=== PATIENT | male | born 1955 | race Caucasian/White ===

== ENCOUNTER 2019-04-08 13:21 | Inpatient (IN) | payer OTHER, SELFPAY ==
[2019-04-08] VITALS (14 sets, daily range): BP systolic 87–111; BP diastolic 52–83; PULSE 72–84; RESP 16–24; TEMP 35.9–37.1; O2SAT 92–99; BMI 42.3; BMI 43.8
--- NOTE | 2019-04-08 13:59 | RAD_ITS ---
STUDY: X-RAY CHEST REASON FOR EXAM: Male, 63 years old. Cough TECHNIQUE: AP COMPARISON: None. FINDINGS: EKG leads project over the chest. The lungs are clear and expanded. There is no demonstrated pleural abnormality. Normal size heart. Normal mediastinum and jeffrey. Normal visualized pulmonary arteries. Normal visualized aortic arch and descending thoracic aorta. Normal visualized thoracic spine. There are degenerative changes of the left shoulder. There is no demonstrated abnormality of the visualized soft tissue structures of the upper abdomen. RAD/Chest 1 View (Portable) IMPRESSION: No acute cardiopulmonary process. Electronically Signed: Dominic Perla MD (Brooks) at 14:55 EDT , Service support ,
--- NOTE | 2019-04-08 13:59 | EKG12_ITS ---
Test Reason : CELLULITIS Blood Pressure : / mmHG Vent. Rate : 082 BPM Atrial Rate : 082 BPM P-R Int : 224 ms QRS Dur : 084 ms QT Int : 356 ms P-R-T Axes : 069 020 046 degrees QTc Int : 415 ms Sinus rhythm with 1st degree A-V block Otherwise normal ECG Confirmed by TY MCKENZIE, SUNSHINE ([id number]), online editor ALCIRA PULLIAM ([id number]) on 04/13/2019 10:18:56 AM Referred By: Confirmed By:SUNSHINE CRAWFORD MD
--- NOTE | 2019-04-08 14:01 | RAD_ITS ---
STUDY: X-RAY - RIGHT FOOT CLINICAL: Male, 63 years old. Right foot pain with wound TECHNIQUE: 3 view(s) of the foot. COMPARISON: None. FINDINGS: Calcaneal spur identified. Degenerative changes of the tibiotalar articulation, subtalar joint and dorsal midfoot articulations identified. Normal metatarsi. There is degenerative arthrosis of the metatarsophalangeal joint of the hallux . Normal tibial and fibular sesamoid bones. There is degenerative arthrosis of the interphalangeal joint of the great toe. Normal phalanges of the great toe. Normal second through fifth metatarsophalangeal joints. Normal interphalangeal joints and phalanges of the lesser toes. There is diffuse soft tissue swelling of the forefoot, medial more than lateral. There are punctate densities involving the first through third toes could represent superficial debris (based on lateral view). RAD/Foot min 3 Views IMPRESSION: 1. No fabi bony destructive process. Soft tissue swelling of the medial or the lateral foot. 2. Superficial debris of the distal plantar foot/toes. 3. Multifocal degenerative changes. Electronically Signed: Dominic Perla MD (Brooks) at 14:56 EDT , Service support ,
[2019-04-08 14:18] LABS: Absolute Lymphocyte Count 0.72 X10^3/uL (0.83-4.51); Absolute Neutrophil Count 13.7 X10^3/uL (2.0-7.7); Basophil# 0.06 X10^3/uL; Basophil% 0.4 % (0-1); Eosinophil# 0.02 X10^3/uL; Eosinophils% 0.1 % (0-5); Hematocrit 35.6 % (40-54); Hemoglobin 11.8 g/dL (13.0-16.5); Lymphocyte # 0.72 X10^3/ul (4.0); Lymphocyte % 4.5 % (19-41); Mean Corp Hgb Conc 33.1 g/dL (32-36); Mean Corpuscular Hgb 29.7 pg (27.0-32.0); Mean Corpuscular Volume 89.7 fL (80-94); Mean Platelet Vol. 9.6 fl (6.2-12.0); Monocyte# 1.38 X10^3/uL; Monocyte% 8.6 % (0-10); NRBC Flagged by Analyzer 0 % (0-5); Neutrophil # 13.74 X10^3/uL (2.7-7.7); POSITIVE MORPHOLOGY YES; Platelet Count 415 K/mm3 (150-450); RBC Distribution Width CV 12.3 % (11.6-14.6); RBC Distribution Width SD 40.7 fl (35.1-43.9); Red Blood Count 3.97 M/mm3 (4.6-6.2)
[2019-04-08 14:21] LABS: Differential Indicated SCAN CRITERIA MET
[2019-04-08 14:25] LABS: International Normalized Ratio 1.2; Prothrombin Time (Protime)PT. 14.5 SECONDS (11.7-14.9)
[2019-04-08 14:26] LABS: Partial Thromboplast Time 46.4 Seconds (24.1-36.2)
[2019-04-08] MEDS: 0.9% Normal Saline 1,000 ML 999 ML IV ×3 (14:30→16:11)
[2019-04-08 14:33] LABS: ALB/GLOB Ratio 0.4 RATIO (0.9-2.4); AST(SGOT) 20 U/L (15-37); Alanine Aminotransfer ALT/SGPT 30 U/L (16-61); Alkaline Phosphatase 178 U/L (45-117); Anion Gap 7 (5-15); BUN 25 mg/dL (7-18); BUN/Creat Ratio 19.2 RATIO (10-20); Calcium,Total 8.2 mg/dL (8.5-10.1); Chloride 100 mmol/L (98-107); EST Glomerular Filtration Rate 59 mL/min (>60); Est Glom Filt Rate - Afr Amer 72 mL/min (>60); Estimated Creatinine Clearance 60.05 ml/min; Globulin 4.6 g/dL (2.2-4.2); Glucose 241 mg/dL (74-106); Potassium 3.3 mmol/L (3.5-5.1); Protein, Total 6.6 g/dL (6.4-8.2); Sodium Level 136 mmol/L (136-145)
[2019-04-08 15:02] LABS: Lactic Acid 1.6 mmol/L (0.4-2.0)
--- NOTE | 2019-04-08 15:48 | ED.VISSUMM ---
- ER Visit Summary Date of Service: 04/08/19 Chief Complaint: Pain and swelling to his right great toe History of Present Illness: The patient is a 63 M who presents with pain and swelling to his right great toe that is been getting progressively worse over the past week. Patient describes the pain as aching and burning. Patient states the pain is worse with palpation. Patient does admit to some dizziness. Patient states his work will not allow him time off to see his doctor for this. Patient admits to some nausea but denies any vomiting. Patient admits to a cough but denies any sputum production. Patient denies any headaches. Physical Examination: Vital signs showed a blood pressure of 87/52 and a temperature of 96.6. The remaining vital signs were normal. Patient is in no acute distress. Oral mucosa is pink and moist. Neck is supple. Trachea is midline. There is no JVD noted. Heart was regular rate and rhythm. Lungs are clear and equal bilaterally. Abdomen is soft and nontender. Extremities are intact. There is erythema and warmth over the right great toe. There is a large blister noted over the right great toe. Sensation was diminished in the right great toe compared to the other toes. Pedal pulses are equal bilaterally. Test Results: EKG showed first-degree AV block with a rate of 82. There are no acute ST or T wave changes. Portable chest x-ray does not show any acute cardiopulmonary process. X-rays of the right foot were obtained. There is soft tissue swelling but no evidence of osteomyelitis. CBC shows a mild leukocytosis of 16.0. Glucose was 241. Potassium was slightly low at 3.3. Lactate was normal at 1.6. Emergency Department Course and Treatment: Patient was given a 30 cc/kg bolus of normal saline. Patient was given a dose of clindamycin here. Patient's blood pressure improved after fluid bolus. Patient was given morphine. Patient is agreeable to admission. Case was discussed with the hospitalist. She will be in to evaluate the patient and will admit the patient to the hospital. Disposition: Admit to hospital Impression: 1. Cellulitis right foot 2. Sepsis This note was generated with [employer] dictation software. It may contain incorrect words, spelling, and punctuation that were not noted in review of the chart prior to signing ED Disposition - Plan for ED Patient: Disposition: Acute Care Hospital [facility] Diagnosis: Cellulitis of right foot, Sepsis Referrals: Care Physician,No Primary [Primary Care Provider] -
--- NOTE | 2019-04-08 16:18 | PCM.HP.STD ---
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: without [facility] use Diabetes mellitus complication status: without complication Qualified Code(s): E11.9 - Type 2 diabetes mellitus without complications (3) Morbid obesity Status: Chronic (4) ENEIDA (obstructive sleep apnea) Status: Chronic (5) Cellulitis of right foot Status: Acute (6) Sepsis Status: Acute Qualifiers: Sepsis type: sepsis due to unspecified organism Sepsis acute organ dysfunction status: without acute organ dysfunction Qualified Code(s): A41.9 - Sepsis, unspecified organism History of Present Illness Date of Admission: 04/08/19 Chief Complaint: Right lower leg redness - 6 days The patient is a 63 year old M with past medical history of hypertension, type II DM, not on insulin, morbid obesity, ENEIDA on CPAP who comes in with complaints of right lower extremity swelling and erythema ongoing for 6 days. Patient admits to having had an Achilles tendon rupture 8 months ago. 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 He stepped done on 9 on even surface of the road during construction and felt a pop and subsequently was diagnosed with Achilles tendon rupture. At that time a Doppler ultrasound was negative for acute clot. He has been managing his injury conservatively. Since his rupture, he has noticed swelling of his right lower leg. He is supposed to wear steel toed boots, and has been complaining about leg swelling in his toes rubbing against the steel toes. Over the last 6 days he noticed more swelling and erythema of his lower extremity. He denied any fever or chills or chest pain or dizziness or palpitations. He does not wear oxygen at home. He decided to come to the hospital today. Vitals in the ED showed temperature of 96.6F, heart rate blood pressure was 87/52, respiratory rate was 16, SPO2 was 94% on room air. His blood pressure later improved to 111/58. His admitting WBC count was 16.0, hemoglobin 11.8, platelet 415, INR 1.2, APTT 46.4, sodium 136, potassium 3.3, BUN 25, creatinine 1.30, HbA1c 12.2, lactic acid 1.6, P unremarkable except for ALP of 178, albumin 2.0, BNP of 156.4. Chest X-ray shows no acute cardiopulmonary process. X-ray of the foot shows no fabi bony destructive process. Soft tissue swelling of the fourth, superficial debris of the distal plantar toes, multifocal degenerative changes. Past Medical History Past Medical History (Chronic Problems): Chronic Problems Hypertension (Chronic) DM type 2 (diabetes mellitus, type 2) (Chronic) Morbid obesity (Chronic) ENEIDA (obstructive sleep apnea) (Chronic) Allergies Penicillins [PCN] Allergy (Verified 04/08/19 13:23) Other Sulfa (Sulfonamide Antibiotics) Allergy (Verified 04/08/19 13:23) Other Home Medications: Ambulatory Orders Medication Instructions Recorded Amlodipine [Norvasc] 10 mg PO DAILY 04/08/19 Carvedilol 12.5 mg PO DAILY 04/08/19 Glimepiride 4 mg PO DAILY 04/08/19 Hydrochlorothiazide [Hctz] 25 mg PO DAILY 04/08/19 Metformin HCl 1,000 mg PO BID 04/08/19 Ramipril 10 mg PO QHS 04/08/19 Surgical History: total hip arthroplasty - right hip replacement Psychiatric History: No pertinent psych hx Lives: With Family Smoking Status: Former smoker Tobacco Use: Cigarettes Alcohol: None Drugs: None - *Family History Maternal History Items: No pertinent history Paternal History Items: No pertinent history Review of Systems Constitutional: Denies: Anorexia, Chills, Fever, Night Sweats, Malaise, Weakness, Weight Change, Fatigue Eyes: Denies: Blurred vision, Cataracts, Conjunctivae Inflammation, Pain, Redness HEENT: Denies: Difficulty Hearing, Difficulty Swallowing, Head Aches, Hearing Changes, Sinus Congestion, Sinus Drainage Cardiovascular: Denies: Chest Pain, Palpitations Respiratory: Denies: Cough, Hemoptysis, Shortness of breath at rest, Shortness of breath upon exertion, Sputum production Gastrointestinal: Denies: Abdominal Pain, Constipation, Hematemesis, Nausea, Vomiting Genitourinary: Denies: Dysuria, Incontinence, Nocturia Musculoskeletal: Reports: - - Right foot and leg swelling. Denies: Joint Pain, Joint stiffness, Joint swelling, Joint Tenderness Skin: Denies: Dryness, Pruritis, Rash, Wounds Neurological: Denies: Balance problems, Difficulty swallowing, Focal weakness, Numbness, Tingling Psychiatric: Denies: Anxiety, Depression, Homicidal Ideations, Suicidal Ideations Hematologic/ Lymphatic: Denies: Easy Bruising, Easy Bleeding VTE Information - Inpt Only VTE Present on Admission: No VTE Pharm Prophylaxis ordered?: Yes Patient Problems: Active and Suspected Problems Cellulitis of right foot (Acute) Sepsis (Acute) - Physical Exam General: Alert, Oriented x3, Cooperative, No apparent distress, - - on 2L intranasal oxygen, morbidly obese HEENT: Atraumatic, PERRLA, EOMI, Normocephalic Oral: Moist Mucosa Neck: Supple Lungs: Normal air movement, Diminished Cardiovascular: Regular rate, Regular Rhythm, Normal S1, Normal S2 Abdomen: Bowel Sounds Present, Soft, Non Tender, Non-Distended, No Hepato-splenomegaly Extremities: Edema - Bilateral leg edema +4 in the right leg, +3 in the left leg, Right leg: Erythema of the foot up to proximal 2/3 third of the leg, tender to touch, right leg looks bigger than the left; blister distal phalange of the right 1st toe. Left leg: Chronic venous stasis hyperpigmentation Skin: No rashes, No breakdown Musculoskeletal: No Tenderness to Palpation of Joints or Extremities Lymphatic: No Cervical, Supraclavicular, or Inguinal Adenopathy Neurological: Cranial nerves II-XII grossly intact, Neuro grossly intact Psych/Mental Status: Normal Affect, Appropriate Vital Signs Temp Pulse Resp BP Pulse Ox 98.7 F 80 22 H 111/58 L 97 04/08/19 15:56 04/08/19 16:13 04/08/19 16:13 04/08/19 16:13 04/08/19 16:13 Oxygen Flow Rate (L/min) 2 Oxygen Delivery Method Nasal Cannula Weight: 133.81 kg Body Mass Index (BMI) 42.3 Intake and Output for Last 24 Hours 04/06/19 04/07/19 04/08/19 23:59 23:59 23:59 Intake Total 1183.15 / 1183.15 Balance 1183.15 / 1183.15 Laboratory Tests Past 24 Hrs 04/08/19 04/08/19 04/08/19 10:40 10:40 10:40 WBC 16.0 H RBC 3.97 L Hgb 11.8 L Hct 35.6 L MCV 89.7 MCH 29.7 MCHC 33.1 RDW Std Deviation 40.7 RDW Coeff of Akila 12.3 Plt Count 415 MPV 9.6 Immature Gran % (Auto) 0.400 Neut % (Auto) 86.0 H Lymph % (Auto) 4.5 L Scre[place] % (Auto) 8.6 Eos % (Auto) 0.1 Baso % (Auto) 0.4 Absolute Neuts (auto) 13.7 H Absolute Lymphs (auto) 0.72 L Nucleated RBC % 0 PT 14.5 INR 1.2 APTT 46.4 H Sodium 136 Potassium 3.3 L Chloride 100 Carbon Dioxide 29.0 Anion Gap 7 BUN 25 H Creatinine 1.30 Estim Creat Clear Calc 60.05 Est GFR (MDRD) Af Amer 72 Est GFR (MDRD) Non-Af 59 L BUN/Creatinine Ratio 19.2 Glucose 241 H Lactic Acid Calcium 8.2 L Total Bilirubin 1.00 AST 20 ALT 30 Alkaline Phosphatase 178 H Total Protein 6.6 Albumin 2.0 L Globulin 4.6 H Albumin/Globulin Ratio 0.4 L 04/08/19 10:40 WBC RBC Hgb Hct MCV MCH MCHC RDW Std Deviation RDW Coeff of Akila Plt Count MPV Immature Gran % (Auto) Neut % (Auto) Lymph % (Auto) Screven % (Auto) Eos % (Auto) Baso % (Auto) Absolute Neuts (auto) Absolute Lymphs (auto) Nucleated RBC % PT INR APTT Sodium Potassium Chloride Carbon Dioxide Anion Gap BUN Creatinine Estim Creat Clear Calc Est GFR (MDRD) Af Amer Est GFR (MDRD) Non-Af BUN/Creatinine Ratio Glucose Lactic Acid 1.6 Calcium Total Bilirubin AST ALT Alkaline Phosphatase Total Protein Albumin Globulin Albumin/Globulin Ratio Assessment/Plan All Active Problems Cellulitis of right foot (Acute) Sepsis (Acute) 63 year old M with past medical history of hypertension, type II DM, not on insulin, morbid obesity, ENEIDA on CPAP who comes in with complaints of right lower extremity swelling and erythema ongoing for 6 days. 1. Sepsis secondary to right lower extremity cellulitis with blister of right distal phalange 1st toe Admitted with temperature of 96.6, elevated WBC count of 16.0. Lactic acid is 1.6, blood cultures are pending History of penicillin allergy in his childhood - unclear what allergy Started on IV clindamycin Plan: Admit to [facility], continue on IV clindamycin and vancomycin, elevate right lower extremity, Podiatry consult, repeat blood work in a.m. We will need to rule out DVT in the right lower extremity -doppler ultrasound stat, therapeutic Lovenox 2. Hypokalemia, K 3.3, replaced, recheck in am 3. Type II DM, blood sugars are uncontrolled, HbA1c is 12.2, Hold metformin Will continue with blood glucose checks with insulin sliding scale Patient would need to be started on long-acting insulin tomorrow depending on if podiatry wants surgery or not 4. Hypertension, blood pressure was relatively low initially in the ED, responsive to fluid, Controlled now, Hold hydrochlorothiazide and ramipril in the light of ongoing hemodynamic changes from sepsis Continue on amlodipine and carvedilol for now May need to have amlodipine switched if patient has no CHF 5. Probable CHF/right-sided failure/diastolic dysfunction, BNPep is 156.4 Patient is morbidly obese We will check to the echo 6. ENEIDA, on CPAP 7. Morbid obesity, BMI 43.8, diet and exercise is recommended 8. DVT prophylaxis with Lovenox therapeutic twice daily -may need to switch to prophylaxis dose and if no DVT present Code Visit Inpatient E&M: 82534 Init Hosp L3
[2019-04-08] MEDS: Morphine 4 MG/ML Syringe IV (16:19)
--- NOTE | 2019-04-08 17:59 | ECHOCS_ITS ---
Reason For Study: Dyspnea/SOB Procedure This was a 2D Doppler, Color Flow transthoracic echocardiogram. The study was technically difficult. Contrast injection was performed. Exam performed portable in patient room. Left Ventricle Normal LV size. Left ventricular systolic function is normal. The estimated ejection fraction is 65 %. Stage 2 diastolic dysfunction. No regional wall motion abnormalities noted. Atria The left atrium is mildly enlarged. Normal right atrium. Mitral Valve Normal mitral valve. Tricuspid Valve Normal tricuspid valve. Mild tricuspid valve insufficiency. Aortic Valve Trisinus/trileaflet aortic valve. Pulmonic Valve Normal pulmonic valve. Great Vessels Normal aortic root. The pulmonary artery is normal size. Normal inferior vena cava. Pericardium/Pleural No pericardial effusion. Medication Diluted definity 2ml given slow IV push to enhance endocardial definition. MMode/2D Measurements & Calculations LVIDd: 5.3 cm IVSd: 1.4 cm Ao root diam: 3.3 cm LVIDs: 3.0 cm LVPWd: 1.0 cm RVDd: 3.4 cm FS: 42.6 % LAV(MOD-bp): 66.3 ml LVAd ap4: 34.5 cm2 SV(MOD-sp4): 67.5 ml LAV(MOD-bp) Indexed: 26.6 ml/m2 EDV(MOD-sp4): 112.1 ml LAV(MOD-sp2): 48.5 ml EDV(sp4-el): 115.3 ml LAV(MOD-sp4): 74.0 ml LVAs ap4: 20.0 cm2 ESV(MOD-sp4): 44.6 ml ESV(sp4-el): 45.1 ml EF(MOD-sp4): 60.2 % EF(sp4-el): 60.9 % SV(sp4-el): 70.2 ml LA A4 area: 24.3 cm2 LA dimension(2D): 3.6 cm RA A4 area: 15.5 cm2 Doppler Measurements & Calculations MV E max johny: 112.9 cm/sec Lat Peak E' Johny: 10.0 cm/sec Med Peak E' Johny: 8.8 cm/sec MV A max johny: 66.4 cm/sec E/E' lat: 11.3 E/E' med: 12.9 MV E/A: 1.7 Ao V2 max: 127.5 cm/sec LV V1 max: 111.4 cm/sec PA V2 max: 78.9 cm/sec Ao max P.5 mmHg LV V1 max P.0 mmHg Ao V2 mean: 98.5 cm/sec Ao mean P.1 mmHg Ao V2 VTI: 20.5 cm TR max johny: 215.1 cm/sec TR max P.5 mmHg Interpretation Summary Normal LV size. Left ventricular systolic function is normal. The estimated ejection fraction is 65 %. Stage 2 diastolic dysfunction. Contrast injection was performed. Ordering Physician: Karis Franks Performed By: Laureen Bird RDCS, RVT
--- NOTE | 2019-04-08 18:13 | PCM.RX.CS ---
Consult Pharmacy has been consulted to manage selected antiobiotic: Vancomycin Type of Consult: New start Suspected Infection: Sepsis, Skin/Soft tissue Prior Doses of Antibiotics Received/Current Regimen: NONE Labs: Sodium 136 mmol/L (136-145) 04/08/19 10:40 Potassium 3.3 mmol/L (3.5-5.1) L 04/08/19 10:40 Chloride 100 mmol/L (98-107) 04/08/19 10:40 Carbon Dioxide 29.0 mmol/L (21.0-32.0) 04/08/19 10:40 Anion Gap 7 (5-15) 04/08/19 10:40 BUN 25 mg/dL (7-18) H 04/08/19 10:40 Creatinine 1.30 mg/dL (0.70-1.30) 04/08/19 10:40 Est GFR (MDRD) Af Amer 72 mL/min (>60) 04/08/19 10:40 Est GFR (MDRD) Non-Af 59 mL/min (>60) L 04/08/19 10:40 BUN/Creatinine Ratio 19.2 RATIO (-20) 04/08/19 10:40 Glucose 241 mg/dL (74-106) H 04/08/19 10:40 Weight used for dosin kg Estimated Creatinine Clearance: 61ML/MIN Goal Trough: 15-20 mcg/mL Pharmacy Plan for Drug Dosing: PLAN/RECOMMENDATIONS 1. Vancomycin initial dose 2000mg IV x1 04/08/19 @1900 2. Scheduled vancomycin 1500mg IV Q12hrs to start 04/09/19 @0700 3. Trough prior to 4th total dose 04/10/19 @0630 4. Pharmacy Service will continue to monitor and adjust dosing as required.
[2019-04-08] MEDS: 0.9% Normal Saline 1,000 ML 75 ML IV (18:18)
[2019-04-08 18:56] LABS: Hemoglobin A1c 12.2 % (4.2-6.3)
--- NOTE | 2019-04-08 19:07 | VDLE_ITS ---
Reason For Study: RLE swelling RIGHT GSV is normal. CFV is compressible, spontaneous, phasic, competent and demonstrates normal augmentation. FV is compressible, spontaneous, phasic, competent and demonstrates normal augmentation. POP V is compressible, spontaneous, phasic, competent and demonstrates normal augmentation. T/P Trunk is compressible. PTV is compressible. RT PerV is compressible. Procedure Exam performed portable in patient room. The study was technically difficult. Due to body habitus and below knee cellulits (tender to the touch). A preliminary report was called and/or faxed to [facility]. Interpretation Summary There is no evidence of right lower extremity deep vein thrombosis. Right great saphenous vein appears patent and compressible segmentally. Right groin 1.92 x 0.77cm lymph node Please note the described technical limitations of this exam Ordering Physician: Karis Franks Referring Physician: ALMA ROSA PCP Performed By: Shira Crockett, KRISTY, RVT
[2019-04-08] MEDS: oxyCODONE 5 MG Tablet PO (20:18)
[2019-04-08] MEDS: Acetaminophen 325 MG Tablet 650 MG PO (20:18)
[2019-04-08 20:34] LABS: BNP,B-Type NATRIURETIC PEPTIDE 156.4 pg/mL (0-100)
[2019-04-08 20:40] LABS: Bedside Glucose 201 mg/dL (70-110)
[2019-04-08] MEDS: Ipratropium/Albuterol Sulfate 3 ML AMPUL.NEB INHALATION (22:15)
[2019-04-08] MEDS: Enoxaparin 150 MG/ML Syringe 130 MG SC (22:48)
[2019-04-08] MEDS: Insulin Lispro 100 UNIT/ML INSULN.PEN SC (22:49)
[2019-04-08 23:16] LABS: Bedside Glucose 307 mg/dL (70-110)
[2019-04-09] VITALS (27 sets, daily range): BP systolic 90–135; BP diastolic 56–74; PULSE 73–94; RESP 12–32; TEMP 36.4–38.6; O2SAT 86–96
[2019-04-09 01:27] LABS: Color, Urine Amber (Yellow); Glucose, Dipstick Normal (Normal); Ketone-Dipstick 5 mg/dl (Negative); Leukocyte Esterase-Dipstick 500 /ul (Negative); Mucous, Urine 0 SEEN /hpf (<or=2+); Nitrite-Dipstick Negative (Negative); Occult Blood-Urine 25 /ul (Negative); Protein-Dipstick 100 mg/dl (Negative); Red Blood Cells-Urine 0 SEEN /hpf (0-5); Specific Gravity, Urine 1.025 (1.002-1.030); Squamous Epithelial Cells - UA 0 SEEN /hpf (0-5); Urine Clarity Cloudy (Clear); Urine Urobilinogen 8 mg/dl (Normal)
[2019-04-09 01:32] LABS: Urine Bilirubin Dipstick 3 mg/dL (Negative)
[2019-04-09 01:35] LABS: Bacteria 4+ /hpf (None Seen); White Blood Cells >100 SEEN /hpf (0-5)
[2019-04-09 01:42] LABS: Coarse Granular Cast 0-5 SEEN /lpf (0-5 /lpf); Waxy Cast-Urine 5-10 SEEN /lpf (None Seen)
[2019-04-09 06:05] LABS: Absolute Lymphocyte Count 0.86 X10^3/uL (0.83-4.51); Absolute Neutrophil Count 14.5 X10^3/uL (2.0-7.7); Basophil# 0.05 X10^3/uL; Basophil% 0.3 % (0-1); Eosinophil# 0.01 X10^3/uL; Eosinophils% 0.1 % (0-5); Hematocrit 32.8 % (40-54); Hemoglobin 10.5 g/dL (13.0-16.5); Lymphocyte # 0.86 X10^3/ul (4.0); Lymphocyte % 5.1 % (19-41); Mean Corpuscular Hgb 29.5 pg (27.0-32.0); Mean Corpuscular Volume 92.1 fL (80-94); Mean Platelet Vol. 10.4 fl (6.2-12.0); Monocyte# 1.38 X10^3/uL; Monocyte% 8.2 % (0-10); NRBC Flagged by Analyzer 0 % (0-5); Neutrophil # 14.52 X10^3/uL (2.7-7.7); Neutrophil % 85.8 % (47-70); Platelet Count 293 K/mm3 (150-450); RBC Distribution Width CV 12.9 % (11.6-14.6); RBC Distribution Width SD 43.3 fl (35.1-43.9); Red Blood Count 3.56 M/mm3 (4.6-6.2); White Blood Count 16.9 K/mm3 (4.4-11.0)
[2019-04-09] MEDS: Insulin Lispro 100 UNIT/ML INSULN.PEN SC ×3 (06:30→16:24)
[2019-04-09 06:33] LABS: ALB/GLOB Ratio 0.4 RATIO (0.9-2.4); AST(SGOT) 41 U/L (15-37); Alanine Aminotransfer ALT/SGPT 48 U/L (16-61); Albumin, Serum 1.8 g/dL (3.2-5.0); Alkaline Phosphatase 205 U/L (45-117); Anion Gap 8 (5-15); BUN 32 mg/dL (7-18); Calcium,Total 7.9 mg/dL (8.5-10.1); Chloride 100 mmol/L (98-107); Creatinine, Serum 2.14 mg/dL (0.70-1.30); EST Glomerular Filtration Rate 33 mL/min (>60); Est Glom Filt Rate - Afr Amer 40 mL/min (>60); Estimated Creatinine Clearance 36.48 ml/min; Globulin 4.9 g/dL (2.2-4.2); Glucose 266 mg/dL (74-106); Protein, Total 6.7 g/dL (6.4-8.2); Sodium Level 131 mmol/L (136-145)
[2019-04-09 07:06] LABS: Bedside Glucose 240 mg/dL (70-110)
[2019-04-09] MEDS: Ipratropium/Albuterol Sulfate 3 ML AMPUL.NEB INHALATION ×4 (07:35→19:25)
--- NOTE | 2019-04-09 07:56 | NURSING ---
wound photo: right great toe
--- NOTE | 2019-04-09 07:57 | NURSING ---
wound photo: right lower leg
[2019-04-09] MEDS: 0.9% Normal Saline 1,000 ML 150 ML IV ×2 (10:40→16:26)
[2019-04-09] MEDS: Enoxaparin 150 MG/ML Syringe 130 MG SC ×2 (10:43→21:59)
[2019-04-09] MEDS: oxyCODONE 5 MG Tablet PO (11:00)
[2019-04-09 11:16] LABS: Bedside Glucose 194 mg/dL (70-110)
--- NOTE | 2019-04-09 11:28 | PN_ITS ---
Patient Problems: Active and Suspected Problems Cellulitis of right foot (Acute) Sepsis (Acute) Subjective: Follow-up sepsis secondary to right lower extremity cellulitis Patient is a 63-year-old gentleman with multiple comorbidities including diabetes mellitus type 2 morbid obesity with BMI of 43 who presented with erythema and swelling involving the right lower extremity with blistering of the tip of the first right toe. An assessment of sepsis secondary to cellulitis made admitted to the regular nursing floor for further management Objective: GENERAL: cooperative HEENT: Atraumatic; EYES; Anicteric, Normal Conjunctiva NECK; supple, normal thyroid, RESPIRATORY: Diminished to auscultation CARDIOVASCULAR: Regular S1 S2, GI: soft, non-tender, normoactive bowel sounds, : No Renal angle tenderness; EXTREMITIES: Significant erythema involving the anterior right lower extremity with blistering involving the toe MUSCULOSKELETAL: No Joint Tenderness; NEURO: Awake; no lateralizing signs. SKIN: As described above PSYCH; Normal affect Vitals/I&O's: Vital Signs Temp Pulse Resp BP Pulse Ox 99.4 F H 88 24 H 114/74 92 04/09/19 10:49 04/09/19 10:49 04/09/19 10:49 04/09/19 10:49 04/09/19 10:49 Oxygen Flow Rate (L/min) 5 Oxygen Delivery Method Nasal Cannula Weight: 138.572 kg Body Mass Index (BMI) 43.8 Intake and Output for Last 24 Hours 04/07/19 04/08/19 04/09/19 23:59 23:59 23:59 Intake Total 2270.20 / 2570.20 1136 / 1136 Output Total 100 / 100 Balance 2270.20 / 2470.20 1036 / 1036 Laboratory Results 04/08/19 10:40: WBC 16.0 H, RBC 3.97 L, Hgb 11.8 L, Hct 35.6 L, MCV 89.7, MCH 29.7, MCHC 33.1, RDW Std Deviation 40.7, RDW Coeff of Akila 12.3, Plt Count 415, MPV 9.6, Immature Gran % (Auto) 0.400, Neut % (Auto) 86.0 H, Lymph % (Auto) 4.5 L, [place] % (Auto) 8.6, Eos % (Auto) 0.1, Baso % (Auto) 0.4, Absolute Neuts (auto) 13.7 H, Absolute Lymphs (auto) 0.72 L, Nucleated RBC % 0 04/08/19 10:40: PT 14.5, INR 1.2, APTT 46.4 H 04/08/19 10:40: Sodium 136, Potassium 3.3 L, Chloride 100, Carbon Dioxide 29.0, Anion Gap 7, BUN 25 H, Creatinine 1.30, Estim Creat Clear Calc 60.05, Est GFR (MDRD) Af Amer 72, Est GFR (MDRD) Non-Af 59 L, BUN/Creatinine Ratio 19.2, Glucose 241 H, Calcium 8.2 L, Total Bilirubin 1.00, AST 20, ALT 30, Alkaline Phosphatase 178 H, Total Protein 6.6, Albumin 2.0 L, Globulin 4.6 H, Albumin/Globulin Ratio 0.4 L 04/08/19 10:40: Lactic Acid 1.6 04/08/19 10:40: Hemoglobin A1c 12.2 H 04/08/19 18:26: POC Glucose 201 H 04/08/19 18:42: B-Natriuretic Peptide 156.4 H 04/08/19 22:44: POC Glucose 307 H 04/09/19 01:15: Urine Color Lucy, Urine Clarity Cloudy, Urine pH 5.0, Ur Specific [place] 1.025, Urine Protein 100 H, Urine Glucose (UA) Normal, Urine Ketones 5 H, Urine Occult Blood 25 H, Urine Nitrite Negative, Urine Bilirubin 3 H, Urine Urobilinogen 8 H, Ur Leukocyte Esterase 500 H, Urine RBC 0 SEEN, Urine WBC >100 SEEN, Ur Squamous Epith Cells 0 SEEN, Urine Bacteria 4+, Coarse Granular Casts 0-5 SEEN, Waxy Casts 5-10 SEEN H, Urine Mucus 0 SEEN 04/09/19 05:38: WBC 16.9 H, RBC 3.56 L, Hgb 10.5 L, Hct 32.8 L, MCV 92.1, MCH 29.5, MCHC 32.0, RDW Std Deviation 43.3, RDW Coeff of Akila 12.9, Plt Count 293, MPV 10.4, Immature Gran % (Auto) 0.500, Neut % (Auto) 85.8 H, Lymph % (Auto) 5.1 L, [place] % (Auto) 8.2, Eos % (Auto) 0.1, Baso % (Auto) 0.3, Absolute Neuts (auto) 14.5 H, Absolute Lymphs (auto) 0.86, Nucleated RBC % 0 04/09/19 05:38: Sodium 131 L, Potassium 4.0, Chloride 100, Carbon Dioxide 23.0, Anion Gap 8, BUN 32 H, Creatinine 2.14 H, Estim Creat Clear Calc 36.48, Est GFR (MDRD) Af Amer 40 L, Est GFR (MDRD) Non-Af 33 L, BUN/Creatinine Ratio 15.0, Glucose 266 H, Calcium 7.9 L, Total Bilirubin 0.50, AST 41 H, ALT 48, Alkaline Phosphatase 205 H, Total Protein 6.7, Albumin 1.8 L, Globulin 4.9 H, Albumin/Globulin Ratio 0.4 L 04/09/19 06:28: POC Glucose 240 H 04/09/19 10:34: POC Glucose 194 H Current Medications Acetaminophen (Tylenol) 650 mg PO Q6H PRN PRN PRN Reason: Mild Pain (1-3)/Temp > 100.7 F Last Admin: 04/08/19 20:18 Dose: 650 mg Documented by: Albuterol/Ipratropium (Duoneb) 3 ml INHALATION Q4HWA.RT [facility] Last Admin: 04/09/19 07:35 Dose: 3 ml Documented by: Amlodipine Besylate (Norvasc) 10 mg PO DAILY [facility] Last Admin: 04/09/19 10:41 Dose: Not Given Documented by: Carvedilol (Coreg) 12.5 mg PO DAILY [facility] Last Admin: 04/09/19 10:41 Dose: Not Given Documented by: Dextrose (D50w Syringe) 0 gm IV X1 PRN; Protocol PRN Reason: Hypoglycemia Enoxaparin Sodium (Lovenox) 130 mg SC Q12 [facility] Last Admin: 04/09/19 10:43 Dose: 130 mg Documented by: Glucagon () 1 mg IM .X1 PRN PRN Reason: Hypoglycemia Hydralazine HCl (Apresoline Iv) 5 mg IV Q6H PRN PRN PRN Reason: BLOOD PRESSURE Clindamycin Phosphate 900 mg/ (Dextrose) 106 mls @ 150 mls/hr IV Q8 [facility] Last Infusion: 04/09/19 07:07 Dose: Infused Documented by: Vancomycin IV Pharmacy to Dose (1 ea/ Sodium Chloride) 500 mls @ 250 mls/hr IV PRN PRN; Protocol PRN Reason: Rx to Dose Vancomycin HCl 1,500 mg/ (Sodium Chloride) 530 mls @ 250 mls/hr IV Q12H [facility] Last Infusion: 04/09/19 09:45 Dose: Infused Documented by: Sodium Chloride () 1,000 mls @ 150 mls/hr IV .Q6H40M [facility] Last Admin: 04/09/19 10:40 Dose: 150 mls/hr Documented by: Insulin Human Lispro (Humalog Kwikpen (Bkc)) 0 unit SC ACHS [facility]; Protocol Last Admin: 04/09/19 10:43 Dose: 1 u Documented by: Magnesium Hydroxide (Milk Of Magnesia) 30 ml PO DAILY PRN PRN PRN Reason: Constipation Morphine Sulfate () 2 mg IV Q3H PRN PRN PRN Reason: Severe pain (7-10/10) Ondansetron HCl (Zofran) 4 mg IV Q8H PRN PRN PRN Reason: NAUSEA/VOMITING Oxycodone HCl (Oxyir) 5 mg PO Q4H PRN PRN PRN Reason: Moderate Pain (4-6/10) Last Admin: 04/09/19 11:00 Dose: 5 mg Documented by: STROKE Vital Signs/Narrative: Vital Signs Temp Pulse Resp BP Pulse Ox 04/09/19 10:49 99.4 F H 88 24 H 114/74 92 04/09/19 08:55 99.5 F H 78 25 H 106/60 92 04/09/19 07:35 82 24 H 96 Medical Necessity - Tobacco Use Smoking Status: Never smoker Tobacco Use: Cigarettes Assessment/Plan All Active Problems Cellulitis of right foot (Acute) Sepsis (Acute) Patient is a 63-year-old gentleman with multiple comorbidities including diabetes mellitus type 2 morbid obesity with BMI of 43 who presented with erythema and swelling involving the right lower extremity with blistering of the tip of the first right toe. An assessment of sepsis secondary to cellulitis made admitted to the regular nursing floor for further management 1. Sepsis secondary to extensive cellulitis involving the right lower extremity. Admitted to regular nursing floor patient was treated with clindamycin and vancomycin (patient is allergic to penicillin). Consult was also placed to podiatry medicine. Patient still has significant erythema and swelling involving the right lower extremities 2. Kidney injury ?Patient kidney function did worsen with creatinine rising to 2.14 from an admission level of 1.3. IV fluids initiated consult placed to nephrology 3. Diabetes mellitus type II ~Controlled/uncontrolled, patient's oral hypoglycemics held. Placed on long acting insulin, Accu-Cheks a.c. and at bedtime and covered with sliding scale insulin 4. Hypokalemia corrected per protocol Acute kidney injury 5. Obstructive sleep apnea ?Patient is on CPAP 6. Essential hypertension - Patient blood pressure was low on admission antihypertensives subsequently held 7. Chronic diastolic heart failure with preserved ejection fraction ?Currently not in exacerbation 7. Morbid obesity, BMI 43.8, -diet and exercise is recommended 8. DVT prophylaxis ?Patient was placed on therapeutic Lovenox pending results of venous duplex ordered on admission Active Medications Acetaminophen (Tylenol) 650 mg PO Q6H PRN PRN PRN Reason: Mild Pain (1-3)/Temp > 100.7 F Last Admin: 04/08/19 20:18 Dose: 650 mg Documented by: Albuterol/Ipratropium (Duoneb) 3 ml INHALATION Q4HWA.RT [facility] Last Admin: 04/09/19 11:28 Dose: 3 ml Documented by: Amlodipine Besylate (Norvasc) 10 mg PO DAILY [facility] Last Admin: 04/09/19 10:41 Dose: Not Given Documented by: Carvedilol (Coreg) 12.5 mg PO DAILY [facility] Last Admin: 04/09/19 10:41 Dose: Not Given Documented by: Dextrose (D50w Syringe) 0 gm IV X1 PRN; Protocol PRN Reason: Hypoglycemia Enoxaparin Sodium (Lovenox) 130 mg SC Q12 [facility] Last Admin: 04/09/19 10:43 Dose: 130 mg Documented by: Glucagon () 1 mg IM .X1 PRN PRN Reason: Hypoglycemia Hydralazine HCl (Apresoline Iv) 5 mg IV Q6H PRN PRN PRN Reason: BLOOD PRESSURE Clindamycin Phosphate 900 mg/ (Dextrose) 106 mls @ 150 mls/hr IV Q8 [facility] Last Infusion: 04/09/19 07:07 Dose: Infused Documented by: Vancomycin IV Pharmacy to Dose (1 ea/ Sodium Chloride) 500 mls @ 250 mls/hr IV PRN PRN; Protocol PRN Reason: Rx to Dose Vancomycin HCl 1,500 mg/ (Sodium Chloride) 530 mls @ 250 mls/hr IV Q12H [facility] Last Infusion: 04/09/19 09:45 Dose: Infused Documented by: Sodium Chloride () 1,000 mls @ 150 mls/hr IV .Q6H40M [facility] Last Admin: 04/09/19 10:40 Dose: 150 mls/hr Documented by: Insulin Human Lispro (Humalog Kwikpen (Bkc)) 0 unit SC ACHS [facility]; Protocol Last Admin: 04/09/19 10:43 Dose: 1 u Documented by: Magnesium Hydroxide (Milk Of Magnesia) 30 ml PO DAILY PRN PRN PRN Reason: Constipation Morphine Sulfate () 2 mg IV Q3H PRN PRN PRN Reason: Severe pain (7-10/10) Ondansetron HCl (Zofran) 4 mg IV Q8H PRN PRN PRN Reason: NAUSEA/VOMITING Oxycodone HCl (Oxyir) 5 mg PO Q4H PRN PRN PRN Reason: Moderate Pain (4-6/10) Last Admin: 04/09/19 11:00 Dose: 5 mg Documented by: Clinical Impression(s) from Imaging Studies Chest X-Ray 04/08/19 13:59 IMPRESSION: No acute cardiopulmonary process. Electronically Signed: Dominic Perla MD ([place]) at 14:55 EDT , Service support , Foot X-Ray 04/08/19 14:01 IMPRESSION: 1. No fabi bony destructive process. Soft tissue swelling of the medial or the lateral foot. 2. Superficial debris of the distal plantar foot/toes. 3. Multifocal degenerative changes. Electronically Signed: Dominic Perla MD ([place]) at 14:56 EDT , Service support , Code Visit Inpatient E&M: 14705 Subs Hosp L3
--- NOTE | 2019-04-09 12:16 | CASEMGMT ---
RN CM Assessment Introduced role of RN CM to patient.? Patient is alert, oriented and able?to participate in RN CM Assessment. Patient seems slightly drowsy during conversation and feels like he is not thinking clearly or having a difficult time explaining question responses d/t current illness.?Care providers, pharmacy, and demographics verified. Presentation: Pain and swelling to Rt great toe, progressively worse over the past week. 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 PCP: PCP in [place]- name Ronnell but cannot remember last name. States that he does not see him much but is able to f/u with him. States that pcp does not address issues appropriately when he does see him. Specialists: None Preferred Pharmacy: None Insurance: [employer] Benefit:?Believes he has coverage ?LNOK: Dtr Loretta Vásquez LW/HPOA: None, declines offered information or services on this admission. Made aware to notify staff if he changes his mind and made aware can come as an outpatient to complete if he wants. Living Arrangements:?Lives with son in a mulit-story home in [place]. Bedroom on [address] [address]. 4-5 steps to enter home. ADL?s: Independent with ambulation and ADLs Transportation: Patient drives DME: Glucometer, CPAP HHC: None SNF: None Goal: States wants to feel better so that he can get back to work. States he is open to SNF if recommended or if stable from hospital but still not feeling well as he is living out of his work truck currently, wants to feel better before transition back to work. Denies any issues, questions, or concerns with DC planning at this time. Aware CM remains available for any emerging needs. DC PLAN: SNF vs Back to work/regional truck driver/staying in truck. Possible O2 need on DC, Possible IV abx. Iván Vivas RNCM
--- NOTE | 2019-04-09 13:00 | NURSING ---
pt states he wants to wait to take pain meds.
--- NOTE | 2019-04-09 15:53 | CON.PCM_ITS ---
Problem List (1) RUSS (acute kidney injury) Status: Acute (2) Hyponatremia Status: Acute Consultation - Renal PCP/ Referring MD: Requesting physician: [] Primary care physician: No Primary Care Phys - History of Present Illness History of Present Illness: The patient is a 63 year old M with PMH of hypertension, type II DM, morbid obesity, ENEIDA on CPAP. Pt presented with worsening RLE pain, redness and swelling. Pt was found to have hypotension in ED. Pt was given 4 L of NS. Pt was admitted with sepsis related to RLE cellulitis. Pt is being treated with Vancomycin and Clindamycin for cellulitis. Cr increased to 2.1 mg/dL from 1.3 mg/dL which prompted renal consult. pt said his UOP has dropped since admission. denied urinary urgency Pt said he has been taking advil 4-8 tabs daily for the last 3-4 days. home HCTZ and ramipril were held. Pt is currently on NS at 150 cc /hour . Pt is wearing CPAP No IV contrast exposure. ROS: 12 systems review is negative except some SOB, RLE pain and decreased UOP [] - Allergies Allergies: Allergies Penicillins [PCN] Allergy (Verified 04/08/19 13:23) Other Sulfa (Sulfonamide Antibiotics) Allergy (Verified 04/08/19 13:23) Other - Current Medications Current Medications: Current Medications Acetaminophen (Tylenol) 650 mg PO Q6H PRN PRN PRN Reason: Mild Pain (1-3)/Temp > 100.7 F Last Admin: 04/08/19 20:18 Dose: 650 mg Documented by: Albuterol/Ipratropium (Duoneb) 3 ml INHALATION Q4HWA.RT [facility] Last Admin: 04/09/19 15:44 Dose: 3 ml Documented by: Carvedilol (Coreg) 12.5 mg PO DAILY [facility] Last Admin: 04/09/19 10:41 Dose: Not Given Documented by: Dextrose (D50w Syringe) 0 gm IV X1 PRN; Protocol PRN Reason: Hypoglycemia Enoxaparin Sodium (Lovenox) 130 mg SC Q12 [facility] Last Admin: 04/09/19 10:43 Dose: 130 mg Documented by: Glucagon () 1 mg IM .X1 PRN PRN Reason: Hypoglycemia Hydralazine HCl (Apresoline Iv) 5 mg IV Q6H PRN PRN PRN Reason: BLOOD PRESSURE Clindamycin Phosphate 900 mg/ (Dextrose) 106 mls @ 150 mls/hr IV Q8 [facility] Last Infusion: 04/09/19 14:00 Dose: Infused Documented by: Vancomycin IV Pharmacy to Dose (1 ea/ Sodium Chloride) 500 mls @ 250 mls/hr IV PRN PRN; Protocol PRN Reason: Rx to Dose Vancomycin HCl 1,500 mg/ (Sodium Chloride) 530 mls @ 250 mls/hr IV Q12H [facility] Last Infusion: 04/09/19 09:45 Dose: Infused Documented by: Sodium Chloride () 1,000 mls @ 150 mls/hr IV .Q6H40M [facility] Last Infusion: 04/09/19 14:00 Dose: 150 mls/hr Documented by: Sodium Chloride () 250 mls @ 15 mls/hr IV .[id number] PRN PRN Reason: Saline Flush Insulin Human Lispro (Humalog Kwikpen (Bkc)) 0 unit SC ACHS [facility]; Protocol Last Admin: 04/09/19 10:43 Dose: 1 u Documented by: Magnesium Hydroxide (Milk Of Magnesia) 30 ml PO DAILY PRN PRN PRN Reason: Constipation Morphine Sulfate () 2 mg IV Q3H PRN PRN PRN Reason: Severe pain (7-10/10) Ondansetron HCl (Zofran) 4 mg IV Q8H PRN PRN PRN Reason: NAUSEA/VOMITING Oxycodone HCl (Oxyir) 5 mg PO Q4H PRN PRN PRN Reason: Moderate Pain (4-6/10) Last Admin: 04/09/19 11:00 Dose: 5 mg Documented by: Sodium Chloride () 5 - 15 ml IV UD PRN PRN Reason: SALINE FLUSH - Past Medical History Past Medical History (Chronic Problems): Chronic Problems Hypertension (Chronic) DM type 2 (diabetes mellitus, type 2) (Chronic) Morbid obesity (Chronic) ENEIDA (obstructive sleep apnea) (Chronic) - Past Surgical History Surgical History: total hip arthroplasty - right hip replacement - Social History Smoking Status: Never smoker Alcohol: None Drugs: None - Family History Maternal History Items: No pertinent history Paternal History Items: No pertinent history Patient Problems: Active and Suspected Problems Cellulitis of right foot (Acute) Sepsis (Acute) RUSS (acute kidney injury) (Acute) Hyponatremia (Acute) - Physical Exam Vitals/I&O's: Vital Signs Temp Pulse Resp BP Pulse Ox 99.0 F 80 25 H 107/69 93 04/09/19 14:48 04/09/19 14:48 04/09/19 14:48 04/09/19 14:48 04/09/19 14:48 Oxygen Flow Rate (L/min) 90 Oxygen Delivery Method CPAP Weight: 138.572 kg Body Mass Index (BMI) 43.8 Intake and Output for Last 24 Hours 04/07/19 04/08/19 04/09/19 23:59 23:59 23:59 Intake Total 2270.20 / 2570.20 1632 / 1632 Output Total 100 / 100 Balance 2270.20 / 2470.20 1532 / 1532 General: Alert, Oriented x3 HEENT: Atraumatic Oral: Moist Mucosa Neck: Supple, No JVD Lungs: Clear to auscultation, No rhonchi, No wheeze Cardiovascular: Regular rate, Regular Rhythm, Normal S1, Normal S2 Abdomen: Bowel Sounds Present, Soft, Non Tender Extremities: No clubbing, No cyanosis, Edema - RLE edema +2 Musculoskeletal: No Tenderness to Palpation of Joints or Extremities Neurological: Cranial nerves II-XII grossly intact, Neuro grossly intact Psych/Mental Status: Appropriate Laboratory Results 04/08/19 10:40: Hemoglobin A1c 12.2 H 04/08/19 18:26: POC Glucose 201 H 04/08/19 18:42: B-Natriuretic Peptide 156.4 H 04/08/19 22:44: POC Glucose 307 H 04/09/19 01:15: Urine Color Lucy, Urine Clarity Cloudy, Urine pH 5.0, Ur Specific [place] 1.025, Urine Protein 100 H, Urine Glucose (UA) Normal, Urine Ketones 5 H, Urine Occult Blood 25 H, Urine Nitrite Negative, Urine Bilirubin 3 H, Urine Urobilinogen 8 H, Ur Leukocyte Esterase 500 H, Urine RBC 0 SEEN, Urine WBC >100 SEEN, Ur Squamous Epith Cells 0 SEEN, Urine Bacteria 4+, Coarse Granular Casts 0-5 SEEN, Waxy Casts 5-10 SEEN H, Urine Mucus 0 SEEN 04/09/19 05:38: WBC 16.9 H, RBC 3.56 L, Hgb 10.5 L, Hct 32.8 L, MCV 92.1, MCH 29.5, MCHC 32.0, RDW Std Deviation 43.3, RDW Coeff of Akila 12.9, Plt Count 293, MPV 10.4, Immature Gran % (Auto) 0.500, Neut % (Auto) 85.8 H, Lymph % (Auto) 5.1 L, [place] % (Auto) 8.2, Eos % (Auto) 0.1, Baso % (Auto) 0.3, Absolute Neuts (auto) 14.5 H, Absolute Lymphs (auto) 0.86, Nucleated RBC % 0 04/09/19 05:38: Sodium 131 L, Potassium 4.0, Chloride 100, Carbon Dioxide 23.0, Anion Gap 8, BUN 32 H, Creatinine 2.14 H, Estim Creat Clear Calc 36.48, Est GFR (MDRD) Af Amer 40 L, Est GFR (MDRD) Non-Af 33 L, BUN/Creatinine Ratio 15.0, Glucose 266 H, Calcium 7.9 L, Total Bilirubin 0.50, AST 41 H, ALT 48, Alkaline Phosphatase 205 H, Total Protein 6.7, Albumin 1.8 L, Globulin 4.9 H, Albumin/Globulin Ratio 0.4 L 04/09/19 06:28: POC Glucose 240 H 04/09/19 10:34: POC Glucose 194 H Current Medications Acetaminophen (Tylenol) 650 mg PO Q6H PRN PRN PRN Reason: Mild Pain (1-3)/Temp > 100.7 F Last Admin: 04/08/19 20:18 Dose: 650 mg Documented by: Albuterol/Ipratropium (Duoneb) 3 ml INHALATION Q4HWA.RT [facility] Last Admin: 04/09/19 15:44 Dose: 3 ml Documented by: Carvedilol (Coreg) 12.5 mg PO DAILY [facility] Last Admin: 04/09/19 10:41 Dose: Not Given Documented by: Dextrose (D50w Syringe) 0 gm IV X1 PRN; Protocol PRN Reason: Hypoglycemia Enoxaparin Sodium (Lovenox) 130 mg SC Q12 [facility] Last Admin: 04/09/19 10:43 Dose: 130 mg Documented by: Glucagon () 1 mg IM .X1 PRN PRN Reason: Hypoglycemia Hydralazine HCl (Apresoline Iv) 5 mg IV Q6H PRN PRN PRN Reason: BLOOD PRESSURE Clindamycin Phosphate 900 mg/ (Dextrose) 106 mls @ 150 mls/hr IV Q8 [facility] Last Infusion: 04/09/19 14:00 Dose: Infused Documented by: Vancomycin IV Pharmacy to Dose (1 ea/ Sodium Chloride) 500 mls @ 250 mls/hr IV PRN PRN; Protocol PRN Reason: Rx to Dose Vancomycin HCl 1,500 mg/ (Sodium Chloride) 530 mls @ 250 mls/hr IV Q12H [facility] Last Infusion: 04/09/19 09:45 Dose: Infused Documented by: Sodium Chloride () 1,000 mls @ 150 mls/hr IV .Q6H40M [facility] Last Infusion: 04/09/19 14:00 Dose: 150 mls/hr Documented by: Sodium Chloride () 250 mls @ 15 mls/hr IV .[id number] PRN PRN Reason: Saline Flush Insulin Human Lispro (Humalog Kwikpen (Bkc)) 0 unit SC [facility]; Protocol Last Admin: 04/09/19 10:43 Dose: 1 u Documented by: Magnesium Hydroxide (Milk Of Magnesia) 30 ml PO DAILY PRN PRN PRN Reason: Constipation Morphine Sulfate () 2 mg IV Q3H PRN PRN PRN Reason: Severe pain (7-10/10) Ondansetron HCl (Zofran) 4 mg IV Q8H PRN PRN PRN Reason: NAUSEA/VOMITING Oxycodone HCl (Oxyir) 5 mg PO Q4H PRN PRN PRN Reason: Moderate Pain (4-6/10) Last Admin: 04/09/19 11:00 Dose: 5 mg Documented by: Sodium Chloride () 5 - 15 ml IV UD PRN PRN Reason: SALINE FLUSH Assessment/Plan All Active Problems Cellulitis of right foot (Acute) Sepsis (Acute) RUSS (acute kidney injury) (Acute) Hyponatremia (Acute) 1- RUSS. Unknown baseline. UA showed 100 protein, WBC > 100 with large LSE Cr increased from 1.3->2.1 mg/dL. Pt seems oliguric. DDx for RUSS , prerenal related to hemodynamic instability Vs ATN Vs post renal Will check bladder scan. Continue holding ACEI. Continue IVF Will check UPEP and SPEP since serum globulin is elevated Keep MAP > 65. Avoid IV contrast Check renal function in am 2-Hyponatremia: likely from RUSS Na 131. should improve if patient start to make urine 3-HTN: Pt was hypotensive at admission Agree with holding ACEI and HCTZ Will d/c norvasc 4- Sepsis related to RLE cellulitis and possible UTI Follow culture Abx as per the primary service Thank you for allowing [facility] to [facility] Renal team will continue to follow Please call if any question or concern at [phone] Will d/w Dr. Amos Ventura MD
[2019-04-09 15:56] LABS: Allen Test POS; Base Excess -1 mmol/L (-2 to +2); Bicarbonate 26.6 mmol/L (22-26); Blood Gas Specimen Type ART; EPAP 12; FI02 50; PO2 69 mmHG (75-100); SITE L Radial; SO2 90 % (95-99); Time Given 1550; Total Carbon Dioxide 28 mmol/L; pCO2 60.5 mmHg (35-45); pH 7.25 (7.35-7.45)
[2019-04-09 16:09] LABS: Hematocrit 32.8 % (40-54); Hemoglobin 10.6 g/dL (13.0-16.5); Mean Corp Hgb Conc 32.3 g/dL (32-36); Mean Corpuscular Hgb 29.6 pg (27.0-32.0); Mean Corpuscular Volume 91.6 fL (80-94); Mean Platelet Vol. 9.6 fl (6.2-12.0); Platelet Count 417 K/mm3 (150-450); RBC Distribution Width CV 12.9 % (11.6-14.6); RBC Distribution Width SD 43.5 fl (35.1-43.9); Red Blood Count 3.58 M/mm3 (4.6-6.2)
[2019-04-09 16:26] LABS: Bedside Glucose 184 mg/dL (70-110)
[2019-04-09 16:28] LABS: ALB/GLOB Ratio 0.4 RATIO (0.9-2.4); AST(SGOT) 24 U/L (15-37); Alanine Aminotransfer ALT/SGPT 43 U/L (16-61); Albumin, Serum 1.8 g/dL (3.2-5.0); Alkaline Phosphatase 209 U/L (45-117); Anion Gap 6 (5-15); BUN 38 mg/dL (7-18); BUN/Creat Ratio 15.1 RATIO (10-20); Calcium,Total 7.9 mg/dL (8.5-10.1); Chloride 100 mmol/L (98-107); Creatinine, Serum 2.52 mg/dL (0.70-1.30); EST Glomerular Filtration Rate 28 mL/min (>60); Est Glom Filt Rate - Afr Amer 33 mL/min (>60); Estimated Creatinine Clearance 30.98 ml/min; Globulin 4.8 g/dL (2.2-4.2); Glucose 185 mg/dL (74-106); Protein, Total 6.6 g/dL (6.4-8.2); Sodium Level 132 mmol/L (136-145)
[2019-04-09 16:31] LABS: International Normalized Ratio 1.2; Prothrombin Time (Protime)PT. 15.4 SECONDS (11.7-14.9)
[2019-04-09 16:32] LABS: Partial Thromboplast Time 51.7 Seconds (24.1-36.2)
--- NOTE | 2019-04-09 16:46 | CPS ---
gave ABG results to Cristiane SNYDER who sent photo of them to Dr Trinidad.
[2019-04-09 17:07] LABS: Urine Sodium 8 mmol/L (Not Establ.)
--- NOTE | 2019-04-09 17:18 | CON.PCM_ITS ---
Problem List (1) Cellulitis of right lower extremity Status: Acute (2) Ulcer of right foot with fat layer exposed Status: Acute (3) Bilateral leg edema Status: Chronic (4) Type 2 diabetes mellitus with diabetic polyneuropathy Status: Chronic Reason for Consult Date of Consultation: 04/09/19 Reason for Consultation: Right foot and leg infection History of Present Illness: The patient is a 63 year old M with significant past medical history of type 2 diabetes that is uncontrolled, hypertension, morbid obesity, obstructive sleep apnea on CPAP presents with a red and hot foot and leg. He relates the onset was approximately 1 week ago. He denies pain. He denies recent trauma to his foot. He denies fever, chill, nausea, vomiting. He relates he ruptured his Achilles tendon approximately 8 months ago which was treated conservatively. He was informed he would need surgery to repair the site however this is not recommended because she is a poor surgical candidate. 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 He was admitted and placed on IV antibiotics and treated for sepsis. Labs and x-rays of the foot have been completed. Past Medical History Past Medical History (Chronic Problems): Chronic Problems Hypertension (Chronic) DM type 2 (diabetes mellitus, type 2) (Chronic) Morbid obesity (Chronic) ENEIDA (obstructive sleep apnea) (Chronic) Bilateral leg edema (Chronic) Type 2 diabetes mellitus with diabetic polyneuropathy (Chronic) Allergies Penicillins [PCN] Allergy (Verified 04/08/19 13:23) Other Sulfa (Sulfonamide Antibiotics) Allergy (Verified 04/08/19 13:23) Other Home Medications: Ambulatory Orders Medication Instructions Recorded Amlodipine [Norvasc] 10 mg PO DAILY 04/08/19 Carvedilol 12.5 mg PO DAILY 04/08/19 Glimepiride 4 mg PO DAILY 04/08/19 Hydrochlorothiazide [Hctz] 25 mg PO DAILY 04/08/19 Metformin HCl 1,000 mg PO BID 04/08/19 Ramipril 10 mg PO QHS 04/08/19 Surgical History: total hip arthroplasty - right hip replacement Psychiatric History: No pertinent psych hx Lives: With Family Smoking Status: Never smoker Alcohol: None Drugs: None - *Family History Maternal History Items: No pertinent history Paternal History Items: No pertinent history Review of Systems Constitutional: Reports: Fatigue. Denies: Chills, Fever Eyes: Denies: Vision Change Cardiovascular: Denies: Chest Pain, Claudication Respiratory: Reports: Shortness of Breath Gastrointestinal: Denies: Nausea, Vomiting Genitourinary: Denies: Dysuria Musculoskeletal: Reports: Leg Pain. Denies: Foot Pain Skin: Reports: Skin Changes, Wounds Neurological: Reports: Balance problems, Incoordination, Numbness, Tingling Endocrine: Reports: Change in Body Habitus Hematologic/ Lymphatic: Reports: Hx of blood clot - Left lower leg Patient Problems: Active and Suspected Problems Cellulitis of right foot (Acute) Sepsis (Acute) RUSS (acute kidney injury) (Acute) Hyponatremia (Acute) Cellulitis of right lower extremity (Acute) Ulcer of right foot with fat layer exposed (Acute) - Physical Exam Vitals/I&O's: Vital Signs Temp Pulse Resp BP Pulse Ox 99.5 F H 82 25 H 115/56 L 94 04/09/19 16:47 04/09/19 16:47 04/09/19 16:47 04/09/19 16:47 04/09/19 16:47 Oxygen Flow Rate (L/min) 90 Oxygen Delivery Method Bi-pap Weight: 138.572 kg Body Mass Index (BMI) 43.8 Intake and Output for Last 24 Hours 04/07/19 04/08/19 04/09/19 23:59 23:59 23:59 Intake Total 2270.20 / 2570.20 1996 Output Total 250 / 250 Balance 2270.20 / 2470.20 1747 / 1747 General: Alert, Oriented x3, Cooperative HEENT: Atraumatic Extremities: Capillary Refill Less than 3 Seconds - Bilateral lower extremity, Diminished Peripheral Pulses - Palpable 2 out of 4 DP pulses bilateral foot and nonpalpable PT bilateral., Edema - Bilateral lower extremity edema with hyperpigmentation and varicosities right more notable than left, Tenderness - Pain with compression of right calf consistent with the positive Marcano and Homans sign. Negative Marcano and Homans sign left lower extremity. The right limb is demonstrating edema and increased calor. Bilateral lower extremity compartments are soft to palpate the leg, ankle, and foot with no palpable abscess, fluctuance, or bogginess Skin: Ulcer/ Wound - There is a bulla to the distal plantar aspect of the right hallux upon debridement there is a seropurulent drainage noted which was cultured. The pre-debridement measurement is 2 mm x 2 mm x 1 mm with peripheral bulla. Post debridement measurement is 2.6 cm x 2.6 cm x 0.1 cm in which approximately 95% of this is fibrous base with peripheral granulation tissue. There is no eschar or necrosis or deep probing noted. There is order. It is noted that he also has interdigital maceration and debris to the remaining toes., - - The peripheral skin is hairless and atrophic. There is no erythema on the foot. There is diffuse intense erythema from the ankle extending to the proximal leg which has been marked with a marking pen. There are no skin discontinuities in addition to the hallux ulcer site Musculoskeletal: No Tenderness to Palpation of Joints or Extremities, Muscle Wasting, Tenderness - Pain to palpation to the Achilles site with edema in this location and potential palpable dell. Pain with heel compression., - - Active range of motion digits x10. Decreased active ankle strength in all directions 4 out of 5 right and 5 out of 5 left. Fatigue with single leg raise test right lower extremity Neurological: - - Lack of normal epicritic sensation light touch consistent with neuropathy bilateral lower extremities Psych/Mental Status: Normal Affect, Appropriate Laboratory Results 04/08/19 10:40: Hemoglobin A1c 12.2 H 04/08/19 10:40: Total Protein (PEP) Pending, IgG Pending, IgA Pending, IgM Pending, Albumin (ARMANDO) Pending, Albumin/Globulin (ARMANDO) Pending, [id number] ARMANDO Pending, Jtqde-[id number] ARMANDO Pending, Beta-Globulins (ARMANDO) Pending, Gamma Globulins (ARMANDO) Pending, ARMANDO M-Bola Pending 04/08/19 18:26: POC Glucose 201 H 04/08/19 18:42: B-Natriuretic Peptide 156.4 H 04/08/19 22:44: POC Glucose 307 H 04/09/19 01:15: Urine Color Lucy, Urine Clarity Cloudy, Urine pH 5.0, Ur Specific Reading 1.025, Urine Protein 100 H, Urine Glucose (UA) Normal, Urine Ketones 5 H, Urine Occult Blood 25 H, Urine Nitrite Negative, Urine Bilirubin 3 H, Urine Urobilinogen 8 H, Ur Leukocyte Esterase 500 H, Urine RBC 0 SEEN, Urine WBC >100 SEEN, Ur Squamous Epith Cells 0 SEEN, Urine Bacteria 4+, Coarse Granular Casts 0-5 SEEN, Waxy Casts 5-10 SEEN H, Urine Mucus 0 SEEN 04/09/19 05:38: WBC 16.9 H, RBC 3.56 L, Hgb 10.5 L, Hct 32.8 L, MCV 92.1, MCH 29.5, MCHC 32.0, RDW Std Deviation 43.3, RDW Coeff of Akila 12.9, Plt Count 293, MPV 10.4, Immature Gran % (Auto) 0.500, Neut % (Auto) 85.8 H, Lymph % (Auto) 5.1 L, Powell % (Auto) 8.2, Eos % (Auto) 0.1, Baso % (Auto) 0.3, Absolute Neuts (auto) 14.5 H, Absolute Lymphs (auto) 0.86, Nucleated RBC % 0 04/09/19 05:38: Sodium 131 L, Potassium 4.0, Chloride 100, Carbon Dioxide 23.0, Anion Gap 8, BUN 32 H, Creatinine 2.14 H, Estim Creat Clear Calc 36.48, Est GFR (MDRD) Af Amer 40 L, Est GFR (MDRD) Non-Af 33 L, BUN/Creatinine Ratio 15.0, Glucose 266 H, Calcium 7.9 L, Total Bilirubin 0.50, AST 41 H, ALT 48, Alkaline Phosphatase 205 H, Total Protein 6.7, Albumin 1.8 L, Globulin 4.9 H, Albumin/Globulin Ratio 0.4 L 04/09/19 06:28: POC Glucose 240 H 04/09/19 10:34: POC Glucose 194 H 04/09/19 15:50: Specimen Type ART, Sample Site L Radial, pH 7.25 L, Bicarbonate Actual 26.6 H, POC Total CO2 28, Base Excess -1, O2 Saturation 90 L, O2 % 50, ABG pCO2 60.5 H, ABG pO2 69 L, Randal Test POS, O2 Delivery Device Bi / C PAP, EPAP 12, Blood Gas Notified Whom RN, Blood Gas Notified Time 1550 04/09/19 16:00: WBC 17.0 H, RBC 3.58 L, Hgb 10.6 L, Hct 32.8 L, MCV 91.6, MCH 29.6, MCHC 32.3, RDW Std Deviation 43.5, RDW Coeff of Akila 12.9, Plt Count 417, MPV 9.6 04/09/19 16:00: PT 15.4 H, INR 1.2, APTT 51.7 H 04/09/19 16:00: Sodium 132 L, Potassium 4.0, Chloride 100, Carbon Dioxide 26.0, Anion Gap 6, BUN 38 H, Creatinine 2.52 H, Estim Creat Clear Calc 30.98, Est GFR (MDRD) Af Amer 33 L, Est GFR (MDRD) Non-Af 28 L, BUN/Creatinine Ratio 15.1, Glucose 185 H, Calcium 7.9 L, Total Bilirubin 0.50, AST 24, ALT 43, Alkaline Phosphatase 209 H, Total Protein 6.6, Albumin 1.8 L, Globulin 4.8 H, Albumin/Globulin Ratio 0.4 L 04/09/19 16:00: Lactic Acid 1.0 04/09/19 16:13: POC Glucose 184 H 04/09/19 16:35: Urine Total Protein Pending, Urine Albumin Pending, U Kqxxe-[id number] Pending, U Nboel-7-Enhfxwra Pending, U Beta Globulin Pending, U Gamma Globulin Pending, U PEP M-Bola Pending 04/09/19 16:35: Urine Creatinine Pending 04/09/19 16:35: Ur Random Sodium 8 Current Medications Acetaminophen (Tylenol) 650 mg PO Q6H PRN PRN PRN Reason: Mild Pain (1-3)/Temp > 100.7 F Last Admin: 04/08/19 20:18 Dose: 650 mg Documented by: Albuterol/Ipratropium (Duoneb) 3 ml INHALATION Q4HWA.RT [facility] Last Admin: 04/09/19 15:44 Dose: 3 ml Documented by: Carvedilol (Coreg) 12.5 mg PO DAILY [facility] Last Admin: 04/09/19 10:41 Dose: Not Given Documented by: Dextrose (D50w Syringe) 0 gm IV X1 PRN; Protocol PRN Reason: Hypoglycemia Enoxaparin Sodium (Lovenox) 130 mg SC Q12 [facility] Last Admin: 04/09/19 10:43 Dose: 130 mg Documented by: Glucagon () 1 mg IM .X1 PRN PRN Reason: Hypoglycemia Hydralazine HCl (Apresoline Iv) 5 mg IV Q6H PRN PRN PRN Reason: BLOOD PRESSURE Clindamycin Phosphate 900 mg/ (Dextrose) 106 mls @ 150 mls/hr IV Q8 [facility] Last Infusion: 04/09/19 14:00 Dose: Infused Documented by: Vancomycin IV Pharmacy to Dose (1 ea/ Sodium Chloride) 500 mls @ 250 mls/hr IV PRN PRN; Protocol PRN Reason: Rx to Dose Vancomycin HCl 1,500 mg/ (Sodium Chloride) 530 mls @ 250 mls/hr IV Q12H [facility] Last Infusion: 04/09/19 09:45 Dose: Infused Documented by: Sodium Chloride () 1,000 mls @ 150 mls/hr IV .[id number] [facility] Last Admin: 04/09/19 16:26 Dose: 150 mls/hr Documented by: Sodium Chloride () 250 mls @ 15 mls/hr IV .[id number] PRN PRN Reason: Saline Flush Insulin Human Lispro (Humalog Kwikpen (Bkc)) 0 unit SC [facility]; Protocol Last Admin: 04/09/19 16:24 Dose: 1 u Documented by: Magnesium Hydroxide (Milk Of Magnesia) 30 ml PO DAILY PRN PRN PRN Reason: Constipation Morphine Sulfate () 2 mg IV Q3H PRN PRN PRN Reason: Severe pain (7-10/10) Ondansetron HCl (Zofran) 4 mg IV Q8H PRN PRN PRN Reason: NAUSEA/VOMITING Oxycodone HCl (Oxyir) 5 mg PO Q4H PRN PRN PRN Reason: Moderate Pain (4-6/10) Last Admin: 04/09/19 11:00 Dose: 5 mg Documented by: Sodium Chloride () 5 - 15 ml IV UD PRN PRN Reason: SALINE FLUSH Assessment/Plan All Active Problems Cellulitis of right foot (Acute) Sepsis (Acute) RUSS (acute kidney injury) (Acute) Hyponatremia (Acute) Cellulitis of right lower extremity (Acute) Ulcer of right foot with fat layer exposed (Acute) Ulcer right hallux with fat layer exposed, likely the nidus of his systemic illness Right lower extremity cellulitis Deep venous thrombosis has been ruled out with venous Doppler exam Right lower extremity pain Reported Achilles rupture right lower extremity Uncontrolled diabetes with neuropathy; hemoglobin A1c 12.2 noted Sepsis Multiple other comorbidities: Sleep apnea, obesity, kidney injury, hypertension I reviewed and discussed his case. It is noted he has a low-grade fever and otherwise his vital signs are stable. He does have leukocytosis with white blood cell count of 17. His x-rays were reviewed. His chest x-ray did not have any acute cardiopulmonary process. X-ray of the right foot including 3 views did not demonstrate any soft tissue emphysema, osseous destructive process adjacent to the ulcer site, foreign body, fracture dislocation. I recommend an additional x-ray of the right leg and this will be ordered. Verbal consent was obtained to debride the ulcer and bulla site on the right hallux and this was performed after cleansed with alcohol wipe was performed. Subcutaneous excisional debridement was performed with a 15 blade scalpel as noted to excise and remove devitalized fibrous tissue, biofilm, slough, and subcutaneous unhealthy tissue. Pressure was applied to maintain hemostasis. This was covered with a dry gauze and will be changed daily with Resonant Vibes. It is okay to wash the foot with soap and water. To avoid soaking. There was no identifiable abscess or deep tissue exposed. A deep wound culture for aerobic, anaerobic, and MRSA PCR were ordered. It is noted there was seropurulent drainage. He was started on clindamycin and vancomycin. I recommend an infectious disease consultation due to his multiple comorbidities and high risk status. We will continue to monitor his progress on the broad spectrum IV antibiotics. If lack of progress is noted additional imaging such as MRI will be considered and surgical drainage procedures will also be considered. His right leg is the most remarkable. He had a venous duplex Doppler performed which did not demonstrate any deep venous thrombosis. His clinical presentation is consistent with venous insufficiency in addition to his cellulitis. I recommend elevation and Mahendra wrap application to the right leg to further control his edema. Recommend offloading ulcer site by wearing a cam walker boot. It is also noted he has had a chronic nonhealing Achilles tendon rupture which will also be protected with this boot. I do not recommend placing weight on the site. I do also recommend Chun supplementation nutritional consultation optimize healing. Medical management DVT prophylaxis per primary team is greatly appreciated. Thank you for the consultation. I will continue to follow him closely while in house. Please do not hesitate to call if you have any questions. Lindsey Jacques DPM, [facility] [phone]
[2019-04-09 17:26] LABS: Allen Test POS; Base Excess 0 mmol/L (-2 to +2); Bicarbonate 26.7 mmol/L (22-26); Blood Gas Specimen Type ART; EPAP 7; FI02 40; IPAP 14; PO2 69 mmHG (75-100); RR 12; SITE L Radial; SO2 91 % (95-99); Time Given 1719; Total Carbon Dioxide 28 mmol/L; pCO2 55.3 mmHg (35-45); pH 7.29 (7.35-7.45)
--- NOTE | 2019-04-09 18:20 | RAD_ITS ---
STUDY: X-RAY - RIGHT TIBIA AND FIBULA REASON FOR EXAM: Male, 63 years old. Infection, pain and swelling TECHNIQUE: 4 view(s) of the tibia and fibula were obtained. COMPARISON: None. FINDINGS: Normal visualized tibia. Normal visualized fibula. Calcaneal spurring. Subcutaneous edema of the lower leg. RAD/Tibia & Fibula 2 Views IMPRESSION: No acute bony injury of the tibia and fibula. Electronically Signed: Shady Herring DO at 20:43 EDT Tel [phone], Service support ,
[2019-04-09] MEDS: Nepro with Carbsteady 237 ML Liquid 120 ML PO (18:32)
--- NOTE | 2019-04-09 20:40 | RAD_ITS ---
STUDY: X-RAY CHEST REASON FOR EXAM: Male, 63 years old. PICC line TECHNIQUE: Frontal view COMPARISON: April 08, 2019 FINDINGS: Right PICC line with tip at the distal SVC. The lungs are not fully expanded. There is mild interstitial prominence. Evaluation is limited by motion. Normal size heart. Normal mediastinum and jeffrey. Normal visualized pulmonary arteries. Normal visualized aortic arch and descending thoracic aorta. Degenerative changes of the thoracic spine. Degenerative changes at the shoulders. There is no demonstrated abnormality of the visualized soft tissue structures of the upper abdomen. RAD/CXR for Line Placement IMPRESSION: Possible mild interstitial prominence. Evaluation is limited by motion. Electronically Signed: Shady Herring DO at 21:30 EDT Tel [phone], Service support ,
[2019-04-09 20:48] LABS: M R Staph aureus DNA By PCR Negative (Negative); Probe Check PASS; Specimen Processing Control PASS; Staph aureus DNA By PCR NEGATIVE (Negative)
[2019-04-09 22:21] LABS: Bedside Glucose 131 mg/dL (70-110)
[2019-04-10] VITALS (38 sets, daily range): BP systolic 109–152; BP diastolic 57–84; PULSE 75–92; RESP 12–36; TEMP 36.4–37.9; O2SAT 80–95
[2019-04-10] MEDS: oxyCODONE 5 MG Tablet PO (00:07)
[2019-04-10] MEDS: 0.9% Normal Saline 1,000 ML 150 ML IV ×2 (01:49→11:05)
[2019-04-10] MEDS: 0.9% Saline Lock 10 ML Syringe IV (01:51)
[2019-04-10 06:34] LABS: Absolute Lymphocyte Count 1.17 X10^3/uL (0.83-4.51); Absolute Neutrophil Count 14.2 X10^3/uL (2.0-7.7); Basophil# 0.09 X10^3/uL; Basophil% 0.5 % (0-1); Eosinophil# 0.02 X10^3/uL; Eosinophils% 0.1 % (0-5); Hematocrit 32.5 % (40-54); Lymphocyte # 1.17 X10^3/ul (4.0); Lymphocyte % 6.7 % (19-41); Mean Corp Hgb Conc 30.8 g/dL (32-36); Mean Corpuscular Volume 94.2 fL (80-94); Mean Platelet Vol. 9.6 fl (6.2-12.0); Monocyte# 1.56 X10^3/uL; Monocyte% 8.9 % (0-10); NRBC Flagged by Analyzer 0 % (0-5); Neutrophil # 14.18 X10^3/uL (2.7-7.7); Neutrophil % 80.8 % (47-70); POSITIVE DIFFERENTIAL YES; Platelet Count 450 K/mm3 (150-450); RBC Distribution Width CV 13.1 % (11.6-14.6); Red Blood Count 3.45 M/mm3 (4.6-6.2); White Blood Count 17.5 K/mm3 (4.4-11.0)
[2019-04-10 06:44] LABS: Differential Indicated SCAN CRITERIA MET
[2019-04-10 06:52] LABS: Erythrocyte Sedimentation Rate 79 mm/hr (0-20)
[2019-04-10 07:00] LABS: Vancomycin, Trough Level 21.7 ug/mL (5.0-15.0)
[2019-04-10] MEDS: Ipratropium/Albuterol Sulfate 3 ML AMPUL.NEB INHALATION ×4 (07:00→19:02)
[2019-04-10 07:03] LABS: Anion Gap 8 (5-15); BUN 44 mg/dL (7-18); BUN/Creat Ratio 20.2 RATIO (10-20); Calcium,Total 7.8 mg/dL (8.5-10.1); Chloride 102 mmol/L (98-107); Creatinine, Serum 2.18 mg/dL (0.70-1.30); EST Glomerular Filtration Rate 33 mL/min (>60); Est Glom Filt Rate - Afr Amer 40 mL/min (>60); Estimated Creatinine Clearance 35.81 ml/min; Glucose 70 mg/dL (74-106); Magnesium 2.3 mg/dL (1.6-2.6); Potassium 3.7 mmol/L (3.5-5.1); Sodium Level 134 mmol/L (136-145)
[2019-04-10 07:06] LABS: Hypochromasia 1+
[2019-04-10 07:07] LABS: Toxic Granulation 1+
[2019-04-10 07:15] LABS: Bedside Glucose 69 mg/dL (70-110)
[2019-04-10 07:15] LABS: Bedside Glucose 81 mg/dL (70-110)
--- NOTE | 2019-04-10 07:41 | PCM.PN.HOSP ---
Patient Problems: Active and Suspected Problems Cellulitis of right foot (Acute) Sepsis (Acute) RUSS (acute kidney injury) (Acute) Hyponatremia (Acute) Cellulitis of right lower extremity (Acute) Ulcer of right foot with fat layer exposed (Acute) Subjective: CC; Follow-up sepsis secondary to right lower extremity cellulitis Patient became more lethargic the day prior ABGs obtained came back consistent with respiratory acidosis. Patient was placed on noninvasive ventilation BiPAP. Kidney function has also worsened resulting in patient being resuscitated with IV fluids. Objective: GENERAL: Appears dyspneic at rest HEENT: Atraumatic; EYES; Anicteric, Normal Conjunctiva NECK; supple, normal thyroid, RESPIRATORY: Diminished to auscultation CARDIOVASCULAR: Regular S1 S2, GI: soft, non-tender, normoactive bowel sounds, : No Renal angle tenderness; EXTREMITIES: Significant erythema involving the anterior right lower extremity with blistering involving the toe MUSCULOSKELETAL: No Joint Tenderness; NEURO: Awake; no lateralizing signs. SKIN: As described above PSYCH; Normal affect Vitals/I&O's: Vital Signs Temp Pulse Resp BP Pulse Ox 98.9 F 92 28 H 133/75 H 80 04/10/19 06:00 04/10/19 06:00 04/10/19 06:00 04/10/19 06:00 04/10/19 06:00 Oxygen Flow Rate (L/min) 5 Oxygen Delivery Method Bi-pap Weight: 138.572 kg Body Mass Index (BMI) 43.8 Intake and Output for Last 24 Hours 04/08/19 04/09/19 04/10/19 23:59 23:59 23:59 Intake Total 2270.20 / 2570.20 2950.5 / 3070.5 1838.5 / 1838.5 Output Total 250 / 425 425 / 425 Balance 2270.20 / 2470.20 2700.5 / 2645.5 1413.5 / 1413.5 Laboratory Results 04/08/19 10:40: Total Protein (PEP) Pending, IgG Pending, IgA Pending, IgM Pending, Albumin (ARMANDO) Pending, Albumin/Globulin (ARMANDO) Pending, Narxl-5-Dlauyackf ARMANDO Pending, Uttjy-5-Ubaqlypax ARMANDO Pending, Beta-Globulins (ARMANDO) Pending, Gamma Globulins (ARMANDO) Pending, ARMANDO M-Bola Pending 04/09/19 10:34: POC Glucose 194 H 04/09/19 15:50: Specimen Type ART, Sample Site L Radial, pH 7.25 L, Bicarbonate Actual 26.6 H, POC Total CO2 28, Base Excess -1, O2 Saturation 90 L, O2 % 50, ABG pCO2 60.5 H, ABG pO2 69 L, Randal Test POS, O2 Delivery Device Bi / C PAP, EPAP 12, Blood Gas Notified Whom RN, Blood Gas Notified Time 1550 04/09/19 16:00: WBC 17.0 H, RBC 3.58 L, Hgb 10.6 L, Hct 32.8 L, MCV 91.6, MCH 29.6, MCHC 32.3, RDW Std Deviation 43.5, RDW Coeff of Akila 12.9, Plt Count 417, MPV 9.6 04/09/19 16:00: PT 15.4 H, INR 1.2, APTT 51.7 H 04/09/19 16:00: Sodium 132 L, Potassium 4.0, Chloride 100, Carbon Dioxide 26.0, Anion Gap 6, BUN 38 H, Creatinine 2.52 H, Estim Creat Clear Calc 30.98, Est GFR (MDRD) Af Amer 33 L, Est GFR (MDRD) Non-Af 28 L, BUN/Creatinine Ratio 15.1, Glucose 185 H, Calcium 7.9 L, Total Bilirubin 0.50, AST 24, ALT 43, Alkaline Phosphatase 209 H, Total Protein 6.6, Albumin 1.8 L, Globulin 4.8 H, Albumin/Globulin Ratio 0.4 L 04/09/19 16:00: Lactic Acid 1.0 04/09/19 16:13: POC Glucose 184 H 04/09/19 16:35: Urine Total Protein Pending, Urine Albumin Pending, U Snhoj-6-Lkjprfrz Pending, U Ntwow-7-Ivwkybfd Pending, U Beta Globulin Pending, U Gamma Globulin Pending, U PEP M-Bola Pending 04/09/19 16:35: Urine Creatinine 444.00 04/09/19 16:35: Ur Random Sodium 8 04/09/19 17:19: Specimen Type ART, Sample Site L Radial, pH 7.29 L, Bicarbonate Actual 26.7 H, POC Total CO2 28, Base Excess 0, O2 Saturation 91 L, O2 % 40, ABG pCO2 55.3 H, ABG pO2 69 L, Randal Test POS, Respiration Rate 12, O2 Delivery Device Bi / C PAP, EPAP 7, IPAP 14, Blood Gas Notified Whom RN, Blood Gas Notified Time 9741 04/09/19 18:45: S.aureus Protein A PCR NEGATIVE, MRSA (PCR) Negative 04/09/19 21:56: POC Glucose 131 H 04/10/19 06:18: Vancomycin Trough 21.7 H 04/10/19 06:18: WBC 17.5 H, RBC 3.45 L, Hgb 10.0 L, Hct 32.5 L, MCV 94.2 H, MCH 29.0, MCHC 30.8 L, RDW Std Deviation 45.0 H, RDW Coeff of Akila 13.1, Plt Count 450, MPV 9.6, Immature Gran % (Auto) 3.000 H, Neut % (Auto) 80.8 H, Lymph % (Auto) 6.7 L, [place] % (Auto) 8.9, Eos % (Auto) 0.1, Baso % (Auto) 0.5, Absolute Neuts (auto) 14.2 H, Absolute Lymphs (auto) 1.17, Nucleated RBC % 0, Diff Path Review May foll, Toxic Granulation 1+, Hypochromasia 1+, ESR 79 H 04/10/19 06:18: Sodium 134 L, Potassium 3.7, Chloride 102, Carbon Dioxide 24.0, Anion Gap 8, BUN 44 H, Creatinine 2.18 H, Estim Creat Clear Calc 35.81, Est GFR (MDRD) Af Amer 40 L, Est GFR (MDRD) Non-Af 33 L, BUN/Creatinine Ratio 20.2 H, Glucose 70 L, Calcium 7.8 L, Magnesium 2.3, C-React Prot Ext Range 248.00 H 04/10/19 06:31: POC Glucose 69 L 04/10/19 06:52: POC Glucose 81 Current Medications Acetaminophen (Tylenol) 650 mg PO Q6H PRN PRN PRN Reason: Mild Pain (1-3)/Temp > 100.7 F Last Admin: 04/08/19 20:18 Dose: 650 mg Documented by: Albuterol/Ipratropium (Duoneb) 3 ml INHALATION Q4HWA.RT [facility] Last Admin: 04/10/19 07:00 Dose: 3 ml Documented by: Carvedilol (Coreg) 12.5 mg PO DAILY [facility] Last Admin: 04/09/19 10:41 Dose: Not Given Documented by: Dextrose (D50w Syringe) 0 gm IV X1 PRN; Protocol PRN Reason: Hypoglycemia Enoxaparin Sodium (Lovenox) 130 mg SC Q12 [facility] Last Admin: 04/09/19 21:59 Dose: 130 mg Documented by: Glucagon () 1 mg IM .X1 PRN PRN Reason: Hypoglycemia Hydralazine HCl (Apresoline Iv) 5 mg IV Q6H PRN PRN PRN Reason: BLOOD PRESSURE Clindamycin Phosphate 900 mg/ (Dextrose) 106 mls @ 150 mls/hr IV Q8 [facility] Last Infusion: 04/10/19 07:29 Dose: Infused Documented by: Vancomycin IV Pharmacy to Dose (1 ea/ Sodium Chloride) 500 mls @ 250 mls/hr IV PRN PRN; Protocol PRN Reason: Rx to Dose Vancomycin HCl 1,500 mg/ (Sodium Chloride) 530 mls @ 250 mls/hr IV Q12H [facility] Last Admin: 04/10/19 06:42 Dose: 250 mls/hr Documented by: Sodium Chloride () 1,000 mls @ 150 mls/hr IV .[id number] [facility] Last Infusion: 04/10/19 05:37 Dose: 0 mls/hr Documented by: Sodium Chloride () 250 mls @ 15 mls/hr IV .[id number] PRN PRN Reason: Saline Flush Insulin Human Lispro (Humalog Kwikpen (Bkc)) 0 unit SC ACHS [facility]; Protocol Last Admin: 04/10/19 06:43 Dose: Not Given Documented by: Magnesium Hydroxide (Milk Of Magnesia) 30 ml PO DAILY PRN PRN PRN Reason: Constipation Morphine Sulfate () 2 mg IV Q3H PRN PRN PRN Reason: Severe pain (7-10/10) Nutritional Formula (Chun - [place] Flavor) 1 packet PO BIDCM [facility] Ondansetron HCl (Zofran) 4 mg IV Q8H PRN PRN PRN Reason: NAUSEA/VOMITING Oxycodone HCl (Oxyir) 5 mg PO Q4H PRN PRN PRN Reason: Moderate Pain (4-6/10) Last Admin: 04/10/19 00:07 Dose: 5 mg Documented by: Sodium Chloride () 5 - 15 ml IV UD PRN PRN Reason: SALINE FLUSH Last Admin: 04/10/19 01:51 Dose: 10 ml Documented by: STROKE Vital Signs/Narrative: Vital Signs Temp Pulse Resp BP Pulse Ox 04/10/19 06:00 98.9 F 92 28 H 133/75 H 80 04/10/19 05:20 89 27 H 90 04/10/19 05:00 98.8 F 80 25 H 139/79 H 89 04/10/19 04:00 98.9 F 83 25 H 126/70 H 90 Medical Necessity - Tobacco Use Smoking Status: Never smoker Tobacco Use: Cigarettes Assessment/Plan All Active Problems Cellulitis of right foot (Acute) Sepsis (Acute) RUSS (acute kidney injury) (Acute) Hyponatremia (Acute) Cellulitis of right lower extremity (Acute) Ulcer of right foot with fat layer exposed (Acute) Patient is a 63-year-old gentleman with multiple comorbidities including diabetes mellitus type 2 morbid obesity with BMI of 43 who presented with erythema and swelling involving the right lower extremity with blistering of the tip of the first right toe. An assessment of sepsis secondary to cellulitis made admitted to the regular nursing floor for further management 1. Sepsis secondary to extensive cellulitis involving the right lower extremity. Admitted to regular nursing floor patient was treated with clindamycin and vancomycin (patient is allergic to penicillin). Consult was also placed to podiatry medicine. Patient still has significant erythema and swelling involving the right lower extremities 04/10/2019: Venous duplex ordered as part of patient's evaluation came back negative Lovenox switch back to prophylactic dose. Patient has also been seen in consultation by and notes and recommendations reviewed. 2. Acute kidney injury ?Patient kidney function did worsen with creatinine rising to 2.14 from an admission level of 1.3. IV fluids initiated consult placed to nephrology ~04/10/2019. Kidney function went up to 2.5 resuscitated with IV fluids 3. Acute metabolic encephalopathy ~secondary to sepsis as well as respiratory acidosis 4. Acute respiratory acidosis ~patient placed on noninvasive ventilation BiPAP with repeat ABGs ordered. did suspect a component of obesity hypoventilation syndrome contributing to patient respiratory distress. Patient was placed on noninvasive ventilation and consult placed to pulmonary medicine 5. Diabetes mellitus type II ~Controlled patient's oral hypoglycemics held. Placed on long acting insulin, Accu-Cheks a.c. and at bedtime and covered with sliding scale insulin 6. Essential hypertension - Patient blood pressure was low on admission antihypertensives subsequently held 7. Chronic diastolic heart failure with preserved ejection fraction ?Currently not in exacerbation 7. Morbid obesity, BMI 43.8, -diet and exercise is recommended 7. Hypokalemia corrected per protocol 8. Obstructive sleep apnea ?Patient is on CPAP 9. DVT prophylaxis ? Lovenox Advance planning; did discuss with the patient and family () regarding advanced directives as well as CODE STATUS. Did explain the various scenarios involved ( FULL CODE, DNR CCA, DNR CCA with no intubation, and DNR CC and what each meant) patient to remain full code with chest compression and intubation if indicated. Order was placed. Time spent on discussion 20 minutes. Code Visit Inpatient E&M: 62593 Subs Hosp L2 Procedures: 25908 Advncd Care Plan 30 Min
--- NOTE | 2019-04-10 08:16 | NURSING ---
wound photo: right great toe
--- NOTE | 2019-04-10 08:17 | NURSING ---
wound photo: right lower leg
[2019-04-10] MEDS: Enoxaparin 40 MG/0.4 ML Syringe SC ×2 (09:08→21:28)
[2019-04-10 09:10] LABS: Bedside Glucose 82 mg/dL (70-110)
[2019-04-10] MEDS: Acetaminophen 325 MG Tablet 650 MG PO (09:16)
[2019-04-10] MEDS: Carvedilol 12.5 MG Tablet PO (10:07)
--- NOTE | 2019-04-10 10:16 | PCM.RX.CS ---
Consult Pharmacy has been consulted to manage selected antiobiotic: Vancomycin Type of Consult: Follow-up Suspected Infection: Sepsis, Skin/Soft tissue Prior Doses of Antibiotics Received/Current Regimen: Currently on 1500mg IV q12h. A dose was given this morning at 06:42. Labs: Sodium 134 mmol/L (136-145) L 04/10/19 06:18 Potassium 3.7 mmol/L (3.5-5.1) 04/10/19 06:18 Chloride 102 mmol/L (98-107) 04/10/19 06:18 Carbon Dioxide 24.0 mmol/L (21.0-32.0) 04/10/19 06:18 Anion Gap 8 (5-15) 04/10/19 06:18 BUN 44 mg/dL (7-18) H 04/10/19 06:18 Creatinine 2.18 mg/dL (0.70-1.30) H 04/10/19 06:18 Est GFR (MDRD) Af Amer 40 mL/min (>60) L 04/10/19 06:18 Est GFR (MDRD) Non-Af 33 mL/min (>60) L 04/10/19 06:18 BUN/Creatinine Ratio 20.2 RATIO (10-20) H 04/10/19 06:18 Glucose 70 mg/dL (74-106) L 04/10/19 06:18 Vancomycin Trough 21.7 ug/mL (5.0-15.0) H 04/10/19 06:18 Microbiology: Microbiology 04/09/19 18:45 Wound - Aerobic & Anaerobic Swabs Gram Stain - Final Weight used for dosin kg Estimated Creatinine Clearance: 36 ml/min Goal Trough: 15-20 mcg/mL Pharmacy Plan for Drug Dosing: The trough drawn before this morning's dose was 21.7 mg/L, which is above goal range of 15-20. Since the patient received a dose this morning after the trough was drawn, we will hold any further doses until tomorrow morning and get a vancomycin random level to reevaluate from there. It is also worth noting that the patient's SCr has risen to 2.18 today from 1.3 on 04/08/19, and has even gone as high as 2.52 yesterday, so renal function will be monitored as well. Pharmacy Service will continue to monitor and adjust dosing as required. Follow-Up Labs: Trough Vancomycin - random level Labs to be done on [date and time ordered]: 04/11/19 06:30
--- NOTE | 2019-04-10 10:43 | CON.PCM_ITS ---
Problem List (1) Cellulitis of right foot Status: Acute Reason for Consult: R foot infection Consulted by: Dr. Duncan History of Present Illness: The patient is a 63 year old M with uncontrolled DM, neuropathy, htn, obesity, who presented with several weeks of worsening RLE swelling and fever/chills/sweats. Has had wound on R 1st toe for several months. Does not have feeling in that toe. Did not notice any drainage. [place] [facility] [place]. No pets licking his foot. Boot for work had been rubbing his toe. No recent abx. Came to ED, admitted on vanc/clinda. Podiatry consulted. Renal consulted for worsening RUSS. Developed some SOB, worse with lying flat, started on bipap. Bedside I&D done by Dr. Jacques, and cxs sent last night. Additional history obtained from at bedside. He reports being told as a child he was allergic to PCN. No known h/o anaphylaxis. Reports taking amoxicillin at some point as an adult and having some upset stomach. Full ROS performed and neg except as noted above. - Medical History Past Medical History (Chronic Problems): Chronic Problems Hypertension (Chronic) DM type 2 (diabetes mellitus, type 2) (Chronic) Morbid obesity (Chronic) ENEIDA (obstructive sleep apnea) (Chronic) Bilateral leg edema (Chronic) Type 2 diabetes mellitus with diabetic polyneuropathy (Chronic) Allergies/Adverse Reactions: Allergies Penicillins [PCN] Allergy (Verified 04/08/19 13:23) Other Sulfa (Sulfonamide Antibiotics) Allergy (Verified 04/08/19 13:23) Other Home Medications: Ambulatory Orders Medication Instructions Recorded Amlodipine [Norvasc] 10 mg PO DAILY 04/08/19 Carvedilol 12.5 mg PO DAILY 04/08/19 Glimepiride 4 mg PO DAILY 04/08/19 Hydrochlorothiazide [Hctz] 25 mg PO DAILY 04/08/19 Metformin HCl 1,000 mg PO BID 04/08/19 Ramipril 10 mg PO QHS 04/08/19 - Social History Tobacco Use: non-smoker Vital Signs Temp Pulse Resp BP Pulse Ox 98.6 F 90 26 H 136/76 H 88 04/10/19 10:00 04/10/19 10:00 04/10/19 10:00 04/10/19 10:00 04/10/19 10:00 Oxygen Flow Rate (L/min) 5 Oxygen Delivery Method Bi-pap Weight: 138.572 kg Body Mass Index (BMI) 43.8 Microbiology Past 72 Hours 04/09/19 18:45 Gram Stain - Final Wound - Aerobic & Anaerobic Swabs Laboratory Tests Past 24 Hrs 04/08/19 04/09/19 04/09/19 10:40 15:50 16:00 WBC 17.0 H RBC 3.58 L Hgb 10.6 L Hct 32.8 L MCV 91.6 MCH 29.6 MCHC 32.3 RDW Std Deviation 43.5 RDW Coeff of Akila 12.9 Plt Count 417 MPV 9.6 Immature Gran % (Auto) Neut % (Auto) Lymph % (Auto) [place] % (Auto) Eos % (Auto) Baso % (Auto) Absolute Neuts (auto) Absolute Lymphs (auto) Nucleated RBC % Diff Path Review Toxic Granulation Hypochromasia ESR PT INR APTT Specimen Type ART Sample Site L Radial pH 7.25 L Bicarbonate Actual 26.6 H POC Total CO2 28 Base Excess -1 O2 Saturation 90 L O2 % 50 ABG pCO2 60.5 H ABG pO2 69 L Randal Test POS Respiration Rate O2 Delivery Device Bi / C PAP EPAP 12 IPAP Blood Gas Notified Whom RN Blood Gas Notified Time 1550 Sodium Potassium Chloride Carbon Dioxide Anion Gap BUN Creatinine Estim Creat Clear Calc Est GFR (MDRD) Af Amer Est GFR (MDRD) Non-Af BUN/Creatinine Ratio Glucose Lactic Acid Calcium Magnesium Total Bilirubin AST ALT Alkaline Phosphatase C-React Prot Ext Range Total Protein Total Protein (PEP) Pending Albumin Globulin Albumin/Globulin Ratio Ur Random Sodium Urine Creatinine Urine Total Protein Urine Albumin U Vywya-1-Mxavknms U Jmdvg-8-Mtmhubkt U Beta Globulin U Gamma Globulin U PEP M-Bola Vancomycin Trough IgG Pending IgA Pending IgM Pending Albumin (ARMANDO) Pending Albumin/Globulin (ARMANDO) Pending Ctspw-4-Aifecidic ARMANDO Pending Oztlr-8-Ijsthdegp ARMANDO Pending Beta-Globulins (ARMANDO) Pending Gamma Globulins (ARMANDO) Pending ARMANDO M-Bola Pending S.aureus Protein A PCR MRSA (PCR) 04/09/19 04/09/19 04/09/19 16:00 16:00 16:00 WBC RBC Hgb Hct MCV MCH MCHC RDW Std Deviation RDW Coeff of Akila Plt Count MPV Immature Gran % (Auto) Neut % (Auto) Lymph % (Auto) [place] % (Auto) Eos % (Auto) Baso % (Auto) Absolute Neuts (auto) Absolute Lymphs (auto) Nucleated RBC % Diff Path Review Toxic Granulation Hypochromasia ESR PT 15.4 H INR 1.2 APTT 51.7 H Specimen Type Sample Site pH Bicarbonate Actual POC Total CO2 Base Excess O2 Saturation O2 % ABG pCO2 ABG pO2 Randal Test Respiration Rate O2 Delivery Device EPAP IPAP Blood Gas Notified Whom Blood Gas Notified Time Sodium 132 L Potassium 4.0 Chloride 100 Carbon Dioxide 26.0 Anion Gap 6 BUN 38 H Creatinine 2.52 H Estim Creat Clear Calc 30.98 Est GFR (MDRD) Af Amer 33 L Est GFR (MDRD) Non-Af 28 L BUN/Creatinine Ratio 15.1 Glucose 185 H Lactic Acid 1.0 Calcium 7.9 L Magnesium Total Bilirubin 0.50 AST 24 ALT 43 Alkaline Phosphatase 209 H C-React Prot Ext Range Total Protein 6.6 Total Protein (PEP) Albumin 1.8 L Globulin 4.8 H Albumin/Globulin Ratio 0.4 L Ur Random Sodium Urine Creatinine Urine Total Protein Urine Albumin U Nlaco-9-Wpealdag U Fwhte-0-Hmncjziw U Beta Globulin U Gamma Globulin U PEP M-Bola Vancomycin Trough IgG IgA IgM Albumin (ARMANDO) Albumin/Globulin (ARMANDO) Osimr-3-Guoeasefc ARMANDO Wvkoe-9-Mvrbxdjfw ARMANDO Beta-Globulins (ARMANDO) Gamma Globulins (ARMANDO) ARMANDO M-Bola S.aureus Protein A PCR MRSA (PCR) 04/09/19 04/09/19 04/09/19 16:35 16:35 16:35 WBC RBC Hgb Hct MCV MCH MCHC RDW Std Deviation RDW Coeff of Akila Plt Count MPV Immature Gran % (Auto) Neut % (Auto) Lymph % (Auto) [place] % (Auto) Eos % (Auto) Baso % (Auto) Absolute Neuts (auto) Absolute Lymphs (auto) Nucleated RBC % Diff Path Review Toxic Granulation Hypochromasia ESR PT INR APTT Specimen Type Sample Site pH Bicarbonate Actual POC Total CO2 Base Excess O2 Saturation O2 % ABG pCO2 ABG pO2 Randal Test Respiration Rate O2 Delivery Device EPAP IPAP Blood Gas Notified Whom Blood Gas Notified Time Sodium Potassium Chloride Carbon Dioxide Anion Gap BUN Creatinine Estim Creat Clear Calc Est GFR (MDRD) Af Amer Est GFR (MDRD) Non-Af BUN/Creatinine Ratio Glucose Lactic Acid Calcium Magnesium Total Bilirubin AST ALT Alkaline Phosphatase C-React Prot Ext Range Total Protein Total Protein (PEP) Albumin Globulin Albumin/Globulin Ratio Ur Random Sodium 8 Urine Creatinine 444.00 Urine Total Protein Pending Urine Albumin Pending U Cdwtc-1-Fwexuvpx Pending U Tvmrq-9-Grtqhwoj Pending U Beta Globulin Pending U Gamma Globulin Pending U PEP M-Bola Pending Vancomycin Trough IgG IgA IgM Albumin (ARMANDO) Albumin/Globulin (ARMANDO) Avtpk-3-Aqrxcuual ARMANDO Rgfrq-1-Cazagagwq ARMANDO Beta-Globulins (ARMANDO) Gamma Globulins (ARMANDO) ARMANDO M-Bola S.aureus Protein A PCR MRSA (PCR) 04/09/19 04/09/19 04/10/19 17:19 18:45 06:18 WBC RBC Hgb Hct MCV MCH MCHC RDW Std Deviation RDW Coeff of Akila Plt Count MPV Immature Gran % (Auto) Neut % (Auto) Lymph % (Auto) [place] % (Auto) Eos % (Auto) Baso % (Auto) Absolute Neuts (auto) Absolute Lymphs (auto) Nucleated RBC % Diff Path Review Toxic Granulation Hypochromasia ESR PT INR APTT Specimen Type ART Sample Site L Radial pH 7.29 L Bicarbonate Actual 26.7 H POC Total CO2 28 Base Excess 0 O2 Saturation 91 L O2 % 40 ABG pCO2 55.3 H ABG pO2 69 L Randal Test POS Respiration Rate 12 O2 Delivery Device Bi / C PAP EPAP 7 IPAP 14 Blood Gas Notified Whom RN Blood Gas Notified Time 1719 Sodium Potassium Chloride Carbon Dioxide Anion Gap BUN Creatinine Estim Creat Clear Calc Est GFR (MDRD) Af Amer Est GFR (MDRD) Non-Af BUN/Creatinine Ratio Glucose Lactic Acid Calcium Magnesium Total Bilirubin AST ALT Alkaline Phosphatase C-React Prot Ext Range Total Protein Total Protein (PEP) Albumin Globulin Albumin/Globulin Ratio Ur Random Sodium Urine Creatinine Urine Total Protein Urine Albumin U Ubzcq-7-Cmlstrqk U Adagj-3-Lyutixxa U Beta Globulin U Gamma Globulin U PEP M-Bola Vancomycin Trough 21.7 H IgG IgA IgM Albumin (ARMANDO) Albumin/Globulin (ARMANDO) Bhess-5-Kfqlzuped ARMANDO Wzotp-5-Jmwyerbmt ARMANDO Beta-Globulins (ARMANDO) Gamma Globulins (ARMANDO) ARMANDO M-Bola S.aureus Protein A PCR NEGATIVE MRSA (PCR) Negative 04/10/19 04/10/19 06:18 06:18 WBC 17.5 H RBC 3.45 L Hgb 10.0 L Hct 32.5 L MCV 94.2 H MCH 29.0 MCHC 30.8 L RDW Std Deviation 45.0 H RDW Coeff of Akila 13.1 Plt Count 450 MPV 9.6 Immature Gran % (Auto) 3.000 H Neut % (Auto) 80.8 H Lymph % (Auto) 6.7 L [place] % (Auto) 8.9 Eos % (Auto) 0.1 Baso % (Auto) 0.5 Absolute Neuts (auto) 14.2 H Absolute Lymphs (auto) 1.17 Nucleated RBC % 0 [address] Review May foll Toxic Granulation 1+ Hypochromasia 1+ ESR 79 H PT INR APTT Specimen Type Sample Site pH Bicarbonate Actual POC Total CO2 Base Excess O2 Saturation O2 % ABG pCO2 ABG pO2 Randal Test Respiration Rate O2 Delivery Device EPAP IPAP Blood Gas Notified Whom Blood Gas Notified Time Sodium 134 L Potassium 3.7 Chloride 102 Carbon Dioxide 24.0 Anion Gap 8 BUN 44 H Creatinine 2.18 H Estim Creat Clear Calc 35.81 Est GFR (MDRD) Af Amer 40 L Est GFR (MDRD) Non-Af 33 L BUN/Creatinine Ratio 20.2 H Glucose 70 L Lactic Acid Calcium 7.8 L Magnesium 2.3 Total Bilirubin AST ALT Alkaline Phosphatase C-React Prot Ext Range 248.00 H Total Protein Total Protein (PEP) Albumin Globulin Albumin/Globulin Ratio Ur Random Sodium Urine Creatinine Urine Total Protein Urine Albumin U Hxbal-0-Rtinivdo U Wgcin-0-Mucsbzvy U Beta Globulin U Gamma Globulin U PEP M-Bola Vancomycin Trough IgG IgA IgM Albumin (ARMANDO) Albumin/Globulin (ARMANDO) Bhcsg-9-Ajyddplnk ARMANDO Knxsr-9-Hlyuumqrs ARMANDO Beta-Globulins (ARMANDO) Gamma Globulins (ARMANDO) ARMANDO M-Bola S.aureus Protein A PCR MRSA (PCR) - Other Studies Radiology: [] reviewed Other Studies: [] Route of nutrition/ use of supplements: [] Nutritional Intake: [] IV Site: [] Mora Catheter: [] - Physical Exam General: Alert, Oriented x3, Cooperative, No apparent distress HEENT: Atraumatic, PERRLA, EOMI Neck: Supple, No Nodes Lungs: Diminished Cardiovascular: Regular rate, Regular Rhythm, No murmurs Abdomen: Soft, Non Tender, Non-Distended, Obese Extremities: Edema Skin: Ulcer/ Wound - R 1st toe ulcer. Reviewed photos. IV Site: Peripheral, without redness Musculoskeletal: No Tenderness to Palpation of Joints or Extremities - except some R ankle tenderness Neurological: Cranial nerves II-XII grossly intact - Assessment/Plan Antibiotics: [] Assessment/Plan: [] Active and Suspected Problems Cellulitis of right foot (Acute) Sepsis (Acute) RUSS (acute kidney injury) (Acute) Hyponatremia (Acute) Cellulitis of right lower extremity (Acute) Ulcer of right foot with fat layer exposed (Acute) sepsis due to diabetic R foot infection, concern for osteo, course complicated by RUSS and some hypoxic resp failure. Will order MRI of R foot and ankle, noncontrast. Re: his allergy history, reports being told as a child he was allergic to PCN. No known h/o anaphylaxis. Reports taking amoxicillin at some point as an adult and having some upset stomach. Bcx neg so far, wound cx with GPC on gram stain, but neg staph aureus pcr. Will continue vanc, stop clinda, start ceftriaxone/flagyl. With uncontrolled DM, A1c of 12, neuropathy, and RUSS, concern about ability to heal this infected wound. Counseled him re:need for strict glucose management. Will follow, thank you.
[2019-04-10 11:11] LABS: Bedside Glucose 77 mg/dL (70-110)
[2019-04-10] MEDS: Nepro with Carbsteady 237 ML Liquid 120 ML PO (11:15)
--- NOTE | 2019-04-10 11:58 | CASEMGMT ---
CLAUDIO BRUNO Assessment Presentation: R great toe Intro role of CM and purpose of RN CM assessment to patient and female guest in room who identified herself as his . RN DAMION asked if she would like to be added on demographics and list her address, phone # but she refused. Demographics, PCP and Pharmacy verified. Pt is in [place] for his job. States when medically cleared he plans to return to [place] via plane. PCP: No Primary Care Physician. Pt states he does not have physician in [place]. Discussed need to establish, however pt does not have insurance. Specialists: Dr. Franco, Dr. Ventrua Preferred Pharmacy: [facility]. Pt does not have prescription coverage, may need [facility] assistance if this is not covered under workman's comp. Insurance: none. Pt states admission is under Workman's Comp, however this has not been verified. CLAUDIO BRUNO [facility] with [facility]anya Pittman, [id number] who will look into case and see if this will be covered under [employer]WC. If not, status will then be self pay. Prescription Benefit: none LNOK: Daughter Loretta Vásquez, [place] Living Arrangements: Lives in [place]. Transportation: Drives DME: Has walker, cane, WC, Cpap- does not use ambulatory DME presently per pt. May need DME on dc if unavailable while he is here in [place] HHC: no Patient DC goals: Plan is to fly home to [place] once medically stable. DC PLAN: undetermined. If needs arise, and Pt is eligible for OBWC, can be addressed kadieugh C9. If Self pay, other arrangements will need to be considered. Chana FLEMINGN RN ACM
--- NOTE | 2019-04-10 12:37 | PCM.PROGNOTE ---
Patient Problems: Active and Suspected Problems Cellulitis of right foot (Acute) Sepsis (Acute) RUSS (acute kidney injury) (Acute) Hyponatremia (Acute) Cellulitis of right lower extremity (Acute) Ulcer of right foot with fat layer exposed (Acute) Subjective: This 63-year-old male with multiple comorbidities was seen bedside today for follow-up of right hallux ulcer and cellulitis of the right lower extremity. He relates that he feels ill today. Per chart review he has been managed this morning for respiratory acidosis and was placed on noninvasive ventilation BiPAP. His renal function is also being addressed and he continues on IV fluids. He reports some loose stools and denies vomiting or nausea. Infectious disease did see him this morning. He relates continued right lower extremity pain however it is not as intense as yesterday. He is eating lunch at the time of the exam. - Physical Exam Vitals/I&O's: Vital Signs Temp Pulse Resp BP Pulse Ox 97.7 F L 81 24 H 109/57 L 85 04/10/19 12:30 04/10/19 12:30 04/10/19 12:30 04/10/19 12:30 04/10/19 12:30 Oxygen Flow Rate (L/min) 7 Oxygen Delivery Method Nasal Cannula Weight: 138.572 kg Body Mass Index (BMI) 43.8 Intake and Output for Last 24 Hours 04/08/19 04/09/19 04/10/19 23:59 23:59 23:59 Intake Total 2270.20 / 2570.20 2950.5 / 3070.5 2741.0 / 2741.0 Output Total 250 / 425 575 / 575 Balance 2270.20 / 2470.20 2700.5 / 2645.5 2166.0 / 2166.0 General: Alert, Oriented x3, Cooperative, No apparent distress Extremities: No cyanosis, Capillary Refill Less than 3 Seconds, No Calf Tenderness - Resolved pain with light touch to the right leg. Compartments are soft to palpate right lower extremity. There is still deep calf compression discomfort and also near the Achilles area. There is no palpable [place] or hypertrophy of the Achilles. Weakness has continued with active range of motion of the ankle in all directions., Diminished Peripheral Pulses, Edema - Reduction in edema with increased skin line wrinkles noted bilateral lower extremities compared to yesterday Skin: Ulcer/ Wound - Fibrous eschar ulcer distal plantar right hallux with resolved erythema and edema. There is no deep probing or purulence on expression. There is no bogginess or fluctuance on palpation. There is no odor. There is no proximal streaking. There is no interdigital maceration. The adjacent skin is hairless and atrophic. There are no ulcers in the leg., - - The right leg skin is no longer has calor noted and the intensity and location of the erythema have reduced compared to yesterday. There are no blisters Musculoskeletal: No Tenderness to Palpation of Joints or Extremities, Muscle Wasting Neurological: - - Lack of normal epicritic sensation to the foot is consistent with his neuropathy status Psych/Mental Status: Normal Affect, Appropriate Microbiology Past 72 Hours 04/09/19 01:15 Urine, Clean Catch Urine Culture - Preliminary GNR lactose pet feeder 04/08/19 10:40 Blood Culture (Wb) - Anticubital Left Blood Culture - Preliminary No growth in 48 hours. 04/08/19 14:30 Blood Culture (Wb) - Right Hand Blood Culture - Preliminary No growth in 48 hours. 04/09/19 18:45 Wound - Aerobic & Anaerobic Swabs Gram Stain - Final Laboratory Results 04/08/19 10:40: Total Protein (PEP) Pending, IgG Pending, IgA Pending, IgM Pending, Albumin (ARMANDO) Pending, Albumin/Globulin (ARMANDO) Pending, Wfwde-3-Rxxizctwt ARMANDO Pending, Xwpqd-4-Lfmnphsic ARMANDO Pending, Beta-Globulins (ARMANDO) Pending, Gamma Globulins (ARMANDO) Pending, ARMANDO M-Bola Pending 04/09/19 15:50: Specimen Type ART, Sample Site L Radial, pH 7.25 L, Bicarbonate Actual 26.6 H, POC Total CO2 28, Base Excess -1, O2 Saturation 90 L, O2 % 50, ABG pCO2 60.5 H, ABG pO2 69 L, Randal Test POS, O2 Delivery Device Bi / C PAP, EPAP 12, Blood Gas Notified Whom RN, Blood Gas Notified Time 1550 04/09/19 16:00: WBC 17.0 H, RBC 3.58 L, Hgb 10.6 L, Hct 32.8 L, MCV 91.6, MCH 29.6, MCHC 32.3, RDW Std Deviation 43.5, RDW Coeff of Akila 12.9, Plt Count 417, MPV 9.6 04/09/19 16:00: PT 15.4 H, INR 1.2, APTT 51.7 H 04/09/19 16:00: Sodium 132 L, Potassium 4.0, Chloride 100, Carbon Dioxide 26.0, Anion Gap 6, BUN 38 H, Creatinine 2.52 H, Estim Creat Clear Calc 30.98, Est GFR (MDRD) Af Amer 33 L, Est GFR (MDRD) Non-Af 28 L, BUN/Creatinine Ratio 15.1, Glucose 185 H, Calcium 7.9 L, Total Bilirubin 0.50, AST 24, ALT 43, Alkaline Phosphatase 209 H, Total Protein 6.6, Albumin 1.8 L, Globulin 4.8 H, Albumin/Globulin Ratio 0.4 L 04/09/19 16:00: Lactic Acid 1.0 04/09/19 16:13: POC Glucose 184 H 04/09/19 16:35: Urine Total Protein Pending, Urine Albumin Pending, U Yymnl-0-Uytqoebo Pending, U Gzpdw-9-Nzgorjop Pending, U Beta Globulin Pending, U Gamma Globulin Pending, U PEP M-Bola Pending 04/09/19 16:35: Urine Creatinine 444.00 04/09/19 16:35: Ur Random Sodium 8 04/09/19 17:19: Specimen Type ART, Sample Site L Radial, pH 7.29 L, Bicarbonate Actual 26.7 H, POC Total CO2 28, Base Excess 0, O2 Saturation 91 L, O2 % 40, ABG pCO2 55.3 H, ABG pO2 69 L, Randal Test POS, Respiration Rate 12, O2 Delivery Device Bi / C PAP, EPAP 7, IPAP 14, Blood Gas Notified Whom RN, Blood Gas Notified Time 7134 04/09/19 18:45: S.aureus Protein A PCR NEGATIVE, MRSA (PCR) Negative 04/09/19 21:56: POC Glucose 131 H 04/10/19 06:18: Vancomycin Trough 21.7 H 04/10/19 06:18: WBC 17.5 H, RBC 3.45 L, Hgb 10.0 L, Hct 32.5 L, MCV 94.2 H, MCH 29.0, MCHC 30.8 L, RDW Std Deviation 45.0 H, RDW Coeff of Akila 13.1, Plt Count 450, MPV 9.6, Immature Gran % (Auto) 3.000 H, Neut % (Auto) 80.8 H, Lymph % (Auto) 6.7 L, Spink % (Auto) 8.9, Eos % (Auto) 0.1, Baso % (Auto) 0.5, Absolute Neuts (auto) 14.2 H, Absolute Lymphs (auto) 1.17, Nucleated RBC % 0, Diff Path Review May foll, Toxic Granulation 1+, Hypochromasia 1+, ESR 79 H 04/10/19 06:18: Sodium 134 L, Potassium 3.7, Chloride 102, Carbon Dioxide 24.0, Anion Gap 8, BUN 44 H, Creatinine 2.18 H, Estim Creat Clear Calc 35.81, Est GFR (MDRD) Af Amer 40 L, Est GFR (MDRD) Non-Af 33 L, BUN/Creatinine Ratio 20.2 H, Glucose 70 L, Calcium 7.8 L, Magnesium 2.3, C-React Prot Ext Range 248.00 H 04/10/19 06:31: POC Glucose 69 L 04/10/19 06:52: POC Glucose 81 04/10/19 08:47: POC Glucose 82 04/10/19 11:03: POC Glucose 77 Current Medications Acetaminophen (Tylenol) 650 mg PO Q6H PRN PRN PRN Reason: Mild Pain (1-3)/Temp > 100.7 F Last Admin: 04/10/19 09:16 Dose: 650 mg Documented by: Albuterol/Ipratropium (Duoneb) 3 ml INHALATION Q4HWA.RT [facility] Last Admin: 04/10/19 11:21 Dose: 3 ml Documented by: Carvedilol (Coreg) 12.5 mg PO DAILY [facility] Last Admin: 04/10/19 10:07 Dose: 12.5 mg Documented by: Dextrose (D50w Syringe) 0 gm IV X1 PRN; Protocol PRN Reason: Hypoglycemia Enoxaparin Sodium (Lovenox) 40 mg SC Q12 [facility] Last Admin: 04/10/19 09:08 Dose: 40 mg Documented by: Glucagon () 1 mg IM .X1 PRN PRN Reason: Hypoglycemia Hydralazine HCl (Apresoline Iv) 5 mg IV Q6H PRN PRN PRN Reason: BLOOD PRESSURE Vancomycin IV Pharmacy to Dose (1 ea/ Sodium Chloride) 500 mls @ 250 mls/hr IV PRN PRN; Protocol PRN Reason: Rx to Dose Sodium Chloride () 1,000 mls @ 150 mls/hr IV .Q6H40M [facility] Last Infusion: 04/10/19 11:45 Dose: 150 mls/hr Documented by: Sodium Chloride () 250 mls @ 15 mls/hr IV .[id number] PRN PRN Reason: Saline Flush Ceftriaxone Sodium 2 gm/ (Sodium Chloride) 50 mls @ 100 mls/hr IV Q24 [facility] Last Infusion: 04/10/19 11:45 Dose: Infused Documented by: Insulin Human Lispro ([facility]al[facility] (B[facility])) [facility]; Protocol Last Admin: 04/10/19 11:04 Dose: Not Given Documented by: Magnesium Hydroxide (Milk Of Magnesia) 30 ml PO DAILY PRN PRN PRN Reason: Constipation Metronidazole (Flagyl) 500 mg PO TID [facility] Morphine Sulfate () 2 mg IV Q3H PRN PRN PRN Reason: Severe pain (7-10/10) Nutritional Formula (Chun - [place] Flavor) 1 packet PO BIDCM [facility] Last Admin: 04/10/19 09:06 Dose: 1 packet Documented by: Ondansetron HCl (Zofran) 4 mg IV Q8H PRN PRN PRN Reason: NAUSEA/VOMITING Oxycodone HCl (Oxyir) 5 mg PO Q4H PRN PRN PRN Reason: Moderate Pain (4-6/10) Last Admin: 04/10/19 00:07 Dose: 5 mg Documented by: Sodium Chloride () 5 - 15 ml IV UD PRN PRN Reason: SALINE FLUSH Last Admin: 04/10/19 01:51 Dose: 10 ml Documented by: Medical Necessity - Tobacco Use Smoking Status: Never smoker Tobacco Use: Cigarettes Assessment/Plan All Active Problems Cellulitis of right foot (Acute) Sepsis (Acute) RUSS (acute kidney injury) (Acute) Hyponatremia (Acute) Cellulitis of right lower extremity (Acute) Ulcer of right foot with fat layer exposed (Acute) Ulcer right hallux with fat layer expose Right lower extremity cellulitis Deep venous thrombosis has been ruled out with venous Doppler exam Right lower extremity pain Reported Achilles rupture right lower extremity Uncontrolled diabetes with neuropathy; hemoglobin A1c 12.2 noted Sepsis Multiple other comorbidities: Sleep apnea, obesity, kidney injury, hypertension I reviewed and discussed his case. It is noted he has a low-grade intermittent fever and otherwise his vital signs are stable. He does have leukocytosis with white blood cell count of 17.5, elevated ESR of 79 and elevated CRP of 248. His tibia-fibula x-rays were reviewed without acute fracture, dislocation, soft tissue emphysema, foreign body. Edema is noted. Kager's triangle is also well visualized. His ulcer site was evaluated today and is dry and stable the fibrous plug it is now a dry well adhered eschar; to continue to change daily with HESKA. It is okay to wash the foot with soap and water. To avoid soaking. There was no identifiable abscess or deep tissue exposed. A deep wound culture for aerobic, anaerobic, and MRSA PCR were ordered. This was MRSA negative. So far there is gram-negative lópez lactose pet feeder growth. His blood cultures are negative so far. Due to high risk status MRI of the foot and ankle were ordered to rule out osteomyelitis, deep abscess, and to evaluate his reported Achilles tear. It is noted there was seropurulent drainage yesterday in which additional drainage not noted today. His antibiotics were updated to vancomycin, ceftriaxone, and Flagyl. Infectious disease on consultation and recommendations are greatly appreciated. It is noted he has struggled with oxygenation control today and has not been safe to travel down to complete his MRI. Upon Stability this test will be completed. His right leg demonstrates clinical improvement compared to yesterday with decreased palpation pain, resolved caloric, and decreased redness intensity. He had a venous duplex Doppler performed which did not demonstrate any deep venous thrombosis. I recommend tenured elevation and Mahendra wrap application to the right leg to further control his edema. Medical management DVT prophylaxis per primary team is greatly appreciated. I will continue to follow him closely in house. Please do not hesitate to call if you have any questions. Lindsey Jacques DPM, [facility] [phone]
--- NOTE | 2019-04-10 14:02 | NURSING ---
Report called to Linh SNYDER the receiving nurse in PCU.
[2019-04-10 14:18] LABS: Pathologist Review Reviewed
[2019-04-10] MEDS: Dextrose 5%-Lactated Ringers 1,000 ML 150 ML IV ×2 (15:20→21:27)
[2019-04-10] MEDS: metroNIDAZOLE 500 MG Tablet PO ×2 (15:21→21:28)
[2019-04-10 15:31] LABS: Bedside Glucose 140 mg/dL (70-110)
--- NOTE | 2019-04-10 16:07 | CASEMGMT ---
Addendum entered by Ellen Garnica 04/13/19 14:06: Latanya Pittman at [facility] [phone] Original Note: RN CM Note: Call back received from Tameka, [facility]. 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 Is awaiting response as to whether this hospitalization is covered under workman's comp. If it is denied, pt can choose to appeal and this would take 14-30 days. Pt does not have commercial or other insurance per his report. Chana FLEMINGN RN ACM
--- NOTE | 2019-04-10 16:24 | CPS ---
increased pressure to 18/8 and decreased O2 to 55%, increased face mask to size Large, pt angela well. Added humidity to BIPAP, was able to decrease O2 again to 45% w/Sat of 92%, informed RN of changed
--- NOTE | 2019-04-10 18:16 | PCM.PN.REN ---
Patient Problems: Active and Suspected Problems Cellulitis of right foot (Acute) Sepsis (Acute) RUSS (acute kidney injury) (Acute) Hyponatremia (Acute) Cellulitis of right lower extremity (Acute) Ulcer of right foot with fat layer exposed (Acute) Subjective: Following for RUSS. Patient is on BiPAP. He denies increased SOB. There is no chest pain. No increase edema. - Physical Exam Vitals/I&O's: Vital Signs Temp Pulse Resp BP Pulse Ox 97.7 F L 75 31 H 129/78 H 92 04/10/19 17:00 04/10/19 17:00 04/10/19 17:00 04/10/19 17:00 04/10/19 17:00 Oxygen Flow Rate (L/min) 7 Oxygen Delivery Method Bi-pap Weight: 138.572 kg Body Mass Index (BMI) 43.8 Intake and Output for Last 24 Hours 04/08/19 04/09/19 04/10/19 23:59 23:59 23:59 Intake Total 2270.20 / 2570.20 2950.5 / 3070.5 3288.5 / 3288.5 Output Total 250 / 425 575 / 575 Balance 2270.20 / 2470.20 2700.5 / 2645.5 2713.5 / 2713.5 General: Alert, Oriented x3 HEENT: EOMI Oral: Moist Mucosa Neck: Supple Lungs: Clear to auscultation Cardiovascular: Normal S1, Normal S2 Abdomen: Bowel Sounds Present, Soft, Non Tender Extremities: Edema - 2+ Microbiology Past 72 Hours 04/09/19 18:45 Wound - Aerobic & Anaerobic Swabs Gram Stain - Final 04/09/19 18:45 Wound - Aerobic & Anaerobic Swabs Wound Culture - Preliminary Streptococcus group G 04/09/19 01:15 Urine, Clean Catch Urine Culture - Preliminary 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 04/08/19 14:30 Blood Culture (Wb) - Right Hand Blood Culture - Preliminary No growth in 48 hours. Laboratory Results 04/09/19 18:45: S.aureus Protein A PCR NEGATIVE, MRSA (PCR) Negative 04/09/19 21:56: POC Glucose 131 H 04/10/19 06:18: Vancomycin Trough 21.7 H 04/10/19 06:18: WBC 17.5 H, RBC 3.45 L, Hgb 10.0 L, Hct 32.5 L, MCV 94.2 H, MCH 29.0, MCHC 30.8 L, RDW Std Deviation 45.0 H, RDW Coeff of Akila 13.1, Plt Count 450, MPV 9.6, Immature Gran % (Auto) 3.000 H, Neut % (Auto) 80.8 H, Lymph % (Auto) 6.7 L, [place] % (Auto) 8.9, Eos % (Auto) 0.1, Baso % (Auto) 0.5, Absolute Neuts (auto) 14.2 H, Absolute Lymphs (auto) 1.17, Nucleated RBC % 0, Diff Path Review Reviewed, Toxic Granulation 1+, Hypochromasia 1+, ESR 79 H 04/10/19 06:18: Sodium 134 L, Potassium 3.7, Chloride 102, Carbon Dioxide 24.0, Anion Gap 8, BUN 44 H, Creatinine 2.18 H, Estim Creat Clear Calc 35.81, Est GFR (MDRD) Af Amer 40 L, Est GFR (MDRD) Non-Af 33 L, BUN/Creatinine Ratio 20.2 H, Glucose 70 L, Calcium 7.8 L, Magnesium 2.3, C-React Prot Ext Range 248.00 H 04/10/19 06:31: POC Glucose 69 L 04/10/19 06:52: POC Glucose 81 04/10/19 08:47: POC Glucose 82 04/10/19 11:03: POC Glucose 77 04/10/19 15:23: POC Glucose 140 H Current Medications Acetaminophen (Tylenol) 650 mg PO Q6H PRN PRN PRN Reason: Mild Pain (1-3)/Temp > 100.7 F Last Admin: 04/10/19 09:16 Dose: 650 mg Documented by: Albuterol/Ipratropium (Duoneb) 3 ml INHALATION Q4HWA.RT [facility] Last Admin: 04/10/19 15:23 Dose: 3 ml Documented by: Carvedilol (Coreg) 12.5 mg PO DAILY [facility] Last Admin: 04/10/19 10:07 Dose: 12.5 mg Documented by: Dextrose (D50w Syringe) 0 gm IV X1 PRN; Protocol PRN Reason: Hypoglycemia Enoxaparin Sodium (Lovenox) 40 mg SC Q12 [facility] Last Admin: 04/10/19 09:08 Dose: 40 mg Documented by: Glucagon () 1 mg IM .X1 PRN PRN Reason: Hypoglycemia Hydralazine HCl (Apresoline Iv) 5 mg IV Q6H PRN PRN PRN Reason: BLOOD PRESSURE Vancomycin IV Pharmacy to Dose (1 ea/ Sodium Chloride) 500 mls @ 250 mls/hr IV PRN PRN; Protocol PRN Reason: Rx to Dose Sodium Chloride () 250 mls @ 15 mls/hr IV .[id number] PRN PRN Reason: Saline Flush Ceftriaxone Sodium 2 gm/ (Sodium Chloride) 50 mls @ 100 mls/hr IV Q24 [facility] Last Infusion: 04/10/19 11:45 Dose: Infused Documented by: Dextrose/Lactated Ringer's () 1,000 mls @ 150 mls/hr IV .Q6H40M [facility] Last Admin: 04/10/19 15:20 Dose: 150 mls/hr Documented by: Insulin Human Lispro (Humalog Kwikpen (Bkc)) 0 unit SC ACHS [facility]; Protocol Last Admin: 04/10/19 15:23 Dose: Not Given Documented by: Magnesium Hydroxide (Milk Of Magnesia) 30 ml PO DAILY PRN PRN PRN Reason: Constipation Metronidazole (Flagyl) 500 mg PO TID [facility] Last Admin: 04/10/19 15:21 Dose: 500 mg Documented by: Nutritional Formula (Chun - [place] Flavor) 1 packet PO BIDCM [facility] Last Admin: 04/10/19 14:38 Dose: Not Given Documented by: Ondansetron HCl (Zofran) 4 mg IV Q8H PRN PRN PRN Reason: NAUSEA/VOMITING Oxycodone HCl (Oxyir) 5 mg PO Q4H PRN PRN PRN Reason: Moderate Pain (4-6/10) Last Admin: 04/10/19 00:07 Dose: 5 mg Documented by: Sodium Chloride () 5 - 15 ml IV UD PRN PRN Reason: SALINE FLUSH Last Admin: 04/10/19 01:51 Dose: 10 ml Documented by: Medical Necessity - Tobacco Use Smoking Status: Never smoker Tobacco Use: Cigarettes Assessment/Plan All Active Problems Cellulitis of right foot (Acute) Sepsis (Acute) RUSS (acute kidney injury) (Acute) Hyponatremia (Acute) Cellulitis of right lower extremity (Acute) Ulcer of right foot with fat layer exposed (Acute) 1- RUSS. Unknown baseline. UA showed 100 protein, WBC > 100 with large LSE Cr is stable in the last 24 hrs. Urine studies is most consistent with prerenal RUSS, so continue IVF. UPEP and SPEP are pending. Keep MAP > 65. Recheck Cr in am and reassess volume status. 2-Hyponatremia: likely from RUSS Na 134 which is better. Will recheck. 3-HTN: Pt was hypotensive at admission Agree with holding ACEI and HCTZ BP is better. 4- Sepsis related to RLE cellulitis and possible UTI Follow culture Abx as per the primary service
[2019-04-10 21:45] LABS: Bedside Glucose 116 mg/dL (70-110)
[2019-04-11] VITALS (48 sets, daily range): BP systolic 125–202; BP diastolic 70–93; PULSE 77–111; RESP 12–31; TEMP 36.6–37.2; O2SAT 82–99
[2019-04-11] MEDS: Ipratropium/Albuterol Sulfate 3 ML AMPUL.NEB INHALATION ×5 (00:19→19:18)
[2019-04-11] MEDS: Dextrose 5%-Lactated Ringers 1,000 ML 150 ML IV (04:29)
--- NOTE | 2019-04-11 05:04 | CON.PCM_ITS ---
Reason for Consult Date of Consultation: 04/11/19 Reason for Consultation: Respiratory Failure History of Present Illness: The patient is a 63-year-old male, with a history as outlined below, who initially presented to the emergency department on April 08 with complaints of right foot pain and swelling. 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 The patient normally resides in [facility] and has been in [place] for the last 2 months. The patient is a lifelong non-smoker and denies any significant secondhand smoke exposure. He has never been diagnosed with asthma in the past. He does carry a diagnosis of obstructive sleep apnea for which he utilizes nocturnal CPAP therapy with a pressure support of 12 cm of water, per his account. The patient was initially admitted to the medical surgical floor for treatment of underlying lower extremity cellulitis. The patient's hospital course has been complicated by the development of acute kidney injury along with acute hypoxemic and hypercarbic respiratory failure. The patient was subsequently evaluated by nephrology who felt that the patient's RUSS was most likely secondary to a prerenal etiology and recommended volume expansion. Both podiatry and infectious diseases have also been following the patient. An MRI of the lower extremity is currently pending. On April 10, the patient was transferred from the medical surgical floor to the progressive care unit over an inability to be weaned from continuous BiPAP support. The patient's last arterial blood gas completed on April 09 on BiPAP with a pressure support of 14/7 revealed a pH of 7.29 with a corresponding PCO2 of 55 and PO2 of 69. At the present time, the patient is documented to be overall net +7.7 L for the admission. Surface echocardiogram completed on April 09 revealed stage II diastolic dysfunction. Past Medical History Past Medical History (Chronic Problems): Chronic Problems Hypertension (Chronic) DM type 2 (diabetes mellitus, type 2) (Chronic) Morbid obesity (Chronic) ENEIDA (obstructive sleep apnea) (Chronic) Bilateral leg edema (Chronic) Type 2 diabetes mellitus with diabetic polyneuropathy (Chronic) Allergies Penicillins [PCN] Allergy (Verified 04/08/19 13:23) Other Sulfa (Sulfonamide Antibiotics) Allergy (Verified 04/08/19 13:23) Other Home Medications: Ambulatory Orders Medication Instructions Recorded Amlodipine [Norvasc] 10 mg PO DAILY 04/08/19 Carvedilol 12.5 mg PO DAILY 04/08/19 Glimepiride 4 mg PO DAILY 04/08/19 Hydrochlorothiazide [Hctz] 25 mg PO DAILY 04/08/19 Metformin HCl 1,000 mg PO BID 04/08/19 Ramipril 10 mg PO QHS 04/08/19 Surgical History: total hip arthroplasty - right hip replacement Psychiatric History: No pertinent psych hx Lives: With Family Smoking Status: Never smoker Tobacco Use: Cigarettes Alcohol: None Drugs: None - *Family History Maternal History Items: No pertinent history Paternal History Items: No pertinent history Review of Systems Constitutional: Reports: Malaise, Fatigue Eyes: Denies: Blurred vision, Double vision HEENT: Denies: Head Aches, Sinus Congestion, Sinus Drainage Cardiovascular: Denies: Chest Pain, Palpitations Respiratory: Denies: Cough, Shortness of breath at rest, Sputum production Gastrointestinal: Denies: Abdominal Pain, Nausea, Vomiting Genitourinary: Denies: Dysuria Musculoskeletal: Reports: Foot Pain, Leg Pain Skin: Reports: Rash, Skin Changes Neurological: Denies: Numbness, Tingling, Focal weakness Psychiatric: Denies: Anxiety, Depression, Homicidal Ideations, Suicidal Ideations Hematologic/ Lymphatic: Reports: Anemia. Denies: Hx of blood clot Patient Problems: Active and Suspected Problems Cellulitis of right foot (Acute) Sepsis (Acute) RUSS (acute kidney injury) (Acute) Hyponatremia (Acute) Cellulitis of right lower extremity (Acute) Ulcer of right foot with fat layer exposed (Acute) Objective: The patient's most recent lab work, culture data and imaging studies have all been personally reviewed. Blood cultures have been unrevealing to date. Wound and urine cultures are pending. - Physical Exam Vitals/I&O's: Vital Signs Temp Pulse Resp BP Pulse Ox 98.1 F 87 22 H 141/80 H 89 04/11/19 02:10 04/11/19 04:00 04/11/19 04:00 04/11/19 04:00 04/11/19 04:00 Oxygen Flow Rate (L/min) 8 Oxygen Delivery Method Bi-pap Weight: 305 lb 8 oz Body Mass Index (BMI) 43.8 Intake and Output for Last 24 Hours 04/09/19 04/10/19 04/11/19 23:59 23:59 23:59 Intake Total 2950.5 / 3070.5 4563.5 / 4563.5 692.5 / 692.5 Output Total 250 / 425 975 / 1675 700 / 700 Balance 2700.5 / 2645.5 3588.5 / 2888.5 -7.5 / -7.5 General: Alert, Cooperative, No apparent distress, - - Currently on high flow nasal cannula supplemental oxygen. The patient is morbidly obese. HEENT: Atraumatic, PERRLA, Normocephalic Oral: No Gingival or Mucosal Lesions/ Ulcerations Neck: Supple, No Nodes, Trachea Midline, - - Large neck circumference with redundant soft tissue Lungs: No rhonchi, No wheeze, No rales, Diminished Cardiovascular: Regular rate, Regular Rhythm, Normal S1, Normal S2, No murmurs Abdomen: Bowel Sounds Present, Soft, Non Tender, Distended, Obese Extremities: No clubbing, No cyanosis, Edema Skin: Ulcer/ Wound - Right great toe. Surrounding erythema noted. Musculoskeletal: No Muscle Wasting Lymphatic: No Cervical, Supraclavicular, or Inguinal Adenopathy Neurological: Cranial nerves II-XII grossly intact, Neuro grossly intact Psych/Mental Status: Normal Affect, Appropriate Microbiology Past 72 Hours 04/09/19 18:45 Wound - Aerobic & Anaerobic Swabs Gram Stain - Final 04/09/19 18:45 Wound - Aerobic & Anaerobic Swabs Wound Culture - Preliminary Streptococcus group G 04/09/19 01:15 Urine, Clean Catch Urine Culture - Preliminary GNR lactose computer operations specialist 04/08/19 10:40 Blood Culture (Wb) - Anticubital Left Blood Culture - Preliminary No growth in 48 hours. 04/08/19 14:30 Blood Culture (Wb) - Right Hand Blood Culture - Preliminary No growth in 48 hours. Laboratory Results 04/10/19 06:18: Vancomycin Trough 21.7 H 04/10/19 06:18: WBC 17.5 H, RBC 3.45 L, Hgb 10.0 L, Hct 32.5 L, MCV 94.2 H, MCH 29.0, MCHC 30.8 L, RDW Std Deviation 45.0 H, RDW Coeff of Akila 13.1, Plt Count 450, MPV 9.6, Immature Gran % (Auto) 3.000 H, Neut % (Auto) 80.8 H, Lymph % (Auto) 6.7 L, Ray % (Auto) 8.9, Eos % (Auto) 0.1, Baso % (Auto) 0.5, Absolute Neuts (auto) 14.2 H, Absolute Lymphs (auto) 1.17, Nucleated RBC % 0, Diff Path Review Reviewed, Toxic Granulation 1+, Hypochromasia 1+, ESR 79 H 04/10/19 06:18: Sodium 134 L, Potassium 3.7, Chloride 102, Carbon Dioxide 24.0, Anion Gap 8, BUN 44 H, Creatinine 2.18 H, Estim Creat Clear Calc 35.81, Est GFR (MDRD) Af Amer 40 L, Est GFR (MDRD) Non-Af 33 L, BUN/Creatinine Ratio 20.2 H, Glucose 70 L, Calcium 7.8 L, Magnesium 2.3, C-React Prot Ext Range 248.00 H 04/10/19 06:31: POC Glucose 69 L 04/10/19 06:52: POC Glucose 81 04/10/19 08:47: POC Glucose 82 04/10/19 11:03: POC Glucose 77 04/10/19 15:23: POC Glucose 140 H 04/10/19 21:25: POC Glucose 116 H Labs (Last 48 Hours) 04/08/19 04/09/19 04/09/19 10:40 05:38 05:38 WBC 16.9 H RBC 3.56 L Hgb 10.5 L Hct 32.8 L MCV 92.1 MCH 29.5 MCHC 32.0 RDW Std Deviation 43.3 RDW Coeff of Akila 12.9 Plt Count 293 MPV 10.4 Immature Gran % (Auto) 0.500 Neut % (Auto) 85.8 H Lymph % (Auto) 5.1 L Ray % (Auto) 8.2 Eos % (Auto) 0.1 Baso % (Auto) 0.3 Absolute Neuts (auto) 14.5 H Absolute Lymphs (auto) 0.86 Nucleated RBC % 0 Diff Path Review Toxic Granulation Hypochromasia ESR PT INR APTT Specimen Type Sample Site pH Bicarbonate Actual POC Total CO2 Base Excess O2 Saturation O2 % ABG pCO2 ABG pO2 Randal Test Respiration Rate O2 Delivery Device EPAP IPAP Blood Gas Notified Whom Blood Gas Notified Time Sodium 131 L Potassium 4.0 Chloride 100 Carbon Dioxide 23.0 Anion Gap 8 BUN 32 H Creatinine 2.14 H Estim Creat Clear Calc 36.48 Est GFR (MDRD) Af Amer 40 L Est GFR (MDRD) Non-Af 33 L BUN/Creatinine Ratio 15.0 Glucose 266 H Lactic Acid Calcium 7.9 L Magnesium Total Bilirubin 0.50 AST 41 H ALT 48 Alkaline Phosphatase 205 H C-React Prot Ext Range Total Protein 6.7 Total Protein (PEP) Pending Albumin 1.8 L Globulin 4.9 H Albumin/Globulin Ratio 0.4 L Ur Random Sodium Urine Creatinine Urine Total Protein Urine Albumin U Feqes-1-Lgxefbdk U Szzjd-6-Maizozqt U Beta Globulin U Gamma Globulin U PEP M-Bola Vancomycin Trough IgG Pending IgA Pending IgM Pending Albumin (ARMANDO) Pending Albumin/Globulin (ARMANDO) Pending Sflne-6-Mozcrvtan ARMANDO Pending Koupo-9-Mxiwivrus ARMANDO Pending Beta-Globulins (ARMANDO) Pending Gamma Globulins (ARMANDO) Pending ARMANDO M-Bola Pending S.aureus Protein A PCR MRSA (PCR) POC Glucose 04/09/19 04/09/19 04/09/19 06:28 10:34 15:50 WBC RBC Hgb Hct MCV MCH MCHC RDW Std Deviation RDW Coeff of Akila Plt Count MPV Immature Gran % (Auto) Neut % (Auto) Lymph % (Auto) Ray % (Auto) Eos % (Auto) Baso % (Auto) Absolute Neuts (auto) Absolute Lymphs (auto) Nucleated RBC % Diff Path Review Toxic Granulation Hypochromasia ESR PT INR APTT Specimen Type ART Sample Site L Radial pH 7.25 L Bicarbonate Actual 26.6 H POC Total CO2 28 Base Excess -1 O2 Saturation 90 L O2 % 50 ABG pCO2 60.5 H ABG pO2 69 L Randal Test POS Respiration Rate O2 Delivery Device Bi / C PAP EPAP 12 IPAP Blood Gas Notified Whom RN Blood Gas Notified Time 1550 Sodium Potassium Chloride Carbon Dioxide Anion Gap BUN Creatinine Estim Creat Clear Calc Est GFR (MDRD) Af Amer Est GFR (MDRD) Non-Af BUN/Creatinine Ratio Glucose Lactic Acid Calcium Magnesium Total Bilirubin AST ALT Alkaline Phosphatase C-React Prot Ext Range Total Protein Total Protein (PEP) Albumin Globulin Albumin/Globulin Ratio Ur Random Sodium Urine Creatinine Urine Total Protein Urine Albumin U Qxhzn-9-Folivprd U Xtfou-4-Iaxczvjf U Beta Globulin U Gamma Globulin U PEP M-Bola Vancomycin Trough IgG IgA IgM Albumin (ARMANDO) Albumin/Globulin (ARMANDO) Izryj-3-Vkoxrglmb ARMANDO Ulmyi-2-Avcabiwpg ARMANDO Beta-Globulins (ARMANDO) Gamma Globulins (ARMANDO) ARMANDO M-Bola S.aureus Protein A PCR MRSA (PCR) POC Glucose 240 H 194 H 04/09/19 04/09/19 04/09/19 16:00 16:00 16:00 WBC 17.0 H RBC 3.58 L Hgb 10.6 L Hct 32.8 L MCV 91.6 MCH 29.6 MCHC 32.3 RDW Std Deviation 43.5 RDW Coeff of Akila 12.9 Plt Count 417 MPV 9.6 Immature Gran % (Auto) Neut % (Auto) Lymph % (Auto) Ray % (Auto) Eos % (Auto) Baso % (Auto) Absolute Neuts (auto) Absolute Lymphs (auto) Nucleated RBC % Diff Path Review Toxic Granulation Hypochromasia ESR PT 15.4 H INR 1.2 APTT 51.7 H Specimen Type Sample Site pH Bicarbonate Actual POC Total CO2 Base Excess O2 Saturation O2 % ABG pCO2 ABG pO2 Randal Test Respiration Rate O2 Delivery Device EPAP IPAP Blood Gas Notified Whom Blood Gas Notified Time Sodium 132 L Potassium 4.0 Chloride 100 Carbon Dioxide 26.0 Anion Gap 6 BUN 38 H Creatinine 2.52 H Estim Creat Clear Calc 30.98 Est GFR (MDRD) Af Amer 33 L Est GFR (MDRD) Non-Af 28 L BUN/Creatinine Ratio 15.1 Glucose 185 H Lactic Acid Calcium 7.9 L Magnesium Total Bilirubin 0.50 AST 24 ALT 43 Alkaline Phosphatase 209 H C-React Prot Ext Range Total Protein 6.6 Total Protein (PEP) Albumin 1.8 L Globulin 4.8 H Albumin/Globulin Ratio 0.4 L Ur Random Sodium Urine Creatinine Urine Total Protein Urine Albumin U Mckoc-5-Gpyxoekl U Wtxrt-9-Sxjjtfmm U Beta Globulin U Gamma Globulin U PEP M-Bola Vancomycin Trough IgG IgA IgM Albumin (ARMANDO) Albumin/Globulin (ARMANDO) Fzgft-6-Ukleqgmtb ARMANDO Etqna-9-Ytfusrops ARMANDO Beta-Globulins (ARMANDO) Gamma Globulins (ARMANDO) ARMANDO M-Bola S.aureus Protein A PCR MRSA (PCR) POC Glucose 04/09/19 04/09/19 04/09/19 16:00 16:13 16:35 WBC RBC Hgb Hct MCV MCH MCHC RDW Std Deviation RDW Coeff of Akila Plt Count MPV Immature Gran % (Auto) Neut % (Auto) Lymph % (Auto) Ray % (Auto) Eos % (Auto) Baso % (Auto) Absolute Neuts (auto) Absolute Lymphs (auto) Nucleated RBC % Diff Path Review Toxic Granulation Hypochromasia ESR PT INR APTT Specimen Type Sample Site pH Bicarbonate Actual POC Total CO2 Base Excess O2 Saturation O2 % ABG pCO2 ABG pO2 Randal Test Respiration Rate O2 Delivery Device EPAP IPAP Blood Gas Notified Whom Blood Gas Notified Time Sodium Potassium Chloride Carbon Dioxide Anion Gap BUN Creatinine Estim Creat Clear Calc Est GFR (MDRD) Af Amer Est GFR (MDRD) Non-Af BUN/Creatinine Ratio Glucose Lactic Acid 1.0 Calcium Magnesium Total Bilirubin AST ALT Alkaline Phosphatase C-React Prot Ext Range Total Protein Total Protein (PEP) Albumin Globulin Albumin/Globulin Ratio Ur Random Sodium Urine Creatinine Urine Total Protein Pending Urine Albumin Pending U Vvyxm-2-Ptecglxp Pending U Bkogu-4-Neniajwh Pending U Beta Globulin Pending U Gamma Globulin Pending U PEP M-Bola Pending Vancomycin Trough IgG IgA IgM Albumin (ARMANDO) Albumin/Globulin (ARMANDO) Forhm-2-Lpoizjezt ARMANDO Aptlg-7-Nufytjklo ARMANDO Beta-Globulins (ARMANDO) Gamma Globulins (ARMANDO) ARMANDO M-Bola S.aureus Protein A PCR MRSA (PCR) POC Glucose 184 H 04/09/19 04/09/19 04/09/19 16:35 16:35 17:19 WBC RBC Hgb Hct MCV MCH MCHC RDW Std Deviation RDW Coeff of Akila Plt Count MPV Immature Gran % (Auto) Neut % (Auto) Lymph % (Auto) Ray % (Auto) Eos % (Auto) Baso % (Auto) Absolute Neuts (auto) Absolute Lymphs (auto) Nucleated RBC % Diff Path Review Toxic Granulation Hypochromasia ESR PT INR APTT Specimen Type ART Sample Site L Radial pH 7.29 L Bicarbonate Actual 26.7 H POC Total CO2 28 Base Excess 0 O2 Saturation 91 L O2 % 40 ABG pCO2 55.3 H ABG pO2 69 L Randal Test POS Respiration Rate 12 O2 Delivery Device Bi / C PAP EPAP 7 IPAP 14 Blood Gas Notified Whom RN Blood Gas Notified Time 1719 Sodium Potassium Chloride Carbon Dioxide Anion Gap BUN Creatinine Estim Creat Clear Calc Est GFR (MDRD) Af Amer Est GFR (MDRD) Non-Af BUN/Creatinine Ratio Glucose Lactic Acid Calcium Magnesium Total Bilirubin AST ALT Alkaline Phosphatase C-React Prot Ext Range Total Protein Total Protein (PEP) Albumin Globulin Albumin/Globulin Ratio Ur Random Sodium 8 Urine Creatinine 444.00 Urine Total Protein Urine Albumin U Qjhij-3-Wdguirsu U Dtgic-7-Liqeieez U Beta Globulin U Gamma Globulin U PEP M-Bola Vancomycin Trough IgG IgA IgM Albumin (ARMANDO) Albumin/Globulin (ARMANDO) Rceaj-4-Mbgfkennn ARMANDO Qvsur-5-Zvumxihes ARMANDO Beta-Globulins (ARMANDO) Gamma Globulins (ARMANDO) ARMANDO M-Bola S.aureus Protein A PCR MRSA (PCR) POC Glucose 04/09/19 04/09/19 04/10/19 18:45 21:56 06:18 WBC RBC Hgb Hct MCV MCH MCHC RDW Std Deviation RDW Coeff of Akila Plt Count MPV Immature Gran % (Auto) Neut % (Auto) Lymph % (Auto) Ray % (Auto) Eos % (Auto) Baso % (Auto) Absolute Neuts (auto) Absolute Lymphs (auto) Nucleated RBC % Diff Path Review Toxic Granulation Hypochromasia ESR PT INR APTT Specimen Type Sample Site pH Bicarbonate Actual POC Total CO2 Base Excess O2 Saturation O2 % ABG pCO2 ABG pO2 Randal Test Respiration Rate O2 Delivery Device EPAP IPAP Blood Gas Notified Whom Blood Gas Notified Time Sodium Potassium Chloride Carbon Dioxide Anion Gap BUN Creatinine Estim Creat Clear Calc Est GFR (MDRD) Af Amer Est GFR (MDRD) Non-Af BUN/Creatinine Ratio Glucose Lactic Acid Calcium Magnesium Total Bilirubin AST ALT Alkaline Phosphatase C-React Prot Ext Range Total Protein Total Protein (PEP) Albumin Globulin Albumin/Globulin Ratio Ur Random Sodium Urine Creatinine Urine Total Protein Urine Albumin U Rurqv-6-Monnukfj U Bklvc-7-Tjjcqamn U Beta Globulin U Gamma Globulin U PEP M-Bola Vancomycin Trough 21.7 H IgG IgA IgM Albumin (ARMANDO) Albumin/Globulin (ARMANDO) Rvqbz-1-Nxjpzoysx ARMANDO Bgvup-6-Omjfhalqb ARMANDO Beta-Globulins (ARMANDO) Gamma Globulins (ARMANDO) ARMANDO M-Bola S.aureus Protein A PCR NEGATIVE MRSA (PCR) Negative POC Glucose 131 H 04/10/19 04/10/19 04/10/19 06:18 06:18 06:31 WBC 17.5 H RBC 3.45 L Hgb 10.0 L Hct 32.5 L MCV 94.2 H MCH 29.0 MCHC 30.8 L RDW Std Deviation 45.0 H RDW Coeff of Akila 13.1 Plt Count 450 MPV 9.6 Immature Gran % (Auto) 3.000 H Neut % (Auto) 80.8 H Lymph % (Auto) 6.7 L Ray % (Auto) 8.9 Eos % (Auto) 0.1 Baso % (Auto) 0.5 Absolute Neuts (auto) 14.2 H Absolute Lymphs (auto) 1.17 Nucleated RBC % 0 [address] Review Reviewed Toxic Granulation 1+ Hypochromasia 1+ ESR 79 H PT INR APTT Specimen Type Sample Site pH Bicarbonate Actual POC Total CO2 Base Excess O2 Saturation O2 % ABG pCO2 ABG pO2 Randal Test Respiration Rate O2 Delivery Device EPAP IPAP Blood Gas Notified Whom Blood Gas Notified Time Sodium 134 L Potassium 3.7 Chloride 102 Carbon Dioxide 24.0 Anion Gap 8 BUN 44 H Creatinine 2.18 H Estim Creat Clear Calc 35.81 Est GFR (MDRD) Af Amer 40 L Est GFR (MDRD) Non-Af 33 L BUN/Creatinine Ratio 20.2 H Glucose 70 L Lactic Acid Calcium 7.8 L Magnesium 2.3 Total Bilirubin AST ALT Alkaline Phosphatase C-React Prot Ext Range 248.00 H Total Protein Total Protein (PEP) Albumin Globulin Albumin/Globulin Ratio Ur Random Sodium Urine Creatinine Urine Total Protein Urine Albumin U Boivi-8-Tzedrzxr U Ujubq-6-Ygpwftzr U Beta Globulin U Gamma Globulin U PEP M-Bola Vancomycin Trough IgG IgA IgM Albumin (ARMANDO) Albumin/Globulin (ARMANDO) Qnmjb-7-Hgsgticow ARMANDO Egbwx-0-Duftmyegd ARMANDO Beta-Globulins (ARMANDO) Gamma Globulins (ARMANDO) ARMANDO M-Bola S.aureus Protein A PCR MRSA (PCR) POC Glucose 69 L 04/10/19 04/10/19 04/10/19 06:52 08:47 11:03 WBC RBC Hgb Hct MCV MCH MCHC RDW Std Deviation RDW Coeff of Akila Plt Count MPV Immature Gran % (Auto) Neut % (Auto) Lymph % (Auto) Ray % (Auto) Eos % (Auto) Baso % (Auto) Absolute Neuts (auto) Absolute Lymphs (auto) Nucleated RBC % Diff Path Review Toxic Granulation Hypochromasia ESR PT INR APTT Specimen Type Sample Site pH Bicarbonate Actual POC Total CO2 Base Excess O2 Saturation O2 % ABG pCO2 ABG pO2 Randal Test Respiration Rate O2 Delivery Device EPAP IPAP Blood Gas Notified Whom Blood Gas Notified Time Sodium Potassium Chloride Carbon Dioxide Anion Gap BUN Creatinine Estim Creat Clear Calc Est GFR (MDRD) Af Amer Est GFR (MDRD) Non-Af BUN/Creatinine Ratio Glucose Lactic Acid Calcium Magnesium Total Bilirubin AST ALT Alkaline Phosphatase C-React Prot Ext Range Total Protein Total Protein (PEP) Albumin Globulin Albumin/Globulin Ratio Ur Random Sodium Urine Creatinine Urine Total Protein Urine Albumin U Zpmpk-3-Vwerkrnj U Gnqmq-9-Drzkxisl U Beta Globulin U Gamma Globulin U PEP M-Bola Vancomycin Trough IgG IgA IgM Albumin (ARMANDO) Albumin/Globulin (ARMANDO) Zqpvw-9-Lvpvnjloo ARMANDO Sfubk-7-Onjgqhrha ARMANDO Beta-Globulins (ARMANDO) Gamma Globulins (ARMANDO) ARMANDO M-Bola S.aureus Protein A PCR MRSA (PCR) POC Glucose 81 82 77 04/10/19 04/10/19 15:23 21:25 WBC RBC Hgb Hct MCV MCH MCHC RDW Std Deviation RDW Coeff of Akila Plt Count MPV Immature Gran % (Auto) Neut % (Auto) Lymph % (Auto) Ray % (Auto) Eos % (Auto) Baso % (Auto) Absolute Neuts (auto) Absolute Lymphs (auto) Nucleated RBC % Diff Path Review Toxic Granulation Hypochromasia ESR PT INR APTT Specimen Type Sample Site pH Bicarbonate Actual POC Total CO2 Base Excess O2 Saturation O2 % ABG pCO2 ABG pO2 Randal Test Respiration Rate O2 Delivery Device EPAP IPAP Blood Gas Notified Whom Blood Gas Notified Time Sodium Potassium Chloride Carbon Dioxide Anion Gap BUN Creatinine Estim Creat Clear Calc Est GFR (MDRD) Af Amer Est GFR (MDRD) Non-Af BUN/Creatinine Ratio Glucose Lactic Acid Calcium Magnesium Total Bilirubin AST ALT Alkaline Phosphatase C-React Prot Ext Range Total Protein Total Protein (PEP) Albumin Globulin Albumin/Globulin Ratio Ur Random Sodium Urine Creatinine Urine Total Protein Urine Albumin U Vnmrw-9-Tubzcnow U Ccdcy-8-Uwwkghvz U Beta Globulin U Gamma Globulin U PEP M-Bola Vancomycin Trough IgG IgA IgM Albumin (ARMANDO) Albumin/Globulin (ARMANDO) Ylxuw-5-Cgpwkolgo ARMANDO Zfheu-0-Xyokjhzmu ARMANDO Beta-Globulins (ARMANDO) Gamma Globulins (ARMANDO) ARMANDO M-Bola S.aureus Protein A PCR MRSA (PCR) POC Glucose 140 H 116 H Microbiology 04/09/19 18:45 Wound - Aerobic & Anaerobic Swabs Gram Stain - Final 04/09/19 18:45 Wound - Aerobic & Anaerobic Swabs Wound Culture - Preliminary Streptococcus group G 04/09/19 01:15 Urine, Clean Catch Urine Culture - Preliminary GNR lactose computer operations specialist 04/08/19 10:40 Blood Culture (Wb) - Anticubital Left Blood Culture - Preliminary No growth in 48 hours. 04/08/19 14:30 Blood Culture (Wb) - Right Hand Blood Culture - Preliminary No growth in 48 hours. Clinical Impression(s) from Imaging Studies Chest X-Ray 04/08/19 13:59 IMPRESSION: No acute cardiopulmonary process. Electronically Signed: Dominic Perla MD ([place]) at 14:55 EDT , Service support , Foot X-Ray 04/08/19 14:01 IMPRESSION: 1. No fabi bony destructive process. Soft tissue swelling of the medial or the lateral foot. 2. Superficial debris of the distal plantar foot/toes. 3. Multifocal degenerative changes. Electronically Signed: Dominic Perla MD ([place]) at 14:56 EDT , Service support , Tibia/Fibula X-Ray 04/09/19 18:20 IMPRESSION: No acute bony injury of the tibia and fibula. Electronically Signed: Shady Herring DO at 20:43 EDT Tel [phone], Service support , Chest X-Ray 04/09/19 20:40 IMPRESSION: Possible mild interstitial prominence. Evaluation is limited by motion. Electronically Signed: Shady Herring DO at 21:30 EDT Tel [phone], Service support , Current Medications Acetaminophen (Tylenol) 650 mg PO Q6H PRN PRN PRN Reason: Mild Pain (1-3)/Temp > 100.7 F Last Admin: 04/10/19 09:16 Dose: 650 mg Documented by: Albuterol/Ipratropium (Duoneb) 3 ml INHALATION [id number].RT [facility] Last Admin: 04/11/19 00:19 Dose: 3 ml Documented by: Carvedilol (Coreg) 12.5 mg PO DAILY [facility] Last Admin: 04/10/19 10:07 Dose: 12.5 mg Documented by: Dextrose (D50w Syringe) 0 gm IV X1 PRN; Protocol PRN Reason: Hypoglycemia Enoxaparin Sodium (Lovenox) 40 mg SC Q12 [facility] Last Admin: 04/10/19 21:28 Dose: 40 mg Documented by: Glucagon () 1 mg IM .X1 PRN PRN Reason: Hypoglycemia Hydralazine HCl (Apresoline Iv) 5 mg IV Q6H PRN PRN PRN Reason: BLOOD PRESSURE Vancomycin IV Pharmacy to Dose (1 ea/ Sodium Chloride) 500 mls @ 250 mls/hr IV PRN PRN; Protocol PRN Reason: Rx to Dose Sodium Chloride () 250 mls @ 15 mls/hr IV .[id number] PRN PRN Reason: Saline Flush Ceftriaxone Sodium 2 gm/ (Sodium Chloride) 50 mls @ 100 mls/hr IV Q24 [facility] Last Infusion: 04/10/19 11:45 Dose: Infused Documented by: Dextrose/Lactated Ringer's () 1,000 mls @ 150 mls/hr IV .[id number] [facility] Last Admin: 04/11/19 04:29 Dose: 150 mls/hr Documented by: Insulin Human Lispro (Humalog Kwikpen (Bkc)) 0 unit SC ACHS [facility]; Protocol Last Admin: 04/10/19 21:28 Dose: Not Given Documented by: Magnesium Hydroxide (Milk Of Magnesia) 30 ml PO DAILY PRN PRN PRN Reason: Constipation Metronidazole (Flagyl) 500 mg PO TID [facility] Last Admin: 04/10/19 21:28 Dose: 500 mg Documented by: Nutritional Formula ([place]un - [place] Flavor) 1 packet PO BIDCM [facility] Last Admin: 04/10/19 14:38 Dose: Not Given Documented by: Ondansetron HCl (Zofran) 4 mg IV Q8H PRN PRN PRN Reason: NAUSEA/VOMITING Oxycodone HCl (Oxyir) 5 mg PO Q4H PRN PRN PRN Reason: Moderate Pain (4-6/10) Last Admin: 04/10/19 00:07 Dose: 5 mg Documented by: Sodium Chloride () 5 - 15 ml IV UD PRN PRN Reason: SALINE FLUSH Last Admin: 04/10/19 01:51 Dose: 10 ml Documented by: Assessment/Plan All Active Problems Cellulitis of right foot (Acute) Sepsis (Acute) RUSS (acute kidney injury) (Acute) Hyponatremia (Acute) Cellulitis of right lower extremity (Acute) Ulcer of right foot with fat layer exposed (Acute) RECOMMENDATIONS: 1. Stop supplemental IV fluids, as the patient is significantly volume positive for the admission. 2. Wean from BiPAP therapy. Wean supplemental oxygen to maintain saturations at or above 90%. 3. Obtain repeat plain film chest x-ray. 4. Provide with and encourage the use of incentive spirometry. Mobilize patient as tolerated. 5. Consider administration of diuretics, if okay from nephrology perspective. IMPRESSIONS: 1. Acute combined respiratory failure Likely multifactorial in etiology with obesity hypoventilation, underlying atelectasis and congestive heart failure contributing. The patient is overall net positive from a volume perspective for the hospital admission. He may benefit from the initiation of the gentle diuresis, based upon the results of his chest x-ray from this morning. Continue to wean supplemental oxygen as tolerated. Continue the use of noninvasive positive pressure ventilatory support. Encourage the use of incentive spirometer and mobilize patient as tolerated. 2. Sepsis secondary to diabetic foot infection Continue current supportive measures and antimicrobials per infectious diseases recommendations. 3. Acute kidney injury Improving. Continue management per nephrology recommendations. 4. Personal history of obstructive sleep apnea While the patient does report a known history of obstructive sleep apnea, it is highly likely that is currently prescribed pressure per support is inadequate to control his sleep apnea. I would strongly recommend that he follow-up in the pulmonary medicine clinic on an outpatient basis for a re-titration polysomnogram. In the interim, empiric BiPAP therapy will be utilized while the patient is admitted to the hospital. 5. Morbid obesity/hypertension/diabetes mellitus Complicates care, management, recovery and prognosis. Avoid nephrotoxic medications. Continue sliding scale coverage. This note was generated with Lorena Gaxiola dictation software. It may contain incorrect words, spelling, and punctuation that were not noted in checking the note before signing. Code Visit Inpatient E&M: 74637 Init Hosp L3
[2019-04-11] MEDS: metroNIDAZOLE 500 MG Tablet PO ×3 (05:34→21:09)
[2019-04-11] MEDS: Acetaminophen 325 MG Tablet 650 MG PO (05:59)
[2019-04-11 06:55] LABS: Hematocrit 30.8 % (40-54); Hemoglobin 10.1 g/dL (13.0-16.5); Mean Corp Hgb Conc 32.8 g/dL (32-36); Mean Corpuscular Hgb 29.4 pg (27.0-32.0); Mean Corpuscular Volume 89.8 fL (80-94); Mean Platelet Vol. 9.6 fl (6.2-12.0); POSITIVE COUNT YES; POSITIVE MORPHOLOGY YES; Platelet Count 403 K/mm3 (150-450); RBC Distribution Width CV 12.9 % (11.6-14.6); RBC Distribution Width SD 42.5 fl (35.1-43.9); Red Blood Count 3.43 M/mm3 (4.6-6.2)
[2019-04-11 06:56] LABS: Anion Gap 7 (5-15); BUN 44 mg/dL (7-18); Calcium,Total 8.2 mg/dL (8.5-10.1); Chloride 104 mmol/L (98-107); Creatinine, Serum 1.69 mg/dL (0.70-1.30); EST Glomerular Filtration Rate 44 mL/min (>60); Est Glom Filt Rate - Afr Amer 53 mL/min (>60); Estimated Creatinine Clearance 46.19 ml/min; Glucose 133 mg/dL (74-106); Potassium 3.7 mmol/L (3.5-5.1); Sodium Level 138 mmol/L (136-145)
[2019-04-11 06:57] LABS: Vancomycin, Random Level 19.5 ug/mL (0.0-15.0)
[2019-04-11 07:01] LABS: Differential Indicated MANUAL DIFF
[2019-04-11 07:16] LABS: Lymphocyte 9 % (19-41); Monocyte 11 % (0-10); Neutrophil-Band 1 % (0-5); Neutrophil-Segmented 79 % (47-70); Polychromasia 1+; Total Cells Counted 100 (MANUAL DIFF)
[2019-04-11 07:16] LABS: Bedside Glucose 119 mg/dL (70-110)
[2019-04-11 07:17] LABS: Anisocytosis 1+; Hypochromasia RARE; Platelet Estimate ADEQUATE (ADEQ); Platelet Morphology CLUMPED
[2019-04-11 07:18] LABS: Microcytosis RARE
[2019-04-11 07:19] LABS: Absolute Lymphocyte Count 1.26 X10^3/uL (0.83-4.51); Absolute Neutrophil Count 11.2 X10^3/uL (2.0-7.7)
--- NOTE | 2019-04-11 08:05 | RAD_ITS ---
STUDY: X-RAY CHEST REASON FOR EXAM: Male, 63 years old. Shortness of breath/dyspnea. TECHNIQUE: Single AP portable view of the chest. COMPARISON: Comparison is made with prior examination dated April 09, 2019. FINDINGS: EKG electrodes are seen. A right-sided PICC line catheter is seen within the superior vena cava. This is unchanged. Since prior study, there has been a progression of the CHF with the infiltration in the right upper lobe. Blunting of both costophrenic angles worse on the right side. There is mild cardiac enlargement. Normal mediastinum and jeffrey. Normal visualized pulmonary arteries. Normal visualized aortic arch and descending thoracic aorta. There are diffuse degenerative changes of the visualized thoracic spine. There is degenerative osteoarthritis of the bilateral shoulders. There is no demonstrated abnormality of the visualized soft tissue structures of the upper abdomen. RAD/Chest 1 View (Portable) IMPRESSION: Worsening CHF with findings suggesting focal infiltration in the right upper lobe. Small bilateral effusions. Electronically Signed: Lam Bolden, at 9:42 EDT , Service support ,
[2019-04-11] MEDS: oxyCODONE 5 MG Tablet PO ×2 (08:12→18:18)
[2019-04-11] MEDS: Enoxaparin 40 MG/0.4 ML Syringe SC ×2 (08:13→21:09)
[2019-04-11] MEDS: Carvedilol 12.5 MG Tablet PO ×2 (08:13→21:09)
[2019-04-11] MEDS: Nepro with Carbsteady 237 ML Liquid 120 ML PO ×2 (08:13→11:22)
--- NOTE | 2019-04-11 08:19 | PN_ITS ---
Patient Problems: Active and Suspected Problems Cellulitis of right foot (Acute) Sepsis (Acute) RUSS (acute kidney injury) (Acute) Hyponatremia (Acute) Cellulitis of right lower extremity (Acute) Ulcer of right foot with fat layer exposed (Acute) Subjective: Reason for visit: Follow-up right lower extremity cellulitis as well as acute hypoxic respiratory failure Patient was transferred from the regular nursing floor to the progressive care unit due to persistently low oxygen saturation. Seen this a.m. still remains hypoxic with oxygen saturation dropping to the low 80s once he is taking off BiPAP. Plans for patient to undergo MRI remains on hold Objective: GENERAL: Appears dyspneic at rest HEENT: Atraumatic; EYES; Anicteric, Normal Conjunctiva NECK; supple, normal thyroid, RESPIRATORY: Diminished to auscultation CARDIOVASCULAR: Regular S1 S2, GI: soft, non-tender, normoactive bowel sounds, : No Renal angle tenderness; EXTREMITIES: Significant erythema involving the anterior right lower extremity with blistering involving the toe MUSCULOSKELETAL: No Joint Tenderness; NEURO: Awake; no lateralizing signs. SKIN: As described above PSYCH; Normal affect Vitals/I&O's: Vital Signs Temp Pulse Resp BP Pulse Ox 98.4 F 88 20 H 169/79 H 91 04/11/19 07:06 04/11/19 07:25 04/11/19 07:25 04/11/19 07:06 04/11/19 07:44 Oxygen Flow Rate (L/min) 10 Oxygen Delivery Method Nasal Cannula Weight: 138.572 kg Body Mass Index (BMI) 43.8 Intake and Output for Last 24 Hours 04/09/19 04/10/19 04/11/19 23:59 23:59 23:59 Intake Total 2950.5 / 3070.5 4563.5 / 4563.5 1032.5 / 1032.5 Output Total 250 / 425 975 / 1675 1500 / 1500 Balance 2700.5 / 2645.5 3588.5 / 2888.5 -467.5 / -467.5 Microbiology Past 72 Hours 04/09/19 01:15 Urine, Clean Catch Urine Culture - Final Klebsiella pneumoniae sp pneum 04/09/19 18:45 Wound - Aerobic & Anaerobic Swabs Gram Stain - Final 04/09/19 18:45 Wound - Aerobic & Anaerobic Swabs Wound Culture - Preliminary Streptococcus group G 04/08/19 10:40 Blood Culture (Wb) - Anticubital Left Blood Culture - Preliminary No growth in 48 hours. 04/08/19 14:30 Blood Culture (Wb) - Right Hand Blood Culture - Preliminary No growth in 48 hours. Laboratory Results 04/10/19 06:18: Diff Path Review Reviewed 04/10/19 08:47: POC Glucose 82 04/10/19 11:03: POC Glucose 77 04/10/19 15:23: POC Glucose 140 H 04/10/19 21:25: POC Glucose 116 H 04/11/19 06:15: Sodium 138, Potassium 3.7, Chloride 104, Carbon Dioxide 27.0, Anion Gap 7, BUN 44 H, Creatinine 1.69 H, Estim Creat Clear Calc 46.19, Est GFR (MDRD) Af Amer 53 L, Est GFR (MDRD) Non-Af 44 L, BUN/Creatinine Ratio 26.0 H, Glucose 133 H, Calcium 8.2 L 04/11/19 06:15: Random Vancomycin 19.5 H 04/11/19 06:15: Complement C3 Pending, Complement C4 Pending 04/11/19 06:15: Troponin I < 0.015 04/11/19 06:15: B-Natriuretic Peptide Pending 04/11/19 06:45: WBC 14.0 H, RBC 3.43 L, Hgb 10.1 L, Hct 30.8 L, MCV 89.8, MCH 29.4, MCHC 32.8, RDW Std Deviation 42.5, RDW Coeff of Akila 12.9, Plt Count 403, MPV 9.6, Neut % (Auto) Not Reportable, Absolute Neuts (auto) 11.2 H, Absolute Lymphs (auto) 1.26, Total Counted 100, Neutrophils % (Manual) 79 H, Band Neutrophils % 1, Lymphocytes % (Manual) 9 L, Monocytes % (Manual) 11 H, Diff Path Review May foll, Platelet Estimate ADEQUATE, Plt Morphology Comment CLUMPED, Polychromasia 1+, Hypochromasia RARE, Anisocytosis 1+, Microcytosis RARE 04/11/19 06:59: POC Glucose 119 H Current Medications Acetaminophen (Tylenol) 650 mg PO Q6H PRN PRN PRN Reason: Mild Pain (1-3)/Temp > 100.7 F Last Admin: 10/23/19 05:59 Dose: 650 mg Documented by: Albuterol/Ipratropium (Duoneb) 3 ml INHALATION Q4HWA.RT REPLACED BY [facility] Last Admin: 04/11/19 07:14 Dose: 3 ml Documented by: Carvedilol (Coreg) 12.5 mg PO DAILY REPLACED BY [facility] Last Admin: 04/11/19 08:13 Dose: 12.5 mg Documented by: Dextrose (D50w Syringe) 0 gm IV X1 PRN; Protocol PRN Reason: Hypoglycemia Enoxaparin Sodium (Lovenox) 40 mg SC Q12 REPLACED BY [facility] Last Admin: 04/11/19 08:13 Dose: 40 mg Documented by: Glucagon () 1 mg IM .X1 PRN PRN Reason: Hypoglycemia Hydralazine HCl (Apresoline Iv) 5 mg IV Q6H PRN PRN PRN Reason: BLOOD PRESSURE Vancomycin IV Pharmacy to Dose (1 ea/ Sodium Chloride) 500 mls @ 250 mls/hr IV PRN PRN; Protocol PRN Reason: Rx to Dose Sodium Chloride () 250 mls @ 15 mls/hr IV .[id number] PRN PRN Reason: Saline Flush Ceftriaxone Sodium 2 gm/ (Sodium Chloride) 50 mls @ 100 mls/hr IV Q24 REPLACED BY [facility] Last Infusion: 04/10/19 11:45 Dose: Infused Documented by: Insulin Human Lispro (Humalog Kwikpen (Bkc)) 0 unit SC ACHS REPLACED BY [facility]; Protocol Last Admin: 04/11/19 07:08 Dose: Not Given Documented by: Magnesium Hydroxide (Milk Of Magnesia) 30 ml PO DAILY PRN PRN PRN Reason: Constipation Metronidazole (Flagyl) 500 mg PO TID REPLACED BY [facility] Last Admin: 04/11/19 05:34 Dose: 500 mg Documented by: Nutritional Formula (Chun - [place] Flavor) 1 packet PO BIDCM REPLACED BY [facility] Last Admin: 04/11/19 08:13 Dose: 1 packet Documented by: Ondansetron HCl (Zofran) 4 mg IV Q8H PRN PRN PRN Reason: NAUSEA/VOMITING Oxycodone HCl (Oxyir) 5 mg PO Q4H PRN PRN PRN Reason: Moderate Pain (4-6/10) Last Admin: 04/11/19 08:12 Dose: 5 mg Documented by: Sodium Chloride () 5 - 15 ml IV UD PRN PRN Reason: SALINE FLUSH Last Admin: 04/10/19 01:51 Dose: 10 ml Documented by: STROKE Vital Signs/Narrative: Vital Signs Temp Pulse Resp BP BP Pulse Ox 04/11/19 07:44 91 04/11/19 07:25 88 20 H 04/11/19 07:06 98.4 F 89 21 H 169/79 H 89 04/11/19 07:00 98.4 F 89 22 H 169/79 H 88 04/11/19 06:00 89 17 150/83 H 92 04/11/19 05:56 92 04/11/19 05:43 87 04/11/19 05:32 84 04/11/19 05:00 86 19 H 141/79 H 91 Medical Necessity - Tobacco Use Smoking Status: Never smoker Tobacco Use: Cigarettes Assessment/Plan All Active Problems Cellulitis of right foot (Acute) Sepsis (Acute) RUSS (acute kidney injury) (Acute) Hyponatremia (Acute) Cellulitis of right lower extremity (Acute) Ulcer of right foot with fat layer exposed (Acute) Patient is a 63-year-old gentleman with multiple comorbidities including diabetes mellitus type 2 morbid obesity with BMI of 43 who presented with eryth tamra and swelling involving the right lower extremity with blistering of the tip of the first right toe. An assessment of sepsis secondary to cellulitis made admitted to the regular nursing floor for further management 1. Sepsis secondary to extensive cellulitis involving the right lower extremity. Admitted to regular nursing floor patient was treated with clindamycin and vancomycin (patient is allergic to penicillin). Consult was also placed to podiatry medicine. Patient still has significant erythema and swelling involving the right lower extremities ?04/10/2019: Venous duplex ordered as part of patient's evaluation came back negative Lovenox switch back to prophylactic dose. Patient has also been seen in consultation by and notes and recommendations reviewed. ?04/11/2019 antibiotics adjusted by infectious disease patient currently on Rocephin. Recommendation is for patient to undergo MRI to rule out osteomyelitis. This is currently on hold in view of patient low oxygen saturation. Notes from Dr. Franco infectious disease reviewed 2. Acute kidney injury ?Patient kidney function did worsen with creatinine rising to 2.14 from an admission level of 1.3. IV fluids initiated consult placed to nephrology ~04/10/2019. Kidney function went up to 2.5 resuscitated with IV fluids ?04/11/2019 kidney function finally improving 3. Acute metabolic encephalopathy ~secondary to sepsis as well as respiratory acidosis 4. Acute respiratory acidosis ~patient placed on noninvasive ventilation BiPAP with repeat ABGs ordered. did suspect a component of obesity hypoventilation syndrome contributing to patient respiratory distress. Patient was placed on noninvasive ventilation and consult placed to pulmonary medicine 5. Diabetes mellitus type II ~Controlled patient's oral hypoglycemics held. Placed on long acting insulin, Accu-Cheks a.c. and at bedtime and covered with sliding scale insulin 6. Essential hypertension - Patient blood pressure was low on admission antihypertensives subsequently held 7. Chronic diastolic heart failure with preserved ejection fraction ?Currently not in exacerbation 7. Morbid obesity, BMI 43.8, -diet and exercise is recommended 7. Hypokalemia corrected per protocol 8. Obstructive sleep apnea ?Patient is on CPAP 9. DVT prophylaxis ? Lovenox Code Visit Inpatient E&M: 16885 Subs Hosp L2
[2019-04-11] MEDS: 0.9% Saline Lock 10 ML Syringe IV ×4 (09:06→22:19)
--- NOTE | 2019-04-11 09:27 | PCM.RX.CS ---
Consult Pharmacy has been consulted to manage selected antiobiotic: Vancomycin Type of Consult: Follow-up Suspected Infection: Sepsis, Skin/Soft tissue Prior Doses of Antibiotics Received/Current Regimen: Last dose received was 1500mg iv 0n 04.10.19 @0642. Labs: Sodium 138 mmol/L (136-145) 04/11/19 06:15 Potassium 3.7 mmol/L (3.5-5.1) 04/11/19 06:15 Chloride 104 mmol/L (98-107) 04/11/19 06:15 Carbon Dioxide 27.0 mmol/L (21.0-32.0) 04/11/19 06:15 Anion Gap 7 (5-15) 04/11/19 06:15 BUN 44 mg/dL (7-18) H 04/11/19 06:15 Creatinine 1.69 mg/dL (0.70-1.30) H 04/11/19 06:15 Est GFR (MDRD) Af Amer 53 mL/min (>60) L 04/11/19 06:15 Est GFR (MDRD) Non-Af 44 mL/min (>60) L 04/11/19 06:15 BUN/Creatinine Ratio 26.0 RATIO (10-20) H 04/11/19 06:15 Glucose 133 mg/dL (74-106) H 04/11/19 06:15 Vancomycin Trough 21.7 ug/mL (5.0-15.0) H 04/10/19 06:18 Random Vancomycin 19.5 ug/mL (0.0-15.0) H 04/11/19 06:15 Microbiology: Microbiology 04/09/19 01:15 Urine, Clean Catch Urine Culture - Final Klebsiella pneumoniae sp pneum 04/09/19 18:45 Wound - Aerobic & Anaerobic Swabs Gram Stain - Final 04/09/19 18:45 Wound - Aerobic & Anaerobic Swabs Wound Culture - Preliminary Streptococcus group G 04/08/19 10:40 Blood Culture (Wb) - Anticubital Left Blood Culture - Preliminary No growth in 48 hours. 04/08/19 14:30 Blood Culture (Wb) - Right Hand Blood Culture - Preliminary No growth in 48 hours. Weight used for dosin.6 kg Estimated Creatinine Clearance: ~46ml/min Goal Trough: 15-20 mcg/mL Pharmacy Plan for Drug Dosing: Patient's random level was 19.5 (goal range 15-20mcg/ml) this AM 04.11.19. Renal function improved from Cr 2.52 to 1.69. Will give one dose of 1500mg this AM and get another random level on 04.12.19. Pharmacy Service will continue to monitor and adjust dosing as required. Follow-Up Labs: Trough Vancomycin - random level 04.12.19 @7754
[2019-04-11 09:49] LABS: BNP,B-Type NATRIURETIC PEPTIDE 75.2 pg/mL (0-100)
--- NOTE | 2019-04-11 10:02 | PCM.PN.REN ---
Patient Problems: Active and Suspected Problems Cellulitis of right foot (Acute) Sepsis (Acute) RUSS (acute kidney injury) (Acute) Hyponatremia (Acute) Cellulitis of right lower extremity (Acute) Ulcer of right foot with fat layer exposed (Acute) Subjective: Following for RUSS. Patient is feeling better. Still on BiPAP. No CP. No increase in SOB. - Physical Exam Vitals/I&O's: Vital Signs Temp Pulse Resp BP Pulse Ox 98.2 F 87 22 H 140/74 H 82 04/11/19 09:00 04/11/19 09:00 04/11/19 09:00 04/11/19 09:00 04/11/19 09:00 Oxygen Flow Rate (L/min) 10 Oxygen Delivery Method Nasal Cannula Weight: 138.572 kg Body Mass Index (BMI) 43.8 Intake and Output for Last 24 Hours 04/09/19 04/10/19 04/11/19 23:59 23:59 23:59 Intake Total 2950.5 / 3070.5 4563.5 / 4563.5 1082.5 / 1082.5 Output Total 250 / 425 975 / 1675 1500 / 1500 Balance 2700.5 / 2645.5 3588.5 / 2888.5 -417.5 / -417.5 General: Alert, Oriented x3, Cooperative HEENT: Atraumatic, EOMI Oral: Moist Mucosa Neck: Supple Lungs: Clear to auscultation - anteriorly Cardiovascular: Regular rate, Normal S1, Normal S2 Abdomen: Bowel Sounds Present, Soft, Non Tender, Obese Extremities: Edema - in TATA wrap. Microbiology Past 72 Hours 04/09/19 01:15 Urine, Clean Catch Urine Culture - Final Klebsiella pneumoniae sp pneum 04/09/19 18:45 Wound - Aerobic & Anaerobic Swabs Gram Stain - Final 04/09/19 18:45 Wound - Aerobic & Anaerobic Swabs Wound Culture - Preliminary Streptococcus group G 04/08/19 10:40 Blood Culture (Wb) - Anticubital Left Blood Culture - Preliminary No growth in 48 hours. 04/08/19 14:30 Blood Culture (Wb) - Right Hand Blood Culture - Preliminary No growth in 48 hours. Laboratory Results 04/10/19 06:18: Diff Path Review Reviewed 04/10/19 11:03: POC Glucose 77 04/10/19 15:23: POC Glucose 140 H 04/10/19 21:25: POC Glucose 116 H 04/11/19 06:15: Sodium 138, Potassium 3.7, Chloride 104, Carbon Dioxide 27.0, Anion Gap 7, BUN 44 H, Creatinine 1.69 H, Estim Creat Clear Calc 46.19, Est GFR (MDRD) Af Amer 53 L, Est GFR (MDRD) Non-Af 44 L, BUN/Creatinine Ratio 26.0 H, Glucose 133 H, Calcium 8.2 L 04/11/19 06:15: Random Vancomycin 19.5 H 04/11/19 06:15: Complement C3 Pending, Complement C4 Pending 04/11/19 06:15: Troponin I < 0.015 04/11/19 06:15: B-Natriuretic Peptide 75.2 04/11/19 06:45: WBC 14.0 H, RBC 3.43 L, Hgb 10.1 L, Hct 30.8 L, MCV 89.8, MCH 29.4, MCHC 32.8, RDW Std Deviation 42.5, RDW Coeff of Akila 12.9, Plt Count 403, MPV 9.6, Neut % (Auto) Not Reportable, Absolute Neuts (auto) 11.2 H, Absolute Lymphs (auto) 1.26, Total Counted 100, Neutrophils % (Manual) 79 H, Band Neutrophils % 1, Lymphocytes % (Manual) 9 L, Monocytes % (Manual) 11 H, Diff Path Review May foll, Platelet Estimate ADEQUATE, Plt Morphology Comment CLUMPED, Polychromasia 1+, Hypochromasia RARE, Anisocytosis 1+, Microcytosis RARE 04/11/19 06:59: POC Glucose 119 H Current Medications Acetaminophen (Tylenol) 650 mg PO Q6H PRN PRN PRN Reason: Mild Pain (1-3)/Temp > 100.7 F Last Admin: 04/11/19 05:59 Dose: 650 mg Documented by: Albuterol/Ipratropium (Duoneb) 3 ml INHALATION Q4HWA.RT [facility] Last Admin: 04/11/19 07:14 Dose: 3 ml Documented by: Carvedilol (Coreg) 12.5 mg PO DAILY [facility] Last Admin: 04/11/19 08:13 Dose: 12.5 mg Documented by: Dextrose (D50w Syringe) 0 gm IV X1 PRN; Protocol PRN Reason: Hypoglycemia Enoxaparin Sodium (Lovenox) 40 mg SC Q12 [facility] Last Admin: 04/11/19 08:13 Dose: 40 mg Documented by: Glucagon () 1 mg IM .X1 PRN PRN Reason: Hypoglycemia Heparin Sodium (Beef Lung) () 50 units IV UD PRN PRN Reason: PICC Line Heparin Flush Hydralazine HCl (Apresoline Iv) 5 mg IV Q6H PRN PRN PRN Reason: BLOOD PRESSURE Vancomycin IV Pharmacy to Dose (1 ea/ Sodium Chloride) 500 mls @ 250 mls/hr IV PRN PRN; Protocol PRN Reason: Rx to Dose Sodium Chloride () 250 mls @ 15 mls/hr IV .[id number] PRN PRN Reason: Saline Flush Last Admin: 04/11/19 09:36 Dose: 100 mls/hr Documented by: Ceftriaxone Sodium 2 gm/ (Sodium Chloride) 50 mls @ 100 mls/hr IV Q24 [facility] Last Infusion: 04/11/19 09:36 Dose: Infused Documented by: Vancomycin HCl 1,500 mg/ (Sodium Chloride) 530 mls @ 250 mls/hr IV X1 ONE Stop: 04/11/19 12:07 Insulin Human Lispro (Humalog Kwikpen (Bkc)) 0 unit SC ACHS [facility]; Protocol Last Admin: 04/11/19 07:08 Dose: Not Given Documented by: Magnesium Hydroxide (Milk Of Magnesia) 30 ml PO DAILY PRN PRN PRN Reason: Constipation Metronidazole (Flagyl) 500 mg PO TID [facility] Last Admin: 04/11/19 05:34 Dose: 500 mg Documented by: Nutritional Formula (Chun - [place] Flavor) 1 packet PO BIDCM [facility] Last Admin: 04/11/19 08:13 Dose: 1 packet Documented by: Ondansetron HCl (Zofran) 4 mg IV Q8H PRN PRN PRN Reason: NAUSEA/VOMITING Oxycodone HCl (Oxyir) 5 mg PO Q4H PRN PRN PRN Reason: Moderate Pain (4-6/10) Last Admin: 04/11/19 08:12 Dose: 5 mg Documented by: Sodium Chloride () 5 - 15 ml IV UD PRN PRN Reason: SALINE FLUSH Last Admin: 04/11/19 09:06 Dose: 15 ml Documented by: Sodium Chloride (0.9% Nacl (Sterile) Posiflush) 10 - 40 ml IV UD PRN PRN Reason: Port access or dressing change Sodium Chloride () 10 - 40 ml IV UD PRN PRN Reason: SALINE FLUSH Medical Necessity - Tobacco Use Smoking Status: Never smoker Tobacco Use: Cigarettes Assessment/Plan All Active Problems Cellulitis of right foot (Acute) Sepsis (Acute) RUSS (acute kidney injury) (Acute) Hyponatremia (Acute) Cellulitis of right lower extremity (Acute) Ulcer of right foot with fat layer exposed (Acute) 1- RUSS. Unknown baseline. RUSS is prerenal. Cr has improved in the last 24 hrs. Continue IVF for one more day. Can consider stopping fluid tomorrow if oral intake is OK. He does not appear to be volume overloaded at this time. C3/C4, UPEP and SPEP are pending. Keep MAP > 65. Recheck Cr in am and reassess volume status. 2-Hyponatremia: likely from RUSS and volume depletion. Resolved. 3-HTN: Pt was hypotensive at admission. Agree with holding ACEI and HCTZ for now. BP is better. 4- Sepsis related to RLE cellulitis and possible UTI. Abx as per the primary service.
[2019-04-11] MEDS: Insulin Lispro 100 UNIT/ML INSULN.PEN SC ×3 (11:21→21:12)
[2019-04-11 11:30] LABS: Bedside Glucose 201 mg/dL (70-110)
--- NOTE | 2019-04-11 12:17 | PN_ITS ---
Patient Problems: Active and Suspected Problems Cellulitis of right foot (Acute) Sepsis (Acute) RUSS (acute kidney injury) (Acute) Hyponatremia (Acute) Cellulitis of right lower extremity (Acute) Ulcer of right foot with fat layer exposed (Acute) Subjective: This 63-year-old male with multiple comorbidities is seen bedside for right great toe ulcer and leg cellulitis associated with his recent sepsis. He denies fever, chill, nausea, vomiting. He still has not been able to proceed with his lower extremity MRI due to medical instability. He reports decreased pain and swelling to the right leg. - Physical Exam Vitals/I&O's: Vital Signs Temp Pulse Resp BP Pulse Ox 98.0 F 85 21 H 148/78 H 88 04/11/19 11:00 04/11/19 11:00 04/11/19 11:00 04/11/19 11:00 04/11/19 11:00 Oxygen Flow Rate (L/min) 10 Oxygen Delivery Method Bi-pap Weight: 138.572 kg Body Mass Index (BMI) 43.8 Intake and Output for Last 24 Hours 04/09/19 04/10/19 04/11/19 23:59 23:59 23:59 Intake Total 2950.5 / 3070.5 4563.5 / 4563.5 1522.5 / 1522.5 Output Total 250 / 425 975 / 1675 2600 / 2600 Balance 2700.5 / 2645.5 3588.5 / 2888.5 -1077.5 / -1077.5 General: Alert, Oriented x3, Cooperative Extremities: No cyanosis, Capillary Refill Less than 3 Seconds, No Calf Tenderness - decreased lower extremity palpation pain on palpation. compartments soft to palpate, Diminished Peripheral Pulses, Edema Skin: Ulcer/ Wound - fibrous and eschar distal hallux ulcer. no erythema, purulence, streaking, odor or maceration, - - Decreased location and intensity of erythema right leg. Leg skin is dry Musculoskeletal: No Tenderness to Palpation of Joints or Extremities, Muscle Wasting, - - No bogginess or fluctuance on palpation Neurological: - - Normal epicritic sensation light touch is consistent with neuropathy Psych/Mental Status: Normal Affect, Appropriate Microbiology Past 72 Hours 04/09/19 18:45 Wound - Aerobic & Anaerobic Swabs Gram Stain - Final 04/09/19 18:45 Wound - Aerobic & Anaerobic Swabs Wound Culture - Final Streptococcus group G 04/09/19 01:15 Urine, Clean Catch Urine Culture - Final Klebsiella pneumoniae sp pneum 04/08/19 10:40 Blood Culture (Wb) - Anticubital Left Blood Culture - Preliminary No growth in 48 hours. 04/08/19 14:30 Blood Culture (Wb) - Right Hand Blood Culture - Preliminary No growth in 48 hours. Laboratory Results 04/10/19 06:18: Diff Path Review Reviewed 04/10/19 15:23: POC Glucose 140 H 04/10/19 21:25: POC Glucose 116 H 04/11/19 06:15: Sodium 138, Potassium 3.7, Chloride 104, Carbon Dioxide 27.0, Anion Gap 7, BUN 44 H, Creatinine 1.69 H, Estim Creat Clear Calc 46.19, Est GFR (MDRD) Af Amer 53 L, Est GFR (MDRD) Non-Af 44 L, BUN/Creatinine Ratio 26.0 H, Glucose 133 H, Calcium 8.2 L 04/11/19 06:15: Random Vancomycin 19.5 H 04/11/19 06:15: Complement C3 Pending, Complement C4 Pending 04/11/19 06:15: Troponin I < 0.015 04/11/19 06:15: B-Natriuretic Peptide 75.2 04/11/19 06:45: WBC 14.0 H, RBC 3.43 L, Hgb 10.1 L, Hct 30.8 L, MCV 89.8, MCH 29.4, MCHC 32.8, RDW Std Deviation 42.5, RDW Coeff of Akila 12.9, Plt Count 403, MPV 9.6, Neut % (Auto) Not Reportable, Absolute Neuts (auto) 11.2 H, Absolute Lymphs (auto) 1.26, Total Counted 100, Neutrophils % (Manual) 79 H, Band Neutrophils % 1, Lymphocytes % (Manual) 9 L, Monocytes % (Manual) 11 H, Diff Path Review May foll, Platelet Estimate ADEQUATE, Plt Morphology Comment CLUMPED, Polychromasia 1+, Hypochromasia RARE, Anisocytosis 1+, Microcytosis RARE 04/11/19 06:59: POC Glucose 119 H 04/11/19 11:21: POC Glucose 201 H Current Medications Acetaminophen (Tylenol) 650 mg PO Q6H PRN PRN PRN Reason: Mild Pain (1-3)/Temp > 100.7 F Last Admin: 04/11/19 05:59 Dose: 650 mg Documented by: Albuterol/Ipratropium (Duoneb) 3 ml INHALATION Q4HWA.RT [facility] Last Admin: 04/11/19 10:45 Dose: 3 ml Documented by: Carvedilol (Coreg) 12.5 mg PO DAILY [facility] Last Admin: 04/11/19 08:13 Dose: 12.5 mg Documented by: Dextrose (D50w Syringe) 0 gm IV X1 PRN; Protocol PRN Reason: Hypoglycemia Enoxaparin Sodium (Lovenox) 40 mg SC Q12 [facility] Last Admin: 04/11/19 08:13 Dose: 40 mg Documented by: Glucagon () 1 mg IM .X1 PRN PRN Reason: Hypoglycemia Heparin Sodium (Beef Lung) () 50 units IV UD PRN PRN Reason: PICC Line Heparin Flush Hydralazine HCl (Apresoline Iv) 5 mg IV Q6H PRN PRN PRN Reason: BLOOD PRESSURE Vancomycin IV Pharmacy to Dose (1 ea/ Sodium Chloride) 500 mls @ 250 mls/hr IV PRN PRN; Protocol PRN Reason: Rx to Dose Sodium Chloride () 250 mls @ 15 mls/hr IV .[id number] PRN PRN Reason: Saline Flush Last Infusion: 04/11/19 10:00 Dose: 0 mls/hr Documented by: Ceftriaxone Sodium 2 gm/ (Sodium Chloride) 50 mls @ 100 mls/hr IV Q24 [facility] Last Infusion: 04/11/19 09:36 Dose: Infused Documented by: Insulin Human Lispro (Humalog Kwikpen (Bkc)) 0 unit SC ACHS [facility]; Protocol Last Admin: 04/11/19 11:21 Dose: 1 u Documented by: Magnesium Hydroxide (Milk Of Magnesia) 30 ml PO DAILY PRN PRN PRN Reason: Constipation Metronidazole (Flagyl) 500 mg PO TID [facility] Last Admin: 04/11/19 05:34 Dose: 500 mg Documented by: Nutritional Formula (Chun - Miner Flavor) 1 packet PO BIDCM [facility] Last Admin: 04/11/19 08:13 Dose: 1 packet Documented by: Ondansetron HCl (Zofran) 4 mg IV Q8H PRN PRN PRN Reason: NAUSEA/VOMITING Oxycodone HCl (Oxyir) 5 mg PO Q4H PRN PRN PRN Reason: Moderate Pain (4-6/10) Last Admin: 04/11/19 08:12 Dose: 5 mg Documented by: Sodium Chloride () 5 - 15 ml IV UD PRN PRN Reason: SALINE FLUSH Last Admin: 04/11/19 09:06 Dose: 15 ml Documented by: Sodium Chloride (0.9% Nacl (Sterile) Posiflush) 10 - 40 ml IV UD PRN PRN Reason: Port access or dressing change Sodium Chloride () 10 - 40 ml IV UD PRN PRN Reason: SALINE FLUSH Medical Necessity - Tobacco Use Smoking Status: Never smoker Tobacco Use: Cigarettes Assessment/Plan All Active Problems Cellulitis of right foot (Acute) Sepsis (Acute) RUSS (acute kidney injury) (Acute) Hyponatremia (Acute) Cellulitis of right lower extremity (Acute) Ulcer of right foot with fat layer exposed (Acute) Ulcer right hallux with fat layer exposed Right lower extremity cellulitis resolving Deep venous thrombosis has been ruled out with venous Doppler exam Right lower extremity edema; venous insufficiency is suspected Right lower extremity pain Reported Achilles rupture right lower extremity Uncontrolled diabetes with neuropathy; hemoglobin A1c 12.2 noted Sepsis resolved Multiple other comorbidities: Sleep apnea, obesity, kidney injury, hypertension I reviewed and discussed his case. His white blood cell count is decreased to 14. His ulcer site was evaluated today and is dry and stable the fibrous plug it is now a dry well adhered eschar; to continue to change daily with Aqua oswald Ag. It is okay to wash the foot with soap and water. Lotion was also applied to the right lower extremity limb prior to dressing change to the jennifer- ulcer tissue. To avoid soaking. There was no identifiable abscess or deep tissue exposed. His blood cultures are negative so far. Due to high risk status MRI of the foot and ankle were ordered to rule out osteomyelitis, deep abscess, and to evaluate his reported Achilles tear. He will proceed with this test upon medical stability. To continue on antibiotics including vancomycin, ceftriaxone, and Flagyl per infectious disease recommendations. His right leg demonstrates continued clinical improvement compared to yesterday with decreased palpation pain, resolved warmth, and decreased redness intensity. He had a venous duplex Doppler performed which did not demonstrate any deep venous thrombosis. Outpatient reflux exam is recommended to see if venous insufficiency is an underlying etiology to the leg swelling. To continue Mahendra wrap application to the right leg to further control his edema. Medical management DVT prophylaxis per primary team is greatly appreciated. I will continue to follow him closely in house. Please do not hesitate to call if you have any questions. Lindsey Jacques DPM, [facility] [phone]
--- NOTE | 2019-04-11 12:56 | PCM.PN.ID ---
Patient Problems: Active and Suspected Problems Cellulitis of right foot (Acute) Sepsis (Acute) RUSS (acute kidney injury) (Acute) Hyponatremia (Acute) Cellulitis of right lower extremity (Acute) Ulcer of right foot with fat layer exposed (Acute) Subjective: Feeling much better, no fever, breathing improved, leg less swollen and red. - Physical Exam Vitals/I&O's: Vital Signs Temp Pulse Resp BP Pulse Ox 98.0 F 88 25 H 162/85 H 88 04/11/19 12:00 04/11/19 12:00 04/11/19 12:00 04/11/19 12:00 04/11/19 12:00 Oxygen Flow Rate (L/min) 10 Oxygen Delivery Method Nasal Cannula Weight: 138.572 kg Body Mass Index (BMI) 43.8 Intake and Output for Last 24 Hours 04/09/19 04/10/19 04/11/19 23:59 23:59 23:59 Intake Total 2950.5 / 3070.5 4563.5 / 4563.5 1522.5 / 1522.5 Output Total 250 / 425 975 / 1675 2600 / 2600 Balance 2700.5 / 2645.5 3588.5 / 2888.5 -1077.5 / -1077.5 General: Alert, Cooperative, No apparent distress Lungs: Diminished Cardiovascular: Regular rate, Regular Rhythm Abdomen: Soft, Non Tender, Non-Distended Skin: Ulcer/ Wound - LLE wrapped Microbiology Past 72 Hours 04/09/19 18:45 Wound - Aerobic & Anaerobic Swabs Gram Stain - Final 04/09/19 18:45 Wound - Aerobic & Anaerobic Swabs Wound Culture - Final Streptococcus group G 04/09/19 01:15 Urine, Clean Catch Urine Culture - Final Klebsiella pneumoniae sp pneum 04/08/19 10:40 Blood Culture (Wb) - Anticubital Left Blood Culture - Preliminary No growth in 48 hours. 04/08/19 14:30 Blood Culture (Wb) - Right Hand Blood Culture - Preliminary No growth in 48 hours. Laboratory Results 04/10/19 06:18: Diff Path Review Reviewed 04/10/19 15:23: POC Glucose 140 H 04/10/19 21:25: POC Glucose 116 H 04/11/19 06:15: Sodium 138, Potassium 3.7, Chloride 104, Carbon Dioxide 27.0, Anion Gap 7, BUN 44 H, Creatinine 1.69 H, Estim Creat Clear Calc 46.19, Est GFR (MDRD) Af Amer 53 L, Est GFR (MDRD) Non-Af 44 L, BUN/Creatinine Ratio 26.0 H, Glucose 133 H, Calcium 8.2 L 04/11/19 06:15: Random Vancomycin 19.5 H 04/11/19 06:15: Complement C3 Pending, Complement C4 Pending 04/11/19 06:15: Troponin I < 0.015 04/11/19 06:15: B-Natriuretic Peptide 75.2 04/11/19 06:45: WBC 14.0 H, RBC 3.43 L, Hgb 10.1 L, Hct 30.8 L, MCV 89.8, MCH 29.4, MCHC 32.8, RDW Std Deviation 42.5, RDW Coeff of Akila 12.9, Plt Count 403, MPV 9.6, Neut % (Auto) Not Reportable, Absolute Neuts (auto) 11.2 H, Absolute Lymphs (auto) 1.26, Total Counted 100, Neutrophils % (Manual) 79 H, Band Neutrophils % 1, Lymphocytes % (Manual) 9 L, Monocytes % (Manual) 11 H, Diff Path Review May foll, Platelet Estimate ADEQUATE, Plt Morphology Comment CLUMPED, Polychromasia 1+, Hypochromasia RARE, Anisocytosis 1+, Microcytosis RARE 04/11/19 06:59: POC Glucose 119 H 04/11/19 11:21: POC Glucose 201 H Current Medications Acetaminophen (Tylenol) 650 mg PO Q6H PRN PRN PRN Reason: Mild Pain (1-3)/Temp > 100.7 F Last Admin: 04/11/19 05:59 Dose: 650 mg Documented by: Albuterol/Ipratropium (Duoneb) 3 ml INHALATION Q4HWA.RT [facility] Last Admin: 04/11/19 10:45 Dose: 3 ml Documented by: Carvedilol (Coreg) 12.5 mg PO DAILY [facility] Last Admin: 04/11/19 08:13 Dose: 12.5 mg Documented by: Dextrose (D50w Syringe) 0 gm IV X1 PRN; Protocol PRN Reason: Hypoglycemia Enoxaparin Sodium (Lovenox) 40 mg SC Q12 [facility] Last Admin: 04/11/19 08:13 Dose: 40 mg Documented by: Glucagon () 1 mg IM .X1 PRN PRN Reason: Hypoglycemia Heparin Sodium (Beef Lung) () 50 units IV UD PRN PRN Reason: PICC Line Heparin Flush Hydralazine HCl (Apresoline Iv) 5 mg IV Q6H PRN PRN PRN Reason: BLOOD PRESSURE Sodium Chloride () 250 mls @ 15 mls/hr IV .[id number] PRN PRN Reason: Saline Flush Last Infusion: 04/11/19 10:00 Dose: 0 mls/hr Documented by: Ceftriaxone Sodium 2 gm/ (Sodium Chloride) 50 mls @ 100 mls/hr IV Q24 [facility] Last Infusion: 04/11/19 09:36 Dose: Infused Documented by: Insulin Human Lispro (Humalog Kwikpen (Bkc)) 0 unit SC ACHS [facility]; Protocol Last Admin: 04/11/19 11:21 Dose: 1 u Documented by: Magnesium Hydroxide (Milk Of Magnesia) 30 ml PO DAILY PRN PRN PRN Reason: Constipation Metronidazole (Flagyl) 500 mg PO TID [facility] Last Admin: 04/11/19 05:34 Dose: 500 mg Documented by: Nutritional Formula (Chun - [place] Flavor) 1 packet PO BIDCM [facility] Last Admin: 04/11/19 08:13 Dose: 1 packet Documented by: Ondansetron HCl (Zofran) 4 mg IV Q8H PRN PRN PRN Reason: NAUSEA/VOMITING Oxycodone HCl (Oxyir) 5 mg PO Q4H PRN PRN PRN Reason: Moderate Pain (4-6/10) Last Admin: 04/11/19 08:12 Dose: 5 mg Documented by: Sodium Chloride () 5 - 15 ml IV UD PRN PRN Reason: SALINE FLUSH Last Admin: 04/11/19 09:06 Dose: 15 ml Documented by: Sodium Chloride (0.9% Nacl (Sterile) Posiflush) 10 - 40 ml IV UD PRN PRN Reason: Port access or dressing change Sodium Chloride () 10 - 40 ml IV UD PRN PRN Reason: SALINE FLUSH Medical Necessity - Tobacco Use Smoking Status: Never smoker Tobacco Use: Cigarettes Route of nutrition/ use of supplements: [] Nutritional Intake: [] IV Site: [] Mora Catheter: [] - Assessment/Plan Antibiotics: [] Assessment/Plan: [] Active and Suspected Problems Cellulitis of right foot (Acute) Sepsis (Acute) RUSS (acute kidney injury) (Acute) Hyponatremia (Acute) Cellulitis of right lower extremity (Acute) Ulcer of right foot with fat layer exposed (Acute) sepsis due to diabetic R foot infection, concern for osteo, course complicated by RUSS and some hypoxic resp failure. Will order MRI of R foot and ankle, noncontrast. Re: his allergy history, reports being told as a child he was allergic to PCN. No known h/o anaphylaxis. Reports taking amoxicillin at some point as an adult and having some upset stomach. Bcx neg so far, wound cx with strep finalized, and neg staph aureus pcr. Stop vanc, continue ceftriaxone/flagyl. With uncontrolled DM, A1c of 12, neuropathy, and RUSS, concern about ability to heal this infected wound. Have counseled him re:need for strict glucose management. Ucx with klebs, covered by ceftriaxone. Will follow
[2019-04-11] MEDS: hydrALAZINE 20 MG/ML Vial 5 MG IV ×2 (13:42→22:18)
--- NOTE | 2019-04-11 14:08 | NURSING ---
Dressing was changed to the right great toe by Dr Jacques. will leave dressing in place at this time.
--- NOTE | 2019-04-11 15:43 | NURSING ---
Read and reviewed SN documentation
[2019-04-11] MEDS: amLODIPine 10 MG Tablet PO (16:22)
[2019-04-11 16:35] LABS: Bedside Glucose 229 mg/dL (70-110)
[2019-04-11 17:36] LABS: Albumin 2.1 g/dL (2.9-4.4); Alpha-1-Globulins 0.6 g/dL (0.0-0.4); Alpha-2-Globulins 1.2 g/dL (0.4-1.0); Gamma Globulin 0.7 g/dL (0.4-1.8); Immunoglobulin A 361 mg/dL (61-437); Immunoglobulin G 762 mg/dL (700-1600); Immunoglobulin M 39 mg/dL (20-172); PROEL- TOTAL PROTEIN 5.7 g/dL (6.0-8.5)
--- NOTE | 2019-04-11 17:49 | CPS ---
pt changed from full face mask to nasal mask per pt request to use a mask similar to his at home. pt angela Bipap well after mask change. Nurse aware of change.
[2019-04-11] MEDS: hydrALAZINE 20 MG/ML Vial IV (18:14)
[2019-04-11 21:20] LABS: Bedside Glucose 206 mg/dL (70-110)
[2019-04-12] VITALS (38 sets, daily range): BP systolic 134–195; BP diastolic 75–107; PULSE 84–99; RESP 12–38; TEMP 35.7–36.8; O2SAT 87–96
[2019-04-12] MEDS: 0.9% Saline Lock 10 ML Syringe IV ×3 (02:25→11:30)
[2019-04-12] MEDS: LORazepam 2 MG/ML Syringe IV (02:25)
--- NOTE | 2019-04-12 02:43 | CPS ---
post ativan, spo2 dipped below 88, fio2 increased to 45
--- NOTE | 2019-04-12 03:29 | RAD_ITS ---
STUDY: X-RAY CHEST REASON FOR EXAM: Male, 63 years old. Tachycardia, shortness of breath. TECHNIQUE: Single AP portable view of the chest. COMPARISON: 04/11/2019. FINDINGS: There is a right-sided PICC line with the tip in the middle SVC. The lungs are slightly underexpanded with bilateral diffuse airspace opacities, right worse than left. There are possible mild bilateral effusions There is no demonstrated pleural abnormality. There is borderline cardiomegaly. Normal mediastinum and jeffrey. There is atherosclerotic calcification of the aortic arch with tortuosity. There are diffuse degenerative changes of the visualized thoracic spine. There is degenerative osteoarthritis of the bilateral shoulders. There is no demonstrated abnormality of the visualized soft tissue structures of the upper abdomen. RAD/Chest 1 View (Portable) IMPRESSION: Bilateral airspace opacity, right significantly worse compared to the left suggestive of asymmetric pulmonary edema versus right-sided pneumonia. Possible mild effusions overall findings stable slightly worsened in the interval. Right-sided PICC line as described above. Electronically Signed: Mariposa Botello MD at 4:03 EDT , Service support ,
[2019-04-12] MEDS: hydrALAZINE 20 MG/ML Vial 5 MG IV (04:53)
[2019-04-12] MEDS: metroNIDAZOLE 500 MG Tablet PO ×3 (05:36→22:07)
[2019-04-12] MEDS: Insulin Lispro 100 UNIT/ML INSULN.PEN SC ×4 (06:36→22:11)
[2019-04-12 06:50] LABS: Bedside Glucose 199 mg/dL (70-110)
[2019-04-12] MEDS: Ipratropium/Albuterol Sulfate 3 ML AMPUL.NEB INHALATION ×4 (07:16→22:24)
[2019-04-12 08:34] LABS: Hematocrit 33.5 % (40-54); Hemoglobin 10.9 g/dL (13.0-16.5); Mean Corp Hgb Conc 32.5 g/dL (32-36); Mean Corpuscular Hgb 29.3 pg (27.0-32.0); Mean Corpuscular Volume 90.1 fL (80-94); Mean Platelet Vol. 9.1 fl (6.2-12.0); POSITIVE COUNT YES; POSITIVE MORPHOLOGY YES; Platelet Count 548 K/mm3 (150-450); RBC Distribution Width SD 43.1 fl (35.1-43.9); Red Blood Count 3.72 M/mm3 (4.6-6.2); White Blood Count 13.6 K/mm3 (4.4-11.0)
[2019-04-12 08:37] LABS: Differential Indicated MANUAL DIFF
[2019-04-12 08:56] LABS: Anion Gap 6 (5-15); BUN 34 mg/dL (7-18); BUN/Creat Ratio 29.3 RATIO (10-20); Calcium,Total 8.5 mg/dL (8.5-10.1); Chloride 108 mmol/L (98-107); Creatinine, Serum 1.16 mg/dL (0.70-1.30); EST Glomerular Filtration Rate 68 mL/min (>60); Est Glom Filt Rate - Afr Amer 82 mL/min (>60); Glucose 206 mg/dL (74-106); Potassium 4.1 mmol/L (3.5-5.1); Sodium Level 141 mmol/L (136-145)
[2019-04-12 09:20] LABS: Eosinophil 1 % (0-5); Lymphocyte 5 % (19-41); Metamyelocyte 6 % (0-1); Monocyte 3 % (0-10); Myelocyte 1 (0-0); Neutrophil-Band 3 % (0-5); Neutrophil-Segmented 81 % (47-70); Total Cells Counted 100 (MANUAL DIFF)
[2019-04-12 09:21] LABS: Absolute Lymphocyte Count 0.67 X10^3/uL (0.83-4.51); Absolute Neutrophil Count 11.3 X10^3/uL (2.0-7.7); Lymphocyte # 0.67 X10^3/ul (4.0); Neutrophil # 11.34 X10^3/uL (2.7-7.7)
--- NOTE | 2019-04-12 09:33 | PN_ITS ---
Patient Problems: Active and Suspected Problems Cellulitis of right foot (Acute) Sepsis (Acute) RUSS (acute kidney injury) (Acute) Hyponatremia (Acute) Cellulitis of right lower extremity (Acute) Ulcer of right foot with fat layer exposed (Acute) Subjective: CC; follow-up foot infection and acute respiratory failure Patient seen still remains hypoxic requiring high flow oxygen. Kidney function has however improved and is down to 1.6. 2D echo obtained demonstrated EF of 65% and grade 2 diastolic dysfunction. With patient kidney function having normalized dose of IV Lasix 40 mg x 1 was given. Objective: GENERAL: Appears dyspneic at rest HEENT: Atraumatic; EYES; Anicteric, Normal Conjunctiva NECK; supple, normal thyroid, RESPIRATORY: Diminished to auscultation CARDIOVASCULAR: Regular S1 S2, GI: soft, non-tender, normoactive bowel sounds, : No Renal angle tenderness; EXTREMITIES: Significant erythema involving the anterior right lower extremity with blistering involving the toe MUSCULOSKELETAL: No Joint Tenderness; NEURO: Awake; no lateralizing signs. SKIN: As described above PSYCH; Normal affect Vitals/I&O's: Vital Signs Temp Pulse Resp BP Pulse Ox 96.2 F L 91 28 H 168/82 H 91 04/12/19 07:00 04/12/19 08:30 04/12/19 08:30 04/12/19 07:00 04/12/19 08:31 Oxygen Flow Rate (L/min) 10 Oxygen Delivery Method Nasal Cannula Weight: 138.572 kg Body Mass Index (BMI) 43.8 Intake and Output for Last 24 Hours 04/10/19 04/11/19 04/12/19 23:59 23:59 23:59 Intake Total 4563.5 / 4563.5 2715.0 / 2715.0 Output Total 975 / 1675 4500 / 4500 1325 / 1325 Balance 3588.5 / 2888.5 -1785.0 / -1785.0 -1325 / -1325 Microbiology Past 72 Hours 04/09/19 18:45 Wound - Aerobic & Anaerobic Swabs Gram Stain - Final 04/09/19 18:45 Wound - Aerobic & Anaerobic Swabs Wound Culture - Final Streptococcus group G 04/09/19 01:15 Urine, Clean Catch Urine Culture - Final Klebsiella pneumoniae sp pneum 04/08/19 10:40 Blood Culture (Wb) - Anticubital Left Blood Culture - Preliminary No growth in 48 hours. 04/08/19 14:30 Blood Culture (Wb) - Right Hand Blood Culture - Preliminary No growth in 48 hours. Laboratory Results 04/08/19 10:40: Total Protein (PEP) 5.7 L, Globulin 3.6, IgG 762, IgA 361, IgM 39, Immunofixation Screen Comment, Albumin (ARMANDO) 2.1 L, Albumin/Globulin (ARMANDO) 0.6 L, Izyxb-8-Tewkwgyut ARMANDO 0.6 H, Cntiz-0-Ymyryajen ARMANDO 1.2 H, Beta-Globulins (ARMANDO) 1.2, Gamma Globulins (ARMANDO) 0.7, ARMANDO M-Bola , ARMANDO Comments Comment 04/11/19 06:15: B-Natriuretic Peptide 75.2 04/11/19 11:21: POC Glucose 201 H 04/11/19 16:21: POC Glucose 229 H 04/11/19 21:11: POC Glucose 206 H 04/12/19 05:30: WBC Cancelled, Corrected WBC Cancelled, RBC Cancelled, Hgb Cancelled, Hct Cancelled, MCV Cancelled, MCH Cancelled, MCHC Cancelled, RDW Std Deviation Cancelled, RDW Coeff of Akila Cancelled, Plt Count Cancelled, MPV Cancelled, Immature Gran % (Auto) Cancelled, Neut % (Auto) Cancelled, Lymph % (A uto) Cancelled, [place] % (Auto) Cancelled, Eos % (Auto) Cancelled, Baso % (Auto) Cancelled, Absolute Neuts (auto) Cancelled, Absolute Lymphs (auto) Cancelled, Total Counted Cancelled, Neutrophils % (Manual) Cancelled, Band Neutrophils % Cancelled, Lymphocytes % (Manual) Cancelled, Monocytes % (Manual) Cancelled, Eosinophils % (Manual) Cancelled, Basophils % (Manual) Cancelled, Metamyelocytes % Cancelled, Myelocytes % Cancelled, Promyelocytes % Cancelled, Blast Cells % Cancelled, Plasma Cell % (Manual) Cancelled, Other Cells % Cancelled, Nucleated RBC % Cancelled, Nucleated RBCs/100 WBC Cancelled, Differential Comment Cancelled, Diff Path Review Cancelled, Hypersegmented Neuts Cancelled, Atypical Lymphocytes Cancelled, Reactive Lymphocytes Cancelled, Smudge Cells Cancelled, Toxic Granulation Cancelled, Toxic Vacuolation Cancelled, Dohle Bodies Cancelled, Randall Rods Cancelled, Platelet Estimate Cancelled, Plt Morphology Comment Cancelled, RBC Morphology Cancelled, Polychromasia Cancelled, H ypochromasia Cancelled, Poikilocytosis Cancelled, Basophilic Stippling Cancelled, Anisocytosis Cancelled, Microcytosis Cancelled, Macrocytosis Cancelled, Spherocytes Cancelled, Sickle Cells Cancelled, Target Cells Cancelled, Tear Drop Cells Cancelled, Ovalocytes Cancelled, Stomatocytes Cancelled, Duarte-[place] Bodies Cancelled, Dixon Cells Cancelled, Bite Cells Cancelled, Crenated Cell Cancelled, Acanthocytes (Spur) Cancelled, Rouleaux Cancelled, Schistocytes Cancelled 04/12/19 05:30: Sodium Cancelled, Potassium Cancelled, Chloride Cancelled, Carbon Dioxide Cancelled, Anion Gap Cancelled, BUN Cancelled, Creatinine Cancelled, Estim Creat Clear Calc Cancelled, Est GFR (MDRD) Af Amer Cancelled, Est GFR (MDRD) Non-Af Cancelled, BUN/Creatinine Ratio Cancelled, Glucose Can celled, Calcium Cancelled 04/12/19 06:35: POC Glucose 199 H 04/12/19 08:24: WBC 13.6 H, RBC 3.72 L, Hgb 10.9 L, Hct 33.5 L, MCV 90.1, MCH 29.3, MCHC 32.5, RDW Std Deviation 43.1, RDW Coeff of Akila 13.0, Plt Count 548 H, MPV 9.1, Neut % (Auto) Not Reportable, Absolute Neuts (auto) 11.3 H, Absolute Lymphs (auto) 0.67 L, Total Counted 100, Neutrophils % (Manual) 81 H, Band Neutrophils % 3, Lymphocytes % (Manual) 5 L, Monocytes % (Manual) 3, Eosinophils % (Manual) 1, Metamyelocytes % 6 H, Myelocytes % 1 H, Diff Path Review [facility] 04/12/19 08:24: Sodium 141, Potassium 4.1, Chloride 108 H, Carbon Dioxide 27.0, Anion Gap 6, BUN 34 H, Creatinine 1.16, Estim Creat Clear Calc 67.30, Est GFR (MDRD) Af Amer 82, Est GFR (MDRD) Non-Af 68, BUN/Creatinine Ratio 29.3 H, Glucose 206 H, Calcium 8.5 Current Medications Acetaminophen (Tylenol) 650 mg PO Q6H PRN PRN PRN Reason: Mild Pain (1-3)/Temp > 100.7 F Last Admin: 04/11/19 05:59 Dose: 650 mg Documented by: Albuterol/Ipratropium (Duoneb) 3 ml INHALATION Q4HWA.RT [facility] Last Admin: 04/12/19 07:16 Dose: 3 ml Documented by: Amlodipine Besylate (Norvasc) 10 mg PO DAILY [facility] Carvedilol (Coreg) 12.5 mg PO BID [facility] Last Admin: 04/11/19 21:09 Dose: 12.5 mg Documented by: Dextrose (D50w Syringe) 0 gm IV X1 PRN; Protocol PRN Reason: Hypoglycemia Enoxaparin Sodium (Lovenox) 40 mg SC Q12 [facility] Last Admin: 04/11/19 21:09 Dose: 40 mg Documented by: Glucagon () 1 mg IM .X1 PRN PRN Reason: Hypoglycemia Heparin Sodium (Beef Lung) () 50 units IV UD PRN PRN Reason: PICC Line Heparin Flush Hydralazine HCl (Apresoline Iv) 5 mg IV Q6H PRN PRN PRN Reason: BLOOD PRESSURE Last Admin: 04/12/19 04:53 Dose: 5 mg Documented by: Sodium Chloride () 250 mls @ 15 mls/hr IV .[id number] PRN PRN Reason: Saline Flush Last Infusion: 04/11/19 13:42 Dose: 0 mls/hr Documented by: Ceftriaxone Sodium 2 gm/ (Sodium Chloride) 50 mls @ 100 mls/hr IV Q24 [facility] Last Infusion: 04/11/19 09:36 Dose: Infused Documented by: Insulin Human Lispro (Humalog Kwikpen (Bkc)) 0 unit SC ACHS [facility]; Protocol Last Admin: 04/12/19 06:36 Dose: 1 u Documented by: Magnesium Hydroxide (Milk Of Magnesia) 30 ml PO DAILY PRN PRN PRN Reason: Constipation Metronidazole (Flagyl) 500 mg PO TID [facility] Last Admin: 04/12/19 05:36 Dose: 500 mg Documented by: Nutritional Formula (Chun - [place] Flavor) 1 packet PO BIDCM [facility] Last Admin: 04/11/19 16:00 Dose: Not Given Documented by: Ondansetron HCl (Zofran) 4 mg IV Q8H PRN PRN PRN Reason: NAUSEA/VOMITING Oxycodone HCl (Oxyir) 5 mg PO Q4H PRN PRN PRN Reason: Moderate Pain (4-6/10) Last Admin: 04/11/19 18:18 Dose: 5 mg Documented by: Sodium Chloride () 5 - 15 ml IV UD PRN PRN Reason: SALINE FLUSH Last Admin: 04/12/19 04:53 Dose: 10 ml Documented by: Sodium Chloride (0.9% Nacl (Sterile) Posiflush) 10 - 40 ml IV UD PRN PRN Reason: Port access or dressing change Sodium Chloride () 10 - 40 ml IV UD PRN PRN Reason: SALINE FLUSH Last Admin: 04/11/19 18:14 Dose: 30 ml Documented by: STROKE Vital Signs/Narrative: Vital Signs Temp Pulse Resp BP Pulse Ox 04/12/19 08:31 91 04/12/19 08:30 91 28 H 91 04/12/19 07:10 102 H 24 H 04/12/19 07:00 96.2 F L 87 38 H 168/82 H 94 04/12/19 06:00 96.2 F L 98 25 H 161/81 H 94 Medical Necessity - Tobacco Use Smoking Status: Never smoker Tobacco Use: Cigarettes Assessment/Plan All Active Problems Cellulitis of right foot (Acute) Sepsis (Acute) RUSS (acute kidney injury) (Acute) Hyponatremia (Acute) Cellulitis of right lower extremity (Acute) Ulcer of right foot with fat layer exposed (Acute) Patient is a 63-year-old gentleman with multiple comorbidities including diabetes mellitus type 2 morbid obesity with BMI of 43 who presented with erythema and swelling involving the right lower extremity with blistering of the tip of the first right toe. An assessment of sepsis secondary to cellulitis made admitted to the regular nursing floor for further management 1. Sepsis secondary to extensive cellulitis involving the right lower extremity. Admitted to regular nursing floor patient was treated with clindamycin and vancomycin (patient is allergic to penicillin). Consult was also placed to podiatry medicine. Patient still has significant erythema and swelling involving the right lower extremities ?04/10/2019: Venous duplex ordered as part of patient's evaluation came back negative Lovenox switch back to prophylactic dose. Patient has also been seen in consultation by and notes and recommendations reviewed. ?04/11/2019 antibiotics adjusted by infectious disease patient currently on Rocephin. Recommendation is for patient to undergo MRI to rule out osteomyelitis. This is currently on hold in view of patient low oxygen saturation. Notes from Dr. Franco infectious disease reviewed ?04/12/2019 awaiting for respiratory status to stabilize prior to patient undergoing MRI to rule out osteomyelitis 2. Acute kidney injury ?Patient kidney function did worsen with creatinine rising to 2.14 from an admission level of 1.3. IV fluids initiated consult placed to nephrology ~04/10/2019. Kidney function went up to 2.5 resuscitated with IV fluids ?04/11/2019 kidney function finally improving 04/12/2019 resolved 3. Acute metabolic encephalopathy ~secondary to sepsis as well as respiratory acidosis 4. Acute respiratory acidosis ~patient placed on noninvasive ventilation BiPAP with repeat ABGs ordered. did suspect a component of obesity hypoventilation syndrome contributing to patient respiratory distress. Patient was placed on noninvasive ventilation and consult placed to pulmonary medicine 5. Acute chronic congestive heart failure with preserved ejection fraction Patient started on Lasix. Echo obtained during current admission demonstrated g rade 2 diastolic dysfunction with ejection fraction of 65% 6. Diabetes mellitus type II ~Controlled patient's oral hypoglycemics held. Placed on long acting insulin, Accu-Cheks a.c. and at bedtime and covered with sliding scale insulin 7. Essential hypertension - Patient blood pressure was low on admission antihypertensives subsequently held ?04/12/2019 patient blood pressure has stabilized and was elevated his BP medications restarted in addition to PRN hydralazine 8. Morbid obesity, BMI 43.8, -diet and exercise is recommended 9. Hypokalemia corrected per protocol 10. Obstructive sleep apnea ?Patient is on CPAP 11. DVT prophylaxis ? Lovenox Code Visit Inpatient E&M: 19976 Subs Hosp L2
--- NOTE | 2019-04-12 10:44 | PN.ID_ITS ---
Patient Problems: Active and Suspected Problems Cellulitis of right foot (Acute) Sepsis (Acute) RUSS (acute kidney injury) (Acute) Hyponatremia (Acute) Cellulitis of right lower extremity (Acute) Ulcer of right foot with fat layer exposed (Acute) Subjective: Feeling ok, breathing better, no fever, no n/v/d. - Physical Exam Vitals/I&O's: Vital Signs Temp Pulse Resp BP Pulse Ox 96.2 F L 91 28 H 168/82 H 91 04/12/19 07:00 04/12/19 08:30 04/12/19 08:30 04/12/19 07:00 04/12/19 08:31 Oxygen Flow Rate (L/min) 10 Oxygen Delivery Method Nasal Cannula Weight: 138.572 kg Body Mass Index (BMI) 43.8 Intake and Output for Last 24 Hours 04/10/19 04/11/19 04/12/19 23:59 23:59 23:59 Intake Total 4563.5 / 4563.5 2715.0 / 2715.0 Output Total 975 / 1675 4500 / 4500 1325 / 1325 Balance 3588.5 / 2888.5 -1785.0 / -1785.0 -1325 / -1325 General: Alert, Cooperative, No apparent distress Lungs: Diminished Cardiovascular: Regular rate, Regular Rhythm Abdomen: Soft, Non Tender, Non-Distended, Obese Skin: Ulcer/ Wound - R 1st toe ulcer, dry, surrounding swelling. Redness of cruz/calf. Edema improved. Microbiology Past 72 Hours 04/09/19 18:45 Wound - Aerobic & Anaerobic Swabs Gram Stain - Final 04/09/19 18:45 Wound - Aerobic & Anaerobic Swabs Wound Culture - Final Streptococcus group G 04/09/19 18:45 Wound - Aerobic & Anaerobic Swabs Anaerobic Culture - Preliminary Checking for anaerobes, further studies to follow. 04/09/19 01:15 Urine, Clean Catch Urine Culture - Final Klebsiella pneumoniae sp pneum 04/08/19 10:40 Blood Culture (Wb) - Anticubital Left Blood Culture - Preliminary No growth in 48 hours. 04/08/19 14:30 Blood Culture (Wb) - Right Hand Blood Culture - Preliminary No growth in 48 hours. Laboratory Results 04/08/19 10:40: Total Protein (PEP) 5.7 L, Globulin 3.6, IgG 762, IgA 361, IgM 39, Immunofixation Screen Comment, Albumin (ARMANDO) 2.1 L, Albumin/Globulin (ARMANDO) 0.6 L, Fvwws-1-Phdhuiijs ARMANDO 0.6 H, [place]-3-Evdaqclkg ARMANDO 1.2 H, Beta-Globulins (ARMANDO) 1.2, Gamma Globulins (ARMANDO) 0.7, ARMANDO M-Bola , ARMANDO Comments Comment 04/11/19 11:21: POC Glucose 201 H 04/11/19 16:21: POC Glucose 229 H 04/11/19 21:11: POC Glucose 206 H 04/12/19 05:30: WBC Cancelled, Corrected WBC Cancelled, RBC Cancelled, Hgb Cancelled, Hct Cancelled, MCV Cancelled, MCH Cancelled, MCHC Cancelled, RDW Std Deviation Cancelled, RDW Coeff of Akila Cancelled, Plt Count Cancelled, MPV Cancelled, Immature Gran % (Auto) Cancelled, Neut % (Auto) Cancelled, Lymph % (Auto) Cancelled, [place] % (Auto) Cancelled, Eos % (Auto) Cancelled, Baso % (Auto) Cancelled, Absolute Neuts (auto) Cancelled, Absolute Lymphs (auto) Cancelled, Total Counted Cancelled, Neutrophils % (Manual) Cancelled, Band Neutrophils % Cancelled, Lymphocytes % (Manual) Cancelled, Monocytes % (Manual) Cancelled, Eosinophils % (Manual) Cancelled, Basophils % (Manual) Cancelled, Metamyelocytes % Cancelled, Myelocytes % Cancelled, Promyelocytes % Cancelled, Blast Cells % Cancelled, Plasma Cell % (Manual) Cancelled, Other Cells % Cancelled, Nucleated RBC % Cancelled, Nucleated RBCs/100 WBC Cancelled, Differential Comment Cancelled, Diff Path Review Cancelled, Hypersegmented Neuts Cancelled, Atypical Lymphocytes Cancelled, Reactive Lymphocytes Cancelled, Smudge Cells Cancelled, Toxic Granulation Cancelled, Toxic Vacuolation Cancelled, Dohle Bodies Cancelled, Randall Rods Cancelled, Platelet Estimate Cancelled, Plt Morphology Comment Cancelled, RBC Morphology Cancelled, Polychromasia Cancelled, Hypochromasia Cancelled, Poikilocytosis Cancelled, Basophilic Stippling Cancelled, Anisocytosis Cancelled, Microcytosis Cancelled, Macrocytosis Cancelled, Spherocytes Cancelled, Sickle Cells Cancelled, Target Cells Cancelled, Tear Drop Cells Cancelled, Ovalocytes Cancelled, Stomatocytes Cancelled, Duarte-[place] Bodies Cancelled, Alejandro Cells Cancelled, Bite Cells Cancelled, Crenated Cell Cancelled, Acanthocytes (Spur) Cancelled, Rouleaux Cancelled, Schistocytes Cancelled 04/12/19 05:30: Sodium Cancelled, Potassium Cancelled, Chloride Cancelled, Carbon Dioxide Cancelled, Anion Gap Cancelled, BUN Cancelled, Creatinine Cancelled, Estim Creat Clear Calc Cancelled, Est GFR (MDRD) Af Amer Cancelled, Est GFR (MDRD) Non-Af Cancelled, BUN/Creatinine Ratio Cancelled, Glucose Cancelled, Calcium Cancelled 04/12/19 06:35: POC Glucose 199 H 04/12/19 08:24: WBC 13.6 H, RBC 3.72 L, Hgb 10.9 L, Hct 33.5 L, MCV 90.1, MCH 29.3, MCHC 32.5, RDW Std Deviation 43.1, RDW Coeff of Akila 13.0, Plt Count 548 H, MPV 9.1, Neut % (Auto) Not Reportable, Absolute Neuts (auto) 11.3 H, Absolute Lymphs (auto) 0.67 L, Total Counted 100, Neutrophils % (Manual) 81 H, Band Neutrophils % 3, Lymphocytes % (Manual) 5 L, Monocytes % (Manual) 3, Eosinophils % (Manual) 1, Metamyelocytes % 6 H, Myelocytes % 1 H, Diff Path Review October04/12/19 08:24: Sodium 141, Potassium 4.1, Chloride 108 H, Carbon Dioxide 27.0, Anion Gap 6, BUN 34 H, Creatinine 1.16, Estim Creat Clear Calc 67.30, Est GFR (MDRD) Af Amer 82, Est GFR (MDRD) Non-Af 68, BUN/Creatinine Ratio 29.3 H, Glucose 206 H, Calcium 8.5 Current Medications Acetaminophen (Tylenol) 650 mg PO Q6H PRN PRN PRN Reason: Mild Pain (1-3)/Temp > 100.7 F Last Admin: 04/11/19 05:59 Dose: 650 mg Documented by: Albuterol/Ipratropium (Duoneb) 3 ml INHALATION Q4HWA.RT [facility] Last Admin: 04/12/19 07:16 Dose: 3 ml Documented by: Amlodipine Besylate (Norvasc) 10 mg PO DAILY [facility] Carvedilol (Coreg) 12.5 mg PO BID [facility] Last Admin: 04/11/19 21:09 Dose: 12.5 mg Documented by: Dextrose (D50w Syringe) 0 gm IV X1 PRN; Protocol PRN Reason: Hypoglycemia Enoxaparin Sodium (Lovenox) 40 mg SC Q12 [facility] Last Admin: 04/11/19 21:09 Dose: 40 mg Documented by: Glucagon () 1 mg IM .X1 PRN PRN Reason: Hypoglycemia Heparin Sodium (Beef Lung) () 50 units IV UD PRN PRN Reason: PICC Line Heparin Flush Hydralazine HCl (Apresoline Iv) 5 mg IV Q6H PRN PRN PRN Reason: BLOOD PRESSURE Last Admin: 04/12/19 04:53 Dose: 5 mg Documented by: Sodium Chloride () 250 mls @ 15 mls/hr IV .[id number] PRN PRN Reason: Saline Flush Last Infusion: 04/11/19 13:42 Dose: 0 mls/hr Documented by: Ceftriaxone Sodium 2 gm/ (Sodium Chloride) 50 mls @ 100 mls/hr IV Q24 [facility] Last Infusion: 04/11/19 09:36 Dose: Infused Documented by: Insulin Human Lispro (Humalog Kwikpen (Bkc)) 0 unit SC ACHS [facility] [place]; Protocol Last Admin: 04/12/19 06:36 Dose: 1 u Documented by: Magnesium Hydroxide (Milk Of Magnesia) 30 ml PO DAILY PRN PRN PRN Reason: Constipation Metronidazole (Flagyl) 500 mg PO TID [facility] [place] Last Admin: 04/12/19 05:36 Dose: 500 mg Documented by: Nutritional Formula (Chun - [place] Flavor) 1 packet PO BIDCM [facility] Last Admin: 04/11/19 16:00 Dose: Not Given Documented by: Ondansetron HCl (Zofran) 4 mg IV Q8H PRN PRN PRN Reason: NAUSEA/VOMITING Oxycodone HCl (Oxyir) 5 mg PO Q4H PRN PRN PRN Reason: Moderate Pain (4-6/10) Last Admin: 04/11/19 18:18 Dose: 5 mg Documented by: Sodium Chloride () 5 - 15 ml IV UD PRN PRN Reason: SALINE FLUSH Last Admin: 04/12/19 04:53 Dose: 10 ml Documented by: Sodium Chloride (0.9% Nacl (Sterile) Posiflush) 10 - 40 ml IV UD PRN PRN Reason: Port access or dressing change Sodium Chloride () 10 - 40 ml IV UD PRN PRN Reason: SALINE FLUSH Last Admin: 04/11/19 18:14 Dose: 30 ml Documented by: Medical Necessity - Tobacco Use Smoking Status: Never smoker Tobacco Use: Cigarettes Route of nutrition/ use of supplements: [] Nutritional Intake: [] IV Site: [] Mora Catheter: [] - Assessment/Plan Antibiotics: [] Assessment/Plan: [] Active and Suspected Problems Cellulitis of right foot (Acute) Sepsis (Acute) RUSS (acute kidney injury) (Acute) Hyponatremia (Acute) Cellulitis of right lower extremity (Acute) Ulcer of right foot with fat layer exposed (Acute) sepsis due to diabetic R foot infection, concern for osteo, course complicated by RUSS and some hypoxic resp failure. Pending MRI of R foot and ankle, noncon trast. Re: his allergy history, reports being told as a child he was allergic to PCN. No known h/o anaphylaxis. Reports taking amoxicillin at some point as an adult and having some upset stomach. Bcx neg so far, wound cx with strep finalized, and neg staph aureus pcr. Continue ceftriaxone/flagyl. With uncontrolled DM, A1c of 12, neuropathy, and RUSS, concern about ability to heal this infected wound. Have counseled him re:need for strict glucose management. Ucx with klebs, covered by ceftriaxone. Will follow
--- NOTE | 2019-04-12 11:07 | PN.RENAL_ITS ---
Patient Problems: Active and Suspected Problems Cellulitis of right foot (Acute) Sepsis (Acute) RUSS (acute kidney injury) (Acute) Hyponatremia (Acute) Cellulitis of right lower extremity (Acute) Ulcer of right foot with fat layer exposed (Acute) Subjective: Following for RUSS. Patient denies CP, SOB or nausea. - Physical Exam Vitals/I&O's: Vital Signs Temp Pulse Resp BP Pulse Ox 96.2 F L 91 28 H 168/82 H 91 04/12/19 07:00 04/12/19 08:30 04/12/19 08:30 04/12/19 07:00 04/12/19 08:31 Oxygen Flow Rate (L/min) 10 Oxygen Delivery Method Nasal Cannula Weight: 138.572 kg Body Mass Index (BMI) 43.8 Intake and Output for Last 24 Hours 04/10/19 04/11/19 04/12/19 23:59 23:59 23:59 Intake Total 4563.5 / 4563.5 2715.0 / 2715.0 Output Total 975 / 1675 4500 / 4500 1325 / 1325 Balance 3588.5 / 2888.5 -1785.0 / -1785.0 -1325 / -1325 General: Alert, Oriented x3 HEENT: Atraumatic Oral: Moist Mucosa Lungs: Clear to auscultation - anteriorly Cardiovascular: Normal S1, Normal S2 Abdomen: Bowel Sounds Present, Soft, Non Tender Extremities: No edema Microbiology Past 72 Hours 04/09/19 18:45 Wound - Aerobic & Anaerobic Swabs Gram Stain - Final 04/09/19 18:45 Wound - Aerobic & Anaerobic Swabs Wound Culture - Final Streptococcus group G 04/09/19 18:45 Wound - Aerobic & Anaerobic Swabs Anaerobic Culture - Preliminary Checking for anaerobes, further studies to follow. 04/09/19 01:15 Urine, Clean Catch Urine Culture - Final Klebsiella pneumoniae sp pneum 04/08/19 10:40 Blood Culture (Wb) - Anticubital Left Blood Culture - Preliminary No growth in 48 hours. 04/08/19 14:30 Blood Culture (Wb) - Right Hand Blood Culture - Preliminary No growth in 48 hours. Laboratory Results 04/08/19 10:40: Total Protein (PEP) 5.7 L, Globulin 3.6, IgG 762, IgA 361, IgM 39, Immunofixation Screen Comment, Albumin (ARMANDO) 2.1 L, Albumin/Globulin (ARMANDO) 0.6 L, Rsbtr-4-Hmevxfysj ARMANDO 0.6 H, Gefcz-3-Qdbppsjru ARMANDO 1.2 H, Beta-Globulins (ARMANDO) 1.2, Gamma Globulins (ARMANDO) 0.7, ARMANDO M-Bola , ARMANDO Comments Comment 04/11/19 11:21: POC Glucose 201 H 04/11/19 16:21: POC Glucose 229 H 04/11/19 21:11: POC Glucose 206 H 04/12/19 05:30: WBC Cancelled, Corrected WBC Cancelled, RBC Cancelled, Hgb Cancelled, Hct Cancelled, MCV Cancelled, MCH Cancelled, MCHC Cancelled, RDW Std Deviation Cancelled, RDW Coeff of Akila Cancelled, Plt Count Cancelled, MPV Canc elled, Immature Gran % (Auto) Cancelled, Neut % (Auto) Cancelled, Lymph % (Auto) Cancelled, [place] % (Auto) Cancelled, Eos % (Auto) Cancelled, Baso % (Auto) Cancelled, Absolute Neuts (auto) Cancelled, Absolute Lymphs (auto) Cancelled, Total Counted Cancelled, Neutrophils % (Manual) Cancelled, Band Neutrophils % Cancelled, Lymphocytes % (Manual) Cancelled, Monocytes % (Manual) Cancelled, Eosinophils % (Manual) Cancelled, Basophils % (Manual) Cancelled, Metamyelocytes % Cancelled, Myelocytes % Cancelled, Promyelocytes % Cancelled, Blast Cells % Cancelled, Plasma Cell % (Manual) Cancelled, Other Cells % Cancelled, Nucleated RBC % Cancelled, Nucleated RBCs/100 WBC Cancelled, Differential Comment Cancelled, Diff Path Review Cancelled, Hypersegmented Neuts Cancelled, Atypical Lymphocytes Cancelled, Reactive Lymphocytes Cancelled, Smudge Cells Cancelled, Toxic Granulation Cancelled, Toxic Vacuolation Cancelled, Dohle Bodies Cancelled, Randall Rods Cancelled, Platelet Estimate Cancelled, Plt Morphology Comment Cancelled, RBC Morphology Cancelled, Polychromasia Cancelled, Hypochromasia Cancelled, Poikilocytosis Cancelled, Basophilic Stippling Cancelled, Anisocytosis Cancelled, Microcytosis Cancelled, Macrocytosis Cancelled, Spherocytes Cancelled, Sickle Cells Cancelled, Target Cells Cancelled, Tear Drop Cells Cancelled, Ovalocytes Cancelled, Stomatocytes Cancelled, [place] Bodies Cancelled, [place] Cells Cancelled, Bite Cells Cancelled, Crenated Cell Cancelled, Acanthocytes (Spur) Cancelled, Rouleaux Cancelled, Schistocytes Cancelled 04/12/19 05:30: Sodium Cancelled, Potassium Cancelled, Chloride Cancelled, Carbon Dioxide Cancelled, Anion Gap Cancelled, BUN Cancelled, Creatinine Cancelled, Estim Creat Clear Calc Cancelled, Est GFR (MDRD) Af Amer Cancelled, Est GFR (MDRD) Non-Af Cancelled, BUN/Creatinine Ratio Cancelled, Glucose Cancelled, Calcium Cancelled 04/12/19 06:35: POC Glucose 199 H 04/12/19 08:24: WBC 13.6 H, RBC 3.72 L, Hgb 10.9 L, Hct 33.5 L, MCV 90.1, MCH 29.3, MCHC 32.5, RDW Std Deviation 43.1, RDW Coeff of Akila 13.0, Plt Count 548 H, MPV 9.1, Neut % (Auto) Not Reportable, Absolute Neuts (auto) 11.3 H, Absolute Lymphs (auto) 0.67 L, Total Counted 100, Neutrophils % (Manual) 81 H, Band Neutrophils % 3, Lymphocytes % (Manual) 5 L, Monocytes % (Manual) 3, Eosinophils % (Manual) 1, Metamyelocytes % 6 H, Myelocytes % 1 H, Diff Path Review October04/12/19 08:24: Sodium 141, Potassium 4.1, Chloride 108 H, Carbon Dioxide 27.0, Anion Gap 6, BUN 34 H, Creatinine 1.16, Estim Creat Clear Calc 67.30, Est GFR (MDRD) Af Amer 82, Est GFR (MDRD) Non-Af 68, BUN/Creatinine Ratio 29.3 H, Glucose 206 H, Calcium 8.5 Current Medications Acetaminophen (Tylenol) 650 mg PO Q6H PRN PRN PRN Reason: Mild Pain (1-3)/Temp > 100.7 F Last Admin: 04/11/19 05:59 Dose: 650 mg Documented by: Albuterol/Ipratropium (Duoneb) 3 ml INHALATION Q4HWA.RT SHANIQUE Last Admin: 04/12/19 07:16 Dose: 3 ml Documented by: Amlodipine Besylate (Norvasc) 10 mg PO DAILY [facility] Carvedilol (Coreg) 12.5 mg PO BID [facility] Last Admin: 04/11/19 21:09 Dose: 12.5 mg Documented by: Dextrose (D50w Syringe) 0 gm IV X1 PRN; Protocol PRN Reason: Hypoglycemia Enoxaparin Sodium (Lovenox) 40 mg SC Q12 [facility] Last Admin: 04/11/19 21:09 Dose: 40 mg Documented by: Glucagon () 1 mg IM .X1 PRN PRN Reason: Hypoglycemia Heparin Sodium (Beef Lung) () 50 units IV UD PRN PRN Reason: PICC Line Heparin Flush Hydralazine HCl (Apresoline Iv) 5 mg IV Q6H PRN PRN PRN Reason: BLOOD PRESSURE Last Admin: 04/12/19 04:53 Dose: 5 mg Documented by: Sodium Chloride () 250 mls @ 15 mls/hr IV .[id number] PRN PRN Reason: Saline Flush Last Infusion: 04/11/19 13:42 Dose: 0 mls/hr Documented by: Ceftriaxone Sodium 2 gm/ (Sodium Chloride) 50 mls @ 100 mls/hr IV Q24 [facility] Last Infusion: 04/11/19 09:36 Dose: Infused Documented by: Insulin Human Lispro (Humalog Kwikpen (Bkc)) 0 unit SC ACHS [facility]; Protocol Last Admin: 04/12/19 06:36 Dose: 1 u Documented by: Magnesium Hydroxide (Milk Of Magnesia) 30 ml PO DAILY PRN PRN PRN Reason: Constipation Metronidazole (Flagyl) 500 mg PO TID [facility] Last Admin: 04/12/19 05:36 Dose: 500 mg Documented by: Nutritional Formula (Chun - [place] Flavor) 1 packet PO BIDCM [facility] Last Admin: 04/11/19 16:00 Dose: Not Given Documented by: Ondansetron HCl (Zofran) 4 mg IV Q8H PRN PRN PRN Reason: NAUSEA/VOMITING Oxycodone HCl (Oxyir) 5 mg PO Q4H PRN PRN PRN Reason: Moderate Pain (4-6/10) Last Admin: 04/11/19 18:18 Dose: 5 mg Documented by: Sodium Chloride () 5 - 15 ml IV UD PRN PRN Reason: SALINE FLUSH Last Admin: 04/12/19 04:53 Dose: 10 ml Documented by: Sodium Chloride (0.9% Nacl (Sterile) Posiflush) 10 - 40 ml IV UD PRN PRN Reason: Port access or dressing change Sodium Chloride () 10 - 40 ml IV UD PRN PRN Reason: SALINE FLUSH Last Admin: 04/11/19 18:14 Dose: 30 ml Documented by: Medical Necessity - Tobacco Use Smoking Status: Never smoker Tobacco Use: Cigarettes Assessment/Plan All Active Problems Cellulitis of right foot (Acute) Sepsis (Acute) RUSS (acute kidney injury) (Acute) Hyponatremia (Acute) Cellulitis of right lower extremity (Acute) Ulcer of right foot with fat layer exposed (Acute) 1- RUSS. Unknown baseline. RUSS is prerenal. Cr has improved in the last 48 hrs. OK yto stop IVF if oral intake is OK. He does not appear to be volume overloaded at this time. C3/C4, UPEP and SPEP are pending. Keep MAP > 65. Recheck Cr in am and reassess volume status. 2-Hyponatremia: likely from RUSS and volume depletion. Resolved. 3-HTN: Pt was hypotensive at admission. Agree with holding ACEI and HCTZ for now. Can restart tomorrow if SCr is stable or better. BP is acceptable 4- Sepsis related to RLE cellulitis and possible UTI. Abx as per the primary service.
--- NOTE | 2019-04-12 11:25 | NURSING ---
skin photo: right lower leg
--- NOTE | 2019-04-12 11:26 | NURSING ---
wound photo: right great toe
[2019-04-12] MEDS: amLODIPine 10 MG Tablet PO (11:27)
[2019-04-12] MEDS: Carvedilol 12.5 MG Tablet PO ×2 (11:27→22:08)
[2019-04-12] MEDS: Enoxaparin 40 MG/0.4 ML Syringe SC ×2 (11:27→22:08)
[2019-04-12] MEDS: Furosemide 40 MG/4 ML Vial IV (11:30)
[2019-04-12 11:42] LABS: Complement C3 184 mg/dL (82-167)
--- NOTE | 2019-04-12 12:18 | PN_ITS ---
Patient Problems: Active and Suspected Problems Cellulitis of right foot (Acute) Sepsis (Acute) RUSS (acute kidney injury) (Acute) Hyponatremia (Acute) Cellulitis of right lower extremity (Acute) Ulcer of right foot with fat layer exposed (Acute) Subjective: This 63-year-old male with multiple comorbidities is seen bedside for right great toe ulcer and leg cellulitis associated with his recent sepsis. He denies fever, chill, nausea, vomiting. He still has not been able to proceed with his lower extremity MRI due to medical instability. He reports continued decreased pain and swelling to the right leg. He had a very challenging evening and did not rest. He is demonstrating significant fatigue during the time of evaluation and is able to participate in the exam in a minimal manner. He is undergoing a breathing treatment at this time. - Physical Exam Vitals/I&O's: Vital Signs Temp Pulse Resp BP Pulse Ox 96.2 F L 99 19 H 168/82 H 91 04/12/19 07:00 04/12/19 11:24 04/12/19 11:24 04/12/19 07:00 04/12/19 08:31 Oxygen Flow Rate (L/min) 10 Oxygen Delivery Method Nasal Cannula Weight: 138.572 kg Body Mass Index (BMI) 43.8 Intake and Output for Last 24 Hours 04/10/19 04/11/19 04/12/19 23:59 23:59 23:59 Intake Total 4563.5 / 4563.5 2715.0 / 2715.0 Output Total 975 / 1675 4500 / 4500 1325 / 1325 Balance 3588.5 / 2888.5 -1785.0 / -1785.0 -1325 / -1325 General: Alert, Oriented x3, Cooperative, Lethargic Extremities: No cyanosis, Capillary Refill Less than 3 Seconds, No Calf Tenderness - Compartments are soft right lower extremity with no fluctuance or bogginess. Negative Matthew and Marcano sign right lower extremity., Diminished Peripheral Pulses, Edema - Moderate lower extremity edema. This is decreased compared to time of admission Skin: Ulcer/ Wound - No purulence, erythema, streaking, odor, maceration, necrosis or deep tissue exposure right foot. The base is fibrous devitalized moist eschar. The ulcer bed is also dry at this time. Musculoskeletal: No Tenderness to Palpation of Joints or Extremities, Muscle Wasting Neurological: - - Lack of normal epicritic sensation light touch is consistent with neuropathy Psych/Mental Status: Normal Affect, Appropriate Microbiology Past 72 Hours 04/09/19 18:45 Wound - Aerobic & Anaerobic Swabs Gram Stain - Final 04/09/19 18:45 Wound - Aerobic & Anaerobic Swabs Wound Culture - Final Streptococcus group G 04/09/19 18:45 Wound - Aerobic & Anaerobic Swabs Anaerobic Culture - Preliminary Checking for anaerobes, further studies to follow. 04/09/19 01:15 Urine, Clean Catch Urine Culture - Final Klebsiella pneumoniae sp pneum 04/08/19 10:40 Blood Culture (Wb) - Anticubital Left Blood Culture - Preliminary No growth in 48 hours. 04/08/19 14:30 Blood Culture (Wb) - Right Hand Blood Culture - Preliminary No growth in 48 hours. Laboratory Results 04/08/19 10:40: Total Protein (PEP) 5.7 L, Globulin 3.6, IgG 762, IgA 361, IgM 39, Immunofixation Screen Comment, Albumin (ARMANDO) 2.1 L, Albumin/Globulin (ARMANDO) 0.6 L, Fnanw-2-Khbnjztck ARMANDO 0.6 H, [place]-0-Kmnuieuyx ARMANDO 1.2 H, Beta-Globulins (ARMANDO) 1.2, Gamma Globulins (ARMANDO) 0.7, ARMANDO M-Bola , ARMANDO Comments Comment 04/11/19 06:15: Complement C3 184 H, Complement C4 41 04/11/19 16:21: POC Glucose 229 H 04/11/19 21:11: POC Glucose 206 H 04/12/19 05:30: WBC Cancelled, Corrected WBC Cancelled, RBC Cancelled, Hgb Cancelled, Hct Cancelled, MCV Cancelled, MCH Cancelled, MCHC Cancelled, RDW Std Deviation Cancelled, RDW Coeff of Akila Cancelled, Plt Count Cancelled, MPV Cancelled, Immature Gran % (Auto) Cancelled, Neut % (Auto) Cancelled, Lymph % (Auto) Cancelled, [place] % (Auto) Cancelled, Eos % (Auto) Cancelled, Baso % (Auto) Cancelled, Absolute Neuts (auto) Cancelled, Absolute Lymphs (auto) Cancelled, T otal Counted Cancelled, Neutrophils % (Manual) Cancelled, Band Neutrophils % Cancelled, Lymphocytes % (Manual) Cancelled, Monocytes % (Manual) Cancelled, Eosinophils % (Manual) Cancelled, Basophils % (Manual) Cancelled, Metamyelocytes % Cancelled, Myelocytes % Cancelled, Promyelocytes % Cancelled, Blast Cells % Cancelled, Plasma Cell % (Manual) Cancelled, Other Cells % Cancelled, Nucleated RBC % Cancelled, Nucleated RBCs/100 WBC Cancelled, Differential Comment Cancelled, Diff Path Review Cancelled, Hypersegmented Neuts Cancelled, Atypical Lymphocytes Cancelled, Reactive Lymphocytes Cancelled, Smudge Cells Cancelled, Toxic Granulation Cancelled, Toxic Vacuolation Cancelled, Dohle Bodies Cancelled, Randall Rods Cancelled, Platelet Estimate Cancelled, Plt Morphology Comment Cancelled, RBC Morphology Cancelled, Polychromasia Cancelled, Hypochromasia Cancelled, Poikilocytosis Cancelled, Basophilic Stippling Cancelled, Anisocytosis Cancelled, Microcytosis Cancelled, Macrocytosis Cancelled, Spherocytes Cancelled, Sickle Cells Cancelled, Target Cells Cancelled, Tear Drop Cells Cancelled, Ovalocytes Cancelled, Stomatocytes Cancelled, [place] Bodies Cancelled, [place] Cells Cancelled, Bite Cells Cancelled, Crenated Cell Cancelled, Acanthocytes (Spur) Cancelled, Rouleaux Cancelled, Schistocytes Cancelled 04/12/19 05:30: Sodium Cancelled, Potassium Cancelled, Chloride Cancelled, Carbon Dioxide Cancelled, Anion Gap Cancelled, BUN Cancelled, Creatinine Cancelled, Estim Creat Clear Calc Cancelled, Est GFR (MDRD) Af Amer Cancelled, Est GFR (MDRD) Non-Af Cancelled, BUN/Creatinine Ratio Cancelled, Glucose Cancelled, Calcium Cancelled 04/12/19 06:35: POC Glucose 199 H 04/12/19 08:24: WBC 13.6 H, RBC 3.72 L, Hgb 10.9 L, Hct 33.5 L, MCV 90.1, MCH 29.3, MCHC 32.5, RDW Std Deviation 43.1, RDW Coeff of Akila 13.0, Plt Count 548 H, MPV 9.1, Neut % (Auto) Not Reportable, Absolute Neuts (auto) 11.3 H, Absolute Lymphs (auto) 0.67 L, Total Counted 100, Neutrophils % (Manual) 81 H, Band Neutrophils % 3, Lymphocytes % (Manual) 5 L, Monocytes % (Manual) 3, Eosinophils % (Manual) 1, Metamyelocytes % 6 H, Myelocytes % 1 H, Diff Path Review October04/12/19 08:24: Sodium 141, Potassium 4.1, Chloride 108 H, Carbon Dioxide 27.0, Anion Gap 6, BUN 34 H, Creatinine 1.16, Estim Creat Clear Calc 67.30, Est GFR (MDRD) Af Amer 82, Est GFR (MDRD) Non-Af 68, BUN/Creatinine Ratio 29.3 H, Gluco se 206 H, Calcium 8.5 Current Medications Acetaminophen (Tylenol) 650 mg PO Q6H PRN PRN PRN Reason: Mild Pain (1-3)/Temp > 100.7 F Last Admin: 04/11/19 05:59 Dose: 650 mg Documented by: Albuterol/Ipratropium (Duoneb) 3 ml INHALATION Q4HWA.RT SHANIQUE Last Admin: 04/12/19 11:23 Dose: 3 ml Documented by: Amlodipine Besylate (Norvasc) 10 mg PO DAILY [facility] Last Admin: 04/12/19 11:27 Dose: 10 mg Documented by: Carvedilol (Coreg) 12.5 mg PO BID [facility] Last Admin: 04/12/19 11:27 Dose: 12.5 mg Documented by: Dextrose (D50w Syringe) 0 gm IV X1 PRN; Protocol PRN Reason: Hypoglycemia Enoxaparin Sodium (Lovenox) 40 mg SC Q12 [facility] Last Admin: 04/12/19 11:27 Dose: 40 mg Documented by: Glucagon () 1 mg IM .X1 PRN PRN Reason: Hypoglycemia Heparin Sodium (Beef Lung) () 50 units IV UD PRN PRN Reason: PICC Line Heparin Flush Hydralazine HCl (Apresoline Iv) 5 mg IV Q6H PRN PRN PRN Reason: BLOOD PRESSURE Last Admin: 04/12/19 04:53 Dose: 5 mg Documented by: Sodium Chloride () 250 mls @ 15 mls/hr IV .[id number] PRN PRN Reason: Saline Flush Last Infusion: 04/11/19 13:42 Dose: 0 mls/hr Documented by: Ceftriaxone Sodium 2 gm/ (Sodium Chloride) 50 mls @ 100 mls/hr IV Q24 [facility] Last Admin: 04/12/19 11:30 Dose: 100 mls/hr Documented by: Insulin Human Lispro (Humalog Geraikpen (Bkc)) 0 unit SC ACHS [facility]; Protocol Last Admin: 04/12/19 06:36 Dose: 1 u Documented by: Magnesium Hydroxide (Milk Of Magnesia) 30 ml PO DAILY PRN PRN PRN Reason: Constipation Metronidazole (Flagyl) 500 mg PO TID [facility] Last Admin: 04/12/19 05:36 Dose: 500 mg Documented by: Nutritional Formula (Chun - [place] Flavor) 1 packet PO BIDCM [facility] Last Admin: 04/12/19 11:27 Dose: 1 packet Documented by: Ondansetron HCl (Zofran) 4 mg IV Q8H PRN PRN PRN Reason: NAUSEA/VOMITING Oxycodone HCl (Oxyir) 5 mg PO Q4H PRN PRN PRN Reason: Moderate Pain (4-6/10) Last Admin: 04/11/19 18:18 Dose: 5 mg Documented by: Sodium Chloride () 5 - 15 ml IV UD PRN PRN Reason: SALINE FLUSH Last Admin: 04/12/19 04:53 Dose: 10 ml Documented by: Sodium Chloride (0.9% Nacl (Sterile) Posiflush) 10 - 40 ml IV UD PRN PRN Reason: Port access or dressing change Sodium Chloride () 10 - 40 ml IV UD PRN PRN Reason: SALINE FLUSH Last Admin: 04/12/19 11:30 Dose: 20 ml Documented by: Medical Necessity - Tobacco Use Smoking Status: Never smoker Tobacco Use: Cigarettes Assessment/Plan All Active Problems Cellulitis of right foot (Acute) Sepsis (Acute) RUSS (acute kidney injury) (Acute) Hyponatremia (Acute) Cellulitis of right lower extremity (Acute) Ulcer of right foot with fat layer exposed (Acute) Ulcer right hallux with fat layer exposed Osteomyelitis work-up is in process Right lower extremity cellulitis resolving Deep venous thrombosis has been ruled out with venous Doppler exam Right lower extremity edema; venous insufficiency is suspected Right lower extremity pain -decreasing Reported Achilles rupture right lower extremity Uncontrolled diabetes with neuropathy; hemoglobin A1c 12.2 noted Sepsis resolved Multiple other comorbidities: Sleep apnea, obesity, kidney injury, hypertension I reviewed and discussed his case. His white blood cell count is decreased to 13.6. He is afebrile and his vital signs are stable. His ulcer site was evaluated today and is dry and stable the fibrous plug it is now a dry well adhered eschar; to continue to change daily with Santyl. This is ordered today. It is okay to wash the foot with soap and water. To avoid soaking. There was no identifiable abscess or deep tissue exposed. His blood cultures are negative so far. Due to high risk status MRI of the foot and ankle were ordered to rule out osteomyelitis, deep abscess, and to evaluate his reported Achilles tear. He will proceed with this test upon medical stability. It is possible to consider a CT scan because this would require him to be in the test for a shorter duration of time however is not as detailed as the MRI which is not ideal. To continue on antibiotics including vancomycin, ceftriaxone, and Flagyl per infectious disease recommendations. His right leg demonstrates continued clinical improvement compared to yesterday with resolved palpation pain, warmth, and erythema. He had a venous duplex Doppler performed which did not demonstrate any deep venous thrombosis. Outpatient reflux exam is recommended to see if venous insufficiency is an underlying etiology to the leg swelling. To continue Mahendra wrap application to the right leg to further control his edema. Medical management DVT prophylaxis per primary team is greatly appreciated. I will continue to follow him closely in house. Please do not hesitate to call if you have any questions. At time of discharge I recommend he follows up with the wound healing center. Lindsey Jacques DPM, [facility] [phone]
--- NOTE | 2019-04-12 13:08 | PCM.PN.PUL ---
Patient Problems: Active and Suspected Problems Cellulitis of right foot (Acute) Sepsis (Acute) RUSS (acute kidney injury) (Acute) Hyponatremia (Acute) Cellulitis of right lower extremity (Acute) Ulcer of right foot with fat layer exposed (Acute) Subjective: The patient was seen and examined at the bedside this morning. Events from the last 24 hours have been reviewed. The patient is currently afebrile, hemodynamically stable and maintaining appropriate oxygen saturations on BiPAP. The patient is currently documented to be overall net +5.5 L for the admission. Objective: The patient's most recent lab work, culture data and imaging studies have all been personally reviewed. Surface echocardiogram completed on April 09 revealed stage II diastolic dysfunction. - Physical Exam Vitals/I&O's: Vital Signs Temp Pulse Resp BP Pulse Ox 96.2 F L 99 19 H 168/82 H 91 04/12/19 07:00 04/12/19 11:24 04/12/19 11:24 04/12/19 07:00 04/12/19 08:31 Oxygen Flow Rate (L/min) 10 Oxygen Delivery Method Nasal Cannula Weight: 305 lb 8 oz Body Mass Index (BMI) 43.8 Intake and Output for Last 24 Hours 04/10/19 04/11/19 04/12/19 23:59 23:59 23:59 Intake Total 4563.5 / 4563.5 2715.0 / 2715.0 Output Total 975 / 1675 4500 / 4500 1325 / 1325 Balance 3588.5 / 2888.5 -1785.0 / -1785.0 -1325 / -1325 General: Alert, No apparent distress HEENT: Atraumatic, PERRLA, Normocephalic Oral: No Gingival or Mucosal Lesions/ Ulcerations Neck: Supple, No Nodes, Trachea Midline Lungs: Diminished, - - Dependent rales. Cardiovascular: Regular rate, Regular Rhythm, Normal S1, Normal S2, No murmurs Abdomen: Bowel Sounds Present, Soft, Non Tender, Obese Extremities: No clubbing, No cyanosis, Edema Skin: - - No significant change from previous. Musculoskeletal: No Muscle Wasting Lymphatic: No Cervical, Supraclavicular, or Inguinal Adenopathy Neurological: Neuro grossly intact Psych/Mental Status: Normal Affect, Appropriate Microbiology Past 72 Hours 04/09/19 18:45 Wound - Aerobic & Anaerobic Swabs Gram Stain - Final 04/09/19 18:45 Wound - Aerobic & Anaerobic Swabs Wound Culture - Final Streptococcus group G 04/09/19 18:45 Wound - Aerobic & Anaerobic Swabs Anaerobic Culture - Preliminary Checking for anaerobes, further studies to follow. 04/09/19 01:15 Urine, Clean Catch Urine Culture - Final Klebsiella pneumoniae sp pneum 04/08/19 10:40 Blood Culture (Wb) - Anticubital Left Blood Culture - Preliminary No growth in 48 hours. 04/08/19 14:30 Blood Culture (Wb) - Right Hand Blood Culture - Preliminary No growth in 48 hours. Laboratory Results 04/08/19 10:40: Total Protein (PEP) 5.7 L, Globulin 3.6, IgG 762, IgA 361, IgM 39, Immunofixation Screen Comment, Albumin (ARMANDO) 2.1 L, Albumin/Globulin (ARMANDO) 0.6 L, Unprg-3-Nvvzyfcws ARMANDO 0.6 H, Gwwah-1-Zjsfkdtre ARMANDO 1.2 H, Beta-Globulins (ARMANDO) 1.2, Gamma Globulins (ARMANDO) 0.7, ARMANDO M-Bola , ARMANDO Comments Comment 04/11/19 06:15: Complement C3 184 H, Complement C4 41 04/11/19 16:21: POC Glucose 229 H 04/11/19 21:11: POC Glucose 206 H 04/12/19 05:30: WBC Cancelled, Corrected WBC Cancelled, RBC Cancelled, Hgb Cancelled, Hct Cancelled, MCV Cancelled, MCH Cancelled, MCHC Cancelled, RDW Std Deviation Cancelled, RDW Coeff of Akila Cancelled, Plt Count Cancelled, MPV Cancelled, Immature Gran % (Auto) Cancelled, Neut % (Auto) Cancelled, Lymph % (Auto) Cancelled, Rowan % (Auto) Cancelled, Eos % (Auto) Cancelled, Baso % (Auto) Cancelled, Absolute Neuts (auto) Cancelled, Absolute Lymphs (auto) Cancelled, Total Counted Cancelled, Neutrophils % (Manual) Cancelled, Band Neutrophils % Cancelled, Lymphocytes % (Manual) Cancelled, Monocytes % (Manual) Cancelled, Eosinophils % (Manual) Cancelled, Basophils % (Manual) Cancelled, Metamyelocytes % Cancelled, Myelocytes % Cancelled, Promyelocytes % Cancelled, Blast Cells % Cancelled, Plasma Cell % (Manual) Cancelled, Other Cells % Cancelled, Nucleated RBC % Cancelled, Nucleated RBCs/100 WBC Cancelled, Differential Comment Cancelled, Diff Path Review Cancelled, Hypersegmented Neuts Cancelled, Atypical Lymphocytes Cancelled, Reactive Lymphocytes Cancelled, Smudge Cells Cancelled, Toxic Granulation Cancelled, Toxic Vacuolation Cancelled, Dohle Bodies Cancelled, Randall Rods Cancelled, Platelet Estimate Cancelled, Plt Morphology Comment Cancelled, RBC Morphology Cancelled, Polychromasia Cancelled, Hypochromasia Cancelled, Poikilocytosis Cancelled, Basophilic Stippling Cancelled, Anisocytosis Cancelled, Microcytosis Cancelled, Macrocytosis Cancelled, Spherocytes Cancelled, Sickle Cells Cancelled, Target Cells Cancelled, Tear Drop Cells Cancelled, Ovalocytes Cancelled, Stomatocytes Cancelled, Duarte-Alcester Bodies Cancelled, Alejandro Cells Cancelled, Bite Cells Cancelled, Crenated Cell Cancelled, Acanthocytes (Spur) Cancelled, Rouleaux Cancelled, Schistocytes Cancelled 04/12/19 05:30: Sodium Cancelled, Potassium Cancelled, Chloride Cancelled, Carbon Dioxide Cancelled, Anion Gap Cancelled, BUN Cancelled, Creatinine Cancelled, Estim Creat Clear Calc Cancelled, Est GFR (MDRD) Af Amer Cancelled, Est GFR (MDRD) Non-Af Cancelled, BUN/Creatinine Ratio Cancelled, Glucose Cancelled, Calcium Cancelled 04/12/19 06:35: POC Glucose 199 H 04/12/19 08:24: WBC 13.6 H, RBC 3.72 L, Hgb 10.9 L, Hct 33.5 L, MCV 90.1, MCH 29.3, MCHC 32.5, RDW Std Deviation 43.1, RDW Coeff of Akila 13.0, Plt Count 548 H, MPV 9.1, Neut % (Auto) Not Reportable, Absolute Neuts (auto) 11.3 H, Absolute Lymphs (auto) 0.67 L, Total Counted 100, Neutrophils % (Manual) 81 H, Band Neutrophils % 3, Lymphocytes % (Manual) 5 L, Monocytes % (Manual) 3, Eosinophils % (Manual) 1, Metamyelocytes % 6 H, Myelocytes % 1 H, Diff Path Review May foll 10/24/19 08:24: Sodium 141, Potassium 4.1, Chloride 108 H, Carbon Dioxide 27.0, Anion Gap 6, BUN 34 H, Creatinine 1.16, Estim Creat Clear Calc 67.30, Est GFR (MDRD) Af Amer 82, Est GFR (MDRD) Non-Af 68, BUN/Creatinine Ratio 29.3 H, Glucose 206 H, Calcium 8.5 Current Medications Acetaminophen (Tylenol) 650 mg PO Q6H PRN PRN PRN Reason: Mild Pain (1-3)/Temp > 100.7 F Last Admin: 04/11/19 05:59 Dose: 650 mg Documented by: Albuterol/Ipratropium (Duoneb) 3 ml INHALATION Q4HWA.RT SHANIQUE Last Admin: 04/12/19 11:23 Dose: 3 ml Documented by: Amlodipine Besylate (Norvasc) 10 mg PO DAILY COUNTS INCLUDE 234 BEDS AT THE [facility] Last Admin: 04/12/19 11:27 Dose: 10 mg Documented by: Carvedilol (Coreg) 12.5 mg PO BID COUNTS INCLUDE 234 BEDS AT THE [facility] Last Admin: 04/12/19 11:27 Dose: 12.5 mg Documented by: Dextrose (D50w Syringe) 0 gm IV X1 PRN; Protocol PRN Reason: Hypoglycemia Enoxaparin Sodium (Lovenox) 40 mg SC Q12 COUNTS INCLUDE 234 BEDS AT THE [facility] Last Admin: 04/12/19 11:27 Dose: 40 mg Documented by: Glucagon () 1 mg IM .X1 PRN PRN Reason: Hypoglycemia Heparin Sodium (Beef Lung) () 50 units IV UD PRN PRN Reason: PICC Line Heparin Flush Hydralazine HCl (Apresoline Iv) 5 mg IV Q6H PRN PRN PRN Reason: BLOOD PRESSURE Last Admin: 04/12/19 04:53 Dose: 5 mg Documented by: Sodium Chloride () 250 mls @ 15 mls/hr IV .[id number] PRN PRN Reason: Saline Flush Last Infusion: 04/11/19 13:42 Dose: 0 mls/hr Documented by: Ceftriaxone Sodium 2 gm/ (Sodium Chloride) 50 mls @ 100 mls/hr IV Q24 SHANIQUE Last Admin: 04/12/19 11:30 Dose: 100 mls/hr Documented by: Insulin Human Lispro (Humalog Kwikpen (Bkc)) 0 unit SC ACHS COUNTS INCLUDE 234 BEDS AT THE [facility]; Protocol Last Admin: 04/12/19 06:36 Dose: 1 u Documented by: Magnesium Hydroxide (Milk Of Magnesia) 30 ml PO DAILY PRN PRN PRN Reason: Constipation Metronidazole (Flagyl) 500 mg PO TID COUNTS INCLUDE 234 BEDS AT THE [facility] Last Admin: 04/12/19 05:36 Dose: 500 mg Documented by: Nutritional Formula (Chun - [place] Flavor) 1 packet PO BIDCM COUNTS INCLUDE 234 BEDS AT THE [facility] Last Admin: 04/12/19 11:27 Dose: 1 packet Documented by: Ondansetron HCl (Zofran) 4 mg IV Q8H PRN PRN PRN Reason: NAUSEA/VOMITING Oxycodone HCl (Oxyir) 5 mg PO Q4H PRN PRN PRN Reason: Moderate Pain (4-6/10) Last Admin: 04/11/19 18:18 Dose: 5 mg Documented by: Sodium Chloride () 5 - 15 ml IV UD PRN PRN Reason: SALINE FLUSH Last Admin: 04/12/19 04:53 Dose: 10 ml Documented by: Sodium Chloride (0.9% Nacl (Sterile) Posiflush) 10 - 40 ml IV UD PRN PRN Reason: Port access or dressing change Sodium Chloride () 10 - 40 ml IV UD PRN PRN Reason: SALINE FLUSH Last Admin: 04/12/19 11:30 Dose: 20 ml Documented by: Medical Necessity - Tobacco Use Smoking Status: Never smoker Tobacco Use: Cigarettes Assessment/Plan All Active Problems Cellulitis of right foot (Acute) Sepsis (Acute) RUSS (acute kidney injury) (Acute) Hyponatremia (Acute) Cellulitis of right lower extremity (Acute) Ulcer of right foot with fat layer exposed (Acute) RECOMMENDATIONS: 1. Wean from BiPAP therapy. Wean supplemental oxygen to maintain saturations at or above 90%. 2. Encourage the use of incentive spirometry. Mobilize patient as tolerated. 3. Consider administration of diuretics, if okay from nephrology perspective. 4. If there is no response to the use of diuretic therapy, may need to consider CTA chest to evaluate for the presence of pulmonary embolism. IMPRESSIONS: 1. Acute combined respiratory failure Likely multifactorial in etiology with obesity hypoventilation, underlying atelectasis and congestive heart failure contributing. The patient is overall net positive from a volume perspective for the hospital admission. He may benefit from the initiation of the gentle diuresis, based upon plain film chest x-ray obtained yesterday. Continue to wean from BiPAP/supplemental oxygen as tolerated. Goal to maintain an oxygen saturation at or above 90%. Continue to encourage the use of incentive spirometer and mobilize patient as tolerated. 2. Sepsis secondary to diabetic foot infection Continue current supportive measures and antimicrobials per infectious diseases recommendations. 3. Acute kidney injury Improving. Continue management per nephrology recommendations. 4. Personal history of obstructive sleep apnea While the patient does report a known history of obstructive sleep apnea, it is highly likely that is currently prescribed pressure per support is inadequate to control his sleep apnea. I would strongly recommend that he follow-up in the pulmonary medicine clinic on an outpatient basis for a re-titration polysomnogram. In the interim, empiric BiPAP therapy will be utilized while the patient is admitted to the hospital. 5. Morbid obesity/hypertension/diabetes mellitus Complicates care, management, recovery and prognosis. Avoid nephrotoxic medications. Continue sliding scale coverage. This note was generated with [employer] dictation software. It may contain incorrect words, spelling, and punctuation that were not noted in checking the note before signing. Code Visit Inpatient E&M: 74666 Subs Hosp L2
[2019-04-12 13:09] LABS: Pathologist Review Reviewed
[2019-04-12 14:56] LABS: Bedside Glucose 265 mg/dL (70-110)
--- NOTE | 2019-04-12 15:11 | CASEMGMT ---
RN CM Note: Call received from Nurse DAMION Garduno for [employer] ([employer] compensation [employer] benefits administrator) requesting clinical update information for pt. Claim # [id number] PH: [phone] FX: [phone] Updated DEBORAH Zimmerman nurse who will send clinical information. Call to Tameka with [facility] [employer] [facility] to update. Chana MARTINEZ RN ACM
[2019-04-12 19:41] LABS: Bedside Glucose 231 mg/dL (70-110)
[2019-04-12] MEDS: Glucerna Shake 120 ML LIQUID PO (22:08)
[2019-04-12 22:21] LABS: Bedside Glucose 318 mg/dL (70-110)
[2019-04-13] VITALS (23 sets, daily range): BP systolic 147–193; BP diastolic 71–97; PULSE 78–103; RESP 12–36; TEMP 36.2–36.7; O2SAT 91–96
[2019-04-13] MEDS: 0.9% Saline Lock 10 ML Syringe IV ×2 (00:22→05:04)
[2019-04-13] MEDS: hydrALAZINE 20 MG/ML Vial 5 MG IV (00:22)
[2019-04-13] MEDS: Alteplase 2 MG/2 ML Vial IV ×2 (01:01→01:19)
[2019-04-13] MEDS: metroNIDAZOLE 500 MG Tablet PO ×3 (05:04→21:44)
[2019-04-13 06:33] LABS: Absolute Lymphocyte Count 0.87 X10^3/uL (0.83-4.51); Absolute Neutrophil Count 9.2 X10^3/uL (2.0-7.7); Basophil# 0.11 X10^3/uL; Basophil% 0.9 % (0-1); Eosinophil# 0.17 X10^3/uL; Eosinophils% 1.4 % (0-5); Hematocrit 34.7 % (40-54); Lymphocyte # 0.87 X10^3/ul (4.0); Lymphocyte % 7.3 % (19-41); Mean Corp Hgb Conc 31.7 g/dL (32-36); Mean Corpuscular Volume 91.6 fL (80-94); Mean Platelet Vol. 9.3 fl (6.2-12.0); Monocyte# 1.02 X10^3/uL; Monocyte% 8.6 % (0-10); NRBC Flagged by Analyzer 0 % (0-5); Neutrophil # 9.19 X10^3/uL (2.7-7.7); Neutrophil % 77.3 % (47-70); Platelet Count 572 K/mm3 (150-450); RBC Distribution Width CV 13.2 % (11.6-14.6); RBC Distribution Width SD 44.8 fl (35.1-43.9); Red Blood Count 3.79 M/mm3 (4.6-6.2); White Blood Count 11.9 K/mm3 (4.4-11.0)
[2019-04-13] MEDS: Insulin Lispro 100 UNIT/ML INSULN.PEN SC ×4 (06:42→21:48)
[2019-04-13 06:55] LABS: Anion Gap 6 (5-15); BUN 36 mg/dL (7-18); BUN/Creat Ratio 34.6 RATIO (10-20); Calcium,Total 8.5 mg/dL (8.5-10.1); Chloride 106 mmol/L (98-107); Creatinine, Serum 1.04 mg/dL (0.70-1.30); EST Glomerular Filtration Rate 77 mL/min (>60); Est Glom Filt Rate - Afr Amer 93 mL/min (>60); Estimated Creatinine Clearance 75.07 ml/min; Glucose 290 mg/dL (74-106); Magnesium 1.8 mg/dL (1.6-2.6); Sodium Level 141 mmol/L (136-145)
[2019-04-13 06:56] LABS: Bedside Glucose 269 mg/dL (70-110)
[2019-04-13] MEDS: Ipratropium/Albuterol Sulfate 3 ML AMPUL.NEB INHALATION ×3 (07:11→19:32)
--- NOTE | 2019-04-13 07:13 | PCM.PN.PUL ---
Patient Problems: Active and Suspected Problems Cellulitis of right foot (Acute) Sepsis (Acute) RUSS (acute kidney injury) (Acute) Hyponatremia (Acute) Cellulitis of right lower extremity (Acute) Ulcer of right foot with fat layer exposed (Acute) Subjective: The patient was seen and examined at the bedside this morning. Events from the last 24 hours have been reviewed. The patient is currently afebrile, hemodynamically stable and maintaining appropriate oxygen saturations on 7 L/min via nasal cannula. The patient did receive a one-time dose of IV Lasix 40 mg yesterday. He is currently documented to be overall net +2.9 L for the admission. Creatinine is stable at 1.04. The patients breathing quality has improved this morning. His only complaint is for that of a dry mouth associated with the use of the BIPAP. Objective: The patient's most recent lab work, culture data and imaging studies have all been personally reviewed. Surface echocardiogram completed on April 09 revealed stage II diastolic dysfunction. - Physical Exam Vitals/I&O's: Vital Signs Temp Pulse Resp BP Pulse Ox 97.4 F L 82 18 152/74 H 95 04/13/19 07:00 04/13/19 07:09 04/13/19 07:09 04/13/19 07:00 04/13/19 07:09 Oxygen Flow Rate (L/min) 7 Oxygen Delivery Method Nasal Cannula Weight: 305 lb 7.983 oz Body Mass Index (BMI) 43.8 Intake and Output for Last 24 Hours 04/11/19 04/12/19 04/13/19 23:59 23:59 23:59 Intake Total 2715.0 / 2715.0 1200 / 1200 960 / 960 Output Total 4500 / 4500 4975 / 4975 1025 / 1025 Balance -1785.0 / -1785.0 -3775 / -3775 -65 / -65 General: Alert, Oriented x3, Cooperative, No apparent distress, - - Currently sitting in bedside recliner. HEENT: Atraumatic, PERRLA, Normocephalic Oral: No Gingival or Mucosal Lesions/ Ulcerations Neck: Supple, No Nodes, Trachea Midline Lungs: No rhonchi, No wheeze, No rales, Diminished Cardiovascular: Regular rate, Regular Rhythm, Normal S1, Normal S2 Abdomen: Bowel Sounds Present, Soft, Non Tender, Obese Extremities: No clubbing, No cyanosis, Diminished Peripheral Pulses, Edema Skin: - - No significant change from previous Musculoskeletal: No Muscle Wasting Lymphatic: No Cervical, Supraclavicular, or Inguinal Adenopathy Neurological: Cranial nerves II-XII grossly intact, Neuro grossly intact Psych/Mental Status: Alert and oriented to time, place, person, mood and affect Microbiology Past 72 Hours Labs (Last 48 Hours) 04/08/19 04/11/19 04/11/19 10:40 06:15 06:15 WBC Corrected WBC RBC Hgb Hct MCV MCH MCHC RDW Std Deviation RDW Coeff of Akila Plt Count MPV Immature Gran % (Auto) Neut % (Auto) Lymph % (Auto) Faulk % (Auto) Eos % (Auto) Baso % (Auto) Absolute Neuts (auto) Absolute Lymphs (auto) Total Counted Neutrophils % (Manual) Band Neutrophils % Lymphocytes % (Manual) Monocytes % (Manual) Eosinophils % (Manual) Basophils % (Manual) Metamyelocytes % Myelocytes % Promyelocytes % Blast Cells % Plasma Cell % (Manual) Other Cells % Nucleated RBC % Nucleated RBCs/100 WBC Differential Comment Diff Path Review Hypersegmented Neuts Atypical Lymphocytes Reactive Lymphocytes Smudge Cells Toxic Granulation Toxic Vacuolation Dohle Bodies Randall Rods Platelet Estimate Plt Morphology Comment RBC Morphology Polychromasia Hypochromasia Poikilocytosis Basophilic Stippling Anisocytosis Microcytosis Macrocytosis Spherocytes Sickle Cells Target Cells Tear Drop Cells Ovalocytes Stomatocytes [place] Bodies Alejandro Cells Bite Cells Crenated Cell Acanthocytes (Spur) Rouleaux Schistocytes Sodium Potassium Chloride Carbon Dioxide Anion Gap BUN Creatinine Estim Creat Clear Calc Est GFR (MDRD) Af Amer Est GFR (MDRD) Non-Af BUN/Creatinine Ratio Glucose Calcium Magnesium Troponin I < 0.015 B-Natriuretic Peptide Total Protein (PEP) 5.7 L Globulin 3.6 IgG 762 IgA 361 IgM 39 Immunofixation Screen Comment Albumin (ARMANDO) 2.1 L Albumin/Globulin (ARMANDO) 0.6 L Jsxyz-4-Klkphadjc ARMANDO 0.6 H Anrug-5-Sptoruzkg ARMANDO 1.2 H Beta-Globulins (ARMANDO) 1.2 Gamma Globulins (ARMANDO) 0.7 ARMANDO M-Bola ARMANDO Comments Comment Complement C3 184 H Complement C4 41 POC Glucose 04/11/19 04/11/19 04/11/19 06:15 06:45 06:59 WBC Corrected WBC RBC Hgb Hct MCV MCH MCHC RDW Std Deviation RDW Coeff of Akila Plt Count MPV Immature Gran % (Auto) Neut % (Auto) Lymph % (Auto) Faulk % (Auto) Eos % (Auto) Baso % (Auto) Absolute Neuts (auto) 11.2 H Absolute Lymphs (auto) 1.26 Total Counted 100 Neutrophils % (Manual) 79 H Band Neutrophils % 1 Lymphocytes % (Manual) 9 L Monocytes % (Manual) 11 H Eosinophils % (Manual) Basophils % (Manual) Metamyelocytes % Myelocytes % Promyelocytes % Blast Cells % Plasma Cell % (Manual) Other Cells % Nucleated RBC % Nucleated RBCs/100 WBC Differential Comment Diff Path Review Reviewed Hypersegmented Neuts Atypical Lymphocytes Reactive Lymphocytes Smudge Cells Toxic Granulation Toxic Vacuolation Dohle Bodies Randall Rods Platelet Estimate ADEQUATE Plt Morphology Comment CLUMPED RBC Morphology Polychromasia 1+ Hypochromasia RARE Poikilocytosis Basophilic Stippling Anisocytosis 1+ Microcytosis RARE Macrocytosis Spherocytes Sickle Cells Target Cells Tear Drop Cells Ovalocytes Stomatocytes [place] Bodies [place] Cells Bite Cells Crenated Cell Acanthocytes (Spur) Rouleaux Schistocytes Sodium Potassium Chloride Carbon Dioxide Anion Gap BUN Creatinine Estim Creat Clear Calc Est GFR (MDRD) Af Amer Est GFR (MDRD) Non-Af BUN/Creatinine Ratio Glucose Calcium Magnesium Troponin I B-Natriuretic Peptide 75.2 Total Protein (PEP) Globulin IgG IgA IgM Immunofixation Screen Albumin (ARMANDO) Albumin/Globulin (ARMANDO) Ektsb-4-Rjormidfd ARMANDO Pcuhw-6-Kaccsobhx ARMANDO Beta-Globulins (ARMANDO) Gamma Globulins (ARMANDO) ARMANDO M-Bola ARMANDO Comments Complement C3 Complement C4 POC Glucose 119 H 04/11/19 04/11/19 04/11/19 11:21 16:21 21:11 WBC Corrected WBC RBC Hgb Hct MCV MCH MCHC RDW Std Deviation RDW Coeff of Akila Plt Count MPV Immature Gran % (Auto) Neut % (Auto) Lymph % (Auto) Faulk % (Auto) Eos % (Auto) Baso % (Auto) Absolute Neuts (auto) Absolute Lymphs (auto) Total Counted Neutrophils % (Manual) Band Neutrophils % Lymphocytes % (Manual) Monocytes % (Manual) Eosinophils % (Manual) Basophils % (Manual) Metamyelocytes % Myelocytes % Promyelocytes % Blast Cells % Plasma Cell % (Manual) Other Cells % Nucleated RBC % Nucleated RBCs/100 WBC Differential Comment Diff Path Review Hypersegmented Neuts Atypical Lymphocytes Reactive Lymphocytes Smudge Cells Toxic Granulation Toxic Vacuolation Dohle Bodies Randall Rods Platelet Estimate Plt Morphology Comment RBC Morphology Polychromasia Hypochromasia Poikilocytosis Basophilic Stippling Anisocytosis Microcytosis Macrocytosis Spherocytes Sickle Cells Target Cells Tear Drop Cells Ovalocytes Stomatocytes [place] Bodies [place] Cells Bite Cells Crenated Cell Acanthocytes (Spur) Rouleaux Schistocytes Sodium Potassium Chloride Carbon Dioxide Anion Gap BUN Creatinine Estim Creat Clear Calc Est GFR (MDRD) Af Amer Est GFR (MDRD) Non-Af BUN/Creatinine Ratio Glucose Calcium Magnesium Troponin I B-Natriuretic Peptide Total Protein (PEP) Globulin IgG IgA IgM Immunofixation Screen Albumin (ARMANDO) Albumin/Globulin (ARMANDO) Dsmoi-7-Awkrrdbon ARMANDO Uidmp-2-Vxrqkopvl ARMANDO Beta-Globulins (ARMANDO) Gamma Globulins (ARMANDO) ARMANDO M-Bola ARMANDO Comments Complement C3 Complement C4 POC Glucose 201 H 229 H 206 H 04/12/19 04/12/19 04/12/19 05:30 05:30 06:35 WBC Cancelled Corrected WBC Cancelled RBC Cancelled Hgb Cancelled Hct Cancelled MCV Cancelled MCH Cancelled MCHC Cancelled RDW Std Deviation Cancelled RDW Coeff of Akila Cancelled Plt Count Cancelled MPV Cancelled Immature Gran % (Auto) Cancelled Neut % (Auto) Cancelled Lymph % (Auto) Cancelled Faulk % (Auto) Cancelled Eos % (Auto) Cancelled Baso % (Auto) Cancelled Absolute Neuts (auto) Cancelled Absolute Lymphs (auto) Cancelled Total Counted Cancelled Neutrophils % (Manual) Cancelled Band Neutrophils % Cancelled Lymphocytes % (Manual) Cancelled Monocytes % (Manual) Cancelled Eosinophils % (Manual) Cancelled Basophils % (Manual) Cancelled Metamyelocytes % Cancelled Myelocytes % Cancelled Promyelocytes % Cancelled Blast Cells % Cancelled Plasma Cell % (Manual) Cancelled Other Cells % Cancelled Nucleated RBC % Cancelled Nucleated RBCs/100 WBC Cancelled Differential Comment Cancelled Diff Path Review Cancelled Hypersegmented Neuts Cancelled Atypical Lymphocytes Cancelled Reactive Lymphocytes Cancelled Smudge Cells Cancelled Toxic Granulation Cancelled Toxic Vacuolation Cancelled Dohle Bodies Cancelled Randall Rods Cancelled Platelet Estimate Cancelled Plt Morphology Comment Cancelled RBC Morphology Cancelled Polychromasia Cancelled Hypochromasia Cancelled Poikilocytosis Cancelled Basophilic Stippling Cancelled Anisocytosis Cancelled Microcytosis Cancelled Macrocytosis Cancelled Spherocytes Cancelled Sickle Cells Cancelled Target Cells Cancelled Tear Drop Cells Cancelled Ovalocytes Cancelled Stomatocytes Cancelled [place] Bodies Cancelled [place] Cells Cancelled Bite Cells Cancelled Crenated Cell Cancelled Acanthocytes (Spur) Cancelled Rouleaux Cancelled Schistocytes Cancelled Sodium Cancelled Potassium Cancelled Chloride Cancelled Carbon Dioxide Cancelled Anion Gap Cancelled BUN Cancelled Creatinine Cancelled Estim Creat Clear Calc Cancelled Est GFR (MDRD) Af Amer Cancelled Est GFR (MDRD) Non-Af Cancelled BUN/Creatinine Ratio Cancelled Glucose Cancelled Calcium Cancelled Magnesium Troponin I B-Natriuretic Peptide Total Protein (PEP) Globulin IgG IgA IgM Immunofixation Screen Albumin (ARMANDO) Albumin/Globulin (ARMANDO) Cooxb-0-Crucfuedg ARMANDO Qcvyu-0-Vwenpmrtj ARMANDO Beta-Globulins (ARMANDO) Gamma Globulins (ARMANDO) ARMANDO M-Bola ARMANDO Comments Complement C3 Complement C4 POC Glucose 199 H 04/12/19 04/12/19 04/12/19 08:24 08:24 14:53 WBC 13.6 H Corrected WBC RBC 3.72 L Hgb 10.9 L Hct 33.5 L MCV 90.1 MCH 29.3 MCHC 32.5 RDW Std Deviation 43.1 RDW Coeff of Akila 13.0 Plt Count 548 H MPV 9.1 Immature Gran % (Auto) Neut % (Auto) Not Reportable Lymph % (Auto) Faulk % (Auto) Eos % (Auto) Baso % (Auto) Absolute Neuts (auto) 11.3 H Absolute Lymphs (auto) 0.67 L Total Counted 100 Neutrophils % (Manual) 81 H Band Neutrophils % 3 Lymphocytes % (Manual) 5 L Monocytes % (Manual) 3 Eosinophils % (Manual) 1 Basophils % (Manual) Metamyelocytes % 6 H Myelocytes % 1 H Promyelocytes % Blast Cells % Plasma Cell % (Manual) Other Cells % Nucleated RBC % Nucleated RBCs/100 WBC Differential Comment Diff Path Review May foll Hypersegmented Neuts Atypical Lymphocytes Reactive Lymphocytes Smudge Cells Toxic Granulation Toxic Vacuolation Dohle Bodies Randall Rods Platelet Estimate Plt Morphology Comment RBC Morphology Polychromasia Hypochromasia Poikilocytosis Basophilic Stippling Anisocytosis Microcytosis Macrocytosis Spherocytes Sickle Cells Target Cells Tear Drop Cells Ovalocytes Stomatocytes [place] Bodies Alejandro Cells Bite Cells Crenated Cell Acanthocytes (Spur) Rouleaux Schistocytes Sodium 141 Potassium 4.1 Chloride 108 H Carbon Dioxide 27.0 Anion Gap 6 BUN 34 H Creatinine 1.16 Estim Creat Clear Calc 67.30 Est GFR (MDRD) Af Amer 82 Est GFR (MDRD) Non-Af 68 BUN/Creatinine Ratio 29.3 H Glucose 206 H Calcium 8.5 Magnesium Troponin I B-Natriuretic Peptide Total Protein (PEP) Globulin IgG IgA IgM Immunofixation Screen Albumin (ARMANDO) Albumin/Globulin (ARMANDO) Uddip-8-Xqmhnufhg ARMANDO Idhmh-4-Kcmlournm ARMANDO Beta-Globulins (ARMANDO) Gamma Globulins (ARMANDO) ARMANDO M-Bola ARMANDO Comments Complement C3 Complement C4 POC Glucose 265 H 04/12/19 04/12/19 04/13/19 19:20 22:10 06:10 WBC 11.9 H Corrected WBC RBC 3.79 L Hgb 11.0 L Hct 34.7 L MCV 91.6 MCH 29.0 MCHC 31.7 L RDW Std Deviation 44.8 H RDW Coeff of Akila 13.2 Plt Count 572 H MPV 9.3 Immature Gran % (Auto) 4.500 H Neut % (Auto) 77.3 H Lymph % (Auto) 7.3 L Faulk % (Auto) 8.6 Eos % (Auto) 1.4 Baso % (Auto) 0.9 Absolute Neuts (auto) 9.2 H Absolute Lymphs (auto) 0.87 Total Counted Neutrophils % (Manual) Band Neutrophils % Lymphocytes % (Manual) Monocytes % (Manual) Eosinophils % (Manual) Basophils % (Manual) Metamyelocytes % Myelocytes % Promyelocytes % Blast Cells % Plasma Cell % (Manual) Other Cells % Nucleated RBC % 0 Nucleated RBCs/100 WBC Differential Comment Diff Path Review Hypersegmented Neuts Atypical Lymphocytes Reactive Lymphocytes Smudge Cells Toxic Granulation Toxic Vacuolation Dohle Bodies Randall Rods Platelet Estimate Plt Morphology Comment RBC Morphology Polychromasia Hypochromasia Poikilocytosis Basophilic Stippling Anisocytosis Microcytosis Macrocytosis Spherocytes Sickle Cells Target Cells Tear Drop Cells Ovalocytes Stomatocytes [place] Bodies [place] Cells Bite Cells Crenated Cell Acanthocytes (Spur) Rouleaux Schistocytes Sodium Potassium Chloride Carbon Dioxide Anion Gap BUN Creatinine Estim Creat Clear Calc Est GFR (MDRD) Af Amer Est GFR (MDRD) Non-Af BUN/Creatinine Ratio Glucose Calcium Magnesium Troponin I B-Natriuretic Peptide Total Protein (PEP) Globulin IgG IgA IgM Immunofixation Screen Albumin (ARMANDO) Albumin/Globulin (ARMANDO) Tpugs-9-Xysfowqaw ARMANDO Yrtlg-5-Cjfefnjjd ARMANDO Beta-Globulins (ARMANDO) Gamma Globulins (ARMANDO) ARMANDO M-Bola ARMANDO Comments Complement C3 Complement C4 POC Glucose 231 H 318 H 04/13/19 04/13/19 06:10 06:42 WBC Corrected WBC RBC Hgb Hct MCV MCH MCHC RDW Std Deviation RDW Coeff of Akila Plt Count MPV Immature Gran % (Auto) Neut % (Auto) Lymph % (Auto) Faulk % (Auto) Eos % (Auto) Baso % (Auto) Absolute Neuts (auto) Absolute Lymphs (auto) Total Counted Neutrophils % (Manual) Band Neutrophils % Lymphocytes % (Manual) Monocytes % (Manual) Eosinophils % (Manual) Basophils % (Manual) Metamyelocytes % Myelocytes % Promyelocytes % Blast Cells % Plasma Cell % (Manual) Other Cells % Nucleated RBC % Nucleated RBCs/100 WBC Differential Comment Diff Path Review Hypersegmented Neuts Atypical Lymphocytes Reactive Lymphocytes Smudge Cells Toxic Granulation Toxic Vacuolation Dohle Bodies Randall Rods Platelet Estimate Plt Morphology Comment RBC Morphology Polychromasia Hypochromasia Poikilocytosis Basophilic Stippling Anisocytosis Microcytosis Macrocytosis Spherocytes Sickle Cells Target Cells Tear Drop Cells Ovalocytes Stomatocytes [place] Bodies [place] Cells Bite Cells Crenated Cell Acanthocytes (Spur) Rouleaux Schistocytes Sodium 141 Potassium 4.0 Chloride 106 Carbon Dioxide 29.0 Anion Gap 6 BUN 36 H Creatinine 1.04 Estim Creat Clear Calc 75.07 Est GFR (MDRD) Af Amer 93 Est GFR (MDRD) Non-Af 77 BUN/Creatinine Ratio 34.6 H Glucose 290 H Calcium 8.5 Magnesium 1.8 Troponin I B-Natriuretic Peptide Total Protein (PEP) Globulin IgG IgA IgM Immunofixation Screen Albumin (ARMANDO) Albumin/Globulin (ARMANDO) Kxfjf-0-Nmlnnqdkg ARMANDO Xnaut-6-Fxzoammek ARMANDO Beta-Globulins (ARMANDO) Gamma Globulins (ARMANDO) ARMANDO M-Bola ARMANDO Comments Complement C3 Complement C4 POC Glucose 269 H Microbiology 04/09/19 18:45 Wound - Aerobic & Anaerobic Swabs Gram Stain - Final 04/09/19 18:45 Wound - Aerobic & Anaerobic Swabs Wound Culture - Final Streptococcus group G 04/09/19 18:45 Wound - Aerobic & Anaerobic Swabs Anaerobic Culture - Preliminary Checking for anaerobes, further studies to follow. 04/09/19 01:15 Urine, Clean Catch Urine Culture - Final Klebsiella pneumoniae sp pneum Clinical Impression(s) from Imaging Studies Chest X-Ray 04/08/19 13:59 IMPRESSION: No acute cardiopulmonary process. Electronically Signed: Dominic Perla MD ([place]) at 14:55 EDT , Service support , Foot X-Ray 04/08/19 14:01 IMPRESSION: 1. No fabi bony destructive process. Soft tissue swelling of the medial or the lateral foot. 2. Superficial debris of the distal plantar foot/toes. 3. Multifocal degenerative changes. Electronically Signed: Dominic Perla MD ([place]) at 14:56 EDT , Service support , Tibia/Fibula X-Ray 04/09/19 18:20 IMPRESSION: No acute bony injury of the tibia and fibula. Electronically Signed: Shady Herring DO at 20:43 EDT Tel [phone], Service support , Chest X-Ray 04/09/19 20:40 IMPRESSION: Possible mild interstitial prominence. Evaluation is limited by motion. Electronically Signed: Shady Herring DO at 21:30 EDT Tel [phone], Service support , Chest X-Ray 04/11/19 08:05 IMPRESSION: Worsening CHF with findings suggesting focal infiltration in the right upper lobe. Small bilateral effusions. Electronically Signed: Lam Yuan, at 9:42 EDT , Service support , Chest X-Ray 04/12/19 03:29 IMPRESSION: Bilateral airspace opacity, right significantly worse compared to the left suggestive of asymmetric pulmonary edema versus right-sided pneumonia. Possible mild effusions overall findings stable slightly worsened in the interval. Right-sided PICC line as described above. Electronically Signed: Mariposa Botello MD at 4:03 EDT , Service support , Current Medications Acetaminophen (Tylenol) 650 mg PO Q6H PRN PRN PRN Reason: Mild Pain (1-3)/Temp > 100.7 F Last Admin: 04/11/19 05:59 Dose: 650 mg Documented by: Albuterol/Ipratropium (Duoneb) 3 ml INHALATION Q4HWA.RT [facility] Last Admin: 04/13/19 07:11 Dose: 3 ml Documented by: Amlodipine Besylate (Norvasc) 10 mg PO DAILY [facility] Last Admin: 04/12/19 11:27 Dose: 10 mg Documented by: Carvedilol (Coreg) 12.5 mg PO BID [facility] Last Admin: 04/12/19 22:08 Dose: 12.5 mg Documented by: Collagenase (Santyl) 1 applic TOPICAL DAILY SHANIQUE; Protocol Dextrose (D50w Syringe) 0 gm IV X1 PRN; Protocol PRN Reason: Hypoglycemia Enoxaparin Sodium (Lovenox) 40 mg SC Q12 [facility] Last Admin: 04/12/19 22:08 Dose: 40 mg Documented by: Glucagon () 1 mg IM .X1 PRN PRN Reason: Hypoglycemia Heparin Sodium (Beef Lung) () 50 units IV UD PRN PRN Reason: PICC Line Heparin Flush Hydralazine HCl (Apresoline Iv) 5 mg IV Q6H PRN PRN PRN Reason: BLOOD PRESSURE Last Admin: 04/13/19 00:22 Dose: 5 mg Documented by: Sodium Chloride () 250 mls @ 15 mls/hr IV .[id number] PRN PRN Reason: Saline Flush Last Infusion: 04/11/19 13:42 Dose: 0 mls/hr Documented by: Ceftriaxone Sodium 2 gm/ (Sodium Chloride) 50 mls @ 100 mls/hr IV Q24 [facility] Last Infusion: 04/12/19 12:00 Dose: Infused Documented by: Insulin Human Lispro (Humalog Kwikpen (Bkc)) 0 unit SC [facility]; Protocol Last Admin: 04/13/19 06:42 Dose: 2 u Documented by: Magnesium Hydroxide (Milk Of Magnesia) 30 ml PO DAILY PRN PRN PRN Reason: Constipation Metronidazole (Flagyl) 500 mg PO TID [facility] Last Admin: 04/13/19 05:04 Dose: 500 mg Documented by: Nutritional Formula (Chun - [place] Flavor) 1 packet PO BIDCM [facility] Last Admin: 04/12/19 19:27 Dose: 1 packet Documented by: Nutritional Formula (Lactose Free) (Glucerna Shake) 120 ml PO 4X/DAY [facility] Last Admin: 04/12/19 22:08 Dose: 120 ml Documented by: Ondansetron HCl (Zofran) 4 mg IV Q8H PRN PRN PRN Reason: NAUSEA/VOMITING Oxycodone HCl (Oxyir) 5 mg PO Q4H PRN PRN PRN Reason: Moderate Pain (4-6/10) Last Admin: 04/11/19 18:18 Dose: 5 mg Documented by: Sodium Chloride () 5 - 15 ml IV UD PRN PRN Reason: SALINE FLUSH Last Admin: 04/13/19 05:04 Dose: 10 ml Documented by: Sodium Chloride (0.9% Nacl (Sterile) Posiflush) 10 - 40 ml IV UD PRN PRN Reason: Port access or dressing change Sodium Chloride () 10 - 40 ml IV UD PRN PRN Reason: SALINE FLUSH Last Admin: 04/12/19 11:30 Dose: 20 ml Documented by: Medical Necessity - Tobacco Use Smoking Status: Never smoker Tobacco Use: Cigarettes Assessment/Plan All Active Problems Cellulitis of right foot (Acute) Sepsis (Acute) RUSS (acute kidney injury) (Acute) Hyponatremia (Acute) Cellulitis of right lower extremity (Acute) Ulcer of right foot with fat layer exposed (Acute) RECOMMENDATIONS: 1. Wean from BiPAP therapy. Wean supplemental oxygen to maintain saturations at or above 90%. 2. Encourage the use of incentive spirometry. Mobilize patient as tolerated. 3. Administer IV Lasix once again today. 4. If there is no response to the use of diuretic therapy, may need to consider CTA chest to evaluate for the presence of pulmonary embolism. IMPRESSIONS: 1. Acute combined respiratory failure Likely multifactorial in etiology with obesity hypoventilation, underlying atelectasis and congestive heart failure contributing. The patient is overall net positive from a volume perspective for the hospital admission. The patient does appear to be improving from an oxygenation status following the initiation of diuretics yesterday. I would recommend continuing IV Lasix once again today. Continue to wean supplemental oxygen as tolerated to maintain saturations at or above 90%. Continue BiPAP therapy at a minimum with naps and nightly. Encourage incentive spirometer use and mobilize patient as tolerated. 2. Sepsis secondary to diabetic foot infection Continue current supportive measures and antimicrobials per infectious diseases recommendations. 3. Acute kidney injury Resolved. Continue management per nephrology recommendations. 4. Personal history of obstructive sleep apnea While the patient does report a known history of obstructive sleep apnea, it is highly likely that is currently prescribed pressure per support is inadequate to control his sleep apnea. I would strongly recommend that he follow-up in the pulmonary medicine clinic on an outpatient basis for a re-titration polysomnogram. In the interim, empiric BiPAP therapy will be utilized while the patient is admitted to the hospital. 5. Morbid obesity/hypertension/diabetes mellitus Complicates care, management, recovery and prognosis. Avoid nephrotoxic medications. Continue sliding scale coverage. This note was generated with [employer] dictation software. It may contain incorrect words, spelling, and punctuation that were not noted in checking the note before signing. Code Visit Inpatient E&M: 67540 Subs Hosp L2
[2019-04-13] MEDS: oxyCODONE 5 MG Tablet PO ×2 (09:25→17:04)
[2019-04-13] MEDS: Furosemide 40 MG/4 ML Vial IV ×2 (09:26→16:46)
[2019-04-13] MEDS: Carvedilol 12.5 MG Tablet PO ×2 (09:27→21:44)
[2019-04-13] MEDS: Enoxaparin 40 MG/0.4 ML Syringe SC ×2 (09:27→21:49)
[2019-04-13] MEDS: amLODIPine 10 MG Tablet PO (09:27)
[2019-04-13] MEDS: Glucerna Shake 120 ML LIQUID PO ×3 (09:32→21:43)
[2019-04-13] MEDS: Collagenase 30gm Tube 1 APPLIC TOPICAL (09:43)
--- NOTE | 2019-04-13 11:46 | PCM.PN.HOSP ---
Patient Problems: Active and Suspected Problems Cellulitis of right foot (Acute) Sepsis (Acute) RUSS (acute kidney injury) (Acute) Hyponatremia (Acute) Cellulitis of right lower extremity (Acute) Ulcer of right foot with fat layer exposed (Acute) Subjective: CC follow-up right toe infection and acute respiratory failure Patient did receive Lasix following resolution of his acute kidney injury with significant urine output Objective: GENERAL: Cooperative HEENT: Atraumatic; EYES; Anicteric, Normal Conjunctiva NECK; supple, normal thyroid, RESPIRATORY: Diminished to auscultation CARDIOVASCULAR: Regular S1 S2, GI: soft, non-tender, normoactive bowel sounds, : No Renal angle tenderness; EXTREMITIES: Right toe in dressing MUSCULOSKELETAL: No Joint Tenderness; NEURO: Awake; no lateralizing signs. SKIN: As described above PSYCH; Normal affect Vitals/I&O's: Vital Signs Temp Pulse Resp BP Pulse Ox 97.6 F L 87 16 155/71 H 93 04/13/19 11:00 04/13/19 11:41 04/13/19 11:00 04/13/19 11:00 04/13/19 11:00 Oxygen Flow Rate (L/min) 7 Oxygen Delivery Method Nasal Cannula Weight: 138.572 kg Body Mass Index (BMI) 43.8 Intake and Output for Last 24 Hours 04/11/19 04/12/19 04/13/19 23:59 23:59 23:59 Intake Total 2715.0 / 2715.0 1200 / 1200 1010 / 1010 Output Total 4500 / 4500 4975 / 4975 1025 / 1025 Balance -1785.0 / -1785.0 -3775 / -3775 -15 / -15 Microbiology Past 72 Hours 04/09/19 18:45 Wound - Aerobic & Anaerobic Swabs Gram Stain - Final 04/09/19 18:45 Wound - Aerobic & Anaerobic Swabs Wound Culture - Final Streptococcus group G 04/09/19 18:45 Wound - Aerobic & Anaerobic Swabs Anaerobic Culture - Preliminary Checking for anaerobes, further studies to follow. 04/09/19 01:15 Urine, Clean Catch Urine Culture - Final Klebsiella pneumoniae sp pneum 04/08/19 10:40 Blood Culture (Wb) - Anticubital Left Blood Culture - Preliminary No growth in 48 hours. 04/08/19 14:30 Blood Culture (Wb) - Right Hand Blood Culture - Preliminary No growth in 48 hours. Laboratory Results 04/11/19 06:45: Diff Path Review Reviewed 04/12/19 14:53: POC Glucose 265 H 04/12/19 19:20: POC Glucose 231 H 04/12/19 22:10: POC Glucose 318 H 04/13/19 06:10: WBC 11.9 H, RBC 3.79 L, Hgb 11.0 L, Hct 34.7 L, MCV 91.6, MCH 29.0, MCHC 31.7 L, RDW Std Deviation 44.8 H, RDW Coeff of Akila 13.2, Plt Count 572 H, MPV 9.3, Immature Gran % (Auto) 4.500 H, Neut % (Auto) 77.3 H, Lymph % (Auto) 7.3 L, [place] % (Auto) 8.6, Eos % (Auto) 1.4, Baso % (Auto) 0.9, Absolute Neuts (auto) 9.2 H, Absolute Lymphs (auto) 0.87, Nucleated RBC % 0 04/13/19 06:10: Sodium 141, Potassium 4.0, Chloride 106, Carbon Dioxide 29.0, Anion Gap 6, BUN 36 H, Creatinine 1.04, Estim Creat Clear Calc 75.07, Est GFR (MDRD) Af Amer 93, Est GFR (MDRD) Non-Af 77, BUN/Creatinine Ratio 34.6 H, Glucose 290 H, Calcium 8.5, Magnesium 1.8 04/13/19 06:42: POC Glucose 269 H Current Medications Acetaminophen (Tylenol) 650 mg PO Q6H PRN PRN PRN Reason: Mild Pain (1-3)/Temp > 100.7 F Last Admin: 04/11/19 05:59 Dose: 650 mg Documented by: Albuterol/Ipratropium (Duoneb) 3 ml INHALATION Q4HWA.RT [facility] Last Admin: 04/13/19 10:59 Dose: 3 ml Documented by: Amlodipine Besylate (Norvasc) 10 mg PO DAILY [facility] Last Admin: 04/13/19 09:27 Dose: 10 mg Documented by: Carvedilol (Coreg) 12.5 mg PO BID [facility] Last Admin: 04/13/19 09:27 Dose: 12.5 mg Documented by: Collagenase (Santyl) 1 applic TOPICAL DAILY [facility]; Protocol Last Admin: 04/13/19 09:43 Dose: 1 applicatio Documented by: Dextrose (D50w Syringe) 0 gm IV X1 PRN; Protocol PRN Reason: Hypoglycemia Enoxaparin Sodium (Lovenox) 40 mg SC Q12 [facility] Last Admin: 04/13/19 09:27 Dose: 40 mg Documented by: Furosemide (Lasix) 40 mg IV BID@1000,1800 [facility] Glucagon () 1 mg IM .X1 PRN PRN Reason: Hypoglycemia Heparin Sodium (Beef Lung) () 50 units IV UD PRN PRN Reason: PICC Line Heparin Flush Hydralazine HCl (Apresoline Iv) 5 mg IV Q6H PRN PRN PRN Reason: BLOOD PRESSURE Last Admin: 04/13/19 00:22 Dose: 5 mg Documented by: Sodium Chloride () 250 mls @ 15 mls/hr IV .[id number] PRN PRN Reason: Saline Flush Last Infusion: 04/11/19 13:42 Dose: 0 mls/hr Documented by: Ceftriaxone Sodium 2 gm/ (Sodium Chloride) 50 mls @ 100 mls/hr IV Q24 [facility] Last Infusion: 04/13/19 11:17 Dose: Infused Documented by: Insulin Human Lispro (Humalog Kwikpen (Bkc)) 0 unit SC ACHS [facility]; Protocol Last Admin: 04/13/19 06:42 Dose: 2 u Documented by: Magnesium Hydroxide (Milk Of Magnesia) 30 ml PO DAILY PRN PRN PRN Reason: Constipation Metronidazole (Flagyl) 500 mg PO TID [facility] Last Admin: 04/13/19 05:04 Dose: 500 mg Documented by: Nutritional Formula (Chun - [place] Flavor) 1 packet PO BIDCM [facility] Last Admin: 04/13/19 09:28 Dose: 1 packet Documented by: Nutritional Formula (Lactose Free) (Glucerna Shake) 120 ml PO 4X/DAY [facility] Last Admin: 04/13/19 09:32 Dose: 120 ml Documented by: Ondansetron HCl (Zofran) 4 mg IV Q8H PRN PRN PRN Reason: NAUSEA/VOMITING Oxycodone HCl (Oxyir) 5 mg PO Q4H PRN PRN PRN Reason: Moderate Pain (4-6/10) Last Admin: 04/13/19 09:25 Dose: 5 mg Documented by: Sodium Chloride () 5 - 15 ml IV UD PRN PRN Reason: SALINE FLUSH Last Admin: 04/13/19 05:04 Dose: 10 ml Documented by: Sodium Chloride (0.9% Nacl (Sterile) Posiflush) 10 - 40 ml IV UD PRN PRN Reason: Port access or dressing change Sodium Chloride () 10 - 40 ml IV UD PRN PRN Reason: SALINE FLUSH Last Admin: 04/12/19 11:30 Dose: 20 ml Documented by: STROKE Vital Signs/Narrative: Vital Signs Temp Pulse Resp BP Pulse Ox 04/13/19 11:41 87 04/13/19 11:00 97.6 F L 80 16 155/71 H 93 04/13/19 10:59 81 19 H 95 04/13/19 08:00 80 Medical Necessity - Tobacco Use Smoking Status: Never smoker Tobacco Use: Cigarettes Assessment/Plan All Active Problems Cellulitis of right foot (Acute) Sepsis (Acute) RUSS (acute kidney injury) (Acute) Hyponatremia (Acute) Cellulitis of right lower extremity (Acute) Ulcer of right foot with fat layer exposed (Acute) Patient is a 63-year-old gentleman with multiple comorbidities including diabetes mellitus type 2 morbid obesity with BMI of 43 who presented with erythema and swelling involving the right lower extremity with blistering of the tip of the first right toe. An assessment of sepsis secondary to cellulitis made admitted to the regular nursing floor for further management 1. Sepsis secondary to extensive cellulitis involving the right lower extremity. Admitted to regular nursing floor patient was treated with clindamycin and vancomycin (patient is allergic to penicillin). Consult was also placed to podiatry medicine. Patient still has significant erythema and swelling involving the right lower extremities ?04/10/2019: Venous duplex ordered as part of patient's evaluation came back negative Lovenox switch back to prophylactic dose. Patient has also been seen in consultation by and notes and recommendations reviewed. ?04/11/2019 antibiotics adjusted by infectious disease patient currently on Rocephin. Recommendation is for patient to undergo MRI to rule out osteomyelitis. This is currently on hold in view of patient low oxygen saturation. Notes from Dr. Franco infectious disease reviewed ?04/12/2019 awaiting for respiratory status to stabilize prior to patient undergoing MRI to rule out osteomyelitis 04/13/2019 final cultures came back positive for strep on Rocephin and Flagyl per recommendations from ID 2. Acute kidney injury ?Patient kidney function did worsen with creatinine rising to 2.14 from an admission level of 1.3. IV fluids initiated consult placed to nephrology ~04/10/2019. Kidney function went up to 2.5 resuscitated with IV fluids ?04/11/2019 kidney function finally improving 04/12/2019 resolved 04/13/2019: Patient kidney function did remain stable despite receiving Lasix 3. Acute metabolic encephalopathy ~secondary to sepsis as well as respiratory acidosis 4. Acute respiratory acidosis ~patient placed on noninvasive ventilation BiPAP with repeat ABGs ordered. did suspect a component of obesity hypoventilation syndrome contributing to patient respiratory distress. Patient was placed on noninvasive ventilation and consult placed to pulmonary medicine 5. Acute chronic congestive heart failure with preserved ejection fraction Patient started on Lasix. Echo obtained during current admission demonstrated grade 2 diastolic dysfunction with ejection fraction of 65% 04/13/2019: Patient did respond to Lasix. Kidney function has remained relatively stable 6. Diabetes mellitus type II ~Controlled patient's oral hypoglycemics held. Placed on long acting insulin, Accu-Cheks a.c. and at bedtime and covered with sliding scale insulin 7. Essential hypertension - Patient blood pressure was low on admission antihypertensives subsequently held ?04/12/2019 patient blood pressure has stabilized and was elevated his BP medications restarted in addition to PRN hydralazine 8. Morbid obesity, BMI 43.8, -diet and exercise is recommended 9. Hypokalemia corrected per protocol 10. Obstructive sleep apnea ?Patient is on CPAP 11. DVT prophylaxis ? Lovenox 12. Acute cystitis -with Klebsiella patient is on Rocephin Code Visit Inpatient E&M: 86604 Subs Hosp L2
[2019-04-13 11:47] LABS: Pathologist Review Reviewed
[2019-04-13 12:25] LABS: Bedside Glucose 316 mg/dL (70-110)
--- NOTE | 2019-04-13 13:40 | PCM.PN.ID ---
Patient Problems: Active and Suspected Problems Cellulitis of right foot (Acute) Sepsis (Acute) RUSS (acute kidney injury) (Acute) Hyponatremia (Acute) Cellulitis of right lower extremity (Acute) Ulcer of right foot with fat layer exposed (Acute) Subjective: Breathing better, foot less sore - Physical Exam Vitals/I&O's: Vital Signs Temp Pulse Resp BP Pulse Ox 97.6 F L 87 16 155/71 H 93 04/13/19 11:00 04/13/19 11:41 04/13/19 11:00 04/13/19 11:00 04/13/19 11:00 Oxygen Flow Rate (L/min) 7 Oxygen Delivery Method Nasal Cannula Weight: 138.572 kg Body Mass Index (BMI) 43.8 Intake and Output for Last 24 Hours 04/11/19 04/12/19 04/13/19 23:59 23:59 23:59 Intake Total 2715.0 / 2715.0 1200 / 1200 1970 / 1970 Output Total 4500 / 4500 4975 / 4975 1825 / 1825 Balance -1785.0 / -1785.0 -3775 / -3775 145 / 145 General: Alert, Cooperative, No apparent distress Lungs: Diminished Cardiovascular: Tachycardic Abdomen: Soft, Non Tender, Non-Distended Skin: Ulcer/ Wound - toe wrapped, reviewed photos Microbiology Past 72 Hours 04/09/19 18:45 Wound - Aerobic & Anaerobic Swabs Gram Stain - Final 04/09/19 18:45 Wound - Aerobic & Anaerobic Swabs Wound Culture - Final Streptococcus group G 04/09/19 18:45 Wound - Aerobic & Anaerobic Swabs Anaerobic Culture - Preliminary Checking for anaerobes, further studies to follow. 04/09/19 01:15 Urine, Clean Catch Urine Culture - Final Klebsiella pneumoniae sp pneum 04/08/19 10:40 Blood Culture (Wb) - Anticubital Left Blood Culture - Preliminary No growth in 48 hours. 04/08/19 14:30 Blood Culture (Wb) - Right Hand Blood Culture - Preliminary No growth in 48 hours. Laboratory Results 04/12/19 08:24: Diff Path Review Reviewed 04/12/19 14:53: POC Glucose 265 H 04/12/19 19:20: POC Glucose 231 H 04/12/19 22:10: POC Glucose 318 H 04/13/19 06:10: WBC 11.9 H, RBC 3.79 L, Hgb 11.0 L, Hct 34.7 L, MCV 91.6, MCH 29.0, MCHC 31.7 L, RDW Std Deviation 44.8 H, RDW Coeff of Akila 13.2, Plt Count 572 H, MPV 9.3, Immature Gran % (Auto) 4.500 H, Neut % (Auto) 77.3 H, Lymph % (Auto) 7.3 L, [place] % (Auto) 8.6, Eos % (Auto) 1.4, Baso % (Auto) 0.9, Absolute Neuts (auto) 9.2 H, Absolute Lymphs (auto) 0.87, Nucleated RBC % 0 04/13/19 06:10: Sodium 141, Potassium 4.0, Chloride 106, Carbon Dioxide 29.0, Anion Gap 6, BUN 36 H, Creatinine 1.04, Estim Creat Clear Calc 75.07, Est GFR (MDRD) Af Amer 93, Est GFR (MDRD) Non-Af 77, BUN/Creatinine Ratio 34.6 H, Glucose 290 H, Calcium 8.5, Magnesium 1.8 04/13/19 06:42: POC Glucose 269 H 04/13/19 11:57: POC Glucose 316 H Current Medications Acetaminophen (Tylenol) 650 mg PO Q6H PRN PRN PRN Reason: Mild Pain (1-3)/Temp > 100.7 F Last Admin: 04/11/19 05:59 Dose: 650 mg Documented by: Albuterol/Ipratropium (Duoneb) 3 ml INHALATION Q4HWA.RT [facility] Last Admin: 04/13/19 10:59 Dose: 3 ml Documented by: Amlodipine Besylate (Norvasc) 10 mg PO DAILY [facility] Last Admin: 04/13/19 09:27 Dose: 10 mg Documented by: Carvedilol (Coreg) 12.5 mg PO BID [facility] Last Admin: 04/13/19 09:27 Dose: 12.5 mg Documented by: Collagenase (Santyl) 1 applic TOPICAL DAILY [facility]; Protocol Last Admin: 04/13/19 09:43 Dose: 1 applicatio Documented by: Dextrose (D50w Syringe) 0 gm IV X1 PRN; Protocol PRN Reason: Hypoglycemia Enoxaparin Sodium (Lovenox) 40 mg SC Q12 [facility] Last Admin: 04/13/19 09:27 Dose: 40 mg Documented by: Furosemide (Lasix) 40 mg IV BID@1000,1800 [facility] Glucagon () 1 mg IM .X1 PRN PRN Reason: Hypoglycemia Heparin Sodium (Beef Lung) () 50 units IV UD PRN PRN Reason: PICC Line Heparin Flush Hydralazine HCl (Apresoline Iv) 5 mg IV Q6H PRN PRN PRN Reason: BLOOD PRESSURE Last Admin: 04/13/19 00:22 Dose: 5 mg Documented by: Sodium Chloride () 250 mls @ 15 mls/hr IV .[id number] PRN PRN Reason: Saline Flush Last Infusion: 04/11/19 13:42 Dose: 0 mls/hr Documented by: Ceftriaxone Sodium 2 gm/ (Sodium Chloride) 50 mls @ 100 mls/hr IV Q24 [facility] Last Infusion: 04/13/19 11:17 Dose: Infused Documented by: Insulin Human Lispro (Humalog Kwikpen (Bkc)) 0 unit SC ACHS [facility]; Protocol Last Admin: 04/13/19 12:04 Dose: 4 u Documented by: Magnesium Hydroxide (Milk Of Magnesia) 30 ml PO DAILY PRN PRN PRN Reason: Constipation Metronidazole (Flagyl) 500 mg PO TID [facility] Last Admin: 04/13/19 05:04 Dose: 500 mg Documented by: Nutritional Formula (Chun - [place] Flavor) 1 packet PO BIDCM [facility] Last Admin: 04/13/19 09:28 Dose: 1 packet Documented by: Nutritional Formula (Lactose Free) (Glucerna Shake) 120 ml PO 4X/DAY [facility] Last Admin: 04/13/19 09:32 Dose: 120 ml Documented by: Ondansetron HCl (Zofran) 4 mg IV Q8H PRN PRN PRN Reason: NAUSEA/VOMITING Oxycodone HCl (Oxyir) 5 mg PO Q4H PRN PRN PRN Reason: Moderate Pain (4-6/10) Last Admin: 04/13/19 09:25 Dose: 5 mg Documented by: Sodium Chloride () 5 - 15 ml IV UD PRN PRN Reason: SALINE FLUSH Last Admin: 04/13/19 05:04 Dose: 10 ml Documented by: Sodium Chloride (0.9% Nacl (Sterile) Posiflush) 10 - 40 ml IV UD PRN PRN Reason: Port access or dressing change Sodium Chloride () 10 - 40 ml IV UD PRN PRN Reason: SALINE FLUSH Last Admin: 04/12/19 11:30 Dose: 20 ml Documented by: Medical Necessity - Tobacco Use Smoking Status: Never smoker Tobacco Use: Cigarettes Route of nutrition/ use of supplements: [] Nutritional Intake: [] IV Site: [] Mora Catheter: [] - Assessment/Plan Antibiotics: [] Assessment/Plan: [] Active and Suspected Problems Cellulitis of right foot (Acute) Sepsis (Acute) RUSS (acute kidney injury) (Acute) Hyponatremia (Acute) Cellulitis of right lower extremity (Acute) Ulcer of right foot with fat layer exposed (Acute) sepsis due to diabetic R foot infection, concern for osteo, course complicated by RUSS and some hypoxic resp failure. Pending MRI of R foot and ankle, noncontrast. Re: his allergy history, reports being told as a child he was allergic to PCN. No known h/o anaphylaxis. Reports taking amoxicillin at some point as an adult and having some upset stomach. Bcx neg so far, wound cx with strep finalized, and neg staph aureus pcr. Continue ceftriaxone/flagyl. With uncontrolled DM, A1c of 12, neuropathy, and RUSS, concern about ability to heal this infected wound. Have counseled him re:need for strict glucose management. Ucx with klebs, covered by ceftriaxone. Will follow, d/w wound care and Dr. Jacques
--- NOTE | 2019-04-13 14:30 | MRI_ITS ---
STUDY: MRI RIGHT ANKLE WITHOUT CONTRAST REASON FOR EXAM: Male, 63 years old. Right ankle redness. Rule out osteomyelitis. TECHNIQUE: Standardized fat and water weighted pulse sequences were obtained in all 3 orthogonal planes. COMPARISON: None. FINDINGS: Normal subcutis adipose space. There is accessory navicular incorporated into the posterior tibialis tendon. Normal flexor digitorum longus tendon. Normal flexor hallucis longus tendon. Tenosynovitis of the peroneal tendons with longitudinal split tear of the peroneal brevis, series 5 image 36 through . Normal tibialis anterior tendon. Normal extensor hallucis longus tendon. Normal extensor digitorum longus tendons. There is tendinosis of the Achilles with diffuse thickening and partial tear, 3.5 cm proximal to the insertion, series 4 image /. Thickening of the proximal central cord of the plantar fascia. There is a plantar calcaneal spur, but without cancellous marrow edema. Normal intrinsic muscles of the rearfoot. Normal distal tibiofibular syndesmotic ligamentous complex. Normal lateral ligamentous complex. Normal subtalar ligaments and sinus tarsi. Normal deltoid ligamentous complexes. Normal plantar calcaneonavicular (spring) ligament. There is mild spurring at the tibiotalar articulation. There is os trigonum. Normal talar dome. There is arthrosis of the subtalar articulations with edema and cysts or erosions. Normal talonavicular articulation. Normal calcaneocuboid articulation. Normal navicular-cuneiform articulations. MRI/Lower Ext Joint Only (Routine) IMPRESSION: No MRI evidence of osteomyelitis. Partial tear of the Achilles tendon. Longitudinal split tear of the peroneal brevis. Arthritic change. Electronically Signed: Rush Neff MD at 8:43 EDT , Service support ,
--- NOTE | 2019-04-13 14:30 | MRI_ITS ---
STUDY: MRI RIGHT MIDFOOT REASON FOR EXAM: Male, 63 years old. Foot pain possible osteomyelitis TECHNIQUE: Standardized fat and water weighted pulse sequences were obtained in all 3 orthogonal planes. COMPARISON: Radiographs 04/08/2019 FINDINGS: There is significant subcutaneous soft tissue edema with decreased T1 and increased T2 signal within the forefoot. There are significant degenerative changes at the first metatarsophalangeal joint with osteophyte formation and articular and osteochondral defects. There is mildly increased T2 signal within the joint. There are also degenerative changes at the proximal interphalangeal joint of the big toe with subchondral geodes, articular and osteochondral defects and osteophytes within the distal aspect of the proximal phalanx and base of the distal phalanx. There is subtle mild increased T2 signal and slight decreased T1 signal within the disc phalanx of the big toe. There is mild osteoarthrosis of the second metatarsal phalangeal joint There are no acute fractures. There is no intrinsic or extrinsic tendon or ligamentous abnormal signal within the forefoot. The ankle was not included on the frontal view. MRI/Lower Ext/No Jt/w/o IMPRESSION: Cellulitis of the forefoot Significant osteoarthrosis first metatarsophalangeal and interphalangeal joints of the big toe with articular and osteochondral defects with osteophyte formation. Subtle mild increased T2 and decreased T1 signal within the ungual tuft of the big toe which could represent early mild osteomyelitis versus less likely degenerative. Electronically Signed: Leonel Zepeda, at 0:46 EDT Tel , Service support ,
--- NOTE | 2019-04-13 15:56 | NURSING ---
PATIENT MONITORED DURING MRI. PT TOLERATED WELL, MRI PAUSED FOR OCCASIONAL COUGHING. SP02 REMAINED 92-95% ON 10L HIGH FLOW O2. PT TRANSPORTED BACK TO PCU BY THIS RN. JOVANNY, NURSE, MET PATIENT IN ROOM, REPORT GIVEN.
--- NOTE | 2019-04-13 16:15 | PN_ITS ---
Patient Problems: Active and Suspected Problems Cellulitis of right foot (Acute) Sepsis (Acute) RUSS (acute kidney injury) (Acute) Hyponatremia (Acute) Cellulitis of right lower extremity (Acute) Ulcer of right foot with fat layer exposed (Acute) Subjective: This 63-year-old male with multiple comorbidities is seen bedside for right great toe ulcer and leg cellulitis associated with his recent sepsis. He denies fever, chill, nausea, vomiting. He just returned to the floor after obtaining his MRI and the results are pending. He relates decreased pain to his foot and leg however it is still present. - Physical Exam Vitals/I&O's: Vital Signs Temp Pulse Resp BP Pulse Ox 97.1 F L 86 20 H 147/79 H 93 04/13/19 16:04 04/13/19 16:04 04/13/19 16:04 04/13/19 16:04 04/13/19 16:04 Oxygen Flow Rate (L/min) 7 Oxygen Delivery Method Nasal Cannula Weight: 138.572 kg Body Mass Index (BMI) 43.8 Intake and Output for Last 24 Hours 04/11/19 04/12/19 04/13/19 23:59 23:59 23:59 Intake Total 2715.0 / 2715.0 1200 / 1200 1970 / 1970 Output Total 4500 / 4500 4975 / 4975 1825 / 1825 Balance -1785.0 / -1785.0 -3775 / -3775 145 / 145 General: Alert, Oriented x3, Cooperative Extremities: Tenderness - There is pain with calf palpation however this is continuing to decrease daily. The compartments are soft without any bogginess or fluctuance on palpation. Active range of motion toes noted, - - Foot warm to touch Skin: - - Dressing is clean and intact without strikethrough drainage or proximal streaking Musculoskeletal: No Tenderness to Palpation of Joints or Extremities, Muscle Wasting Neurological: - - Lack of normal epicritic sensation light touch Psych/Mental Status: Normal Affect, Appropriate Microbiology Past 72 Hours 04/08/19 14:30 Blood Culture (Wb) - Right Hand Blood Culture - Final No growth in 5 days. 04/08/19 10:40 Blood Culture (Wb) - Anticubital Left Blood Culture - Final No growth in 5 days. 04/09/19 18:45 Wound - Aerobic & Anaerobic Swabs Gram Stain - Final 04/09/19 18:45 Wound - Aerobic & Anaerobic Swabs Wound Culture - Final Streptococcus group G 04/09/19 18:45 Wound - Aerobic & Anaerobic Swabs Anaerobic Culture - Preliminary Checking for anaerobes, further studies to follow. 04/09/19 01:15 Urine, Clean Catch Urine Culture - Final Klebsiella pneumoniae sp pneum Laboratory Results 04/12/19 08:24: Diff Path Review Reviewed 04/12/19 19:20: POC Glucose 231 H 04/12/19 22:10: POC Glucose 318 H 04/13/19 06:10: WBC 11.9 H, RBC 3.79 L, Hgb 11.0 L, Hct 34.7 L, MCV 91.6, MCH 29.0, MCHC 31.7 L, RDW Std Deviation 44.8 H, RDW Coeff of Akila 13.2, Plt Count 572 H, MPV 9.3, Immature Gran % (Auto) 4.500 H, Neut % (Auto) 77.3 H, Lymph % (Auto) 7.3 L, [place] % (Auto) 8.6, Eos % (Auto) 1.4, Baso % (Auto) 0.9, Absolute Neuts (auto) 9.2 H, Absolute Lymphs (auto) 0.87, Nucleated RBC % 0 04/13/19 06:10: Sodium 141, Potassium 4.0, Chloride 106, Carbon Dioxide 29.0, Anion Gap 6, BUN 36 H, Creatinine 1.04, Estim Creat Clear Calc 75.07, Est GFR (MDRD) Af Amer 93, Est GFR (MDRD) Non-Af 77, BUN/Creatinine Ratio 34.6 H, Glucose 290 H, Calcium 8.5, Magnesium 1.8 04/13/19 06:42: POC Glucose 269 H 04/13/19 11:57: POC Glucose 316 H Current Medications Acetaminophen (Tylenol) 650 mg PO Q6H PRN PRN PRN Reason: Mild Pain (1-3)/Temp > 100.7 F Last Admin: 04/11/19 05:59 Dose: 650 mg Documented by: Albuterol/Ipratropium (Duoneb) 3 ml INHALATION Q4HWA.RT SHANIQUE Last Admin: 04/13/19 15:09 Dose: Not Given Documented by: Amlodipine Besylate (Norvasc) 10 mg PO DAILY [facility] Last Admin: 04/13/19 09:27 Dose: 10 mg Documented by: Carvedilol (Coreg) 12.5 mg PO BID [facility] Last Admin: 04/13/19 09:27 Dose: 12.5 mg Documented by: Collagenase (Santyl) 1 applic TOPICAL DAILY [facility]; Protocol Last Admin: 04/13/19 09:43 Dose: 1 applicatio Documented by: Dextrose (D50w Syringe) 0 gm IV X1 PRN; Protocol PRN Reason: Hypoglycemia Enoxaparin Sodium (Lovenox) 40 mg SC Q12 [facility] Last Admin: 04/13/19 09:27 Dose: 40 mg Documented by: Furosemide (Lasix) 40 mg IV BID@1000,1800 [facility] Glucagon () 1 mg IM .X1 PRN PRN Reason: Hypoglycemia Heparin Sodium (Beef Lung) () 50 units IV UD PRN PRN Reason: PICC Line Heparin Flush Hydralazine HCl (Apresoline Iv) 5 mg IV Q6H PRN PRN PRN Reason: BLOOD PRESSURE Last Admin: 04/13/19 00:22 Dose: 5 mg Documented by: Sodium Chloride () 250 mls @ 15 mls/hr IV .[id number] PRN PRN Reason: Saline Flush Last Infusion: 04/11/19 13:42 Dose: 0 mls/hr Documented by: Ceftriaxone Sodium 2 gm/ (Sodium Chloride) 50 mls @ 100 mls/hr IV Q24 [facility] Last Infusion: 04/13/19 11:17 Dose: Infused Documented by: Insulin Human Lispro (Humalog Kwikpen (Bkc)) 0 unit SC ACHS [facility]; Protocol Last Admin: 04/13/19 12:04 Dose: 4 u Documented by: Magnesium Hydroxide (Milk Of Magnesia) 30 ml PO DAILY PRN PRN PRN Reason: Constipation Metronidazole (Flagyl) 500 mg PO TID [facility] Last Admin: 04/13/19 16:01 Dose: 500 mg Documented by: Nutritional Formula (Chun - [place] Flavor) 1 packet PO BIDCM [facility] Last Admin: 04/13/19 09:28 Dose: 1 packet Documented by: Nutritional Formula (Lactose Free) (Glucerna Shake) 120 ml PO 4X/DAY [facility] Last Admin: 04/13/19 15:37 Dose: Not Given Documented by: Ondansetron HCl (Zofran) 4 mg IV Q8H PRN PRN PRN Reason: NAUSEA/VOMITING Oxycodone HCl (Oxyir) 5 mg PO Q4H PRN PRN PRN Reason: Moderate Pain (4-6/10) Last Admin: 04/13/19 09:25 Dose: 5 mg Documented by: Sodium Chloride () 5 - 15 ml IV UD PRN PRN Reason: SALINE FLUSH Last Admin: 04/13/19 05:04 Dose: 10 ml Documented by: Sodium Chloride (0.9% Nacl (Sterile) Posiflush) 10 - 40 ml IV UD PRN PRN Reason: Port access or dressing change Sodium Chloride () 10 - 40 ml IV UD PRN PRN Reason: SALINE FLUSH Last Admin: 04/12/19 11:30 Dose: 20 ml Documented by: Medical Necessity - Tobacco Use Smoking Status: Never smoker Tobacco Use: Cigarettes Assessment/Plan All Active Problems Cellulitis of right foot (Acute) Sepsis (Acute) RUSS (acute kidney injury) (Acute) Hyponatremia (Acute) Cellulitis of right lower extremity (Acute) Ulcer of right foot with fat layer exposed (Acute) Ulcer right hallux with fat layer exposed Osteomyelitis work-up is in process Right lower extremity cellulitis resolving Deep venous thrombosis has been ruled out with venous Doppler exam Right lower extremity edema; venous insufficiency is suspected Right lower extremity pain -decreasing Reported Achilles rupture right lower extremity Uncontrolled diabetes with neuropathy; hemoglobin A1c 12.2 noted Sepsis resolved Multiple other comorbidities: Sleep apnea, obesity, kidney injury, hypertension I reviewed and discussed his case. His white blood cell count is decreased to 11.9. His dressing has been changed earlier this morning. Due to high risk status MRI of the foot and ankle were ordered to rule out osteomyelitis, deep abscess, and to evaluate his reported Achilles tear. He was medically stable recently and obtained the test. This will be reviewed once the images are uploaded and the report is finalized. To continue on antibiotics including ceftriaxone, and Flagyl per infectious disease recommendations. His right leg demonstrates continued clinical improvement. To continue Mahendra wrap application to the right leg to further control his edema. To continue weight- bear as tolerated right lower extremity with Cam walker boot in place; this is fitting well. Medical management DVT prophylaxis per primary team is greatly appreciated. I will continue to follow him closely in house. Please do not hesitate to call if you have any questions. At time of discharge I recommend he follows up with the wound healing center. Lindsey Jacques DPM, [facility] [phone]
[2019-04-13 17:00] LABS: Bedside Glucose 265 mg/dL (70-110)
--- NOTE | 2019-04-13 18:20 | PCM.PN.REN ---
Patient Problems: Active and Suspected Problems Cellulitis of right foot (Acute) Sepsis (Acute) RUSS (acute kidney injury) (Acute) Hyponatremia (Acute) Cellulitis of right lower extremity (Acute) Ulcer of right foot with fat layer exposed (Acute) Subjective: Following for RUSS. Patient is feeling better. No SOB at rest today. Less LE pain, was able to walk to bathroom. - Physical Exam Vitals/I&O's: Vital Signs Temp Pulse Resp BP Pulse Ox 97.1 F L 86 20 H 147/79 H 93 04/13/19 16:04 04/13/19 16:04 04/13/19 16:04 04/13/19 16:04 04/13/19 16:04 Oxygen Flow Rate (L/min) 7 Oxygen Delivery Method Nasal Cannula Weight: 138.572 kg Body Mass Index (BMI) 43.8 Intake and Output for Last 24 Hours 04/11/19 04/12/19 04/13/19 23:59 23:59 23:59 Intake Total 2715.0 / 2715.0 1200 / 1200 2930 / 2930 Output Total 4500 / 4500 4975 / 4975 4325 / 4325 Balance -1785.0 / -1785.0 -3775 / -3775 -1395 / -1395 General: Alert, Oriented x3 HEENT: Atraumatic, PERRLA, EOMI Oral: Moist Mucosa Neck: Supple Lungs: Clear to auscultation Cardiovascular: Normal S1, Normal S2, No murmurs Abdomen: Bowel Sounds Present, Soft, Non Tender, Obese Extremities: Edema - in TATA wrap Microbiology Past 72 Hours 04/08/19 14:30 Blood Culture (Wb) - Right Hand Blood Culture - Final No growth in 5 days. 04/08/19 10:40 Blood Culture (Wb) - Anticubital Left Blood Culture - Final No growth in 5 days. 04/09/19 18:45 Wound - Aerobic & Anaerobic Swabs Gram Stain - Final 04/09/19 18:45 Wound - Aerobic & Anaerobic Swabs Wound Culture - Final Streptococcus group G 04/09/19 18:45 Wound - Aerobic & Anaerobic Swabs Anaerobic Culture - Preliminary Checking for anaerobes, further studies to follow. 04/09/19 01:15 Urine, Clean Catch Urine Culture - Final Klebsiella pneumoniae sp pneum Laboratory Results 04/12/19 08:24: Diff Path Review Reviewed 04/12/19 19:20: POC Glucose 231 H 04/12/19 22:10: POC Glucose 318 H 04/13/19 06:10: WBC 11.9 H, RBC 3.79 L, Hgb 11.0 L, Hct 34.7 L, MCV 91.6, MCH 29.0, MCHC 31.7 L, RDW Std Deviation 44.8 H, RDW Coeff of Akila 13.2, Plt Count 572 H, MPV 9.3, Immature Gran % (Auto) 4.500 H, Neut % (Auto) 77.3 H, Lymph % (Auto) 7.3 L, [place] % (Auto) 8.6, Eos % (Auto) 1.4, Baso % (Auto) 0.9, Absolute Neuts (auto) 9.2 H, Absolute Lymphs (auto) 0.87, Nucleated RBC % 0 04/13/19 06:10: Sodium 141, Potassium 4.0, Chloride 106, Carbon Dioxide 29.0, Anion Gap 6, BUN 36 H, Creatinine 1.04, Estim Creat Clear Calc 75.07, Est GFR (MDRD) Af Amer 93, Est GFR (MDRD) Non-Af 77, BUN/Creatinine Ratio 34.6 H, Glucose 290 H, Calcium 8.5, Magnesium 1.8 04/13/19 06:42: POC Glucose 269 H 04/13/19 11:57: POC Glucose 316 H 04/13/19 16:43: POC Glucose 265 H Current Medications Acetaminophen (Tylenol) 650 mg PO Q6H PRN PRN PRN Reason: Mild Pain (1-3)/Temp > 100.7 F Last Admin: 04/11/19 05:59 Dose: 650 mg Documented by: Albuterol/Ipratropium (Duoneb) 3 ml INHALATION Q4HWA.RT SHANIQUE Last Admin: 04/13/19 15:09 Dose: Not Given Documented by: Amlodipine Besylate (Norvasc) 10 mg PO DAILY [facility] Last Admin: 04/13/19 09:27 Dose: 10 mg Documented by: Carvedilol (Coreg) 12.5 mg PO BID [facility] Last Admin: 04/13/19 09:27 Dose: 12.5 mg Documented by: Collagenase (Santyl) 1 applic TOPICAL DAILY [facility]; Protocol Last Admin: 04/13/19 09:43 Dose: 1 applicatio Documented by: Dextrose (D50w Syringe) 0 gm IV X1 PRN; Protocol PRN Reason: Hypoglycemia Enoxaparin Sodium (Lovenox) 40 mg SC Q12 [facility] Last Admin: 04/13/19 09:27 Dose: 40 mg Documented by: Furosemide (Lasix) 40 mg IV BID@1000,1800 [facility] Last Admin: 04/13/19 16:46 Dose: 40 mg Documented by: Glucagon () 1 mg IM .X1 PRN PRN Reason: Hypoglycemia Heparin Sodium (Beef Lung) () 50 units IV UD PRN PRN Reason: PICC Line Heparin Flush Hydralazine HCl (Apresoline Iv) 5 mg IV Q6H PRN PRN PRN Reason: BLOOD PRESSURE Last Admin: 04/13/19 00:22 Dose: 5 mg Documented by: Sodium Chloride () 250 mls @ 15 mls/hr IV .[id number] PRN PRN Reason: Saline Flush Last Infusion: 04/11/19 13:42 Dose: 0 mls/hr Documented by: Ceftriaxone Sodium 2 gm/ (Sodium Chloride) 50 mls @ 100 mls/hr IV Q24 [facility] Last Infusion: 04/13/19 11:17 Dose: Infused Documented by: Insulin Human Lispro (Humalog Kwikpen (Bkc)) 0 unit SC ACHS [facility]; Protocol Last Admin: 04/13/19 16:45 Dose: 3 u Documented by: Magnesium Hydroxide (Milk Of Magnesia) 30 ml PO DAILY PRN PRN PRN Reason: Constipation Metronidazole (Flagyl) 500 mg PO TID [facility] Last Admin: 04/13/19 16:01 Dose: 500 mg Documented by: Nutritional Formula (Chun - [place] Flavor) 1 packet PO BIDCM [facility] Last Admin: 04/13/19 16:45 Dose: 1 packet Documented by: Nutritional Formula (Lactose Free) (Glucerna Shake) 120 ml PO 4X/DAY [facility] Last Admin: 04/13/19 16:45 Dose: 120 ml Documented by: Ondansetron HCl (Zofran) 4 mg IV Q8H PRN PRN PRN Reason: NAUSEA/VOMITING Oxycodone HCl (Oxyir) 5 mg PO Q4H PRN PRN PRN Reason: Moderate Pain (4-6/10) Last Admin: 04/13/19 17:04 Dose: 5 mg Documented by: Sodium Chloride () 5 - 15 ml IV UD PRN PRN Reason: SALINE FLUSH Last Admin: 04/13/19 05:04 Dose: 10 ml Documented by: Sodium Chloride (0.9% Nacl (Sterile) Posiflush) 10 - 40 ml IV UD PRN PRN Reason: Port access or dressing change Sodium Chloride () 10 - 40 ml IV UD PRN PRN Reason: SALINE FLUSH Last Admin: 04/12/19 11:30 Dose: 20 ml Documented by: Medical Necessity - Tobacco Use Smoking Status: Never smoker Tobacco Use: Cigarettes Assessment/Plan All Active Problems Cellulitis of right foot (Acute) Sepsis (Acute) RUSS (acute kidney injury) (Acute) Hyponatremia (Acute) Cellulitis of right lower extremity (Acute) Ulcer of right foot with fat layer exposed (Acute) 1- RUSS. Unknown baseline. RUSS is prerenal. Cr has improved in the last 48 hrs. SCr is 1.06 mg/dL today. Started on Lasix today. Will watch renal function while being diuresed. Keep MAP > 65. Recheck Cr in am. 2-Hyponatremia: likely from RUSS and volume depletion. Resolved. Watch for possible hypernatremia with diuresis. 3-HTN: Pt was hypotensive at admission. BP is acceptable on current medications. Off his usual ramipril and HCTZ. Can restart ACEI/HCTZ in a few days if renal function is stable with diuresis. 4- Sepsis related to RLE cellulitis and possible UTI. Abx as per the primary service.
[2019-04-14] VITALS (20 sets, daily range): BP systolic 132–178; BP diastolic 53–83; PULSE 72–93; RESP 12–36; TEMP 36.2–36.8; O2SAT 84–100
[2019-04-14 00:01] LABS: Bedside Glucose 366 mg/dL (70-110)
[2019-04-14] MEDS: oxyCODONE 5 MG Tablet PO ×4 (01:02→22:22)
[2019-04-14] MEDS: 0.9% Saline Lock 10 ML Syringe IV ×4 (06:22→17:03)
[2019-04-14] MEDS: metroNIDAZOLE 500 MG Tablet PO ×3 (06:23→21:44)
[2019-04-14 06:28] LABS: Absolute Lymphocyte Count 0.95 X10^3/uL (0.83-4.51); Absolute Neutrophil Count 9.5 X10^3/uL (2.0-7.7); Basophil# 0.11 X10^3/uL; Basophil% 0.9 % (0-1); Eosinophil# 0.34 X10^3/uL; Eosinophils% 2.8 % (0-5); Hematocrit 37.5 % (40-54); Hemoglobin 11.7 g/dL (13.0-16.5); Lymphocyte # 0.95 X10^3/ul (4.0); Lymphocyte % 7.8 % (19-41); Mean Corp Hgb Conc 31.2 g/dL (32-36); Mean Corpuscular Volume 92.8 fL (80-94); Monocyte# 0.93 X10^3/uL; Monocyte% 7.6 % (0-10); NRBC Flagged by Analyzer 0 % (0-5); Neutrophil # 9.46 X10^3/uL (2.7-7.7); Neutrophil % 77.6 % (47-70); Platelet Count 539 K/mm3 (150-450); RBC Distribution Width CV 13.2 % (11.6-14.6); RBC Distribution Width SD 44.7 fl (35.1-43.9); Red Blood Count 4.04 M/mm3 (4.6-6.2); White Blood Count 12.2 K/mm3 (4.4-11.0)
[2019-04-14] MEDS: Insulin Lispro 100 UNIT/ML INSULN.PEN SC ×4 (06:29→21:48)
[2019-04-14 06:35] LABS: Bedside Glucose 271 mg/dL (70-110)
[2019-04-14 06:41] LABS: Anion Gap 4 (5-15); BUN 40 mg/dL (7-18); BUN/Creat Ratio 36.4 RATIO (10-20); Calcium,Total 8.5 mg/dL (8.5-10.1); Chloride 100 mmol/L (98-107); EST Glomerular Filtration Rate 72 mL/min (>60); Est Glom Filt Rate - Afr Amer 87 mL/min (>60); Estimated Creatinine Clearance 70.97 ml/min; Glucose 309 mg/dL (74-106); Potassium 3.8 mmol/L (3.5-5.1); Sodium Level 140 mmol/L (136-145)
[2019-04-14] MEDS: Ipratropium/Albuterol Sulfate 3 ML AMPUL.NEB INHALATION ×4 (07:12→20:35)
--- NOTE | 2019-04-14 07:48 | PCM.PN.PUL ---
Patient Problems: Active and Suspected Problems Cellulitis of right foot (Acute) Sepsis (Acute) RUSS (acute kidney injury) (Acute) Hyponatremia (Acute) Cellulitis of right lower extremity (Acute) Ulcer of right foot with fat layer exposed (Acute) Subjective: The patient was seen and examined at the bedside this morning. Events from the last 24 hours have been reviewed. The patient is currently afebrile, hemodynamically stable and maintaining appropriate oxygen saturations on 7L/min via nasal cannula. He has remained compliant with the use of BIPAP. He seems anxious to be discharged home. Objective: The patient's most recent lab work, culture data and imaging studies have all been personally reviewed. Surface echocardiogram completed on April 09 revealed stage II diastolic dysfunction. - Physical Exam Vitals/I&O's: Vital Signs Temp Pulse Resp BP Pulse Ox 97.8 F 85 23 H 155/83 H 84 04/14/19 03:30 04/14/19 07:00 04/14/19 05:17 04/14/19 03:30 04/14/19 07:11 Oxygen Flow Rate (L/min) 7.5 Oxygen Delivery Method Room Air Weight: 305 lb 7.983 oz Body Mass Index (BMI) 43.8 Intake and Output for Last 24 Hours 04/12/19 04/13/19 04/14/19 23:59 23:59 23:59 Intake Total 1200 / 1200 2930 / 3170 300 / 300 Output Total 4975 / 4975 4325 / 4325 450 / 450 Balance -3775 / -3775 -1395 / -1155 -150 / -150 General: Alert, Cooperative, No apparent distress, - - Sitting in bedside recliner. HEENT: Atraumatic, PERRLA, Normocephalic Oral: No Gingival or Mucosal Lesions/ Ulcerations Neck: Supple, No Nodes, Trachea Midline Lungs: No rhonchi, No wheeze, No rales, Diminished Cardiovascular: Regular rate, Regular Rhythm, Normal S1, Normal S2 Abdomen: Bowel Sounds Present, Soft, Non Tender, Obese Extremities: No clubbing, No cyanosis, Edema Skin: - - No significant change from previous. Musculoskeletal: No Muscle Wasting Lymphatic: No Cervical, Supraclavicular, or Inguinal Adenopathy Neurological: Neuro grossly intact Psych/Mental Status: Normal Affect, Appropriate Microbiology Past 72 Hours Labs (Last 48 Hours) 04/11/19 04/11/19 04/12/19 06:15 06:45 08:24 WBC 13.6 H RBC 3.72 L Hgb 10.9 L Hct 33.5 L MCV 90.1 MCH 29.3 MCHC 32.5 RDW Std Deviation 43.1 RDW Coeff of Akila 13.0 Plt Count 548 H MPV 9.1 Immature Gran % (Auto) Neut % (Auto) Not Reportable Lymph % (Auto) [place] % (Auto) Eos % (Auto) Baso % (Auto) Absolute Neuts (auto) 11.3 H Absolute Lymphs (auto) 0.67 L Total Counted 100 Neutrophils % (Manual) 81 H Band Neutrophils % 3 Lymphocytes % (Manual) 5 L Monocytes % (Manual) 3 Eosinophils % (Manual) 1 Metamyelocytes % 6 H Myelocytes % 1 H Nucleated RBC % Diff Path Review Reviewed Reviewed Sodium Potassium Chloride Carbon Dioxide Anion Gap BUN Creatinine Estim Creat Clear Calc Est GFR (MDRD) Af Amer Est GFR (MDRD) Non-Af BUN/Creatinine Ratio Glucose Calcium Magnesium Complement C3 184 H Complement C4 41 POC Glucose 04/12/19 04/12/19 04/12/19 08:24 14:53 19:20 WBC RBC Hgb Hct MCV MCH MCHC RDW Std Deviation RDW Coeff of Akila Plt Count MPV Immature Gran % (Auto) Neut % (Auto) Lymph % (Auto) [place] % (Auto) Eos % (Auto) Baso % (Auto) Absolute Neuts (auto) Absolute Lymphs (auto) Total Counted Neutrophils % (Manual) Band Neutrophils % Lymphocytes % (Manual) Monocytes % (Manual) Eosinophils % (Manual) Metamyelocytes % Myelocytes % Nucleated RBC % Diff Path Review Sodium 141 Potassium 4.1 Chloride 108 H Carbon Dioxide 27.0 Anion Gap 6 BUN 34 H Creatinine 1.16 Estim Creat Clear Calc 67.30 Est GFR (MDRD) Af Amer 82 Est GFR (MDRD) Non-Af 68 BUN/Creatinine Ratio 29.3 H Glucose 206 H Calcium 8.5 Magnesium Complement C3 Complement C4 POC Glucose 265 H 231 H 04/12/19 04/13/19 04/13/19 22:10 06:10 06:10 WBC 11.9 H RBC 3.79 L Hgb 11.0 L Hct 34.7 L MCV 91.6 MCH 29.0 MCHC 31.7 L RDW Std Deviation 44.8 H RDW Coeff of Akila 13.2 Plt Count 572 H MPV 9.3 Immature Gran % (Auto) 4.500 H Neut % (Auto) 77.3 H Lymph % (Auto) 7.3 L [place] % (Auto) 8.6 Eos % (Auto) 1.4 Baso % (Auto) 0.9 Absolute Neuts (auto) 9.2 H Absolute Lymphs (auto) 0.87 Total Counted Neutrophils % (Manual) Band Neutrophils % Lymphocytes % (Manual) Monocytes % (Manual) Eosinophils % (Manual) Metamyelocytes % Myelocytes % Nucleated RBC % 0 Diff Path Review Sodium 141 Potassium 4.0 Chloride 106 Carbon Dioxide 29.0 Anion Gap 6 BUN 36 H Creatinine 1.04 Estim Creat Clear Calc 75.07 Est GFR (MDRD) Af Amer 93 Est GFR (MDRD) Non-Af 77 BUN/Creatinine Ratio 34.6 H Glucose 290 H Calcium 8.5 Magnesium 1.8 Complement C3 Complement C4 POC Glucose 318 H 04/13/19 04/13/19 04/13/19 06:42 11:57 16:43 WBC RBC Hgb Hct MCV MCH MCHC RDW Std Deviation RDW Coeff of Akila Plt Count MPV Immature Gran % (Auto) Neut % (Auto) Lymph % (Auto) [place] % (Auto) Eos % (Auto) Baso % (Auto) Absolute Neuts (auto) Absolute Lymphs (auto) Total Counted Neutrophils % (Manual) Band Neutrophils % Lymphocytes % (Manual) Monocytes % (Manual) Eosinophils % (Manual) Metamyelocytes % Myelocytes % Nucleated RBC % Diff Path Review Sodium Potassium Chloride Carbon Dioxide Anion Gap BUN Creatinine Estim Creat Clear Calc Est GFR (MDRD) Af Amer Est GFR (MDRD) Non-Af BUN/Creatinine Ratio Glucose Calcium Magnesium Complement C3 Complement C4 POC Glucose 269 H 316 H 265 H 04/13/19 04/14/19 04/14/19 21:46 06:20 06:20 WBC 12.2 H RBC 4.04 L Hgb 11.7 L Hct 37.5 L MCV 92.8 MCH 29.0 MCHC 31.2 L RDW Std Deviation 44.7 H RDW Coeff of Akila 13.2 Plt Count 539 H MPV 9.0 Immature Gran % (Auto) 3.300 H Neut % (Auto) 77.6 H Lymph % (Auto) 7.8 L [place] % (Auto) 7.6 Eos % (Auto) 2.8 Baso % (Auto) 0.9 Absolute Neuts (auto) 9.5 H Absolute Lymphs (auto) 0.95 Total Counted Neutrophils % (Manual) Band Neutrophils % Lymphocytes % (Manual) Monocytes % (Manual) Eosinophils % (Manual) Metamyelocytes % Myelocytes % Nucleated RBC % 0 Diff Path Review Sodium 140 Potassium 3.8 Chloride 100 Carbon Dioxide 36.0 H Anion Gap 4 L BUN 40 H Creatinine 1.10 Estim Creat Clear Calc 70.97 Est GFR (MDRD) Af Amer 87 Est GFR (MDRD) Non-Af 72 BUN/Creatinine Ratio 36.4 H Glucose 309 H Calcium 8.5 Magnesium Complement C3 Complement C4 POC Glucose 366 H 04/14/19 06:28 WBC RBC Hgb Hct MCV MCH MCHC RDW Std Deviation RDW Coeff of Akila Plt Count MPV Immature Gran % (Auto) Neut % (Auto) Lymph % (Auto) [place] % (Auto) Eos % (Auto) Baso % (Auto) Absolute Neuts (auto) Absolute Lymphs (auto) Total Counted Neutrophils % (Manual) Band Neutrophils % Lymphocytes % (Manual) Monocytes % (Manual) Eosinophils % (Manual) Metamyelocytes % Myelocytes % Nucleated RBC % Diff Path Review Sodium Potassium Chloride Carbon Dioxide Anion Gap BUN Creatinine Estim Creat Clear Calc Est GFR (MDRD) Af Amer Est GFR (MDRD) Non-Af BUN/Creatinine Ratio Glucose Calcium Magnesium Complement C3 Complement C4 POC Glucose 271 H Microbiology 04/08/19 14:30 Blood Culture (Wb) - Right Hand Blood Culture - Final No growth in 5 days. 04/08/19 10:40 Blood Culture (Wb) - Anticubital Left Blood Culture - Final No growth in 5 days. 04/09/19 18:45 Wound - Aerobic & Anaerobic Swabs Gram Stain - Final 04/09/19 18:45 Wound - Aerobic & Anaerobic Swabs Wound Culture - Final Streptococcus group G 04/09/19 18:45 Wound - Aerobic & Anaerobic Swabs Anaerobic Culture - Preliminary Checking for anaerobes, further studies to follow. Clinical Impression(s) from Imaging Studies Chest X-Ray 04/08/19 13:59 IMPRESSION: No acute cardiopulmonary process. Electronically Signed: Dominic Perla MD ([place]) at 14:55 EDT , Service support , Foot X-Ray 04/08/19 14:01 IMPRESSION: 1. No fabi bony destructive process. Soft tissue swelling of the medial or the lateral foot. 2. Superficial debris of the distal plantar foot/toes. 3. Multifocal degenerative changes. Electronically Signed: Dominic Perla MD ([place]) at 14:56 EDT , Service support , Tibia/Fibula X-Ray 04/09/19 18:20 IMPRESSION: No acute bony injury of the tibia and fibula. Electronically Signed: Shady Herring DO at 20:43 EDT Tel [phone], Service support , Chest X-Ray 04/09/19 20:40 IMPRESSION: Possible mild interstitial prominence. Evaluation is limited by motion. Electronically Signed: Shady Herring DO at 21:30 EDT Tel [phone], Service support , Chest X-Ray 04/11/19 08:05 IMPRESSION: Worsening CHF with findings suggesting focal infiltration in the right upper lobe. Small bilateral effusions. Electronically Signed: Lam Bolden, at 9:42 EDT , Service support , Chest X-Ray 04/12/19 03:29 IMPRESSION: Bilateral airspace opacity, right significantly worse compared to the left suggestive of asymmetric pulmonary edema versus right-sided pneumonia. Possible mild effusions overall findings stable slightly worsened in the interval. Right-sided PICC line as described above. Electronically Signed: Mariposa Botello MD at 4:03 EDT , Service support , Lower Extremity MRI 04/13/19 14:30 IMPRESSION: Cellulitis of the forefoot Significant osteoarthrosis first metatarsophalangeal and interphalangeal joints of the big toe with articular and osteochondral defects with osteophyte formation. Subtle mild increased T2 and decreased T1 signal within the ungual tuft of the big toe which could represent early mild osteomyelitis versus less likely degenerative. Electronically Signed: Leonel Zepeda, at 0:46 EDT Tel , Service support , Current Medications Acetaminophen (Tylenol) 650 mg PO Q6H PRN PRN PRN Reason: Mild Pain (1-3)/Temp > 100.7 F Last Admin: 04/11/19 05:59 Dose: 650 mg Documented by: Albuterol/Ipratropium (Duoneb) 3 ml INHALATION Q4HWA.RT [facility] Last Admin: 04/14/19 07:12 Dose: 3 ml Documented by: Amlodipine Besylate (Norvasc) 10 mg PO DAILY [facility] Last Admin: 04/13/19 09:27 Dose: 10 mg Documented by: Carvedilol (Coreg) 12.5 mg PO BID [facility] Last Admin: 04/13/19 21:44 Dose: 12.5 mg Documented by: Collagenase (Santyl) 1 applic TOPICAL DAILY [facility]; Protocol Last Admin: 04/13/19 09:43 Dose: 1 applicatio Documented by: Dextrose (D50w Syringe) 0 gm IV X1 PRN; Protocol PRN Reason: Hypoglycemia Enoxaparin Sodium (Lovenox) 40 mg SC Q12 [facility] Last Admin: 04/13/19 21:49 Dose: 40 mg Documented by: Furosemide (Lasix) 40 mg IV BID@1000,1800 [facility] Last Admin: 04/13/19 16:46 Dose: 40 mg Documented by: Glucagon () 1 mg IM .X1 PRN PRN Reason: Hypoglycemia Heparin Sodium (Beef Lung) () 50 units IV UD PRN PRN Reason: PICC Line Heparin Flush Hydralazine HCl (Apresoline Iv) 5 mg IV Q6H PRN PRN PRN Reason: BLOOD PRESSURE Last Admin: 04/13/19 00:22 Dose: 5 mg Documented by: Sodium Chloride () 250 mls @ 15 mls/hr IV .[id number] PRN PRN Reason: Saline Flush Last Infusion: 04/11/19 13:42 Dose: 0 mls/hr Documented by: Ceftriaxone Sodium 2 gm/ (Sodium Chloride) 50 mls @ 100 mls/hr IV Q24 [facility] Last Infusion: 04/13/19 11:17 Dose: Infused Documented by: Insulin Human Lispro (Humalog Kwikpen (Bkc)) 0 unit SC ACHS [facility]; Protocol Last Admin: 04/14/19 06:29 Dose: 3 u Documented by: Magnesium Hydroxide (Milk Of Magnesia) 30 ml PO DAILY PRN PRN PRN Reason: Constipation Metronidazole (Flagyl) 500 mg PO TID [facility] Last Admin: 04/14/19 06:23 Dose: 500 mg Documented by: Nutritional Formula (Chun - [place] Flavor) 1 packet PO BIDCM [facility] Last Admin: 04/13/19 16:45 Dose: 1 packet Documented by: Nutritional Formula (Lactose Free) (Glucerna Shake) 120 ml PO 4X/DAY [facility] Last Admin: 04/13/19 21:43 Dose: 120 ml Documented by: Ondansetron HCl (Zofran) 4 mg IV Q8H PRN PRN PRN Reason: NAUSEA/VOMITING Oxycodone HCl (Oxyir) 5 mg PO Q4H PRN PRN PRN Reason: Moderate Pain (4-6/10) Last Admin: 04/14/19 01:02 Dose: 5 mg Documented by: Sodium Chloride () 5 - 15 ml IV UD PRN PRN Reason: SALINE FLUSH Last Admin: 04/14/19 06:22 Dose: 15 ml Documented by: Sodium Chloride (0.9% Nacl (Sterile) Posiflush) 10 - 40 ml IV UD PRN PRN Reason: Port access or dressing change Sodium Chloride () 10 - 40 ml IV UD PRN PRN Reason: SALINE FLUSH Last Admin: 04/12/19 11:30 Dose: 20 ml Documented by: Medical Necessity - Tobacco Use Smoking Status: Never smoker Tobacco Use: Cigarettes Assessment/Plan All Active Problems Cellulitis of right foot (Acute) Sepsis (Acute) RUSS (acute kidney injury) (Acute) Hyponatremia (Acute) Cellulitis of right lower extremity (Acute) Ulcer of right foot with fat layer exposed (Acute) RECOMMENDATIONS: 1. Wean from BiPAP therapy. Wean supplemental oxygen to maintain saturations at or above 90%. 2. Encourage the use of incentive spirometry. Mobilize patient as tolerated. 3. Continue IV Lasix BID. 4. If there is no response to the use of diuretic therapy, may need to consider CTA chest to evaluate for the presence of pulmonary embolism. IMPRESSIONS: 1. Acute combined respiratory failure Likely multifactorial in etiology with obesity hypoventilation, underlying atelectasis and congestive heart failure contributing. The patient is overall net positive from a volume perspective for the hospital admission. The patient does appear to be improving from an oxygenation status in the setting of diuresis. I would recommend continuing IV Lasix as tolerated for volume optimization. Continue to wean supplemental oxygen as tolerated to maintain saturations at or above 90%. Continue BiPAP therapy at a minimum with naps and nightly. Encourage incentive spirometer use and mobilize patient as tolerated. 2. Sepsis secondary to diabetic foot infection Continue current supportive measures and antimicrobials per infectious diseases recommendations. 3. Acute kidney injury Resolved. Continue management per nephrology recommendations. 4. Personal history of obstructive sleep apnea While the patient does report a known history of obstructive sleep apnea, it is highly likely that is currently prescribed pressure per support is inadequate to control his sleep apnea. I would strongly recommend that he follow-up in the pulmonary medicine clinic on an outpatient basis for a re-titration polysomnogram. In the interim, empiric BiPAP therapy will be utilized while the patient is admitted to the hospital. 5. Morbid obesity/hypertension/diabetes mellitus Complicates care, management, recovery and prognosis. Avoid nephrotoxic medications. Continue sliding scale coverage. This note was generated with [employer] dictation software. It may contain incorrect words, spelling, and punctuation that were not noted in checking the note before signing. Code Visit Inpatient E&M: 50795 Subs Hosp L2
[2019-04-14] MEDS: Carvedilol 12.5 MG Tablet PO ×2 (09:09→21:43)
[2019-04-14] MEDS: Enoxaparin 40 MG/0.4 ML Syringe SC ×2 (09:11→21:46)
[2019-04-14] MEDS: Collagenase 30gm Tube 1 APPLIC TOPICAL (09:13)
[2019-04-14] MEDS: amLODIPine 10 MG Tablet PO (09:13)
[2019-04-14] MEDS: Glucerna Shake 120 ML LIQUID PO ×4 (09:17→21:44)
[2019-04-14] MEDS: Furosemide 40 MG/4 ML Vial IV ×2 (09:18→17:03)
--- NOTE | 2019-04-14 10:30 | PN_ITS ---
Patient Problems: Active and Suspected Problems Cellulitis of right foot (Acute) Sepsis (Acute) RUSS (acute kidney injury) (Acute) Hyponatremia (Acute) Cellulitis of right lower extremity (Acute) Ulcer of right foot with fat layer exposed (Acute) Subjective: CC follow-up right toe infection and acute respiratory failure ?04/14/2019: Patient breathing continues to improve. MRI obtained the day prior demonstrated evidence of early mild osteomyelitis. Objective: GENERAL: Cooperative HEENT: Atraumatic; EYES; Anicteric, Normal Conjunctiva NECK; supple, normal thyroid, RESPIRATORY: Diminished to auscultation CARDIOVASCULAR: Regular S1 S2, GI: soft, non-tender, normoactive bowel sounds, : No Renal angle tenderness; EXTREMITIES: Right toe in dressing MUSCULOSKELETAL: No Joint Tenderness; NEURO: Awake; no lateralizing signs. SKIN: As described above PSYCH; Normal affect Vitals/I&O's: Vital Signs Temp Pulse Resp BP Pulse Ox 97.8 F 72 20 H 155/83 H 91 04/14/19 03:30 04/14/19 07:12 04/14/19 07:12 04/14/19 03:30 04/14/19 08:10 Oxygen Flow Rate (L/min) 7 Oxygen Delivery Method Nasal Cannula Weight: 138.572 kg Body Mass Index (BMI) 43.8 Intake and Output for Last 24 Hours 04/12/19 04/13/19 04/14/19 23:59 23:59 23:59 Intake Total 1200 / 1200 2930 / 3170 350 / 350 Output Total 4975 / 4975 4325 / 4325 450 / 450 Balance -3775 / -3775 -1395 / -1155 -100 / -100 Microbiology Past 72 Hours 04/08/19 14:30 Blood Culture (Wb) - Right Hand Blood Culture - Final No growth in 5 days. 04/08/19 10:40 Blood Culture (Wb) - Anticubital Left Blood Culture - Final No growth in 5 days. 04/09/19 18:45 Wound - Aerobic & Anaerobic Swabs Gram Stain - Final 04/09/19 18:45 Wound - Aerobic & Anaerobic Swabs Wound Culture - Final Streptococcus group G 04/09/19 18:45 Wound - Aerobic & Anaerobic Swabs Anaerobic Culture - Preliminary Checking for anaerobes, further studies to follow. 04/09/19 01:15 Urine, Clean Catch Urine Culture - Final Klebsiella pneumoniae sp pneum Laboratory Results 04/12/19 08:24: Diff Path Review Reviewed 04/13/19 11:57: POC Glucose 316 H 04/13/19 16:43: POC Glucose 265 H 04/13/19 21:46: POC Glucose 366 H 04/14/19 06:20: WBC 12.2 H, RBC 4.04 L, Hgb 11.7 L, Hct 37.5 L, MCV 92.8, MCH 29.0, MCHC 31.2 L, RDW Std Deviation 44.7 H, RDW Coeff of Akila 13.2, Plt Count 539 H, MPV 9.0, Immature Gran % (Auto) 3.300 H, Neut % (Auto) 77.6 H, Lymph % (Auto) 7.8 L, [place] % (Auto) 7.6, Eos % (Auto) 2.8, Baso % (Auto) 0.9, Absolute Neuts (auto) 9.5 H, Absolute Lymphs (auto) 0.95, Nucleated RBC % 0 04/14/19 06:20: Sodium 140, Potassium 3.8, Chloride 100, Carbon Dioxide 36.0 H, Anion Gap 4 L, BUN 40 H, Creatinine 1.10, Estim Creat Clear Calc 70.97, Est GFR (MDRD) Af Amer 87, Est GFR (MDRD) Non-Af 72, BUN/Creatinine Ratio 36.4 H, Glucose 309 H, Calcium 8.5 04/14/19 06:28: POC Glucose 271 H Current Medications Acetaminophen (Tylenol) 650 mg PO Q6H PRN PRN PRN Reason: Mild Pain (1-3)/Temp > 100.7 F Last Admin: 04/11/19 05:59 Dose: 650 mg Documented by: Albuterol/Ipratropium (Duoneb) 3 ml INHALATION Q4HWA.RT [facility] Last Admin: 04/14/19 07:12 Dose: 3 ml Documented by: Amlodipine Besylate (Norvasc) 10 mg PO DAILY [facility] Last Admin: 04/14/19 09:13 Dose: 10 mg Documented by: Carvedilol (Coreg) 12.5 mg PO BID [facility] Last Admin: 04/14/19 09:09 Dose: 12.5 mg Documented by: Collagenase (Santyl) 1 applic TOPICAL DAILY [facility]; Protocol Last Admin: 04/14/19 09:13 Dose: 1 applicatio Documented by: Dextrose (D50w Syringe) 0 gm IV X1 PRN; Protocol PRN Reason: Hypoglycemia Enoxaparin Sodium (Lovenox) 40 mg SC Q12 [facility] Last Admin: 04/14/19 09:11 Dose: 40 mg Documented by: Furosemide (Lasix) 40 mg IV BID@1000,1800 [facility] Last Admin: 04/14/19 09:18 Dose: 40 mg Documented by: Glucagon () 1 mg IM .X1 PRN PRN Reason: Hypoglycemia Heparin Sodium (Beef Lung) () 50 units IV UD PRN PRN Reason: PICC Line Heparin Flush Hydralazine HCl (Apresoline Iv) 5 mg IV Q6H PRN PRN PRN Reason: BLOOD PRESSURE Last Admin: 04/13/19 00:22 Dose: 5 mg Documented by: Sodium Chloride () 250 mls @ 15 mls/hr IV .[id number] PRN PRN Reason: Saline Flush Last Infusion: 04/14/19 09:36 Dose: 15 mls/hr Documented by: Ceftriaxone Sodium 2 gm/ (Sodium Chloride) 50 mls @ 100 mls/hr IV Q24 [facility] Last Infusion: 04/14/19 09:36 Dose: Infused Documented by: Insulin Human Lispro (Humalog Kwikpen (Bkc)) 0 unit SC ACHS [facility]; Protocol Last Admin: 04/14/19 06:29 Dose: 3 u Documented by: Magnesium Hydroxide (Milk Of Magnesia) 30 ml PO DAILY PRN PRN PRN Reason: Constipation Metronidazole (Flagyl) 500 mg PO TID [facility] Last Admin: 04/14/19 06:23 Dose: 500 mg Documented by: Nutritional Formula (Chun - [place] Flavor) 1 packet PO BIDCM [facility] Last Admin: 04/14/19 09:02 Dose: 1 packet Documented by: Nutritional Formula (Lactose Free) (Glucerna Shake) 120 ml PO 4X/DAY [facility] Last Admin: 04/14/19 09:17 Dose: 120 ml Documented by: Ondansetron HCl (Zofran) 4 mg IV Q8H PRN PRN PRN Reason: NAUSEA/VOMITING Oxycodone HCl (Oxyir) 5 mg PO Q4H PRN PRN PRN Reason: Moderate Pain (4-6/10) Last Admin: 04/14/19 09:19 Dose: 5 mg Documented by: Sodium Chloride () 5 - 15 ml IV UD PRN PRN Reason: SALINE FLUSH Last Admin: 04/14/19 09:54 Dose: 10 ml Documented by: Sodium Chloride (0.9% Nacl (Sterile) Posiflush) 10 - 40 ml IV UD PRN PRN Reason: Port access or dressing change Sodium Chloride () 10 - 40 ml IV UD PRN PRN Reason: SALINE FLUSH Last Admin: 04/12/19 11:30 Dose: 20 ml Documented by: STROKE Vital Signs/Narrative: Vital Signs Pulse Resp Pulse Ox 04/14/19 08:10 91 04/14/19 07:12 72 20 H 04/14/19 07:11 84 04/14/19 07:00 85 Medical Necessity - Tobacco Use Smoking Status: Never smoker Tobacco Use: Cigarettes Assessment/Plan All Active Problems Cellulitis of right foot (Acute) Sepsis (Acute) RUSS (acute kidney injury) (Acute) Hyponatremia (Acute) Cellulitis of right lower extremity (Acute) Ulcer of right foot with fat layer exposed (Acute) Patient is a 63-year-old gentleman with multiple comorbidities including diabetes mellitus type 2 morbid obesity with BMI of 43 who presented with erythema and swelling involving the right lower extremity with blistering of the tip of the first right toe. An assessment of sepsis secondary to cellulitis made admitted to the regular nursing floor for further management 1. Sepsis secondary to extensive cellulitis involving the right lower extremity. Admitted to regular nursing floor patient was treated with clindamycin and vancomycin (patient is allergic to penicillin). Consult was also placed to podiatry medicine. Patient still has significant erythema and swelling involving the right lower extremities ?04/10/2019: Venous duplex ordered as part of patient's evaluation came back negative Lovenox switch back to prophylactic dose. Patient has also been seen in consultation by and notes and recommendations reviewed. ?04/11/2019 antibiotics adjusted by infectious disease patient currently on Antony ephin. Recommendation is for patient to undergo MRI to rule out osteomyelitis. This is currently on hold in view of patient low oxygen saturation. Notes from Dr. Franco infectious disease reviewed ?04/12/2019 awaiting for respiratory status to stabilize prior to patient undergoing MRI to rule out osteomyelitis -04/13/2019 final cultures came back positive for strep on Rocephin and Flagyl per recommendations from ID ?04/14/2019: MRI obtained the day prior demonstrated evidence of early mild osteomyelitis. 2. Acute kidney injury ?Patient kidney function did worsen with creatinine rising to 2.14 from an admission level of 1.3. IV fluids initiated consult placed to nephrology ~04/10/2019. Kidney function went up to 2.5 resuscitated with IV fluids ?04/11/2019 kidney function finally improving 04/12/2019 resolved 04/13/2019: Patient kidney function did remain stable despite receiving Lasix 3. Acute metabolic encephalopathy ~secondary to sepsis as well as respiratory acidosis 4. Acute respiratory acidosis ~patient placed on noninvasive ventilation BiPAP with repeat ABGs ordered. did suspect a component of obesity hypoventilation syndrome contributing to patient respiratory distress. Patient was placed on noninvasive ventilation and consult placed to pulmonary medicine -04/14/2019: Patient breathing continues to improve. 5. Acute chronic congestive heart failure with preserved ejection fraction Patient started on Lasix. Echo obtained during current admission demonstrated grade 2 diastolic dysfunction with ejection fraction of 65% 04/13/2019: Patient did respond to Lasix. Kidney function has remained relatively stable 04/14/2019: Patient has responded to Lasix with some improvement in his oxygen saturation 6. Diabetes mellitus type II ~Controlled patient's oral hypoglycemics held. Placed on long acting insulin, Accu-Cheks a.c. and at bedtime and covered with sliding scale insulin 7. Essential hypertension - Patient blood pressure was low on admission antihypertensives subsequently held ?04/12/2019 patient blood pressure has stabilized and was elevated his BP medications restarted in addition to PRN hydralazine 8. Morbid obesity, BMI 43.8, -diet and exercise is recommended 9. Hypokalemia corrected per protocol 10. Obstructive sleep apnea ?Patient is on CPAP 11. DVT prophylaxis ? Lovenox 12. Acute cystitis -with Klebsiella patient is on Rocephin Code Visit Inpatient E&M: 36056 Subs Hosp L2
--- NOTE | 2019-04-14 10:50 | PN_ITS ---
Patient Problems: Active and Suspected Problems Cellulitis of right foot (Acute) Sepsis (Acute) RUSS (acute kidney injury) (Acute) Hyponatremia (Acute) Cellulitis of right lower extremity (Acute) Ulcer of right foot with fat layer exposed (Acute) Subjective: This 63-year-old male with multiple comorbidities is seen bedside for right great toe ulcer and leg cellulitis associated with his recent sepsis. He denies fever, chill, nausea, vomiting. He obtained his MRI yesterday and is ready to review the results. He relates he has chronic redness and swelling to the leg. - Physical Exam Vitals/I&O's: Vital Signs Temp Pulse Resp BP Pulse Ox 97.6 F L 93 18 143/78 H 94 04/14/19 10:30 04/14/19 10:30 04/14/19 10:30 04/14/19 10:30 04/14/19 10:30 Oxygen Flow Rate (L/min) 7 Oxygen Delivery Method Nasal Cannula Weight: 138.572 kg Body Mass Index (BMI) 43.8 Intake and Output for Last 24 Hours 04/12/19 04/13/19 04/14/19 23:59 23:59 23:59 Intake Total 1200 / 1200 2930 / 3170 350 / 350 Output Total 4975 / 4975 4325 / 4325 450 / 450 Balance -3775 / -3775 -1395 / -1155 -100 / -100 General: Alert, Oriented x3, Cooperative Extremities: No cyanosis, Capillary Refill Less than 3 Seconds, No Calf Tenderness - negative leblanc sign, Diminished Peripheral Pulses, Edema Skin: Ulcer/ Wound - distal hallux with fibrous necrotic plug that is well adhered and moist. no erythema or odor or maceration to foot, - - His skin is hairless and atrophic. He does have hyperpigmentation and continued erythema to the leg which is overall decrease in intensity compared to prior exams. Musculoskeletal: No Tenderness to Palpation of Joints or Extremities, Muscle Wasting Neurological: - - Lack of normal epicritic sensation consistent with neuropathy Psych/Mental Status: Normal Affect, Appropriate Microbiology Past 72 Hours 04/09/19 18:45 Wound - Aerobic & Anaerobic Swabs Gram Stain - Final 04/09/19 18:45 Wound - Aerobic & Anaerobic Swabs Wound Culture - Final Streptococcus group G 04/09/19 18:45 Wound - Aerobic & Anaerobic Swabs Anaerobic Culture - Final Anaerobic cocci 04/08/19 14:30 Blood Culture (Wb) - Right Hand Blood Culture - Final No growth in 5 days. 04/08/19 10:40 Blood Culture (Wb) - Anticubital Left Blood Culture - Final No growth in 5 days. 04/09/19 01:15 Urine, Clean Catch Urine Culture - Final Klebsiella pneumoniae sp pneum Laboratory Results 04/12/19 08:24: Diff Path Review Reviewed 04/13/19 11:57: POC Glucose 316 H 04/13/19 16:43: POC Glucose 265 H 04/13/19 21:46: POC Glucose 366 H 04/14/19 06:20: WBC 12.2 H, RBC 4.04 L, Hgb 11.7 L, Hct 37.5 L, MCV 92.8, MCH 29.0, MCHC 31.2 L, RDW Std Deviation 44.7 H, RDW Coeff of Akila 13.2, Plt Count 539 H, MPV 9.0, Immature Gran % (Auto) 3.300 H, Neut % (Auto) 77.6 H, Lymph % (Auto) 7.8 L, Slope % (Auto) 7.6, Eos % (Auto) 2.8, Baso % (Auto) 0.9, Absolute Neuts (auto) 9.5 H, Absolute Lymphs (auto) 0.95, Nucleated RBC % 0 04/14/19 06:20: Sodium 140, Potassium 3.8, Chloride 100, Carbon Dioxide 36.0 H, Anion Gap 4 L, BUN 40 H, Creatinine 1.10, Estim Creat Clear Calc 70.97, Est GFR (MDRD) Af Amer 87, Est GFR (MDRD) Non-Af 72, BUN/Creatinine Ratio 36.4 H, Glucose 309 H, Calcium 8.5 04/14/19 06:28: POC Glucose 271 H Current Medications Acetaminophen (Tylenol) 650 mg PO Q6H PRN PRN PRN Reason: Mild Pain (1-3)/Temp > 100.7 F Last Admin: 04/11/19 05:59 Dose: 650 mg Documented by: Albuterol/Ipratropium (Duoneb) 3 ml INHALATION Q4HWA.RT SHANIQUE Last Admin: 04/14/19 07:12 Dose: 3 ml Documented by: Amlodipine Besylate (Norvasc) 10 mg PO DAILY [facility] Last Admin: 04/14/19 09:13 Dose: 10 mg Documented by: Carvedilol (Coreg) 12.5 mg PO BID [facility] Last Admin: 04/14/19 09:09 Dose: 12.5 mg Documented by: Collagenase (Santyl) 1 applic TOPICAL DAILY [facility]; Protocol Last Admin: 04/14/19 09:13 Dose: 1 applicatio Documented by: Dextrose (D50w Syringe) 0 gm IV X1 PRN; Protocol PRN Reason: Hypoglycemia Enoxaparin Sodium (Lovenox) 40 mg SC Q12 [facility] Last Admin: 04/14/19 09:11 Dose: 40 mg Documented by: Furosemide (Lasix) 40 mg IV BID@1000,1800 [facility] Last Admin: 04/14/19 09:18 Dose: 40 mg Documented by: Glucagon () 1 mg IM .X1 PRN PRN Reason: Hypoglycemia Heparin Sodium (Beef Lung) () 50 units IV UD PRN PRN Reason: PICC Line Heparin Flush Hydralazine HCl (Apresoline Iv) 5 mg IV Q6H PRN PRN PRN Reason: BLOOD PRESSURE Last Admin: 04/13/19 00:22 Dose: 5 mg Documented by: Sodium Chloride () 250 mls @ 15 mls/hr IV .[id number] PRN PRN Reason: Saline Flush Last Infusion: 04/14/19 09:36 Dose: 15 mls/hr Documented by: Ceftriaxone Sodium 2 gm/ (Sodium Chloride) 50 mls @ 100 mls/hr IV Q24 [facility] Last Infusion: 04/14/19 09:36 Dose: Infused Documented by: Insulin Human Lispro (Humalog Kwikpen (Bkc)) 0 unit SC ACHS [facility]; Protocol Last Admin: 04/14/19 06:29 Dose: 3 u Documented by: Magnesium Hydroxide (Milk Of Magnesia) 30 ml PO DAILY PRN PRN PRN Reason: Constipation Metronidazole (Flagyl) 500 mg PO TID [facility] Last Admin: 04/14/19 06:23 Dose: 500 mg Documented by: Nutritional Formula (Chun - [place] Flavor) 1 packet PO BIDCM [facility] Last Admin: 04/14/19 09:02 Dose: 1 packet Documented by: Nutritional Formula (Lactose Free) (Glucerna Shake) 120 ml PO 4X/DAY [facility] Last Admin: 04/14/19 09:17 Dose: 120 ml Documented by: Ondansetron HCl (Zofran) 4 mg IV Q8H PRN PRN PRN Reason: NAUSEA/VOMITING Oxycodone HCl (Oxyir) 5 mg PO Q4H PRN PRN PRN Reason: Moderate Pain (4-6/10) Last Admin: 04/14/19 09:19 Dose: 5 mg Documented by: Sodium Chloride () 5 - 15 ml IV UD PRN PRN Reason: SALINE FLUSH Last Admin: 04/14/19 09:54 Dose: 10 ml Documented by: Sodium Chloride (0.9% Nacl (Sterile) Posiflush) 10 - 40 ml IV UD PRN PRN Reason: Port access or dressing change Sodium Chloride () 10 - 40 ml IV UD PRN PRN Reason: SALINE FLUSH Last Admin: 04/12/19 11:30 Dose: 20 ml Documented by: Medical Necessity - Tobacco Use Smoking Status: Never smoker Tobacco Use: Cigarettes Assessment/Plan All Active Problems Cellulitis of right foot (Acute) Sepsis (Acute) RUSS (acute kidney injury) (Acute) Hyponatremia (Acute) Cellulitis of right lower extremity (Acute) Ulcer of right foot with fat layer exposed (Acute) Ulcer right hallux with fat layer exposed Osteomyelitis versus degenerative reactive bone marrow from mechanical pressure to distal tip of distal phalanx of right hallux Right lower extremity cellulitis resolving Deep venous thrombosis has been ruled out with venous Doppler exam Right lower extremity edema; venous insufficiency is suspected Right lower extremity pain -decreasing Partial tear of achilles right lower extremity Uncontrolled diabetes with neuropathy; hemoglobin A1c 12.2 noted Sepsis resolved Multiple other comorbidities: Sleep apnea, obesity, kidney injury, hypertension I reviewed and discussed his case. His white blood cell count is 12.2. Due to high risk status MRI of the foot and ankle were ordered to rule out osteomyelitis, deep abscess, and to evaluate his reported Achilles tear. He does have some increase in intensity on T2 correspond to decrease intensity on T1 to the distal tip of the distal phalanx of the right hallux which is either very early acute osteomyelitis or reactive change from mechanical stress of walking. To continue on antibiotics including ceftriaxone, and Flagyl per inf ectious disease recommendations. I do not recommend surgical amputation at this time. The patient would like to proceed without amputation at this time as well; he is interested in trying wound care and antibiotics first. Serial debridement and better offloading is imperative for wound healing. He has demonstrated a favorable response so far. He change dressing daily with Santyl. To continue with Mahendra wraps for edema management. His partial right Achilles rupture is noted. To continue weight-bear as tolerated right lower extremity with Cam walker boot in place and added heel lift which was applied today. This is fitting well. If pain continues with partial weightbearing I recommend he goes to nonweightbearing. Per physical therapist he is struggling with this and I encouraged him to continue to be compliant with this status recommendation. I do not recommend primary repair of the Achilles during his current infection scenario. Treatment for this condition involves either conservative immobilization with the foot in a plantarflexed position for 1 to 3 months versus surgical repair once he is medically stable and his infection has cleared. Medical management DVT prophyl axis per primary team is greatly appreciated. I will continue to follow him closely in house. Please do not hesitate to call if you have any questions. At time of discharge I recommend he follows up with the wound healing center if he continues to reside in [place]. It is noted he lives in [place] and plans to return. I recommend a referral to [facility] wound healing center near his home. Lindsey Jacques DPM, [facility] [phone]
[2019-04-14 12:10] LABS: Bedside Glucose 458 mg/dL (70-110)
--- NOTE | 2019-04-14 12:29 | NURSING ---
CLAUDIO Aragon reports she will be contacting Physician for orders to cover blood sugar-per protocol
[2019-04-14] MEDS: Insulin Lispro 100 UNIT/ML INSULN.PEN 10 UNIT SC ×2 (12:52→17:03)
--- NOTE | 2019-04-14 15:21 | NURSING ---
0913, dressing removed from right great toe, small amount of clear collins/pink drainage noted. Santyl was applied per orders. DSD applied and secured with Kerlex. Mahendra wrap removed from RLE d/t pt. c/o tightness- reapplied. Pt. tolerated well.
[2019-04-14 17:26] LABS: Bedside Glucose 384 mg/dL (70-110)
--- NOTE | 2019-04-14 19:08 | PN.RENAL_ITS ---
Patient Problems: Active and Suspected Problems Cellulitis of right foot (Acute) Sepsis (Acute) RUSS (acute kidney injury) (Acute) Hyponatremia (Acute) Cellulitis of right lower extremity (Acute) Ulcer of right foot with fat layer exposed (Acute) Subjective: No nausea No vomiting Breathing is stable - Physical Exam Vitals/I&O's: Vital Signs Temp Pulse Resp BP Pulse Ox 97.5 F L 88 18 149/71 H 95 04/14/19 17:06 04/14/19 17:06 04/14/19 17:06 04/14/19 17:06 04/14/19 17:06 Oxygen Flow Rate (L/min) 7 Oxygen Delivery Method Nasal Cannula Weight: 138.572 kg Body Mass Index (BMI) 43.8 Intake and Output for Last 24 Hours 04/12/19 04/13/19 04/14/19 23:59 23:59 23:59 Intake Total 1200 / 1200 2930 / 3170 3003.5 / 3003.5 Output Total 4975 / 4975 4325 / 4325 2049 / 2049 Balance -3775 / -3775 -1395 / -1155 953.5 / 953.5 General: Alert, Oriented x3 HEENT: Atraumatic Oral: Moist Mucosa Neck: Supple, No JVD Lungs: Clear to auscultation, Normal air movement, No rhonchi, No wheeze Cardiovascular: Regular rate, Regular Rhythm, Normal S1, Normal S2 Abdomen: Bowel Sounds Present, Soft, Non Tender, Distended Skin: No rashes Musculoskeletal: No Tenderness to Palpation of Joints or Extremities Lymphatic: No Cervical, Supraclavicular, or Inguinal Adenopathy Neurological: Cranial nerves II-XII grossly intact, Neuro grossly intact Psych/Mental Status: Normal Affect Microbiology Past 72 Hours 04/09/19 18:45 Wound - Aerobic & Anaerobic Swabs Gram Stain - Final 04/09/19 18:45 Wound - Aerobic & Anaerobic Swabs Wound Culture - Final Streptococcus group G 04/09/19 18:45 Wound - Aerobic & Anaerobic Swabs Anaerobic Culture - Final Anaerobic cocci 04/08/19 14:30 Blood Culture (Wb) - Right Hand Blood Culture - Final No growth in 5 days. 04/08/19 10:40 Blood Culture (Wb) - Anticubital Left Blood Culture - Final No growth in 5 days. Laboratory Results 04/13/19 21:46: POC Glucose 366 H 04/14/19 06:20: WBC 12.2 H, RBC 4.04 L, Hgb 11.7 L, Hct 37.5 L, MCV 92.8, MCH 29.0, MCHC 31.2 L, RDW Std Deviation 44.7 H, RDW Coeff of Akila 13.2, Plt Count 539 H, MPV 9.0, Immature Gran % (Auto) 3.300 H, Neut % (Auto) 77.6 H, Lymph % (Auto) 7.8 L, Cloud % (Auto) 7.6, Eos % (Auto) 2.8, Baso % (Auto) 0.9, Absolute Neuts (auto) 9.5 H, Absolute Lymphs (auto) 0.95, Nucleated RBC % 0 04/14/19 06:20: Sodium 140, Potassium 3.8, Chloride 100, Carbon Dioxide 36.0 H, Anion Gap 4 L, BUN 40 H, Creatinine 1.10, Estim Creat Clear Calc 70.97, Est GFR (MDRD) Af Amer 87, Est GFR (MDRD) Non-Af 72, BUN/Creatinine Ratio 36.4 H, Glucose 309 H, Calcium 8.5 04/14/19 06:28: POC Glucose 271 H 04/14/19 12:07: POC Glucose 458 H* 04/14/19 17:01: POC Glucose 384 H Current Medications Acetaminophen (Tylenol) 650 mg PO Q6H PRN PRN PRN Reason: Mild Pain (1-3)/Temp > 100.7 F Last Admin: 04/11/19 05:59 Dose: 650 mg Documented by: Albuterol/Ipratropium (Duoneb) 3 ml INHALATION Q4HWA.RT [facility] Last Admin: 04/14/19 15:24 Dose: 3 ml Documented by: Amlodipine Besylate (Norvasc) 10 mg PO DAILY [facility] Last Admin: 04/14/19 09:13 Dose: 10 mg Documented by: Carvedilol (Coreg) 12.5 mg PO BID [facility] Last Admin: 04/14/19 09:09 Dose: 12.5 mg Documented by: Collagenase (Santyl) 1 applic TOPICAL DAILY [facility]; Protocol Last Admin: 04/14/19 09:13 Dose: 1 applicatio Documented by: Dextrose (D50w Syringe) 0 gm IV X1 PRN; Protocol PRN Reason: Hypoglycemia Enoxaparin Sodium (Lovenox) 40 mg SC Q12 [facility] Last Admin: 04/14/19 09:11 Dose: 40 mg Documented by: Furosemide (Lasix) 40 mg IV BID@1000,1800 [facility] Last Admin: 04/14/19 17:03 Dose: 40 mg Documented by: Glucagon () 1 mg IM .X1 PRN PRN Reason: Hypoglycemia Heparin Sodium (Beef Lung) () 50 units IV UD PRN PRN Reason: PICC Line Heparin Flush Hydralazine HCl (Apresoline Iv) 5 mg IV Q6H PRN PRN PRN Reason: BLOOD PRESSURE Last Admin: 04/13/19 00:22 Dose: 5 mg Documented by: Sodium Chloride () 250 mls @ 15 mls/hr IV .[id number] PRN PRN Reason: Saline Flush Last Infusion: 04/14/19 10:30 Dose: 0 mls/hr Documented by: Ceftriaxone Sodium 2 gm/ (Sodium Chloride) 50 mls @ 100 mls/hr IV Q24 [facility] Last Infusion: 04/14/19 09:36 Dose: Infused Documented by: Insulin Glargine (Lantus (Bkc)) 15 units SC BREAKFAST [facility] Insulin Glargine (Lantus (Bkc)) 15 units SC QHS [facility] Insulin Human Lispro (Humalog Kwikpen (Bkc)) 0 unit SC ACHS [facility]; Protocol Last Admin: 04/14/19 17:04 Dose: 4 u Documented by: Insulin Human Lispro (Humalog Kwikpen (Bkc)) 10 unit SC LUNCH [facility] Last Admin: 04/14/19 12:52 Dose: 10 u Documented by: Insulin Human Lispro (Humalog Kwikpen (Bkc)) 10 unit SC DINNER [facility] Last Admin: 04/14/19 17:03 Dose: 10 u Documented by: Insulin Human Lispro (Humalog Kwikpen (Bkc)) 10 unit SC BREAKFAST SH[facility] Magnesium Hydroxide (Milk Of Magnesia) 30 ml PO DAILY PRN PRN PRN Reason: Constipation Metronidazole (Flagyl) 500 mg PO TID [facility] Last Admin: 04/14/19 12:58 Dose: 500 mg Documented by: Nutritional Formula (Chun - [place] Flavor) 1 packet PO BIDCM [facility] Last Admin: 04/14/19 17:03 Dose: 1 packet Documented by: Nutritional Formula (Lactose Free) (Glucerna [place]) 120 ml PO 4X/DAY [facility] Last Admin: 04/14/19 17:03 Dose: 120 ml Documented by: Ondansetron HCl (Zofran) 4 mg IV Q8H PRN PRN PRN Reason: NAUSEA/VOMITING Oxycodone HCl (Oxyir) 5 mg PO Q4H PRN PRN PRN Reason: Moderate Pain (4-6/10) Last Admin: 04/14/19 17:09 Dose: 5 mg Documented by: Sodium Chloride () 5 - 15 ml IV UD PRN PRN Reason: SALINE FLUSH Last Admin: 04/14/19 17:03 Dose: 10 ml Documented by: Sodium Chloride (0.9% Nacl (Sterile) Posiflush) 10 - 40 ml IV UD PRN PRN Reason: Port access or dressing change Sodium Chloride () 10 - 40 ml IV UD PRN PRN Reason: SALINE FLUSH Last Admin: 04/12/19 11:30 Dose: 20 ml Documented by: Medical Necessity - Tobacco Use Smoking Status: Never smoker Tobacco Use: Cigarettes Assessment/Plan All Active Problems Cellulitis of right foot (Acute) Sepsis (Acute) RUSS (acute kidney injury) (Acute) Hyponatremia (Acute) Cellulitis of right lower extremity (Acute) Ulcer of right foot with fat layer exposed (Acute) 1- RUSS. Unknown baseline. RUSS is prerenal. Cr has improved SCr is 1.1 mg/dL today. Continue lasix. Will watch renal function while being diuresed. Keep MAP > 65. Recheck Cr in am. 2-Hyponatremia: likely from RUSS and volume depletion. Resolved. Watch for possible hypernatremia with diuresis. 3-HTN: Pt was hypotensive at admission. BP is acceptable on current medications. Off his usual ramipril and HCTZ. Can restart ACEI/HCTZ in a few days if renal function is stable with diuresis. 4- Sepsis related to RLE cellulitis and possible UTI. Abx as per the primary service.
[2019-04-14 23:25] LABS: Bedside Glucose 357 mg/dL (70-110)
[2019-04-15] VITALS (17 sets, daily range): BP systolic 112–158; BP diastolic 52–86; PULSE 76–103; RESP 12–31; TEMP 36.4–36.6; O2SAT 90–94
[2019-04-15] MEDS: oxyCODONE 5 MG Tablet PO ×4 (05:15→22:18)
[2019-04-15] MEDS: metroNIDAZOLE 500 MG Tablet PO ×3 (05:16→22:19)
[2019-04-15] MEDS: 0.9% Saline Lock 10 ML Syringe IV ×4 (05:17→09:30)
[2019-04-15 05:40] LABS: Absolute Lymphocyte Count 1.07 X10^3/uL (0.83-4.51); Absolute Neutrophil Count 11.2 X10^3/uL (2.0-7.7); Basophil# 0.09 X10^3/uL; Basophil% 0.6 % (0-1); Eosinophil# 0.37 X10^3/uL; Eosinophils% 2.6 % (0-5); Hematocrit 35.7 % (40-54); Hemoglobin 10.9 g/dL (13.0-16.5); Lymphocyte # 1.07 X10^3/ul (4.0); Lymphocyte % 7.7 % (19-41); Mean Corp Hgb Conc 30.5 g/dL (32-36); Mean Corpuscular Hgb 28.5 pg (27.0-32.0); Mean Corpuscular Volume 93.2 fL (80-94); Mean Platelet Vol. 9.2 fl (6.2-12.0); Monocyte# 0.88 X10^3/uL; Monocyte% 6.3 % (0-10); NRBC Flagged by Analyzer 0 % (0-5); Neutrophil # 11.18 X10^3/uL (2.7-7.7); Neutrophil % 80.1 % (47-70); Platelet Count 515 K/mm3 (150-450); RBC Distribution Width CV 12.8 % (11.6-14.6); RBC Distribution Width SD 43.7 fl (35.1-43.9); Red Blood Count 3.83 M/mm3 (4.6-6.2)
[2019-04-15 05:58] LABS: Anion Gap 4 (5-15); BUN 40 mg/dL (7-18); BUN/Creat Ratio 35.7 RATIO (10-20); Calcium,Total 8.4 mg/dL (8.5-10.1); Chloride 98 mmol/L (98-107); Creatinine, Serum 1.12 mg/dL (0.70-1.30); EST Glomerular Filtration Rate 70 mL/min (>60); Est Glom Filt Rate - Afr Amer 85 mL/min (>60); Glucose 261 mg/dL (74-106); Potassium 3.9 mmol/L (3.5-5.1); Sodium Level 138 mmol/L (136-145)
[2019-04-15] MEDS: Ipratropium/Albuterol Sulfate 3 ML AMPUL.NEB INHALATION ×3 (06:36→19:23)
--- NOTE | 2019-04-15 07:23 | PCM.PN.PUL ---
Patient Problems: Active and Suspected Problems Cellulitis of right foot (Acute) Sepsis (Acute) RUSS (acute kidney injury) (Acute) Hyponatremia (Acute) Cellulitis of right lower extremity (Acute) Ulcer of right foot with fat layer exposed (Acute) Subjective: The patient was seen and examined at the bedside this morning. Events from the last 24 hours have been reviewed. The patient is currently afebrile, hemodynamically stable and maintaining appropriate oxygen saturations on 4 L/min via nasal cannula. The patient remains on scheduled IV Lasix twice daily. He is currently documented to be overall net +2 L for the admission. Creatinine remains stable. Objective: The patient's most recent lab work, culture data and imaging studies have all been personally reviewed. Surface echocardiogram completed on April 09 revealed stage II diastolic dysfunction. - Physical Exam Vitals/I&O's: Vital Signs Temp Pulse Resp BP Pulse Ox 97.6 F L 81 20 H 112/56 L 92 04/15/19 03:35 04/15/19 07:05 04/15/19 03:35 04/15/19 03:35 04/15/19 05:45 Oxygen Flow Rate (L/min) 4 Oxygen Delivery Method Nasal Cannula Weight: 305 lb 7.983 oz Body Mass Index (BMI) 43.8 Intake and Output for Last 24 Hours 04/13/19 04/14/19 04/15/19 23:59 23:59 23:59 Intake Total 2930 / 3170 3003.5 / 3243.5 480 / 480 Output Total 4325 / 4325 2050 / 2500 1075 / 1075 Balance -1395 / -1155 953.5 / 743.5 -595 / -595 General: Alert, Cooperative, No apparent distress HEENT: Atraumatic, PERRLA, Normocephalic Oral: No Gingival or Mucosal Lesions/ Ulcerations Neck: Supple, No Nodes, Trachea Midline Lungs: No rhonchi, No wheeze, No rales, Diminished Cardiovascular: Regular rate, Regular Rhythm, Normal S1, Normal S2, No murmurs Abdomen: Bowel Sounds Present, Soft, Non Tender, Obese Extremities: No clubbing, No cyanosis, Edema Skin: - - No significant change from previous Musculoskeletal: No Muscle Wasting Lymphatic: No Cervical, Supraclavicular, or Inguinal Adenopathy Neurological: Cranial nerves II-XII grossly intact, Neuro grossly intact Psych/Mental Status: Alert and oriented to time, place, person, mood and affect Microbiology Past 72 Hours Labs (Last 48 Hours) 04/12/19 04/13/19 04/13/19 08:24 11:57 16:43 WBC RBC Hgb Hct MCV MCH MCHC RDW Std Deviation RDW Coeff of Akila Plt Count MPV Immature Gran % (Auto) Neut % (Auto) Lymph % (Auto) [place] % (Auto) Eos % (Auto) Baso % (Auto) Absolute Neuts (auto) Absolute Lymphs (auto) Nucleated RBC % Diff Path Review Reviewed Sodium Potassium Chloride Carbon Dioxide Anion Gap BUN Creatinine Estim Creat Clear Calc Est GFR (MDRD) Af Amer Est GFR (MDRD) Non-Af BUN/Creatinine Ratio Glucose Calcium POC Glucose 316 H 265 H 04/13/19 04/14/19 04/14/19 21:46 06:20 06:20 WBC 12.2 H RBC 4.04 L Hgb 11.7 L Hct 37.5 L MCV 92.8 MCH 29.0 MCHC 31.2 L RDW Std Deviation 44.7 H RDW Coeff of Akila 13.2 Plt Count 539 H MPV 9.0 Immature Gran % (Auto) 3.300 H Neut % (Auto) 77.6 H Lymph % (Auto) 7.8 L [place] % (Auto) 7.6 Eos % (Auto) 2.8 Baso % (Auto) 0.9 Absolute Neuts (auto) 9.5 H Absolute Lymphs (auto) 0.95 Nucleated RBC % 0 Diff Path Review Sodium 140 Potassium 3.8 Chloride 100 Carbon Dioxide 36.0 H Anion Gap 4 L BUN 40 H Creatinine 1.10 Estim Creat Clear Calc 70.97 Est GFR (MDRD) Af Amer 87 Est GFR (MDRD) Non-Af 72 BUN/Creatinine Ratio 36.4 H Glucose 309 H Calcium 8.5 POC Glucose 366 H 04/14/19 04/14/19 04/14/19 06:28 12:07 17:01 WBC RBC Hgb Hct MCV MCH MCHC RDW Std Deviation RDW Coeff of Akila Plt Count MPV Immature Gran % (Auto) Neut % (Auto) Lymph % (Auto) [place] % (Auto) Eos % (Auto) Baso % (Auto) Absolute Neuts (auto) Absolute Lymphs (auto) Nucleated RBC % Diff Path Review Sodium Potassium Chloride Carbon Dioxide Anion Gap BUN Creatinine Estim Creat Clear Calc Est GFR (MDRD) Af Amer Est GFR (MDRD) Non-Af BUN/Creatinine Ratio Glucose Calcium POC Glucose 271 H 458 H* 384 H 04/14/19 04/15/19 04/15/19 21:42 05:15 05:15 WBC 14.0 H RBC 3.83 L Hgb 10.9 L Hct 35.7 L MCV 93.2 MCH 28.5 MCHC 30.5 L RDW Std Deviation 43.7 RDW Coeff of Akila 12.8 Plt Count 515 H MPV 9.2 Immature Gran % (Auto) 2.700 H Neut % (Auto) 80.1 H Lymph % (Auto) 7.7 L [place] % (Auto) 6.3 Eos % (Auto) 2.6 Baso % (Auto) 0.6 Absolute Neuts (auto) 11.2 H Absolute Lymphs (auto) 1.07 Nucleated RBC % 0 Diff Path Review Sodium 138 Potassium 3.9 Chloride 98 Carbon Dioxide 36.0 H Anion Gap 4 L BUN 40 H Creatinine 1.12 Estim Creat Clear Calc 69.70 Est GFR (MDRD) Af Amer 85 Est GFR (MDRD) Non-Af 70 BUN/Creatinine Ratio 35.7 H Glucose 261 H Calcium 8.4 L POC Glucose 357 H Microbiology 04/09/19 18:45 Wound - Aerobic & Anaerobic Swabs Gram Stain - Final 04/09/19 18:45 Wound - Aerobic & Anaerobic Swabs Wound Culture - Final Streptococcus group G 04/09/19 18:45 Wound - Aerobic & Anaerobic Swabs Anaerobic Culture - Final Anaerobic cocci 04/08/19 14:30 Blood Culture (Wb) - Right Hand Blood Culture - Final No growth in 5 days. 04/08/19 10:40 Blood Culture (Wb) - Anticubital Left Blood Culture - Final No growth in 5 days. Clinical Impression(s) from Imaging Studies Chest X-Ray 04/08/19 13:59 IMPRESSION: No acute cardiopulmonary process. Electronically Signed: Dominic Perla MD ([place]) at 14:55 EDT , Service support , Foot X-Ray 04/08/19 14:01 IMPRESSION: 1. No fabi bony destructive process. Soft tissue swelling of the medial or the lateral foot. 2. Superficial debris of the distal plantar foot/toes. 3. Multifocal degenerative changes. Electronically Signed: Dominic Perla MD ([place]) at 14:56 EDT , Service support , Tibia/Fibula X-Ray 04/09/19 18:20 IMPRESSION: No acute bony injury of the tibia and fibula. Electronically Signed: Shady Herring DO at 20:43 EDT Tel [phone], Service support , Chest X-Ray 04/09/19 20:40 IMPRESSION: Possible mild interstitial prominence. Evaluation is limited by motion. Electronically Signed: Shady Herring DO at 21:30 EDT Tel [phone], Service support , Chest X-Ray 04/11/19 08:05 IMPRESSION: Worsening CHF with findings suggesting focal infiltration in the right upper lobe. Small bilateral effusions. Electronically Signed: Lam Bolden, at 9:42 EDT , Service support , Chest X-Ray 04/12/19 03:29 IMPRESSION: Bilateral airspace opacity, right significantly worse compared to the left suggestive of asymmetric pulmonary edema versus right-sided pneumonia. Possible mild effusions overall findings stable slightly worsened in the interval. Right-sided PICC line as described above. Electronically Signed: Mariposa Botello MD at 4:03 EDT , Service support , Lower Extremity MRI 04/13/19 14:30 IMPRESSION: Cellulitis of the forefoot Significant osteoarthrosis first metatarsophalangeal and interphalangeal joints of the big toe with articular and osteochondral defects with osteophyte formation. Subtle mild increased T2 and decreased T1 signal within the ungual tuft of the big toe which could represent early mild osteomyelitis versus less likely degenerative. Electronically Signed: Leonel Zepeda, at 0:46 EDT Tel , Service support , Lower Extremity MRI 04/13/19 14:30 IMPRESSION: No MRI evidence of osteomyelitis. Partial tear of the Achilles tendon. Longitudinal split tear of the peroneal brevis. Arthritic change. Electronically Signed: Rush Neff MD at 8:43 EDT , Service support , Current Medications Acetaminophen (Tylenol) 650 mg PO Q6H PRN PRN PRN Reason: Mild Pain (1-3)/Temp > 100.7 F Last Admin: 04/11/19 05:59 Dose: 650 mg Documented by: Albuterol/Ipratropium (Duoneb) 3 ml INHALATION Q4HWA.RT [facility] Last Admin: 04/15/19 06:36 Dose: 3 ml Documented by: Amlodipine Besylate (Norvasc) 10 mg PO DAILY [facility] Last Admin: 04/14/19 09:13 Dose: 10 mg Documented by: Carvedilol (Coreg) 12.5 mg PO BID [facility] Last Admin: 04/14/19 21:43 Dose: 12.5 mg Documented by: Collagenase (Santyl) 1 applic TOPICAL DAILY SHANIQUE; Protocol Last Admin: 04/14/19 09:13 Dose: 1 applicatio Documented by: Dextrose (D50w Syringe) 0 gm IV X1 PRN; Protocol PRN Reason: Hypoglycemia Enoxaparin Sodium (Lovenox) 40 mg SC Q12 [facility] Last Admin: 04/14/19 21:46 Dose: 40 mg Documented by: Furosemide (Lasix) 40 mg IV BID@1000,1800 [facility] Last Admin: 04/14/19 17:03 Dose: 40 mg Documented by: Glucagon () 1 mg IM .X1 PRN PRN Reason: Hypoglycemia Heparin Sodium (Beef Lung) () 50 units IV UD PRN PRN Reason: PICC Line Heparin Flush Hydralazine HCl (Apresoline Iv) 5 mg IV Q6H PRN PRN PRN Reason: BLOOD PRESSURE Last Admin: 04/13/19 00:22 Dose: 5 mg Documented by: Sodium Chloride () 250 mls @ 15 mls/hr IV .[id number] PRN PRN Reason: Saline Flush Last Infusion: 04/14/19 10:30 Dose: 0 mls/hr Documented by: Ceftriaxone Sodium 2 gm/ (Sodium Chloride) 50 mls @ 100 mls/hr IV Q24 [facility] Last Infusion: 04/14/19 09:36 Dose: Infused Documented by: Insulin Glargine (Lantus (Bkc)) 15 units SC BREAKFAST SHANIQUE Insulin Glargine (Lantus (Bkc)) 15 units SC QHS [facility] Last Admin: 04/14/19 21:50 Dose: 15 u Documented by: Insulin Human Lispro (Humalog Kwikpen (Bkc)) 0 unit SC ACHS [facility]; Protocol Last Admin: 04/14/19 21:48 Dose: 4 u Documented by: Insulin Human Lispro (Humalog Kwikpen (Bkc)) 10 unit SC LUNCH [facility] Last Admin: 04/14/19 12:52 Dose: 10 u Documented by: Insulin Human Lispro (Humalog Kwikpen (Bkc)) 10 unit SC DINNER [facility] Last Admin: 04/14/19 17:03 Dose: 10 u Documented by: Insulin Human Lispro (Humalog Kwikpen (Bkc)) 10 unit SC BREAKFAST [facility] Magnesium Hydroxide (Milk Of Magnesia) 30 ml PO DAILY PRN PRN PRN Reason: Constipation Metronidazole (Flagyl) 500 mg PO TID [facility] Last Admin: 04/15/19 05:16 Dose: 500 mg Documented by: Nutritional Formula (Chun - [place] Flavor) 1 packet PO BIDCM [facility] Last Admin: 04/14/19 17:03 Dose: 1 packet Documented by: Nutritional Formula (Lactose Free) (Glucerna Shake) 120 ml PO 4X/DAY [facility] Last Admin: 04/14/19 21:44 Dose: 120 ml Documented by: Ondansetron HCl (Zofran) 4 mg IV Q8H PRN PRN PRN Reason: NAUSEA/VOMITING Oxycodone HCl (Oxyir) 5 mg PO Q4H PRN PRN PRN Reason: Moderate Pain (4-6/10) Last Admin: 04/15/19 05:15 Dose: 5 mg Documented by: Sodium Chloride () 5 - 15 ml IV UD PRN PRN Reason: SALINE FLUSH Last Admin: 04/15/19 05:17 Dose: 15 ml Documented by: Sodium Chloride (0.9% Nacl (Sterile) Posiflush) 10 - 40 ml IV UD PRN PRN Reason: Port access or dressing change Sodium Chloride () 10 - 40 ml IV UD PRN PRN Reason: SALINE FLUSH Last Admin: 04/12/19 11:30 Dose: 20 ml Documented by: Medical Necessity - Tobacco Use Smoking Status: Never smoker Tobacco Use: Cigarettes Assessment/Plan All Active Problems Cellulitis of right foot (Acute) Sepsis (Acute) RUSS (acute kidney injury) (Acute) Hyponatremia (Acute) Cellulitis of right lower extremity (Acute) Ulcer of right foot with fat layer exposed (Acute) RECOMMENDATIONS: 1. Continue nocturnal BiPAP therapy. 2. Continue scheduled diuretic therapy and wean supplemental oxygen to maintain saturations at or above 90%. 3. Encourage the use of incentive spirometry. Mobilize patient as tolerated. IMPRESSIONS: 1. Acute combined respiratory failure Likely multifactorial in etiology with obesity hypoventilation, underlying atelectasis and congestive heart failure contributing. The patient is overall net positive from a volume perspective for the hospital admission. The patient does appear to be improving from an oxygenation status in the setting of diuresis. I would recommend continuing IV Lasix as tolerated for volume optimization. Continue to wean supplemental oxygen as tolerated to maintain saturations at or above 90%. Continue BiPAP therapy at a minimum with naps and nightly. Encourage incentive spirometer use and mobilize patient as tolerated. 2. Sepsis secondary to diabetic foot infection Continue current supportive measures and antimicrobials per infectious diseases recommendations. 3. Acute kidney injury Resolved. Continue management per nephrology recommendations. 4. Personal history of obstructive sleep apnea While the patient does report a known history of obstructive sleep apnea, it is highly likely that is currently prescribed pressure per support is inadequate to control his sleep apnea. I would strongly recommend that he follow-up in the pulmonary medicine clinic on an outpatient basis for a re-titration polysomnogram. In the interim, empiric BiPAP therapy will be utilized while the patient is admitted to the hospital. 5. Morbid obesity/hypertension/diabetes mellitus Complicates care, management, recovery and prognosis. Avoid nephrotoxic medications. Continue sliding scale coverage. This note was generated with [employer] software. It may contain incorrect words, spelling, and punctuation that were not noted in checking the note before signing. Code Visit Inpatient E&M: 45492 Subs Hosp L2
[2019-04-15] MEDS: Collagenase 30gm Tube 1 APPLIC TOPICAL (07:30)
[2019-04-15 07:36] LABS: Bedside Glucose 219 mg/dL (70-110)
--- NOTE | 2019-04-15 08:01 | NURSING ---
PICC line dressing change completed by this nurse and Aguila Sanabria RN, PICC line dressing curled up at bottom around stat lock and PICC line catheter kinked and curled. See dressing change intervention.
--- NOTE | 2019-04-15 08:16 | PN_ITS ---
Patient Problems: Active and Suspected Problems Cellulitis of right foot (Acute) Sepsis (Acute) RUSS (acute kidney injury) (Acute) Hyponatremia (Acute) Cellulitis of right lower extremity (Acute) Ulcer of right foot with fat layer exposed (Acute) Subjective: This 63-year-old male with multiple comorbidities is seen bedside for right great toe ulcer and leg cellulitis associated with his recent sepsis. He denies fever, chill, nausea, vomiting. He relates he has chronic redness and swelling to the leg. - Physical Exam Vitals/I&O's: Vital Signs Temp Pulse Resp BP Pulse Ox 97.6 F L 81 20 H 112/56 L 92 04/15/19 03:35 04/15/19 07:05 04/15/19 03:35 04/15/19 03:35 04/15/19 05:45 Oxygen Flow Rate (L/min) 5 Oxygen Delivery Method Nasal Cannula Weight: 138.572 kg Body Mass Index (BMI) 43.8 Intake and Output for Last 24 Hours 04/13/19 04/14/19 04/15/19 23:59 23:59 23:59 Intake Total 2930 / 3170 3003.5 / 3243.5 480 / 480 Output Total 4325 / 4325 2050 / 2500 1075 / 1075 Balance -1395 / -1155 953.5 / 743.5 -595 / -595 General: Alert, Oriented x3, Cooperative Microbiology Past 72 Hours 04/09/19 18:45 Wound - Aerobic & Anaerobic Swabs Gram Stain - Final 04/09/19 18:45 Wound - Aerobic & Anaerobic Swabs Wound Culture - Final Streptococcus group G 04/09/19 18:45 Wound - Aerobic & Anaerobic Swabs Anaerobic Culture - Final Anaerobic cocci 04/08/19 14:30 Blood Culture (Wb) - Right Hand Blood Culture - Final No growth in 5 days. 04/08/19 10:40 Blood Culture (Wb) - Anticubital Left Blood Culture - Final No growth in 5 days. Laboratory Results 04/14/19 12:07: POC Glucose 458 H* 04/14/19 17:01: POC Glucose 384 H 04/14/19 21:42: POC Glucose 357 H 04/15/19 05:15: WBC 14.0 H, RBC 3.83 L, Hgb 10.9 L, Hct 35.7 L, MCV 93.2, MCH 28.5, MCHC 30.5 L, RDW Std Deviation 43.7, RDW Coeff of Akila 12.8, Plt Count 515 H, MPV 9.2, Immature Gran % (Auto) 2.700 H, Neut % (Auto) 80.1 H, Lymph % (Auto) 7.7 L, [place] % (Auto) 6.3, Eos % (Auto) 2.6, Baso % (Auto) 0.6, Absolute Neuts (auto) 11.2 H, Absolute Lymphs (auto) 1.07, Nucleated RBC % 0 04/15/19 05:15: Sodium 138, Potassium 3.9, Chloride 98, Carbon Dioxide 36.0 H, Anion Gap 4 L, BUN 40 H, Creatinine 1.12, Estim Creat Clear Calc 69.70, Est GFR (MDRD) Af Amer 85, Est GFR (MDRD) Non-Af 70, BUN/Creatinine Ratio 35.7 H, G lucose 261 H, Calcium 8.4 L 04/15/19 07:32: POC Glucose 219 H Current Medications Acetaminophen (Tylenol) 650 mg PO Q6H PRN PRN PRN Reason: Mild Pain (1-3)/Temp > 100.7 F Last Admin: 04/11/19 05:59 Dose: 650 mg Documented by: Albuterol/Ipratropium (Duoneb) 3 ml INHALATION Q4HWA.RT [facility] Last Admin: 04/15/19 06:36 Dose: 3 ml Documented by: Amlodipine Besylate (Norvasc) 10 mg PO DAILY [facility] Last Admin: 04/14/19 09:13 Dose: 10 mg Documented by: Carvedilol (Coreg) 12.5 mg PO BID [facility] Last Admin: 04/14/19 21:43 Dose: 12.5 mg Documented by: Collagenase (Santyl) 1 applic TOPICAL DAILY [facility]; Protocol Last Admin: 04/14/19 09:13 Dose: 1 applicatio Documented by: Dextrose (D50w Syringe) 0 gm IV X1 PRN; Protocol PRN Reason: Hypoglycemia Enoxaparin Sodium (Lovenox) 40 mg SC Q12 [facility] Last Admin: 04/14/19 21:46 Dose: 40 mg Documented by: Furosemide (Lasix) 40 mg IV BID@1000,1800 [facility] Last Admin: 04/14/19 17:03 Dose: 40 mg Documented by: Glucagon () 1 mg IM .X1 PRN PRN Reason: Hypoglycemia Heparin Sodium (Beef Lung) () 50 units IV UD PRN PRN Reason: PICC Line Heparin Flush Hydralazine HCl (Apresoline Iv) 5 mg IV Q6H PRN PRN PRN Reason: BLOOD PRESSURE Last Admin: 04/13/19 00:22 Dose: 5 mg Documented by: Sodium Chloride () 250 mls @ 15 mls/hr IV .[id number] PRN PRN Reason: Saline Flush Last Infusion: 04/14/19 10:30 Dose: 0 mls/hr Documented by: Ceftriaxone Sodium 2 gm/ (Sodium Chloride) 50 mls @ 100 mls/hr IV Q24 [facility] Last Infusion: 04/14/19 09:36 Dose: Infused Documented by: Insulin Glargine (Lantus (Bkc)) 15 units SC BREAKFAST [facility] Insulin Glargine (Lantus (Bkc)) 15 units SC QHS [facility] Last Admin: 04/14/19 21:50 Dose: 15 u Documented by: Insulin Human Lispro (Humalog Kwikpen (Bkc)) 0 unit SC ACHS [facility]; Protocol Last Admin: 04/14/19 21:48 Dose: 4 u Documented by: Insulin Human Lispro (Humalog Kwikpen (Bkc)) 10 unit SC LUNCH [facility] Last Admin: 04/14/19 12:52 Dose: 10 u Documented by: Insulin Human Lispro (Humalog Kwikpen (Bkc)) 10 unit SC DINNER [facility] Last Admin: 04/14/19 17:03 Dose: 10 u Documented by: Insulin Human Lispro (Humalog Kwikpen (Bkc)) 10 unit SC BREAKFAST [facility] Magnesium Hydroxide (Milk Of Magnesia) 30 ml PO DAILY PRN PRN PRN Reason: Constipation Metronidazole (Flagyl) 500 mg PO TID [facility] Last Admin: 04/15/19 05:16 Dose: 500 mg Documented by: Nutritional Formula (Chun - [place] Flavor) 1 packet PO BIDCM [facility] Last Admin: 04/14/19 17:03 Dose: 1 packet Documented by: Nutritional Formula (Lactose Free) (Glucerna Shake) 120 ml PO 4X/DAY [facility] Last Admin: 04/14/19 21:44 Dose: 120 ml Documented by: Ondansetron HCl (Zofran) 4 mg IV Q8H PRN PRN PRN Reason: NAUSEA/VOMITING Oxycodone HCl (Oxyir) 5 mg PO Q4H PRN PRN PRN Reason: Moderate Pain (4-6/10) Last Admin: 04/15/19 05:15 Dose: 5 mg Documented by: Sodium Chloride () 5 - 15 ml IV UD PRN PRN Reason: SALINE FLUSH Last Admin: 04/15/19 05:17 Dose: 15 ml Documented by: Sodium Chloride (0.9% Nacl (Sterile) Posiflush) 10 - 40 ml IV UD PRN PRN Reason: Port access or dressing change Sodium Chloride () 10 - 40 ml IV UD PRN PRN Reason: SALINE FLUSH Last Admin: 04/12/19 11:30 Dose: 20 ml Documented by: Medical Necessity - Tobacco Use Smoking Status: Never smoker Tobacco Use: Cigarettes Assessment/Plan All Active Problems Cellulitis of right foot (Acute) Sepsis (Acute) RUSS (acute kidney injury) (Acute) Hyponatremia (Acute) Cellulitis of right lower extremity (Acute) Ulcer of right foot with fat layer exposed (Acute) Ulcer right hallux with fat layer exposed Osteomyelitis versus degenerative reactive bone marrow from mechanical pressure to distal tip of distal phalanx of right hallux Right lower extremity cellulitis resolving Deep venous thrombosis has been ruled out with venous Doppler exam Right lower extremity edema; venous insufficiency is suspected Right lower extremity pain -decreasing Partial tear of achilles right lower extremity Uncontrolled diabetes with neuropathy; hemoglobin A1c 12.2 noted Sepsis resolved Multiple other comorbidities: Sleep apnea, obesity, kidney injury, hypertension I reviewed and discussed his case. His white blood cell count is 14. MRI was reviewed. He does have some increase in intensity on T2 correspond to decrease intensity on T1 to the distal tip of the distal phalanx of the right hallux which is either very early acute osteomyelitis or reactive change from mecha nical stress of walking. To continue on antibiotics including ceftriaxone, and Flagyl per infectious disease recommendations. I do not recommend surgical amputation at this time. The patient would like to proceed without amputation at this time as well; he is interested in trying wound care and antibiotics first. Serial debridement and better offloading is imperative for wound healing. He has demonstrated a favorable response so far. He change dressing daily with Cot[place]el ag. Subcutaneous excisional debridement was performed again today with a 15 blade scalpel after verbal consent was obtained. Pressure was applied to maintain hemostasis. Subcutaneous excisional debridement was performed to remove devitalized subcutaneous tissue, fibrous tissue, biofilm and slough. To continue with Mahendra wraps for edema management. His partial right Achilles rupture is noted. To continue weight-bear as tolerated right lower extremity with Cam walker boot in place and added heel lift which was applied today. If pain continues with partial weightbearing I recommend he goes to nonweightbearing. I do not recommend primary repair of the Achilles during his current infection scenario. Treatment for this condition involves either conservative immobilization with the foot in a plantarflexed position for 1 to 3 months versus surgical repair once he is medically stable and his infection has cleared. Medical management DVT prophylaxis per primary team is greatly appreciated. I will continue to follow him closely in house. Please do not hesitate to call if you have any questions. At time of discharge I recommend he follows up with the wound healing center if he continues to reside in [place]. It is noted he lives in [place] and plans to return. I recommend a referral to [facility] wound healing center near his home. I also recommend outpatient venous duplex Doppler with reflux evaluation to see determine if there is any potential intervention options for chronic venous insufficiency which may also be contributing to his leg inflammation, pain, and edema. I also recommend he follows up with a lower extremity specialist for management of his Achilles injury. Lindsey Jacques DPM, [facility] [phone]
--- NOTE | 2019-04-15 08:28 | PCM.DC.SUM ---
Discharge Date and Diagnosis - Problem List Patient Problems: Active and Suspected Problems Cellulitis of right foot (Acute) Sepsis (Acute) RUSS (acute kidney injury) (Acute) Hyponatremia (Acute) Cellulitis of right lower extremity (Acute) Ulcer of right foot with fat layer exposed (Acute) Date of Admission: 04/08/19 - Primary Discharge Diagnosis Active and Suspected Problems Cellulitis of right foot (Acute) Sepsis (Acute) RUSS (acute kidney injury) (Acute) Hyponatremia (Acute) Cellulitis of right lower extremity (Acute) Ulcer of right foot with fat layer exposed (Acute) - Secondary Discharge Diagnosis Chronic Problems Hypertension (Chronic) DM type 2 (diabetes mellitus, type 2) (Chronic) Morbid obesity (Chronic) ENEIDA (obstructive sleep apnea) (Chronic) Bilateral leg edema (Chronic) Type 2 diabetes mellitus with diabetic polyneuropathy (Chronic) Hospital Course and Treatment Consultations 04/08/19 17:46 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: 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 Routine Comment: Summary of Care Provided: The patient is a 63 year old M [] Patient Problems: Active and Suspected Problems Cellulitis of right foot (Acute) Sepsis (Acute) RUSS (acute kidney injury) (Acute) Hyponatremia (Acute) Cellulitis of right lower extremity (Acute) Ulcer of right foot with fat layer exposed (Acute) - Physical Exam Vitals/I&O's: Vital Signs Temp Pulse Resp BP Pulse Ox 97.6 F L 81 20 H 112/56 L 92 04/15/19 03:35 04/15/19 07:05 04/15/19 03:35 04/15/19 03:35 04/15/19 05:45 Oxygen Flow Rate (L/min) 5 Oxygen Delivery Method Nasal Cannula Weight: 138.572 kg Body Mass Index (BMI) 43.8 Intake and Output for Last 24 Hours 04/13/19 04/14/19 04/15/19 23:59 23:59 23:59 Intake Total 2930 / 3170 3003.5 / 3243.5 480 / 480 Output Total 4325 / 4325 2050 / 2500 1075 / 1075 Balance -1395 / -1155 953.5 / 743.5 -595 / -595 Microbiology Past 72 Hours 04/09/19 18:45 Wound - Aerobic & Anaerobic Swabs Gram Stain - Final 04/09/19 18:45 Wound - Aerobic & Anaerobic Swabs Wound Culture - Final Streptococcus group G 04/09/19 18:45 Wound - Aerobic & Anaerobic Swabs Anaerobic Culture - Final Anaerobic cocci 04/08/19 14:30 Blood Culture (Wb) - Right Hand Blood Culture - Final No growth in 5 days. 04/08/19 10:40 Blood Culture (Wb) - Anticubital Left Blood Culture - Final No growth in 5 days. Laboratory Results 04/14/19 12:07: POC Glucose 458 H* 04/14/19 17:01: POC Glucose 384 H 04/14/19 21:42: POC Glucose 357 H 04/15/19 05:15: WBC 14.0 H, RBC 3.83 L, Hgb 10.9 L, Hct 35.7 L, MCV 93.2, MCH 28.5, MCHC 30.5 L, RDW Std Deviation 43.7, RDW Coeff of Akila 12.8, Plt Count 515 H, MPV 9.2, Immature Gran % (Auto) 2.700 H, Neut % (Auto) 80.1 H, Lymph % (Auto) 7.7 L, [place] % (Auto) 6.3, Eos % (Auto) 2.6, Baso % (Auto) 0.6, Absolute Neuts (auto) 11.2 H, Absolute Lymphs (auto) 1.07, Nucleated RBC % 0 04/15/19 05:15: Sodium 138, Potassium 3.9, Chloride 98, Carbon Dioxide 36.0 H, Anion Gap 4 L, BUN 40 H, Creatinine 1.12, Estim Creat Clear Calc 69.70, Est GFR (MDRD) Af Amer 85, Est GFR (MDRD) Non-Af 70, BUN/Creatinine Ratio 35.7 H, Glucose 261 H, Calcium 8.4 L 04/15/19 07:32: POC Glucose 219 H Current Medications Acetaminophen (Tylenol) 650 mg PO Q6H PRN PRN PRN Reason: Mild Pain (1-3)/Temp > 100.7 F Last Admin: 04/11/19 05:59 Dose: 650 mg Documented by: Albuterol/Ipratropium (Duoneb) 3 ml INHALATION Q4HWA.RT [facility] Last Admin: 04/15/19 06:36 Dose: 3 ml Documented by: Amlodipine Besylate (Norvasc) 10 mg PO DAILY [facility] Last Admin: 04/14/19 09:13 Dose: 10 mg Documented by: Carvedilol (Coreg) 12.5 mg PO BID [facility] Last Admin: 04/14/19 21:43 Dose: 12.5 mg Documented by: Collagenase (Santyl) 1 applic TOPICAL DAILY [facility]; Protocol Last Admin: 04/14/19 09:13 Dose: 1 applicatio Documented by: Dextrose (D50w Syringe) 0 gm IV X1 PRN; Protocol PRN Reason: Hypoglycemia Enoxaparin Sodium (Lovenox) 40 mg SC Q12 [facility] Last Admin: 04/14/19 21:46 Dose: 40 mg Documented by: Furosemide (Lasix) 40 mg IV BID@1000,1800 [facility] Last Admin: 04/14/19 17:03 Dose: 40 mg Documented by: Glucagon () 1 mg IM .X1 PRN PRN Reason: Hypoglycemia Heparin Sodium (Beef Lung) () 50 units IV UD PRN PRN Reason: PICC Line Heparin Flush Hydralazine HCl (Apresoline Iv) 5 mg IV Q6H PRN PRN PRN Reason: BLOOD PRESSURE Last Admin: 04/13/19 00:22 Dose: 5 mg Documented by: Sodium Chloride () 250 mls @ 15 mls/hr IV .[id number] PRN PRN Reason: Saline Flush Last Infusion: 04/14/19 10:30 Dose: 0 mls/hr Documented by: Ceftriaxone Sodium 2 gm/ (Sodium Chloride) 50 mls @ 100 mls/hr IV Q24 [facility] Last Infusion: 04/14/19 09:36 Dose: Infused Documented by: Insulin Glargine (Lantus (Bkc)) 15 units SC BREAKFAST [facility] Insulin Glargine (Lantus (Bkc)) 15 units SC QHS [facility] Last Admin: 04/14/19 21:50 Dose: 15 u Documented by: Insulin Human Lispro (Humalog Kwikpen (Bkc)) 0 unit SC ACHS [facility]; Protocol Last Admin: 04/14/19 21:48 Dose: 4 u Documented by: Insulin Human Lispro (Humalog Kwikpen (Bkc)) 10 unit SC LUNCH [facility] Last Admin: 04/14/19 12:52 Dose: 10 u Documented by: Insulin Human Lispro (Humalog Kwikpen (Bkc)) 10 unit SC DINNER [facility] Last Admin: 04/14/19 17:03 Dose: 10 u Documented by: Insulin Human Lispro (Humalog Kwikpen (Bkc)) 10 unit SC BREAKFAST [facility] Magnesium Hydroxide (Milk Of Magnesia) 30 ml PO DAILY PRN PRN PRN Reason: Constipation Metronidazole (Flagyl) 500 mg PO TID [facility] Last Admin: 04/15/19 05:16 Dose: 500 mg Documented by: Nutritional Formula (Chun - [place] Flavor) 1 packet PO BIDCM [facility] Last Admin: 04/14/19 17:03 Dose: 1 packet Documented by: Nutritional Formula (Lactose Free) (Glucerna Shake) 120 ml PO 4X/DAY [facility] Last Admin: 04/14/19 21:44 Dose: 120 ml Documented by: Ondansetron HCl (Zofran) 4 mg IV Q8H PRN PRN PRN Reason: NAUSEA/VOMITING Oxycodone HCl (Oxyir) 5 mg PO Q4H PRN PRN PRN Reason: Moderate Pain (4-6/10) Last Admin: 04/15/19 05:15 Dose: 5 mg Documented by: Sodium Chloride () 5 - 15 ml IV UD PRN PRN Reason: SALINE FLUSH Last Admin: 04/15/19 05:17 Dose: 15 ml Documented by: Sodium Chloride (0.9% Nacl (Sterile) Posiflush) 10 - 40 ml IV UD PRN PRN Reason: Port access or dressing change Sodium Chloride () 10 - 40 ml IV UD PRN PRN Reason: SALINE FLUSH Last Admin: 04/12/19 11:30 Dose: 20 ml Documented by: Home Medications: Medications to take at Discharge Amlodipine [Norvasc] 10 mg PO DAILY 04/08/19 Carvedilol 12.5 mg PO DAILY 04/08/19 Glimepiride 4 mg PO DAILY 04/08/19 Hydrochlorothiazide [Hctz] 25 mg PO DAILY 04/08/19 Metformin HCl 1,000 mg PO BID 04/08/19 Ramipril 10 mg PO QHS 04/08/19 Primary Care Physician: Care Physician,No Primary [Primary Care Provider] - Medical Necessity - Tobacco Use Smoking Status: Never smoker Tobacco Use: Cigarettes
[2019-04-15] MEDS: Glucerna Shake 120 ML LIQUID PO ×4 (09:25→22:19)
[2019-04-15] MEDS: Furosemide 40 MG/4 ML Vial IV (09:27)
[2019-04-15] MEDS: Insulin Lispro 100 UNIT/ML INSULN.PEN 10 UNIT SC ×3 (09:27→17:12)
[2019-04-15] MEDS: Insulin Lispro 100 UNIT/ML INSULN.PEN SC ×4 (09:27→22:23)
[2019-04-15] MEDS: Carvedilol 12.5 MG Tablet PO ×2 (09:28→22:19)
[2019-04-15] MEDS: Enoxaparin 40 MG/0.4 ML Syringe SC ×2 (09:28→22:21)
[2019-04-15] MEDS: amLODIPine 10 MG Tablet PO (09:28)
--- NOTE | 2019-04-15 09:49 | PCM.PROGNOTE ---
Patient Problems: Active and Suspected Problems Cellulitis of right foot (Acute) Sepsis (Acute) RUSS (acute kidney injury) (Acute) Hyponatremia (Acute) Cellulitis of right lower extremity (Acute) Ulcer of right foot with fat layer exposed (Acute) Subjective: CC follow-up right total cellulitis/possible osteo-and congestive heart failure Patient seen clinical condition continues to improve. His oxygen requirement has improved significantly currently needing only 4 L oxygen saturation between 92 and 94. Plan is to continue to wean off oxygen saturation. Also did adjust patient Lasix dose following a significant bump in his BUN. Lasix was decreased from IV 40 twice daily to p.o. 40 mg daily. Objective: GENERAL: Cooperative HEENT: Atraumatic; EYES; Anicteric, Normal Conjunctiva NECK; supple, normal thyroid, RESPIRATORY: Diminished to auscultation CARDIOVASCULAR: Regular S1 S2, GI: soft, non-tender, normoactive bowel sounds, : No Renal angle tenderness; EXTREMITIES: Right toe in dressing MUSCULOSKELETAL: No Joint Tenderness; NEURO: Awake; no lateralizing signs. SKIN: As described above PSYCH; Normal affect - Physical Exam Vitals/I&O's: Vital Signs Temp Pulse Resp BP Pulse Ox 97.9 F 103 H 18 143/73 H 94 04/15/19 09:25 04/15/19 09:25 04/15/19 09:25 04/15/19 09:25 04/15/19 09:25 Oxygen Flow Rate (L/min) 4 Oxygen Delivery Method Nasal Cannula Weight: 138.572 kg Body Mass Index (BMI) 43.8 Intake and Output for Last 24 Hours 04/13/19 04/14/19 04/15/19 23:59 23:59 23:59 Intake Total 2930 / 3170 3003.5 / 3243.5 480 / 480 Output Total 4325 / 4325 2050 / 2500 1075 / 1075 Balance -1395 / -1155 953.5 / 743.5 -595 / -595 Microbiology Past 72 Hours 04/09/19 18:45 Wound - Aerobic & Anaerobic Swabs Gram Stain - Final 04/09/19 18:45 Wound - Aerobic & Anaerobic Swabs Wound Culture - Final Streptococcus group G 04/09/19 18:45 Wound - Aerobic & Anaerobic Swabs Anaerobic Culture - Final Anaerobic cocci 04/08/19 14:30 Blood Culture (Wb) - Right Hand Blood Culture - Final No growth in 5 days. 04/08/19 10:40 Blood Culture (Wb) - Anticubital Left Blood Culture - Final No growth in 5 days. Laboratory Results 04/14/19 12:07: POC Glucose 458 H* 04/14/19 17:01: POC Glucose 384 H 04/14/19 21:42: POC Glucose 357 H 04/15/19 05:15: WBC 14.0 H, RBC 3.83 L, Hgb 10.9 L, Hct 35.7 L, MCV 93.2, MCH 28.5, MCHC 30.5 L, RDW Std Deviation 43.7, RDW Coeff of Akila 12.8, Plt Count 515 H, MPV 9.2, Immature Gran % (Auto) 2.700 H, Neut % (Auto) 80.1 H, Lymph % (Auto) 7.7 L, [place] % (Auto) 6.3, Eos % (Auto) 2.6, Baso % (Auto) 0.6, Absolute Neuts (auto) 11.2 H, Absolute Lymphs (auto) 1.07, Nucleated RBC % 0 04/15/19 05:15: Sodium 138, Potassium 3.9, Chloride 98, Carbon Dioxide 36.0 H, Anion Gap 4 L, BUN 40 H, Creatinine 1.12, Estim Creat Clear Calc 69.70, Est GFR (MDRD) Af Amer 85, Est GFR (MDRD) Non-Af 70, BUN/Creatinine Ratio 35.7 H, Glucose 261 H, Calcium 8.4 L 04/15/19 07:32: POC Glucose 219 H Current Medications Acetaminophen (Tylenol) 650 mg PO Q6H PRN PRN PRN Reason: Mild Pain (1-3)/Temp > 100.7 F Last Admin: 04/11/19 05:59 Dose: 650 mg Documented by: Albuterol/Ipratropium (Duoneb) 3 ml INHALATION Q4HWA.RT [facility] Last Admin: 04/15/19 06:36 Dose: 3 ml Documented by: Amlodipine Besylate (Norvasc) 10 mg PO DAILY [facility] Last Admin: 04/15/19 09:28 Dose: 10 mg Documented by: Carvedilol (Coreg) 12.5 mg PO BID [facility] Last Admin: 04/15/19 09:28 Dose: 12.5 mg Documented by: Collagenase (Santyl) 1 applic TOPICAL DAILY [facility]; Protocol Last Admin: 04/15/19 07:30 Dose: 1 applicatio Documented by: Dextrose (D50w Syringe) 0 gm IV X1 PRN; Protocol PRN Reason: Hypoglycemia Enoxaparin Sodium (Lovenox) 40 mg SC Q12 [facility] Last Admin: 04/15/19 09:28 Dose: 40 mg Documented by: Furosemide (Lasix) 20 mg PO DAILY [facility] Glucagon () 1 mg IM .X1 PRN PRN Reason: Hypoglycemia Heparin Sodium (Beef Lung) () 50 units IV UD PRN PRN Reason: PICC Line Heparin Flush Hydralazine HCl (Apresoline Iv) 5 mg IV Q6H PRN PRN PRN Reason: BLOOD PRESSURE Last Admin: 04/13/19 00:22 Dose: 5 mg Documented by: Sodium Chloride () 250 mls @ 15 mls/hr IV .[id number] PRN PRN Reason: Saline Flush Last Infusion: 04/14/19 10:30 Dose: 0 mls/hr Documented by: Ceftriaxone Sodium 2 gm/ (Sodium Chloride) 50 mls @ 100 mls/hr IV Q24 [facility] Last Admin: 04/15/19 09:26 Dose: 100 mls/hr Documented by: Insulin Glargine (Lantus (Bkc)) 15 units SC BREAKFAST [facility] Insulin Glargine (Lantus (Bkc)) 15 units SC QHS [facility] Last Admin: 04/14/19 21:50 Dose: 15 u Documented by: Insulin Human Lispro (Humalog Kwikpen (Bkc)) 0 unit SC ACHS [facility]; Protocol Last Admin: 04/15/19 09:27 Dose: 2 u Documented by: Insulin Human Lispro (Humalog Kwikpen (Bkc)) 10 unit SC LUNCH [facility] Last Admin: 04/14/19 12:52 Dose: 10 u Documented by: Insulin Human Lispro (Humalog Kwikpen (Bkc)) 10 unit SC DINNER [facility] Last Admin: 04/14/19 17:03 Dose: 10 u Documented by: Insulin Human Lispro (Humalog Kwikpen (Bkc)) 10 unit SC BREAKFAST [facility] Last Admin: 04/15/19 09:27 Dose: 10 u Documented by: Magnesium Hydroxide (Milk Of Magnesia) 30 ml PO DAILY PRN PRN PRN Reason: Constipation Metronidazole (Flagyl) 500 mg PO TID [facility] Last Admin: 04/15/19 05:16 Dose: 500 mg Documented by: Nutritional Formula (Chun - [place] Flavor) 1 packet PO BIDCM [facility] Last Admin: 04/15/19 09:25 Dose: 1 packet Documented by: Nutritional Formula (Lactose Free) (Glucerna Shake) 120 ml PO 4X/DAY [facility] Last Admin: 04/15/19 09:25 Dose: 120 ml Documented by: Ondansetron HCl (Zofran) 4 mg IV Q8H PRN PRN PRN Reason: NAUSEA/VOMITING Oxycodone HCl (Oxyir) 5 mg PO Q4H PRN PRN PRN Reason: Moderate Pain (4-6/10) Last Admin: 04/15/19 09:26 Dose: 5 mg Documented by: Sodium Chloride () 5 - 15 ml IV UD PRN PRN Reason: SALINE FLUSH Last Admin: 04/15/19 09:30 Dose: 10 ml Documented by: Sodium Chloride (0.9% Nacl (Sterile) Posiflush) 10 - 40 ml IV UD PRN PRN Reason: Port access or dressing change Sodium Chloride () 10 - 40 ml IV UD PRN PRN Reason: SALINE FLUSH Last Admin: 04/12/19 11:30 Dose: 20 ml Documented by: Medical Necessity - Tobacco Use Smoking Status: Never smoker Tobacco Use: Cigarettes Assessment/Plan All Active Problems Cellulitis of right foot (Acute) Sepsis (Acute) RUSS (acute kidney injury) (Acute) Hyponatremia (Acute) Cellulitis of right lower extremity (Acute) Ulcer of right foot with fat layer exposed (Acute) Patient is a 63-year-old gentleman with multiple comorbidities including diabetes mellitus type 2 morbid obesity with BMI of 43 who presented with erythema and swelling involving the right lower extremity with blistering of the tip of the first right toe. An assessment of sepsis secondary to cellulitis made admitted to the regular nursing floor for further management 1. Sepsis secondary to extensive cellulitis involving the right lower extremity. Admitted to regular nursing floor patient was treated with clindamycin and vancomycin (patient is allergic to penicillin). Consult was also placed to podiatry medicine. Patient still has significant erythema and swelling involving the right lower extremities ?04/10/2019: Venous duplex ordered as part of patient's evaluation came back negative Lovenox switch back to prophylactic dose. Patient has also been seen in consultation by and notes and recommendations reviewed. ?04/11/2019 antibiotics adjusted by infectious disease patient currently on Rocephin. Recommendation is for patient to undergo MRI to rule out osteomyelitis. This is currently on hold in view of patient low oxygen saturation. Notes from Dr. Franco infectious disease reviewed ?04/12/2019 awaiting for respiratory status to stabilize prior to patient undergoing MRI to rule out osteomyelitis -04/13/2019 final cultures came back positive for strep on Rocephin and Flagyl per recommendations from ID ?04/14/2019: MRI obtained the day prior demonstrated evidence of early mild osteomyelitis. 2. Acute kidney injury ?Patient kidney function did worsen with creatinine rising to 2.14 from an admission level of 1.3. IV fluids initiated consult placed to nephrology ~04/10/2019. Kidney function went up to 2.5 resuscitated with IV fluids ?04/11/2019 kidney function finally improving 04/12/2019 resolved 04/13/2019: Patient kidney function did remain stable despite receiving Lasix 3. Acute metabolic encephalopathy ~secondary to sepsis as well as respiratory acidosis 4. Acute respiratory acidosis ~patient placed on noninvasive ventilation BiPAP with repeat ABGs ordered. did suspect a component of obesity hypoventilation syndrome contributing to patient respiratory distress. Patient was placed on noninvasive ventilation and consult placed to pulmonary medicine -04/14/2019: Patient breathing continues to improve. 5. Acute chronic congestive heart failure with preserved ejection fraction Patient started on Lasix. Echo obtained during current admission demonstrated grade 2 diastolic dysfunction with ejection fraction of 65% 04/13/2019: Patient did respond to Lasix. Kidney function has remained relatively stable 04/14/2019: Patient has responded to Lasix with some improvement in his oxygen saturation ?04/15/2019 patient improved clinically adjusted Lasix dose 6. Diabetes mellitus type II ~Controlled patient's oral hypoglycemics held. Placed on long acting insulin, Accu-Cheks a.c. and at bedtime and covered with sliding scale insulin 7. Essential hypertension - Patient blood pressure was low on admission antihypertensives subsequently held ?04/12/2019 patient blood pressure has stabilized and was elevated his BP medications restarted in addition to PRN hydralazine 8. Morbid obesity, BMI 43.8, -diet and exercise is recommended 9. Hypokalemia corrected per protocol 10. Obstructive sleep apnea ?Patient is on CPAP 11. DVT prophylaxis ? Lovenox 12. Acute cystitis -with Klebsiella patient is on Rocephin Disposition plan is to discharge home once infectious disease decides on duration of treatment and which route p.o. versus IV giving findings of possible early osteomyelitis. Patient lives in [place] discharged Case management consulted to assist with disposition regarding continuation of therapy. Patient also desires to fly and his oxygen requirements needs to improve prior to being permitted to fly with possibly an oxygen tank. Code Visit Inpatient E&M: 32968 Subs Hosp L2
--- NOTE | 2019-04-15 12:16 | PCM.DC.POD ---
Discharge Activity: May Not Drive, Use Walker, - - Wear right CAM walker with heel lift. To follow up with foot/ankle specialists to get fitted for a more durable formal heel lift and to apply CAM walker plastazote or felt offloading liners with a pocket cut out under his hallux ulcer site to relieve pressure. Weight Bearing Status: No weight bearing, - - ok to heel touch for transfers Keep extremity elevated above heart level: Right Leg Call your doctor if your incision/area has: Continuous Slow Oozing, Sudden Increased Bleeding, Increased Pain/ Swelling, Increased Redness, Foul Smelling Discharge Call your doctor if you observe: Fever of 101 or Higher Cleanse incision/area with: Soap & Water, - - To change daily with aquacell Ag to right hallux. cover with gauze and bin roll. Continue to wrap from foot to leg with several cleopatra wraps. Additional Instructions: Follow up with a [facility] wound care center. This is a national program and may be a center near your home in [place]. There is a nearby center in [place]; the center phone number is [phone]. I recommend you have a venous doppler with reflux evaluation performed to assess for venous insufficiency. If your veins in your leg are incompetent you may be a candidate for a venous ablation or sclerosis procedure to reduce the chronic swelling and inflammation. This will reduce pain, swelling, and infection risk. You would need to see a vein specialist or vascular surgeon for this potential workup. The wound center physician may be able to order this test and get this process started. Allergies/Adverse Reactions: Allergies Penicillins [PCN] Allergy (Verified 04/08/19 13:23) Other Sulfa (Sulfonamide Antibiotics) Allergy (Verified 04/08/19 13:23) Other Medications to take at Discharge Amlodipine [Norvasc] 10 mg PO DAILY 04/08/19 Carvedilol 12.5 mg PO DAILY 04/08/19 Glimepiride 4 mg PO DAILY 04/08/19 Hydrochlorothiazide [Hctz] 25 mg PO DAILY 04/08/19 Metformin HCl 1,000 mg PO BID 04/08/19 Ramipril 10 mg PO QHS 04/08/19 Primary Care Physician: Care Physician,No Primary [Primary Care Provider] - Test Results: Test results from this visit will be discussed in further detail at your follow-up appointment, if applicable. Please Follow Up With: Lindsey Jacques DPM When: If you happen to stay in [place], call [facility] [phone]. Proposed Discharge Date: 04/16/19
[2019-04-15 12:20] LABS: Bedside Glucose 404 mg/dL (70-110)
[2019-04-15 17:21] LABS: Bedside Glucose 310 mg/dL (70-110)
--- NOTE | 2019-04-15 18:56 | PN.RENAL_ITS ---
Patient Problems: Active and Suspected Problems Cellulitis of right foot (Acute) Sepsis (Acute) RUSS (acute kidney injury) (Acute) Hyponatremia (Acute) Cellulitis of right lower extremity (Acute) Ulcer of right foot with fat layer exposed (Acute) Subjective: No nausea No vomiting Breathing is stable edema is stable No CP - Physical Exam Vitals/I&O's: Vital Signs Temp Pulse Resp BP Pulse Ox 97.7 F L 86 18 158/86 H 94 04/15/19 15:25 04/15/19 15:25 04/15/19 15:25 04/15/19 15:25 04/15/19 15:25 Oxygen Flow Rate (L/min) 4 Oxygen Delivery Method Nasal Cannula Weight: 138.572 kg Body Mass Index (BMI) 43.8 Intake and Output for Last 24 Hours 04/13/19 04/14/19 04/15/19 23:59 23:59 23:59 Intake Total 2930 / 3170 3003.5 / 3243.5 2617 / 2617 Output Total 4325 / 4325 2050 / 2500 1375 / 1375 Balance -1395 / -1155 953.5 / 743.5 1242 / 1242 General: Alert, Oriented x3 HEENT: Atraumatic, PERRLA Oral: Moist Mucosa Neck: Supple, No JVD Lungs: Clear to auscultation, Normal air movement, No rhonchi Cardiovascular: Regular rate, Regular Rhythm, Normal S1, Normal S2 Abdomen: Bowel Sounds Present, Soft, Non Tender, Non-Distended Extremities: No clubbing, No cyanosis Musculoskeletal: No Tenderness to Palpation of Joints or Extremities Lymphatic: No Cervical, Supraclavicular, or Inguinal Adenopathy Neurological: Cranial nerves II-XII grossly intact, Neuro grossly intact Psych/Mental Status: Appropriate Microbiology Past 72 Hours 04/09/19 18:45 Wound - Aerobic & Anaerobic Swabs Gram Stain - Final 04/09/19 18:45 Wound - Aerobic & Anaerobic Swabs Wound Culture - Final Streptococcus group G 04/09/19 18:45 Wound - Aerobic & Anaerobic Swabs Anaerobic Culture - Final Anaerobic cocci 04/08/19 14:30 Blood Culture (Wb) - Right Hand Blood Culture - Final No growth in 5 days. 04/08/19 10:40 Blood Culture (Wb) - Anticubital Left Blood Culture - Final No growth in 5 days. Laboratory Results 04/14/19 21:42: POC Glucose 357 H 04/15/19 05:15: WBC 14.0 H, RBC 3.83 L, Hgb 10.9 L, Hct 35.7 L, MCV 93.2, MCH 28.5, MCHC 30.5 L, RDW Std Deviation 43.7, RDW Coeff of Akila 12.8, Plt Count 515 H, MPV 9.2, Immature Gran % (Auto) 2.700 H, Neut % (Auto) 80.1 H, Lymph % (Auto) 7.7 L, [place] % (Auto) 6.3, Eos % (Auto) 2.6, Baso % (Auto) 0.6, Absolute Neuts (auto) 11.2 H, Absolute Lymphs (auto) 1.07, Nucleated RBC % 0 04/15/19 05:15: Sodium 138, Potassium 3.9, Chloride 98, Carbon Dioxide 36.0 H, Anion Gap 4 L, BUN 40 H, Creatinine 1.12, Estim Creat Clear Calc 69.70, Est GFR (MDRD) Af Amer 85, Est GFR (MDRD) Non-Af 70, BUN/Creatinine Ratio 35.7 H, Glucose 261 H, Calcium 8.4 L 04/15/19 07:32: POC Glucose 219 H 04/15/19 12:13: POC Glucose 404 H 04/15/19 17:12: POC Glucose 310 H Current Medications Acetaminophen (Tylenol) 650 mg PO Q6H PRN PRN PRN Reason: Mild Pain (1-3)/Temp > 100.7 F Last Admin: 04/11/19 05:59 Dose: 650 mg Documented by: Albuterol/Ipratropium (Duoneb) 3 ml INHALATION Q4HWA.RT [facility] Last Admin: 04/15/19 15:46 Dose: Not Given Documented by: Amlodipine Besylate (Norvasc) 10 mg PO DAILY [facility] Last Admin: 04/15/19 09:28 Dose: 10 mg Documented by: Carvedilol (Coreg) 12.5 mg PO BID [facility] Last Admin: 04/15/19 09:28 Dose: 12.5 mg Documented by: Collagenase (Santyl) 1 applic TOPICAL DAILY [facility]; Protocol Last Admin: 04/15/19 07:30 Dose: 1 applicatio Documented by: Dextrose (D50w Syringe) 0 gm IV X1 PRN; Protocol PRN Reason: Hypoglycemia Enoxaparin Sodium (Lovenox) 40 mg SC Q12 [facility] Last Admin: 04/15/19 09:28 Dose: 40 mg Documented by: Furosemide (Lasix) 40 mg PO DAILY [facility] Glucagon () 1 mg IM .X1 PRN PRN Reason: Hypoglycemia Heparin Sodium (Beef Lung) () 50 units IV UD PRN PRN Reason: PICC Line Heparin Flush Hydralazine HCl (Apresoline Iv) 5 mg IV Q6H PRN PRN PRN Reason: BLOOD PRESSURE Last Admin: 04/13/19 00:22 Dose: 5 mg Documented by: Sodium Chloride () 250 mls @ 15 mls/hr IV .[id number] PRN PRN Reason: Saline Flush Last Infusion: 04/15/19 11:47 Dose: 0 mls/hr Documented by: Ceftriaxone Sodium 2 gm/ (Sodium Chloride) 50 mls @ 100 mls/hr IV Q24 [facility] Last Infusion: 04/15/19 09:59 Dose: Infused Documented by: Insulin Glargine (Lantus (Bkc)) 15 units SC BREAKFAST [facility] Last Admin: 04/15/19 12:14 Dose: 15 u Documented by: Insulin Glargine (Lantus (Bkc)) 15 units SC QHS [facility] Last Admin: 04/14/19 21:50 Dose: 15 u Documented by: Insulin Human Lispro (Humalog Kwikpen (Bkc)) 0 unit SC ACHS [facility]; Protocol Last Admin: 04/15/19 17:13 Dose: 3 u Documented by: Insulin Human Lispro (Humalog Kwikpen (Bkc)) 10 unit SC LUNCH [facility] Last Admin: 04/15/19 12:13 Dose: 10 u Documented by: Insulin Human Lispro (Humalog Kwikpen (Bkc)) 10 unit SC DINNER [facility] Last Admin: 04/15/19 17:12 Dose: 10 u Documented by: Insulin Human Lispro (Humalog Kwikpen (Bkc)) 10 unit SC BREAKFAST [facility] Last Admin: 04/15/19 09:27 Dose: 10 u Documented by: Magnesium Hydroxide (Milk Of Magnesia) 30 ml PO DAILY PRN PRN PRN Reason: Constipation Metronidazole (Flagyl) 500 mg PO TID [facility] Last Admin: 04/15/19 14:54 Dose: 500 mg Documented by: Nutritional Formula (Chun - [place] Flavor) 1 packet PO BIDCM [facility] Last Admin: 04/15/19 17:12 Dose: 1 packet Documented by: Nutritional Formula (Lactose Free) (Glucerna Shake) 120 ml PO 4X/DAY [facility] Last Admin: 04/15/19 17:12 Dose: 120 ml Documented by: Ondansetron HCl (Zofran) 4 mg IV Q8H PRN PRN PRN Reason: NAUSEA/VOMITING Oxycodone HCl (Oxyir) 5 mg PO Q4H PRN PRN PRN Reason: Moderate Pain (4-6/10) Last Admin: 04/15/19 14:54 Dose: 5 mg Documented by: Sodium Chloride () 5 - 15 ml IV UD PRN PRN Reason: SALINE FLUSH Last Admin: 04/15/19 09:30 Dose: 10 ml Documented by: Sodium Chloride (0.9% Nacl (Sterile) Posiflush) 10 - 40 ml IV UD PRN PRN Reason: Port access or dressing change Sodium Chloride () 10 - 40 ml IV UD PRN PRN Reason: SALINE FLUSH Last Admin: 04/12/19 11:30 Dose: 20 ml Documented by: Medical Necessity - Tobacco Use Smoking Status: Never smoker Tobacco Use: Cigarettes Assessment/Plan All Active Problems Cellulitis of right foot (Acute) Sepsis (Acute) RUSS (acute kidney injury) (Acute) Hyponatremia (Acute) Cellulitis of right lower extremity (Acute) Ulcer of right foot with fat layer exposed (Acute) 1- RUSS. Unknown baseline. RUSS is prerenal. Cr has improved SCr is 1.1 mg/dL today. Continue lasix 40 mg PO daily. Will watch renal function while being diuresed. Keep MAP > 65. Recheck Cr in am. 2-Hyponatremia: likely from RUSS and volume depletion. Resolved. 3-HTN: BP is acceptable on current medications. Might resume HCTZ/ACEI if needed since Cr has been stable 4- Sepsis related to RLE cellulitis and possible UTI. Abx as per the primary service. Renal team will continue to follow Please call id any question at [phone] Dominga Ventura MD
[2019-04-15 22:50] LABS: Bedside Glucose 339 mg/dL (70-110)
[2019-04-16] VITALS (17 sets, daily range): BP systolic 141–162; BP diastolic 62–82; PULSE 79–99; RESP 12–33; TEMP 36.6–36.9; O2SAT 90–94
[2019-04-16] MEDS: 0.9% Saline Lock 10 ML Syringe IV (04:57)
[2019-04-16 05:22] LABS: Anion Gap 3 (5-15); BUN 46 mg/dL (7-18); Calcium,Total 8.3 mg/dL (8.5-10.1); Chloride 98 mmol/L (98-107); Creatinine, Serum 1.18 mg/dL (0.70-1.30); EST Glomerular Filtration Rate 66 mL/min (>60); Est Glom Filt Rate - Afr Amer 80 mL/min (>60); Estimated Creatinine Clearance 66.16 ml/min; Glucose 321 mg/dL (74-106); Potassium 4.1 mmol/L (3.5-5.1); Sodium Level 138 mmol/L (136-145)
[2019-04-16] MEDS: metroNIDAZOLE 500 MG Tablet PO ×3 (05:41→21:55)
[2019-04-16] MEDS: Ipratropium/Albuterol Sulfate 3 ML AMPUL.NEB INHALATION ×4 (07:31→19:19)
[2019-04-16 08:30] LABS: Bedside Glucose 279 mg/dL (70-110)
[2019-04-16] MEDS: Carvedilol 12.5 MG Tablet PO ×2 (09:51→21:55)
[2019-04-16] MEDS: Insulin Lispro 100 UNIT/ML INSULN.PEN 10 UNIT SC ×3 (09:52→18:14)
[2019-04-16] MEDS: Insulin Lispro 100 UNIT/ML INSULN.PEN SC ×4 (09:52→21:56)
[2019-04-16] MEDS: Enoxaparin 40 MG/0.4 ML Syringe SC ×2 (09:53→21:55)
[2019-04-16] MEDS: amLODIPine 10 MG Tablet PO (09:53)
[2019-04-16] MEDS: Furosemide 40 MG Tablet PO (09:57)
[2019-04-16] MEDS: oxyCODONE 5 MG Tablet PO ×3 (09:57→18:22)
[2019-04-16] MEDS: Glucerna Shake 120 ML LIQUID PO ×3 (09:58→18:16)
--- NOTE | 2019-04-16 10:42 | CASEMGMT ---
This RN CM to room to f/u with pt regarding discharge plan. Pt states that he has worn his cpap consistently since he was started on it years ago. Pt states 'I don't know what I would do without it.' Pt states pulmonology encouraged him to use the incentive spirometer and pt states he plans to do 'whatever I need to do to get out of here.' Pt is currently on 4liters and Linh SNYDER is going to work on weaning pt oxygen down. Pt states no sob at this time. Pt states that he still plans on flying home to [place] at discharge. CM to follow. Dr. Jacques [facility] [place] [facility] f[facility] and also recommended f/u with vascular surgeon/vein specialist at discharge. Rodolfo SNYDER CM
--- NOTE | 2019-04-16 11:11 | PN_ITS ---
Patient Problems: Active and Suspected Problems Cellulitis of right foot (Acute) Sepsis (Acute) RUSS (acute kidney injury) (Acute) Hyponatremia (Acute) Cellulitis of right lower extremity (Acute) Ulcer of right foot with fat layer exposed (Acute) Subjective: Patient did okay overnight. Patient did tolerate BiPAP with sleep. Still requiring nasal cannula oxygen during the day. Patient reports he does not use supplemental oxygen at home. Patient is reporting right foot discomfort with bilateral edema. Patient is surprised about his elevated blood sugars as I was well controlled at home. - Physical Exam Vitals/I&O's: Vital Signs Temp Pulse Resp BP Pulse Ox 36.6 C 87 18 149/82 H 93 04/16/19 09:10 04/16/19 09:10 04/16/19 09:10 04/16/19 09:10 04/16/19 09:45 Oxygen Flow Rate (L/min) 4 Oxygen Delivery Method Nasal Cannula Weight: 138.572 kg Body Mass Index (BMI) 43.8 Intake and Output for Last 24 Hours 04/14/19 04/15/19 04/16/19 23:59 23:59 23:59 Intake Total 3003.5 / 3243.5 3217 / 3217 240.25 / 240.25 Output Total 2050 / 2500 1974 / 1974 775 / 775 Balance 953.5 / 743.5 1242 / 1242 -534.75 / -534.75 General: Alert, Oriented x3, Cooperative, No apparent distress, - - No conversational dyspnea. HEENT: Atraumatic, PERRLA, EOMI, Normocephalic, - - Nasal cannula in place. Oral: Moist Mucosa, No Gingival or Mucosal Lesions/ Ulcerations Neck: Supple, No JVD, No Nodes, Trachea Midline, - - Thick neck. Lungs: No rhonchi, No wheeze, No rales, Diminished Cardiovascular: Regular rate, Regular Rhythm, Normal S1, Normal S2, No murmurs, No rub noted, No Gallop Abdomen: Bowel Sounds Present, Soft, Non Tender, Non-Distended, Obese Extremities: No clubbing, No cyanosis, Edema - Right greater than left lower extremity Skin: - - Venous stasis changes bilateral lower extremities. Ulcer noted on the toe. Unchanged per nursing Musculoskeletal: Tenderness - Palpation of bilateral lower extremities Lymphatic: No Cervical, Supraclavicular, or Inguinal Adenopathy Neurological: Cranial nerves II-XII grossly intact, Neuro grossly intact, Motor Exam 5/5 strength throughout Psych/Mental Status: Alert and oriented to time, place, person, mood and affect Microbiology Past 72 Hours 04/09/19 18:45 Wound - Aerobic & Anaerobic Swabs Gram Stain - Final 04/09/19 18:45 Wound - Aerobic & Anaerobic Swabs Wound Culture - Final Streptococcus group G 04/09/19 18:45 Wound - Aerobic & Anaerobic Swabs Anaerobic Culture - Final Anaerobic cocci 04/08/19 14:30 Blood Culture (Wb) - Right Hand Blood Culture - Final No growth in 5 days. 04/08/19 10:40 Blood Culture (Wb) - Anticubital Left Blood Culture - Final No growth in 5 days. Laboratory Results 04/15/19 12:13: POC Glucose 404 H 04/15/19 17:12: POC Glucose 310 H 04/15/19 22:13: POC Glucose 339 H 04/16/19 04:50: Sodium 138, Potassium 4.1, Chloride 98, Carbon Dioxide 37.0 H, Anion Gap 3 L, BUN 46 H, Creatinine 1.18, Estim Creat Clear Calc 66.16, Est GFR (MDRD) Af Amer 80, Est GFR (MDRD) Non-Af 66, BUN/Creatinine Ratio 39.0 H, Glucose 321 H, Calcium 8.3 L 04/16/19 08:24: POC Glucose 279 H Current Medications Acetaminophen (Tylenol) 650 mg PO Q6H PRN PRN PRN Reason: Mild Pain (1-3)/Temp > 100.7 F Last Admin: 04/11/19 05:59 Dose: 650 mg Documented by: Albuterol/Ipratropium (Duoneb) 3 ml INHALATION Q4HWA.RT [facility] Last Admin: 04/16/19 07:31 Dose: 3 ml Documented by: Amlodipine Besylate (Norvasc) 10 mg PO DAILY [facility] Last Admin: 04/16/19 09:53 Dose: 10 mg Documented by: Carvedilol (Coreg) 12.5 mg PO BID [facility] Last Admin: 04/16/19 09:51 Dose: 12.5 mg Documented by: Collagenase (Santyl) 1 applic TOPICAL DAILY [facility]; Protocol Last Admin: 04/15/19 07:30 Dose: 1 applicatio Documented by: Dextrose (D50w Syringe) 0 gm IV X1 PRN; Protocol PRN Reason: Hypoglycemia Enoxaparin Sodium (Lovenox) 40 mg SC Q12 [facility] Last Admin: 04/16/19 09:53 Dose: 40 mg Documented by: Furosemide (Lasix) 40 mg PO DAILY [facility] Last Admin: 04/16/19 09:57 Dose: 40 mg Documented by: Glucagon () 1 mg IM .X1 PRN PRN Reason: Hypoglycemia Heparin Sodium (Beef Lung) () 50 units IV UD PRN PRN Reason: PICC Line Heparin Flush Hydralazine HCl (Apresoline Iv) 5 mg IV Q6H PRN PRN PRN Reason: BLOOD PRESSURE Last Admin: 04/13/19 00:22 Dose: 5 mg Documented by: Sodium Chloride () 250 mls @ 15 mls/hr IV .[id number] PRN PRN Reason: Saline Flush Last Infusion: 04/16/19 10:09 Dose: 0 mls/hr Documented by: Ceftriaxone Sodium 2 gm/ (Sodium Chloride) 50 mls @ 100 mls/hr IV Q24 [facility] Last Admin: 04/16/19 10:09 Dose: 100 mls/hr Documented by: Insulin Glargine (Lantus (Bkc)) 15 units SC BREAKFAST [facility] Last Admin: 04/16/19 09:53 Dose: 15 u Documented by: Insulin Glargine (Lantus (Bkc)) 15 units SC QHS [facility] Last Admin: 04/15/19 22:25 Dose: 15 u Documented by: Insulin Human Lispro (Humalog Kwikpen (Bkc)) 0 unit SC ACHS [facility]; Protocol Last Admin: 04/16/19 09:52 Dose: 3 u Documented by: Insulin Human Lispro (Humalog Kwikpen (Bkc)) 10 unit SC LUNCH [facility] Last Admin: 04/15/19 12:13 Dose: 10 u Documented by: Insulin Human Lispro (Humalog Kwikpen (Bkc)) 10 unit SC DINNER [facility] Last Admin: 04/15/19 17:12 Dose: 10 u Documented by: Insulin Human Lispro (Humalog Kwikpen (Bkc)) 10 unit SC BREAKFAST [facility] Last Admin: 04/16/19 09:52 Dose: 10 u Documented by: Magnesium Hydroxide (Milk Of Magnesia) 30 ml PO DAILY PRN PRN PRN Reason: Constipation Metronidazole (Flagyl) 500 mg PO TID [facility] Last Admin: 04/16/19 05:41 Dose: 500 mg Documented by: Nutritional Formula (Chun - [place] Flavor) 1 packet PO BIDCM [facility] Last Admin: 04/16/19 09:51 Dose: 1 packet Documented by: Nutritional Formula (Lactose Free) (Glucerna Shake) 120 ml PO 4X/DAY [facility] Last Admin: 04/16/19 09:58 Dose: 120 ml Documented by: Ondansetron HCl (Zofran) 4 mg IV Q8H PRN PRN PRN Reason: NAUSEA/VOMITING Oxycodone HCl (Oxyir) 5 mg PO Q4H PRN PRN PRN Reason: Moderate Pain (4-6/10) Last Admin: 04/16/19 09:57 Dose: 5 mg Documented by: Sodium Chloride () 5 - 15 ml IV UD PRN PRN Reason: SALINE FLUSH Last Admin: 04/15/19 09:30 Dose: 10 ml Documented by: Sodium Chloride (0.9% Nacl (Sterile) Posiflush) 10 - 40 ml IV UD PRN PRN Reason: Port access or dressing change Sodium Chloride () 10 - 40 ml IV UD PRN PRN Reason: SALINE FLUSH Last Admin: 04/16/19 04:57 Dose: 20 ml Documented by: Medical Necessity - Tobacco Use Smoking Status: Never smoker Tobacco Use: Cigarettes Assessment/Plan All Active Problems Cellulitis of right foot (Acute) Sepsis (Acute) RUSS (acute kidney injury) (Acute) Hyponatremia (Acute) Cellulitis of right lower extremity (Acute) Ulcer of right foot with fat layer exposed (Acute) RECOMMENDATIONS: 1. Continue nocturnal BiPAP therapy. 2. Consider transition to IV twice daily Lasix therapy. Wean supplemental oxygen to maintain saturations at or above 90%. 3. Encourage the use of incentive spirometry. Mobilize patient as tolerated. 4. Walking oximetry prior to discharge IMPRESSIONS: 1. Acute combined respiratory failure Likely multifactorial in etiology with obesity hypoventilation, underlying atelectasis and congestive heart failure contributing. The patient is overall net positive from a volume perspective for the hospital admission. The patient does appear to be improving from an oxygenation status in the setting of diuresis. Patient reportedly was on IV twice daily Lasix, but this has been transitioned to p.o. Lasix. Clinical suspicion the patient still remains volume overloaded. I's and O's are inaccurate and patient does not have a daily weight. Patient will need a walking oximetry prior to discharge. 2. Sepsis secondary to diabetic foot infection Continue current supportive measures and antimicrobials per infectious diseases recommendations. Podiatry and infectious disease are following. 3. Acute kidney injury Resolved. Continue management per nephrology recommendations. 4. Personal history of obstructive sleep apnea Patient does report obstructive sleep apnea. Clinical suspicion is is that current pressures are likely not high enough to control symptoms. Patient likely would benefit from a repeat titration as an outpatient. 5. Morbid obesity/hypertension/diabetes mellitus Complicates care, management, recovery and prognosis. Avoid nephrotoxic medications. Continue sliding scale coverage. Increased blood sugars likely secondary to elevated endogenous steroids given diabetic foot infection. Consider increase in Lantus therapy. Code Visit Inpatient E&M: 23194 Subs Hosp L2
--- NOTE | 2019-04-16 11:55 | PCM.PN.ID ---
Patient Problems: Active and Suspected Problems Cellulitis of right foot (Acute) Sepsis (Acute) RUSS (acute kidney injury) (Acute) Hyponatremia (Acute) Cellulitis of right lower extremity (Acute) Ulcer of right foot with fat layer exposed (Acute) Subjective: Feeling better, breathing improved, foot less swollen. No fever. - Physical Exam Vitals/I&O's: Vital Signs Temp Pulse Resp BP Pulse Ox 97.9 F 87 18 149/82 H 93 04/16/19 09:10 04/16/19 09:10 04/16/19 09:10 04/16/19 09:10 04/16/19 09:45 Oxygen Flow Rate (L/min) 4 Oxygen Delivery Method Nasal Cannula Weight: 138.572 kg Body Mass Index (BMI) 43.8 Intake and Output for Last 24 Hours 04/14/19 04/15/19 04/16/19 23:59 23:59 23:59 Intake Total 3003.5 / 3243.5 3217 / 3217 290.25 / 290.25 Output Total 2050 / 2500 1974 775 / 775 Balance 953.5 / 743.5 1242 / 1242 -484.75 / -484.75 General: Alert, Cooperative, No apparent distress Lungs: Clear to auscultation, Normal air movement Cardiovascular: Regular rate, Regular Rhythm Abdomen: Soft, Non Tender, Non-Distended Extremities: Edema Microbiology Past 72 Hours 04/09/19 18:45 Wound - Aerobic & Anaerobic Swabs Gram Stain - Final 04/09/19 18:45 Wound - Aerobic & Anaerobic Swabs Wound Culture - Final Streptococcus group G 04/09/19 18:45 Wound - Aerobic & Anaerobic Swabs Anaerobic Culture - Final Anaerobic cocci 04/08/19 14:30 Blood Culture (Wb) - Right Hand Blood Culture - Final No growth in 5 days. 04/08/19 10:40 Blood Culture (Wb) - Anticubital Left Blood Culture - Final No growth in 5 days. Laboratory Results 04/15/19 12:13: POC Glucose 404 H 04/15/19 17:12: POC Glucose 310 H 04/15/19 22:13: POC Glucose 339 H 04/16/19 04:50: Sodium 138, Potassium 4.1, Chloride 98, Carbon Dioxide 37.0 H, Anion Gap 3 L, BUN 46 H, Creatinine 1.18, Estim Creat Clear Calc 66.16, Est GFR (MDRD) Af Amer 80, Est GFR (MDRD) Non-Af 66, BUN/Creatinine Ratio 39.0 H, Glucose 321 H, Calcium 8.3 L 04/16/19 08:24: POC Glucose 279 H Current Medications Acetaminophen (Tylenol) 650 mg PO Q6H PRN PRN PRN Reason: Mild Pain (1-3)/Temp > 100.7 F Last Admin: 04/11/19 05:59 Dose: 650 mg Documented by: Albuterol/Ipratropium (Duoneb) 3 ml INHALATION Q4HWA.RT [facility] Last Admin: 04/16/19 11:44 Dose: 3 ml Documented by: Amlodipine Besylate (Norvasc) 10 mg PO DAILY [facility] Last Admin: 04/16/19 09:53 Dose: 10 mg Documented by: Carvedilol (Coreg) 12.5 mg PO BID [facility] Last Admin: 04/16/19 09:51 Dose: 12.5 mg Documented by: Collagenase (Santyl) 1 applic TOPICAL DAILY [facility]; Protocol Last Admin: 04/15/19 07:30 Dose: 1 applicatio Documented by: Dextrose (D50w Syringe) 0 gm IV X1 PRN; Protocol PRN Reason: Hypoglycemia Enoxaparin Sodium (Lovenox) 40 mg SC Q12 [facility] Last Admin: 04/16/19 09:53 Dose: 40 mg Documented by: Furosemide (Lasix) 40 mg PO DAILY [facility] Last Admin: 04/16/19 09:57 Dose: 40 mg Documented by: Glucagon () 1 mg IM .X1 PRN PRN Reason: Hypoglycemia Heparin Sodium (Beef Lung) () 50 units IV UD PRN PRN Reason: PICC Line Heparin Flush Hydralazine HCl (Apresoline Iv) 5 mg IV Q6H PRN PRN PRN Reason: BLOOD PRESSURE Last Admin: 04/13/19 00:22 Dose: 5 mg Documented by: Sodium Chloride () 250 mls @ 15 mls/hr IV .[id number] PRN PRN Reason: Saline Flush Last Infusion: 04/16/19 10:39 Dose: 15 mls/hr Documented by: Ceftriaxone Sodium 2 gm/ (Sodium Chloride) 50 mls @ 100 mls/hr IV Q24 [facility] Last Infusion: 04/16/19 10:39 Dose: Infused Documented by: Insulin Glargine (Lantus (Bkc)) 15 units SC BREAKFAST [facility] Last Admin: 04/16/19 09:53 Dose: 15 u Documented by: Insulin Glargine (Lantus (Bkc)) 15 units SC QHS [facility] Last Admin: 04/15/19 22:25 Dose: 15 u Documented by: Insulin Human Lispro (Humalog Kwikpen (Bkc)) 0 unit SC ACHS [facility]; Protocol Last Admin: 04/16/19 09:52 Dose: 3 u Documented by: Insulin Human Lispro (Humalog Kwikpen (Bkc)) 10 unit SC LUNCH [facility] Last Admin: 04/15/19 12:13 Dose: 10 u Documented by: Insulin Human Lispro (Humalog Kwikpen (Bkc)) 10 unit SC DINNER [facility] Last Admin: 04/15/19 17:12 Dose: 10 u Documented by: Insulin Human Lispro (Humalog Kwikpen (Bkc)) 10 unit SC BREAKFAST [facility] Last Admin: 04/16/19 09:52 Dose: 10 u Documented by: Magnesium Hydroxide (Milk Of Magnesia) 30 ml PO DAILY PRN PRN PRN Reason: Constipation Metronidazole (Flagyl) 500 mg PO TID [facility] Last Admin: 04/16/19 05:41 Dose: 500 mg Documented by: Nutritional Formula (Chun - [place] Flavor) 1 packet PO BIDCM [facility] Last Admin: 04/16/19 09:51 Dose: 1 packet Documented by: Nutritional Formula (Lactose Free) (Glucerna Shake) 120 ml PO 4X/DAY [facility] Last Admin: 04/16/19 09:58 Dose: 120 ml Documented by: Ondansetron HCl (Zofran) 4 mg IV Q8H PRN PRN PRN Reason: NAUSEA/VOMITING Oxycodone HCl (Oxyir) 5 mg PO Q4H PRN PRN PRN Reason: Moderate Pain (4-6/10) Last Admin: 04/16/19 09:57 Dose: 5 mg Documented by: Sodium Chloride () 5 - 15 ml IV UD PRN PRN Reason: SALINE FLUSH Last Admin: 04/15/19 09:30 Dose: 10 ml Documented by: Sodium Chloride (0.9% Nacl (Sterile) Posiflush) 10 - 40 ml IV UD PRN PRN Reason: Port access or dressing change Sodium Chloride () 10 - 40 ml IV UD PRN PRN Reason: SALINE FLUSH Last Admin: 04/16/19 04:57 Dose: 20 ml Documented by: Medical Necessity - Tobacco Use Smoking Status: Never smoker Tobacco Use: Cigarettes Route of nutrition/ use of supplements: [] Nutritional Intake: [] IV Site: [] Mora Catheter: [] - Assessment/Plan Antibiotics: [] Assessment/Plan: [] Active and Suspected Problems Cellulitis of right foot (Acute) Sepsis (Acute) RUSS (acute kidney injury) (Acute) Hyponatremia (Acute) Cellulitis of right lower extremity (Acute) Ulcer of right foot with fat layer exposed (Acute) sepsis due to diabetic R foot infection, concern for osteo, course complicated by RUSS and some hypoxic resp failure. Pending MRI of R foot and ankle, noncontrast. Re: his allergy history, reports being told as a child he was allergic to PCN. No known h/o anaphylaxis. Reports taking amoxicillin at some point as an adult and having some upset stomach. Bcx neg so far, wound cx with strep finalized, and neg staph aureus pcr. On ceftriaxone/flagyl. With uncontrolled DM, A1c of 12, neuropathy, and RUSS, concern about ability to heal this infected wound. Have counseled him re:need for strict glucose management. Ucx with klebs, covered by ceftriaxone. Ok for discharge on po flagyl for 2 weeks and po omnicef for 5 weeks, stop date 05/20/19. Will follow
[2019-04-16] MEDS: Collagenase 30gm Tube 1 APPLIC TOPICAL (12:26)
--- NOTE | 2019-04-16 12:33 | PN_ITS ---
Patient Problems: Active and Suspected Problems Cellulitis of right foot (Acute) Sepsis (Acute) RUSS (acute kidney injury) (Acute) Hyponatremia (Acute) Cellulitis of right lower extremity (Acute) Ulcer of right foot with fat layer exposed (Acute) Subjective: This 63-year-old male with multiple comorbidities is seen bedside for follow up of right great toe ulcer and leg cellulitis associated with his recent sepsis. He denies fever, chills, nausea, vomiting. He relates he has chronic redness and swelling to the leg. Pain well controlled. - Physical Exam Vitals/I&O's: Vital Signs Temp Pulse Resp BP Pulse Ox 97.9 F 87 18 149/82 H 93 04/16/19 09:10 04/16/19 09:10 04/16/19 09:10 04/16/19 09:10 04/16/19 09:45 Oxygen Flow Rate (L/min) 4 Oxygen Delivery Method Nasal Cannula Weight: 138.572 kg Body Mass Index (BMI) 43.8 Intake and Output for Last 24 Hours 04/14/19 04/15/19 04/16/19 23:59 23:59 23:59 Intake Total 3003.5 / 3243.5 3217 / 3217 840.25 / 840.25 Output Total 2050 / 2500 1974 / 1974 1575 / 1575 Balance 953.5 / 743.5 1242 / 1242 -734.75 / -734.75 General: Alert, Oriented x3, Cooperative Extremities: No cyanosis, Capillary Refill Less than 3 Seconds, No Calf Tenderne ss - Negative Marcano sign to the right, Diminished Peripheral Pulses, Edema Skin: Ulcer/ Wound - Ulcer to the distal aspect of the right hallux with a mixture of adherent slough and fibrotic tissue as well as some surrounding hyperkeratotic tissue. There is no erythema, malodor, or purulence appreciated to the ulcer site or foot., - - Skin is hairless and atrophic. Patient is noted to have some hyperpigmentation as well as some erythema to the lower leg however he feels this is improved since he has been in the hospital. Musculoskeletal: No Tenderness to Palpation of Joints or Extremities Neurological: - - Abnormal epicritic sensation consistent with patient's neuropathic status Psych/Mental Status: Normal Affect, Appropriate Microbiology Past 72 Hours 04/09/19 18:45 Wound - Aerobic & Anaerobic Swabs Gram Stain - Final 04/09/19 18:45 Wound - Aerobic & Anaerobic Swabs Wound Culture - Final Streptococcus group G 04/09/19 18:45 Wound - Aerobic & Anaerobic Swabs Anaerobic Culture - Final Anaerobic cocci 04/08/19 14:30 Blood Culture (Wb) - Right Hand Blood Culture - Final No growth in 5 days. 04/08/19 10:40 Blood Culture (Wb) - Anticubital Left Blood Culture - Final No growth in 5 days. Laboratory Results 04/15/19 17:12: POC Glucose 310 H 04/15/19 22:13: POC Glucose 339 H 04/16/19 04:50: Sodium 138, Potassium 4.1, Chloride 98, Carbon Dioxide 37.0 H, Anion Gap 3 L, BUN 46 H, Creatinine 1.18, Estim Creat Clear Calc 66.16, Est GFR (MDRD) Af Amer 80, Est GFR (MDRD) Non-Af 66, BUN/Creatinine Ratio 39.0 H, Glucose 321 H, Calcium 8.3 L 04/16/19 08:24: POC Glucose 279 H Current Medications Acetaminophen (Tylenol) 650 mg PO Q6H PRN PRN PRN Reason: Mild Pain (1-3)/Temp > 100.7 F Last Admin: 04/11/19 05:59 Dose: 650 mg Documented by: Albuterol/Ipratropium (Duoneb) 3 ml INHALATION Q4HWA.RT [facility] Last Admin: 04/16/19 11:44 Dose: 3 ml Documented by: Amlodipine Besylate (Norvasc) 10 mg PO DAILY [facility] Last Admin: 04/16/19 09:53 Dose: 10 mg Documented by: Carvedilol (Coreg) 12.5 mg PO BID [facility] Last Admin: 04/16/19 09:51 Dose: 12.5 mg Documented by: Collagenase (Santyl) 1 applic TOPICAL DAILY [facility]; Protocol Last Admin: 04/16/19 12:26 Dose: 1 applicatio Documented by: Dextrose (D50w Syringe) 0 gm IV X1 PRN; Protocol PRN Reason: Hypoglycemia Enoxaparin Sodium (Lovenox) 40 mg SC Q12 [facility] Last Admin: 04/16/19 09:53 Dose: 40 mg Documented by: Furosemide (Lasix) 40 mg PO DAILY [facility] Last Admin: 04/16/19 09:57 Dose: 40 mg Documented by: Glucagon () 1 mg IM .X1 PRN PRN Reason: Hypoglycemia Heparin Sodium (Beef Lung) () 50 units IV UD PRN PRN Reason: PICC Line Heparin Flush Hydralazine HCl (Apresoline Iv) 5 mg IV Q6H PRN PRN PRN Reason: BLOOD PRESSURE Last Admin: 04/13/19 00:22 Dose: 5 mg Documented by: Sodium Chloride () 250 mls @ 15 mls/hr IV .[id number] PRN PRN Reason: Saline Flush Last Infusion: 04/16/19 10:39 Dose: 15 mls/hr Documented by: Ceftriaxone Sodium 2 gm/ (Sodium Chloride) 50 mls @ 100 mls/hr IV Q24 [facility] Last Infusion: 04/16/19 10:39 Dose: Infused Documented by: Insulin Glargine (Lantus (Bkc)) 15 units SC BREAKFAST [facility] Last Admin: 04/16/19 09:53 Dose: 15 u Documented by: Insulin Glargine (Lantus (Bkc)) 15 units SC QHS [facility] Last Admin: 04/15/19 22:25 Dose: 15 u Documented by: Insulin Human Lispro (Humalog Kwikpen (Bkc)) 0 unit SC ACHS [facility]; Protocol Last Admin: 04/16/19 09:52 Dose: 3 u Documented by: Insulin Human Lispro (Humalog Kwikpen (Bkc)) 10 unit SC LUNCH [facility] Last Admin: 04/15/19 12:13 Dose: 10 u Documented by: Insulin Human Lispro (Humalog Kwikpen (Bkc)) 10 unit SC DINNER [facility] Last Admin: 04/15/19 17:12 Dose: 10 u Documented by: Insulin Human Lispro (Humalog Kwikpen (Bkc)) 10 unit SC BREAKFAST [facility] Last Admin: 04/16/19 09:52 Dose: 10 u Documented by: Magnesium Hydroxide (Milk Of Magnesia) 30 ml PO DAILY PRN PRN PRN Reason: Constipation Metronidazole (Flagyl) 500 mg PO TID [facility] Last Admin: 04/16/19 05:41 Dose: 500 mg Documented by: Nutritional Formula (Chun - [place] Flavor) 1 packet PO BIDCM [facility] Last Admin: 04/16/19 09:51 Dose: 1 packet Documented by: Nutritional Formula (Lactose Free) (Glucerna Shake) 120 ml PO 4X/DAY [facility] Last Admin: 04/16/19 09:58 Dose: 120 ml Documented by: Ondansetron HCl (Zofran) 4 mg IV Q8H PRN PRN PRN Reason: NAUSEA/VOMITING Oxycodone HCl (Oxyir) 5 mg PO Q4H PRN PRN PRN Reason: Moderate Pain (4-6/10) Last Admin: 04/16/19 09:57 Dose: 5 mg Documented by: Sodium Chloride () 5 - 15 ml IV UD PRN PRN Reason: SALINE FLUSH Last Admin: 04/15/19 09:30 Dose: 10 ml Documented by: Sodium Chloride (0.9% Nacl (Sterile) Posiflush) 10 - 40 ml IV UD PRN PRN Reason: Port access or dressing change Sodium Chloride () 10 - 40 ml IV UD PRN PRN Reason: SALINE FLUSH Last Admin: 04/16/19 04:57 Dose: 20 ml Documented by: Medical Necessity - Tobacco Use Smoking Status: Never smoker Tobacco Use: Cigarettes Assessment/Plan All Active Problems Cellulitis of right foot (Acute) Sepsis (Acute) RUSS (acute kidney injury) (Acute) Hyponatremia (Acute) Cellulitis of right lower extremity (Acute) Ulcer of right foot with fat layer exposed (Acute) Ulcer right hallux with fat layer exposed Osteomyelitis versus degenerative reactive bone marrow from mechanical pressure to distal tip of distal phalanx of right hallux Right lower extremity cellulitis resolving Deep venous thrombosis has been ruled out with venous Doppler exam Right lower extremity edema; venous insufficiency is suspected Right lower extremity pain -decreasing Partial tear of achilles right lower extremity Uncontrolled diabetes with neuropathy; hemoglobin A1c 12.2 noted Sepsis resolved Multiple other comorbidities: Sleep apnea, obesity, kidney injury, hypertension Patient was carefully examined and evaluated early afternoon today resting in the chair with lower extremities elevated. MRI was reviewed. He does have some increase in intensity on T2 correspond to decrease intensity on T1 to the distal tip of the distal phalanx of the right hallux which is either very early acute osteomyelitis or reactive change from mechanical stress of walking. Patient is to continue with antibiotics per infectious disease recommendations. Continue to not recommend surgical amputation at this time. Patient also relates that he would like to proceed with antibiotics as well as following up at a wound center in [place] first. Patient is done well so far with bedside debridements and daily dressing changes. Patient is to have daily dressing changes with Aquacel Ag. This was completed again today. Patient was just debrided subcutaneously by Dr. Jacques yesterday and no debridement completed toay. To continue with Mahendra wraps for edema management. Patient has prior partial right Achilles rupture. To continue weight-bear as tolerated right lower extremity with Cam walker boot in place and added heel lift. If pain continues with partial weightbearing he is to then be nonweightbearing to right lower leg. I do not recommend primary repair of the Achilles during his current infection scenario. Treatment for this condition involves either conservative immobilization with the foot in a plantarflexed position for 1 to 3 months versus surgical repair once he is medically stable and his infection has cleared. Medical management DVT prophylaxis per primary team is greatly appreciated. At time of discharge podiatry continues to recommend he follows up with the wound healing center in [place]. He was given a phone number and his discharge instructions. It is noted he lives in [place] and plans to return. Continue to recommend outpatient venous duplex Doppler with reflux evaluation to see determine if there is any potential intervention options for chronic venous insufficiency which may also be contributing to his leg inflammation, pain, and edema. I also recommend he follows up with a lower extremity specialist for management of his Achilles injury. Patient is okay to discharge per podiatry standpoint there once medically stable and all other aspects. Podiatry will continue to follow this patient while in house.
[2019-04-16 12:46] LABS: Bedside Glucose 427 mg/dL (70-110)
--- NOTE | 2019-04-16 13:40 | PCM.PROGNOTE ---
<Karen Lake - Last Filed: 04/16/19 14:02> Patient Problems: Active and Suspected Problems Cellulitis of right foot (Acute) Sepsis (Acute) RUSS (acute kidney injury) (Acute) Hyponatremia (Acute) Cellulitis of right lower extremity (Acute) Ulcer of right foot with fat layer exposed (Acute) Subjective: Patient seen and examined. Resting comfortably in chair. Denies significant shortness of breath. Remains on 4 L nasal cannula. Denies pain. Denies fever, chills. - Physical Exam Vitals/I&O's: Vital Signs Temp Pulse Resp BP Pulse Ox 97.9 F 92 18 149/82 H 93 04/16/19 09:10 04/16/19 11:44 04/16/19 11:44 04/16/19 09:10 04/16/19 09:45 Oxygen Flow Rate (L/min) 4 Oxygen Delivery Method Nasal Cannula Weight: 305 lb 7.983 oz Body Mass Index (BMI) 43.8 Intake and Output for Last 24 Hours 04/14/19 04/15/19 04/16/19 23:59 23:59 23:59 Intake Total 3003.5 / 3243.5 3217 / 3217 840.25 / 840.25 Output Total 2050 / 2500 1974 / 1974 1575 / 1575 Balance 953.5 / 743.5 1242 / 1242 -734.75 / -734.75 General: Alert, Oriented x3, Cooperative HEENT: Atraumatic, PERRLA, EOMI, Normocephalic Neck: Supple, No JVD, Negative Carotid Bruits Lungs: Clear to auscultation, Normal air movement Cardiovascular: Regular rate, Regular Rhythm, Normal S1, Normal S2, No murmurs Abdomen: Bowel Sounds Present, Soft, Non Tender, Non-Distended, Obese Extremities: No clubbing, No cyanosis, No edema Skin: No rashes, - - Chronic venous stasis skin changes bilateral lower extremities. Right foot dressing clean dry and intact. Musculoskeletal: No Tenderness to Palpation of Joints or Extremities Neurological: Cranial nerves II-XII grossly intact, Neuro grossly intact Psych/Mental Status: Normal Affect, Appropriate Microbiology Past 72 Hours 04/09/19 18:45 Wound - Aerobic & Anaerobic Swabs Gram Stain - Final 04/09/19 18:45 Wound - Aerobic & Anaerobic Swabs Wound Culture - Final Streptococcus group G 04/09/19 18:45 Wound - Aerobic & Anaerobic Swabs Anaerobic Culture - Final Anaerobic cocci 04/08/19 14:30 Blood Culture (Wb) - Right Hand Blood Culture - Final No growth in 5 days. 04/08/19 10:40 Blood Culture (Wb) - Anticubital Left Blood Culture - Final No growth in 5 days. Laboratory Results 04/15/19 17:12: POC Glucose 310 H 04/15/19 22:13: POC Glucose 339 H 04/16/19 04:50: Sodium 138, Potassium 4.1, Chloride 98, Carbon Dioxide 37.0 H, Anion Gap 3 L, BUN 46 H, Creatinine 1.18, Estim Creat Clear Calc 66.16, Est GFR (MDRD) Af Amer 80, Est GFR (MDRD) Non-Af 66, BUN/Creatinine Ratio 39.0 H, Glucose 321 H, Calcium 8.3 L 04/16/19 08:24: POC Glucose 279 H 04/16/19 12:39: POC Glucose 427 H Current Medications Acetaminophen (Tylenol) 650 mg PO Q6H PRN PRN PRN Reason: Mild Pain (1-3)/Temp > 100.7 F Last Admin: 04/11/19 05:59 Dose: 650 mg Documented by: Albuterol/Ipratropium (Duoneb) 3 ml INHALATION Q4HWA.RT [facility] Last Admin: 04/16/19 11:44 Dose: 3 ml Documented by: Amlodipine Besylate (Norvasc) 10 mg PO DAILY [facility] Last Admin: 04/16/19 09:53 Dose: 10 mg Documented by: Carvedilol (Coreg) 12.5 mg PO BID [facility] Last Admin: 04/16/19 09:51 Dose: 12.5 mg Documented by: Collagenase (Santyl) 1 applic TOPICAL DAILY [facility]; Protocol Last Admin: 04/16/19 12:26 Dose: 1 applicatio Documented by: Dextrose (D50w Syringe) 0 gm IV X1 PRN; Protocol PRN Reason: Hypoglycemia Enoxaparin Sodium (Lovenox) 40 mg SC Q12 [facility] Last Admin: 04/16/19 09:53 Dose: 40 mg Documented by: Furosemide (Lasix) 40 mg PO DAILY [facility] Last Admin: 04/16/19 09:57 Dose: 40 mg Documented by: Glucagon () 1 mg IM .X1 PRN PRN Reason: Hypoglycemia Heparin Sodium (Beef Lung) () 50 units IV UD PRN PRN Reason: PICC Line Heparin Flush Hydralazine HCl (Apresoline Iv) 5 mg IV Q6H PRN PRN PRN Reason: BLOOD PRESSURE Last Admin: 04/13/19 00:22 Dose: 5 mg Documented by: Sodium Chloride () 250 mls @ 15 mls/hr IV .[id number] PRN PRN Reason: Saline Flush Last Infusion: 04/16/19 10:39 Dose: 15 mls/hr Documented by: Ceftriaxone Sodium 2 gm/ (Sodium Chloride) 50 mls @ 100 mls/hr IV Q24 [facility] Last Infusion: 04/16/19 10:39 Dose: Infused Documented by: Insulin Glargine (Lantus (Bkc)) 15 units SC BREAKFAST [facility] Last Admin: 04/16/19 09:53 Dose: 15 u Documented by: Insulin Glargine (Lantus (Bkc)) 15 units SC QHS [facility] Last Admin: 04/15/19 22:25 Dose: 15 u Documented by: Insulin Human Lispro (Humalog Kwikpen (Bkc)) 0 unit SC ACHS [facility]; Protocol Last Admin: 04/16/19 09:52 Dose: 3 u Documented by: Insulin Human Lispro (Humalog Kwikpen (Bkc)) 10 unit SC LUNCH [facility] Last Admin: 04/15/19 12:13 Dose: 10 u Documented by: Insulin Human Lispro (Humalog Kwikpen (Bkc)) 10 unit SC DINNER [facility] Last Admin: 04/15/19 17:12 Dose: 10 u Documented by: Insulin Human Lispro (Humalog Kwikpen (Bkc)) 10 unit SC BREAKFAST [facility] Last Admin: 04/16/19 09:52 Dose: 10 u Documented by: Magnesium Hydroxide (Milk Of Magnesia) 30 ml PO DAILY PRN PRN PRN Reason: Constipation Metronidazole (Flagyl) 500 mg PO TID [facility] Last Admin: 04/16/19 05:41 Dose: 500 mg Documented by: Nutritional Formula (Chun - [place] Flavor) 1 packet PO BIDCM [facility] Last Admin: 04/16/19 09:51 Dose: 1 packet Documented by: Nutritional Formula (Lactose Free) (Glucerna Shake) 120 ml PO 4X/DAY [facility] Last Admin: 04/16/19 09:58 Dose: 120 ml Documented by: Ondansetron HCl (Zofran) 4 mg IV Q8H PRN PRN PRN Reason: NAUSEA/VOMITING Oxycodone HCl (Oxyir) 5 mg PO Q4H PRN PRN PRN Reason: Moderate Pain (4-6/10) Last Admin: 04/16/19 09:57 Dose: 5 mg Documented by: Sodium Chloride () 5 - 15 ml IV UD PRN PRN Reason: SALINE FLUSH Last Admin: 04/15/19 09:30 Dose: 10 ml Documented by: Sodium Chloride (0.9% Nacl (Sterile) Posiflush) 10 - 40 ml IV UD PRN PRN Reason: Port access or dressing change Sodium Chloride () 10 - 40 ml IV UD PRN PRN Reason: SALINE FLUSH Last Admin: 04/16/19 04:57 Dose: 20 ml Documented by: Medical Necessity - Tobacco Use Smoking Status: Never smoker Tobacco Use: Cigarettes Assessment/Plan All Active Problems Cellulitis of right foot (Acute) Sepsis (Acute) RUSS (acute kidney injury) (Acute) Hyponatremia (Acute) Cellulitis of right lower extremity (Acute) Ulcer of right foot with fat layer exposed (Acute) 1. Sepsis secondary to right right great toe diabetic foot ulcer with associated right lower extremity cellulitis, early osteomyelitis right great toe-ID and podiatry following. DVT ruled out. Patient will need outpatient follow-up for right lower extremity suspected venous insufficiency. Continue with dressing changes per orders, offloading right lower extremity. Plan for discharge on oral Flagyl for 2 weeks and oral Omnicef for 5 weeks with stop date 05/20/2019. Patient to follow-up with podiatry in [place] at discharge. 2. Acute hypoxic respiratory insufficiency-multifactorial, suspected secondary to acute diastolic CHF, obesity hypoventilation and underlying atelectasis. Encouraged incentives parameter. Continue diuretic regimen. Continue supplement oxygen to maintain O2 at or above 90%, wean as tolerated. Walking pulse ox prior to discharge. 3. Acute diastolic CHF-echocardiogram demonstrates an EF of 65%, stage II diastolic dysfunction. Previously on IV Lasix, transition to Lasix 40 mg daily. Strict I&O. Daily weight. 4. Acute Klebsiella UTI-on Rocephin. 5. Acute kidney injury-resolved. 6. Type 2 diabetes mellitus-oral regimen on hold. Accu-Cheks ACHS with SSI. Hemoglobin A1c 12.2%. 7. Hypertension-continue home carvedilol, amlodipine regimen. TATA inhibitor and HCTZ on hold. 8. ENEIDA-continue BiPAP nightly. Pulmonary recommending outpatient titration study as current pressures are likely not sufficient. 9. Morbid obesity-encouraged diet and lifestyle modifications. DVT prophylaxis- Lovenox sc This patient was seen by BONI Ortiz under the supervision of Dr. Aranda. <Rodriguez Aranda F - Last Filed: 04/16/19 17:23> - Physical Exam Vitals/I&O's: Vital Signs Temp Pulse Resp BP Pulse Ox 98.5 F 94 20 H 155/62 H 94 04/16/19 16:17 04/16/19 16:17 04/16/19 16:17 04/16/19 16:17 04/16/19 16:17 Oxygen Flow Rate (L/min) 3 Oxygen Delivery Method Nasal Cannula Weight: 305 lb 7.983 oz Body Mass Index (BMI) 43.8 Intake and Output for Last 24 Hours 04/14/19 04/15/19 04/16/19 23:59 23:59 23:59 Intake Total 3003.5 / 3243.5 3217 / 3217 860.50 / 860.50 Output Total 2050 / 2500 1974 / 1974 1575 / 1575 Balance 953.5 / 743.5 1242 / 1242 -714.50 / -714.50 Microbiology Past 72 Hours 04/09/19 18:45 Wound - Aerobic & Anaerobic Swabs Gram Stain - Final 04/09/19 18:45 Wound - Aerobic & Anaerobic Swabs Wound Culture - Final Streptococcus group G 04/09/19 18:45 Wound - Aerobic & Anaerobic Swabs Anaerobic Culture - Final Anaerobic cocci 04/08/19 14:30 Blood Culture (Wb) - Right Hand Blood Culture - Final No growth in 5 days. 04/08/19 10:40 Blood Culture (Wb) - Anticubital Left Blood Culture - Final No growth in 5 days. Laboratory Results 04/15/19 17:12: POC Glucose 310 H 04/15/19 22:13: POC Glucose 339 H 04/16/19 04:50: Sodium 138, Potassium 4.1, Chloride 98, Carbon Dioxide 37.0 H, Anion Gap 3 L, BUN 46 H, Creatinine 1.18, Estim Creat Clear Calc 66.16, Est GFR (MDRD) Af Amer 80, Est GFR (MDRD) Non-Af 66, BUN/Creatinine Ratio 39.0 H, Glucose 321 H, Calcium 8.3 L 04/16/19 08:24: POC Glucose 279 H 04/16/19 12:39: POC Glucose 427 H 04/16/19 15:09: POC Glucose 341 H Current Medications Acetaminophen (Tylenol) 650 mg PO Q6H PRN PRN PRN Reason: Mild Pain (1-3)/Temp > 100.7 F Last Admin: 04/11/19 05:59 Dose: 650 mg Documented by: Albuterol/Ipratropium (Duoneb) 3 ml INHALATION Q4HWA.RT [facility] Last Admin: 04/16/19 16:24 Dose: 3 ml Documented by: Amlodipine Besylate (Norvasc) 10 mg PO DAILY [facility] Last Admin: 04/16/19 09:53 Dose: 10 mg Documented by: Carvedilol (Coreg) 12.5 mg PO BID [facility] Last Admin: 04/16/19 09:51 Dose: 12.5 mg Documented by: Collagenase (Santyl) 1 applic TOPICAL DAILY [facility]; Protocol Last Admin: 04/16/19 12:26 Dose: 1 applicatio Documented by: Dextrose (D50w Syringe) 0 gm IV X1 PRN; Protocol PRN Reason: Hypoglycemia Enoxaparin Sodium (Lovenox) 40 mg SC Q12 [facility] Last Admin: 04/16/19 09:53 Dose: 40 mg Documented by: Furosemide (Lasix) 40 mg PO DAILY [facility] Last Admin: 04/16/19 09:57 Dose: 40 mg Documented by: Glucagon () 1 mg IM .X1 PRN PRN Reason: Hypoglycemia Heparin Sodium (Beef Lung) () 50 units IV UD PRN PRN Reason: PICC Line Heparin Flush Hydralazine HCl (Apresoline Iv) 5 mg IV Q6H PRN PRN PRN Reason: BLOOD PRESSURE Last Admin: 04/13/19 00:22 Dose: 5 mg Documented by: Sodium Chloride () 250 mls @ 15 mls/hr IV .[id number] PRN PRN Reason: Saline Flush Last Infusion: 04/16/19 12:00 Dose: 0 mls/hr Documented by: Ceftriaxone Sodium 2 gm/ (Sodium Chloride) 50 mls @ 100 mls/hr IV Q24 [facility] Last Infusion: 04/16/19 10:39 Dose: Infused Documented by: Insulin Glargine (Lantus (Bkc)) 20 units SC BREAKFAST [facility] Insulin Glargine (Lantus (Bkc)) 20 units SC QHS [facility] Insulin Human Lispro (Humalog Kwikpen (Bkc)) 0 unit SC ACHS [facility]; Protocol Last Admin: 04/16/19 15:12 Dose: 12 u Documented by: Insulin Human Lispro (Humalog Kwikpen (Bkc)) 10 unit SC LUNCH [facility] Last Admin: 04/16/19 15:11 Dose: 10 u Documented by: Insulin Human Lispro (Humalog Kwikpen (Bkc)) 10 unit SC DINNER [facility] Last Admin: 04/15/19 17:12 Dose: 10 u Documented by: Insulin Human Lispro (Humalog Kwikpen (Bkc)) 10 unit SC BREAKFAST [facility] Last Admin: 04/16/19 09:52 Dose: 10 u Documented by: Magnesium Hydroxide (Milk Of Magnesia) 30 ml PO DAILY PRN PRN PRN Reason: Constipation Metronidazole (Flagyl) 500 mg PO TID [facility] Last Admin: 04/16/19 14:19 Dose: 500 mg Documented by: Nutritional Formula (Chun - [place] Flavor) 1 packet PO BIDCM [facility] Last Admin: 04/16/19 09:51 Dose: 1 packet Documented by: Nutritional Formula (Lactose Free) (Glucerna Shake) 120 ml PO 4X/DAY [facility] Last Admin: 04/16/19 15:12 Dose: 120 ml Documented by: Ondansetron HCl (Zofran) 4 mg IV Q8H PRN PRN PRN Reason: NAUSEA/VOMITING Oxycodone HCl (Oxyir) 5 mg PO Q4H PRN PRN PRN Reason: Moderate Pain (4-6/10) Last Admin: 04/16/19 14:18 Dose: 5 mg Documented by: Sodium Chloride () 5 - 15 ml IV UD PRN PRN Reason: SALINE FLUSH Last Admin: 04/15/19 09:30 Dose: 10 ml Documented by: Sodium Chloride (0.9% Nacl (Sterile) Posiflush) 10 - 40 ml IV UD PRN PRN Reason: Port access or dressing change Sodium Chloride () 10 - 40 ml IV UD PRN PRN Reason: SALINE FLUSH Last Admin: 04/16/19 04:57 Dose: 20 ml Documented by: Code Visit Addendum: Dr. Aranda I personally examined the patient and reviewed the chart. I agree with the above. 63-year-old male who presents to the hospital with right lower extremity cellulitis on his great toe. He also developed some shortness of breath and was on 10 L nasal cannula. He was found to have diastolic heart failure which is acute and he was started on Lasix and he has had improvement in his breathing from 10 L to about 4 L nasal cannula today. Hopefully we can continue weaning him off the oxygen and plan on discharge. He is from [place] and has already bought plane tickets for Tuesday to return. He also appears to have some signs of osteo-in his right lower extremity and infectious disease was consulted and felt that he would be able to continue Flagyl and Omnicef as an outpatient for several weeks weeks on discharge. He would need to follow-up with a primary care doctor on his return to [place]. Also we have had some difficulty controlling his blood sugars given the fact that he is a severe diabetic with an A1c of 12.7. He has had increased in his insulin and is currently on 20 units twice daily of long-acting insulin and 10 units 3 times daily with meals as well as a high-dose sliding scale insulin. He maintains he does not need insulin and that his blood sugars are well controlled on just metformin alone and thinks that all of his blood sugar problems are due to the infection. Blood cultures have been negative, and will continue with Rocephin for his UTI. Inpatient E&M: 70841 Subs Hosp L2
[2019-04-16 15:21] LABS: Bedside Glucose 341 mg/dL (70-110)
[2019-04-16 18:16] LABS: Bedside Glucose 324 mg/dL (70-110)
[2019-04-16 22:05] LABS: Bedside Glucose 296 mg/dL (70-110)
[2019-04-17] VITALS (18 sets, daily range): BP systolic 144–170; BP diastolic 73–90; PULSE 81–107; RESP 12–28; TEMP 36.2–37.3; O2SAT 91–96
[2019-04-17] MEDS: oxyCODONE 5 MG Tablet PO ×5 (01:46→22:44)
[2019-04-17] MEDS: metroNIDAZOLE 500 MG Tablet PO ×3 (04:55→22:28)
[2019-04-17 05:52] LABS: Anion Gap 2 (5-15); BUN 38 mg/dL (7-18); BUN/Creat Ratio 38.1 RATIO (10-20); Calcium,Total 8.2 mg/dL (8.5-10.1); Chloride 100 mmol/L (98-107); EST Glomerular Filtration Rate 80 mL/min (>60); Est Glom Filt Rate - Afr Amer 97 mL/min (>60); Estimated Creatinine Clearance 78.07 ml/min; Glucose 208 mg/dL (74-106); Potassium 4.1 mmol/L (3.5-5.1); Sodium Level 140 mmol/L (136-145)
[2019-04-17] MEDS: Ipratropium/Albuterol Sulfate 3 ML AMPUL.NEB INHALATION ×3 (07:30→15:39)
[2019-04-17] MEDS: Insulin Lispro 100 UNIT/ML INSULN.PEN SC ×4 (08:18→22:33)
[2019-04-17] MEDS: Insulin Lispro 100 UNIT/ML INSULN.PEN 10 UNIT SC ×3 (08:19→16:48)
[2019-04-17] MEDS: Glucerna Shake 120 ML LIQUID PO ×4 (08:20→22:43)
[2019-04-17] MEDS: amLODIPine 10 MG Tablet PO (08:21)
[2019-04-17] MEDS: Furosemide 40 MG Tablet PO (08:21)
[2019-04-17] MEDS: Enoxaparin 40 MG/0.4 ML Syringe SC ×2 (08:21→22:29)
[2019-04-17] MEDS: Carvedilol 12.5 MG Tablet PO ×2 (08:21→22:29)
[2019-04-17] MEDS: Collagenase 30gm Tube 1 APPLIC TOPICAL (08:22)
[2019-04-17 08:30] LABS: Bedside Glucose 194 mg/dL (70-110)
--- NOTE | 2019-04-17 10:13 | PN_ITS ---
Patient Problems: Active and Suspected Problems Cellulitis of right foot (Acute) Sepsis (Acute) RUSS (acute kidney injury) (Acute) Hyponatremia (Acute) Cellulitis of right lower extremity (Acute) Ulcer of right foot with fat layer exposed (Acute) Subjective: Patient overall is subjectively improved compared to yesterday. Patient states he has walked to the bathroom without supplemental oxygen and did okay. Patient does not use supplemental oxygen at baseline and is adamant that he is flying back to [place] later this week. Patient denies any significant pain of the lower extremity and feels that this is improved following diuresis. Inputs and outputs are inaccurate secondary to undocumented voids. - Physical Exam Vitals/I&O's: Vital Signs Temp Pulse Resp BP Pulse Ox 36.9 C 86 16 144/73 H 93 04/17/19 08:01 04/17/19 08:01 04/17/19 08:01 04/17/19 08:01 04/17/19 08:01 Oxygen Flow Rate (L/min) 3 Oxygen Delivery Method Nasal Cannula Weight: 138.572 kg Body Mass Index (BMI) 43.8 Intake and Output for Last 24 Hours 04/15/19 04/16/19 04/17/19 23:59 23:59 23:59 Intake Total 3217 / 3217 880.50 / 880.50 524 / 524 Output Total 1974 3175 / 3175 Balance 1242 / 1242 -2294.50 / -2294.50 524 / 524 General: Alert, Oriented x3, Cooperative, No apparent distress, - - Morbidly obese. No conversational dyspnea. Nasal cannula in place. HEENT: Atraumatic, PERRLA, EOMI, Normocephalic, - - No scleral icterus or injection noted Oral: Moist Mucosa, No Gingival or Mucosal Lesions/ Ulcerations, - Neck: Supple, No JVD, No Nodes, Thyroid Normal Size and Texture Lungs: No rhonchi, No wheeze, No rales, Diminished, - - Fair effort. Cardiovascular: Regular rate, Regular Rhythm, Normal S1, Normal S2, No murmurs, No rub noted, No Gallop, - - Distant heart sounds secondary to body habitus Abdomen: Bowel Sounds Present, Soft, Non Tender, Non-Distended, Obese Extremities: No clubbing, No cyanosis, Edema - Appears to be improved Skin: - - No change compared to previous Musculoskeletal: No Tenderness to Palpation of Joints or Extremities Lymphatic: No Cervical, Supraclavicular, or Inguinal Adenopathy Neurological: Cranial nerves II-XII grossly intact, Neuro grossly intact Psych/Mental Status: Alert and oriented to time, place, person, mood and affect Microbiology Past 72 Hours 04/09/19 18:45 Wound - Aerobic & Anaerobic Swabs Gram Stain - Final 04/09/19 18:45 Wound - Aerobic & Anaerobic Swabs Wound Culture - Final Streptococcus group G 04/09/19 18:45 Wound - Aerobic & Anaerobic Swabs Anaerobic Culture - Final Anaerobic cocci Laboratory Results 04/16/19 12:39: POC Glucose 427 H 04/16/19 15:09: POC Glucose 341 H 04/16/19 18:10: POC Glucose 324 H 04/16/19 21:48: POC Glucose 296 H 04/17/19 05:05: Sodium 140, Potassium 4.1, Chloride 100, Carbon Dioxide 38.0 H, Anion Gap 2 L, BUN 38 H, Creatinine 1.00, Estim Creat Clear Calc 78.07, Est GFR (MDRD) Af Amer 97, Est GFR (MDRD) Non-Af 80, BUN/Creatinine Ratio 38.1 H, Glucose 208 H, Calcium 8.2 L 04/17/19 07:47: POC Glucose 194 H Current Medications Acetaminophen (Tylenol) 650 mg PO Q6H PRN PRN PRN Reason: Mild Pain (1-3)/Temp > 100.7 F Last Admin: 04/11/19 05:59 Dose: 650 mg Documented by: Albuterol/Ipratropium (Duoneb) 3 ml INHALATION Q4HWA.RT [facility] Last Admin: 04/17/19 07:30 Dose: 3 ml Documented by: Amlodipine Besylate (Norvasc) 10 mg PO DAILY SHANIQUE Last Admin: 04/17/19 08:21 Dose: 10 mg Documented by: Carvedilol (Coreg) 12.5 mg PO BID [facility] Last Admin: 04/17/19 08:21 Dose: 12.5 mg Documented by: Collagenase (Santyl) 1 applic TOPICAL DAILY SHANIQUE; Protocol Last Admin: 04/17/19 08:22 Dose: 1 applicatio Documented by: Dextrose (D50w Syringe) 0 gm IV X1 PRN; Protocol PRN Reason: Hypoglycemia Enoxaparin Sodium (Lovenox) 40 mg SC Q12 [facility] Last Admin: 04/17/19 08:21 Dose: 40 mg Documented by: Furosemide (Lasix) 40 mg PO DAILY SHANIQUE Last Admin: 04/17/19 08:21 Dose: 40 mg Documented by: Glucagon () 1 mg IM .X1 PRN PRN Reason: Hypoglycemia Heparin Sodium (Beef Lung) () 50 units IV UD PRN PRN Reason: PICC Line Heparin Flush Hydralazine HCl (Apresoline Iv) 5 mg IV Q6H PRN PRN PRN Reason: BLOOD PRESSURE Last Admin: 04/13/19 00:22 Dose: 5 mg Documented by: Sodium Chloride () 250 mls @ 15 mls/hr IV .[id number] PRN PRN Reason: Saline Flush Last Infusion: 04/16/19 12:00 Dose: 0 mls/hr Documented by: Ceftriaxone Sodium 2 gm/ (Sodium Chloride) 50 mls @ 100 mls/hr IV Q24 SHANIQUE Last Infusion: 04/17/19 09:18 Dose: Infused Documented by: Insulin Glargine (Lantus (Bkc)) 20 units SC BREAKFAST [facility] Last Admin: 04/17/19 08:19 Dose: 20 units Documented by: Insulin Glargine (Lantus (Bkc)) 20 units SC QHS [facility] Last Admin: 04/16/19 21:55 Dose: 20 u Documented by: Insulin Human Lispro (Humalog Kwikpen (Bkc)) 0 unit SC ACHS [facility]; Protocol Last Admin: 04/17/19 08:18 Dose: 3 u Documented by: Insulin Human Lispro (Humalog Kwikpen (Bkc)) 10 unit SC LUNCH [facility] Last Admin: 04/16/19 15:11 Dose: 10 u Documented by: Insulin Human Lispro (Humalog Kwikpen (Bkc)) 10 unit SC DINNER [facility] Last Admin: 04/16/19 18:14 Dose: 10 u Documented by: Insulin Human Lispro (Humalog Kwikpen (Bkc)) 10 unit SC BREAKFAST [facility] Last Admin: 04/17/19 08:19 Dose: 10 u Documented by: Magnesium Hydroxide (Milk Of Magnesia) 30 ml PO DAILY PRN PRN PRN Reason: Constipation Metronidazole (Flagyl) 500 mg PO TID [facility] Last Admin: 04/17/19 04:55 Dose: 500 mg Documented by: Nutritional Formula (Chun - Jean Flavor) 1 packet PO BIDCM [facility] Last Admin: 04/17/19 08:21 Dose: 1 packet Documented by: Nutritional Formula (Lactose Free) (Glucerna Shake) 120 ml PO 4X/DAY [facility] Last Admin: 04/17/19 08:20 Dose: 120 ml Documented by: Ondansetron HCl (Zofran) 4 mg IV Q8H PRN PRN PRN Reason: NAUSEA/VOMITING Oxycodone HCl (Oxyir) 5 mg PO Q4H PRN PRN PRN Reason: Moderate Pain (4-6/10) Last Admin: 04/17/19 07:40 Dose: 5 mg Documented by: Sodium Chloride () 5 - 15 ml IV UD PRN PRN Reason: SALINE FLUSH Last Admin: 04/15/19 09:30 Dose: 10 ml Documented by: Sodium Chloride (0.9% Nacl (Sterile) Posiflush) 10 - 40 ml IV UD PRN PRN Reason: Port access or dressing change Sodium Chloride () 10 - 40 ml IV UD PRN PRN Reason: SALINE FLUSH Last Admin: 04/16/19 04:57 Dose: 20 ml Documented by: Medical Necessity - Tobacco Use Smoking Status: Never smoker Tobacco Use: Cigarettes Assessment/Plan All Active Problems Cellulitis of right foot (Acute) Sepsis (Acute) RUSS (acute kidney injury) (Acute) Hyponatremia (Acute) Cellulitis of right lower extremity (Acute) Ulcer of right foot with fat layer exposed (Acute) RECOMMENDATIONS: 1. Continue nocturnal BiPAP therapy. 2. Continue aggressive diuresis. Wean supplemental oxygen to maintain saturations at or above 90%. 3. Encourage the use of incentive spirometry. Mobilize patient as tolerated. 4. Walking oximetry prior to discharge. Okay to discharge if required 6 L or less with ambulation on supplemental oxygen IMPRESSIONS: 1. Acute combined respiratory failure Likely multifactorial in etiology with obesity hypoventilation, underlying atelectasis and congestive heart failure contributing. The patient is overall net positive from a volume perspective for the hospital admission. The patient does appear to be improving from an oxygenation status in the setting of diuresis. Patient reportedly was on IV twice daily Lasix, but this has been transitioned to p.o. Lasix. Clinical suspicion the patient still remains volume overloaded. I's and O's are inaccurate and patient does not have a daily weight. Patient will need a walking oximetry prior to discharge. If patient is able to tolerate ambulation with 6 L or less, can likely be discharged from a pulmonary perspective with follow-up once back home in [place]. 2. Sepsis secondary to diabetic foot infection Continue current supportive measures and antimicrobials per infectious diseases recommendations. Podiatry and infectious disease are following. 3. Acute kidney injury Resolved. Continue management per nephrology recommendations. Creatinine improving with diuresis indicating probable improved perfusion with optimization of Starling forces and cardiac perfusion of the kidneys. Would continue aggressive diuresis. 4. Personal history of obstructive sleep apnea Patient does report obstructive sleep apnea. Clinical suspicion is is that current pressures are likely not high enough to control symptoms. Patient likely would benefit from a repeat titration as an outpatient. 5. Morbid obesity/hypertension/diabetes mellitus Complicates care, management, recovery and prognosis. Avoid nephrotoxic medications. Continue sliding scale coverage. Increased blood sugars likely secondary to elevated endogenous steroids given diabetic foot infection. Consider increase in Lantus therapy. Code Visit Inpatient E&M: 20269 Subs Hosp L2
--- NOTE | 2019-04-17 10:52 | PN.ID_ITS ---
Patient Problems: Active and Suspected Problems Cellulitis of right foot (Acute) Sepsis (Acute) RUSS (acute kidney injury) (Acute) Hyponatremia (Acute) Cellulitis of right lower extremity (Acute) Ulcer of right foot with fat layer exposed (Acute) Subjective: Feeling ok, frustrated about being here, no fever. - Physical Exam Vitals/I&O's: Vital Signs Temp Pulse Resp BP Pulse Ox 98.4 F 86 16 144/73 H 92 04/17/19 08:01 04/17/19 08:01 04/17/19 08:01 04/17/19 08:01 04/17/19 10:35 Oxygen Flow Rate (L/min) 2 Oxygen Delivery Method Nasal Cannula Weight: 138.572 kg Body Mass Index (BMI) 43.8 Intake and Output for Last 24 Hours 04/15/19 04/16/19 04/17/19 23:59 23:59 23:59 Intake Total 3217 / 3217 880.50 / 880.50 524 / 524 Output Total 1974 3175 / 3175 Balance 1242 / 1242 -2294.50 / -2294.50 524 / 524 General: Alert, Cooperative, No apparent distress Lungs: Diminished Cardiovascular: Regular rate, Regular Rhythm Abdomen: Soft, Non Tender, Non-Distended, Obese Extremities: Edema Skin: Ulcer/ Wound - foot wrapped Microbiology Past 72 Hours 04/09/19 18:45 Wound - Aerobic & Anaerobic Swabs Gram Stain - Final 04/09/19 18:45 Wound - Aerobic & Anaerobic Swabs Wound Culture - Final Streptococcus group G 04/09/19 18:45 Wound - Aerobic & Anaerobic Swabs Anaerobic Culture - Final Anaerobic cocci Laboratory Results 04/16/19 12:39: POC Glucose 427 H 04/16/19 15:09: POC Glucose 341 H 04/16/19 18:10: POC Glucose 324 H 04/16/19 21:48: POC Glucose 296 H 04/17/19 05:05: Sodium 140, Potassium 4.1, Chloride 100, Carbon Dioxide 38.0 H, Anion Gap 2 L, BUN 38 H, Creatinine 1.00, Estim Creat Clear Calc 78.07, Est GFR (MDRD) Af Amer 97, Est GFR (MDRD) Non-Af 80, BUN/Creatinine Ratio 38.1 H, Glucose 208 H, Calcium 8.2 L 04/17/19 07:47: POC Glucose 194 H Current Medications Acetaminophen (Tylenol) 650 mg PO Q6H PRN PRN PRN Reason: Mild Pain (1-3)/Temp > 100.7 F Last Admin: 04/11/19 05:59 Dose: 650 mg Documented by: Albuterol/Ipratropium (Duoneb) 3 ml INHALATION Q4HWA.RT [facility] Last Admin: 04/17/19 07:30 Dose: 3 ml Documented by: Amlodipine Besylate (Norvasc) 10 mg PO DAILY [facility] Last Admin: 04/17/19 08:21 Dose: 10 mg Documented by: Carvedilol (Coreg) 12.5 mg PO BID [facility] Last Admin: 04/17/19 08:21 Dose: 12.5 mg Documented by: Collagenase (Santyl) 1 applic TOPICAL DAILY [facility]; Protocol Last Admin: 04/17/19 08:22 Dose: 1 applicatio Documented by: Dextrose (D50w Syringe) 0 gm IV X1 PRN; Protocol PRN Reason: Hypoglycemia Enoxaparin Sodium (Lovenox) 40 mg SC Q12 [facility] Last Admin: 04/17/19 08:21 Dose: 40 mg Documented by: Furosemide (Lasix) 40 mg PO DAILY [facility] Last Admin: 04/17/19 08:21 Dose: 40 mg Documented by: Glucagon () 1 mg IM .X1 PRN PRN Reason: Hypoglycemia Heparin Sodium (Beef Lung) () 50 units IV UD PRN PRN Reason: PICC Line Heparin Flush Hydralazine HCl (Apresoline Iv) 5 mg IV Q6H PRN PRN PRN Reason: BLOOD PRESSURE Last Admin: 04/13/19 00:22 Dose: 5 mg Documented by: Sodium Chloride () 250 mls @ 15 mls/hr IV .[id number] PRN PRN Reason: Saline Flush Last Infusion: 04/16/19 12:00 Dose: 0 mls/hr Documented by: Ceftriaxone Sodium 2 gm/ (Sodium Chloride) 50 mls @ 100 mls/hr IV Q24 [facility] Last Infusion: 04/17/19 09:18 Dose: Infused Documented by: Insulin Glargine (Lantus (Bkc)) 20 units SC BREAKFAST [facility] Last Admin: 04/17/19 08:19 Dose: 20 units Documented by: Insulin Glargine (Lantus (Bk)) 20 units SC QHS [facility] Last Admin: 04/16/19 21:55 Dose: 20 u Documented by: Insulin Human Lispro (Humalog Kwikpen (Bk)) 0 unit SC ACHS [facility]; Protocol Last Admin: 04/17/19 08:18 Dose: 3 u Documented by: Insulin Human Lispro (Humalog Kwikpen (Bk)) 10 unit SC LUNCH [facility] Last Admin: 04/16/19 15:11 Dose: 10 u Documented by: Insulin Human Lispro (Humalog Kwikpen (Bk)) 10 unit SC DINNER [facility] Last Admin: 04/16/19 18:14 Dose: 10 u Documented by: Insulin Human Lispro (Humalog Kwikpen (Bk)) 10 unit SC BREAKFAST [facility] Last Admin: 04/17/19 08:19 Dose: 10 u Documented by: Magnesium Hydroxide (Milk Of Magnesia) 30 ml PO DAILY PRN PRN PRN Reason: Constipation Metronidazole (Flagyl) 500 mg PO TID [facility] Last Admin: 04/17/19 04:55 Dose: 500 mg Documented by: Nutritional Formula (Chun - [place] Flavor) 1 packet PO BIDCM [facility] Last Admin: 04/17/19 08:21 Dose: 1 packet Documented by: Nutritional Formula (Lactose Free) (Glucerna Shake) 120 ml PO 4X/DAY [facility] Last Admin: 04/17/19 08:20 Dose: 120 ml Documented by: Ondansetron HCl (Zofran) 4 mg IV Q8H PRN PRN PRN Reason: NAUSEA/VOMITING Oxycodone HCl (Oxyir) 5 mg PO Q4H PRN PRN PRN Reason: Moderate Pain (4-6/10) Last Admin: 04/17/19 07:40 Dose: 5 mg Documented by: Sodium Chloride () 5 - 15 ml IV UD PRN PRN Reason: SALINE FLUSH Last Admin: 04/15/19 09:30 Dose: 10 ml Documented by: Sodium Chloride (0.9% Nacl (Sterile) Posiflush) 10 - 40 ml IV UD PRN PRN Reason: Port access or dressing change Sodium Chloride () 10 - 40 ml IV UD PRN PRN Reason: SALINE FLUSH Last Admin: 04/16/19 04:57 Dose: 20 ml Documented by: Medical Necessity - Tobacco Use Smoking Status: Never smoker Tobacco Use: Cigarettes Route of nutrition/ use of supplements: [] Nutritional Intake: [] IV Site: [] Mora Catheter: [] - Assessment/Plan Antibiotics: [] Assessment/Plan: [] Active and Suspected Problems Cellulitis of right foot (Acute) Sepsis (Acute) RUSS (acute kidney injury) (Acute) Hyponatremia (Acute) Cellulitis of right lower extremity (Acute) Ulcer of right foot with fat layer exposed (Acute) sepsis due to diabetic R foot infection, concern for osteo, course complicated by RUSS and some hypoxic resp failure. Pending MRI of R foot and ankle, noncontrast. Re: his allergy history, reports being told as a child he was allergic to PCN. No known h/o anaphylaxis. Reports taking amoxicillin at some point as an adult and having some upset stomach. Bcx neg so far, wound cx with strep finalized, and neg staph aureus pcr. On ceftriaxone/flagyl. With uncontrolled DM, A1c of 12, neuropathy, and RUSS, concern about ability to heal this infected wound. Have counseled him re:need for strict glucose management. Ucx with klebs, covered by ceftriaxone. Ok for discharge on po flagyl for 2 weeks and po omnicef for 5 weeks, stop date 05/20/19. He does not drink etoh. Will follow
--- NOTE | 2019-04-17 10:57 | PCM.PROGNOTE ---
Patient Problems: Active and Suspected Problems Cellulitis of right foot (Acute) Sepsis (Acute) RUSS (acute kidney injury) (Acute) Hyponatremia (Acute) Cellulitis of right lower extremity (Acute) Ulcer of right foot with fat layer exposed (Acute) Subjective: This 63-year-old male with multiple comorbidities is seen bedside again today for follow up of right great toe ulcer and leg cellulitis associated with his recent sepsis. He denies fever, chills, nausea, vomiting. Pain well controlled today still. - Physical Exam Vitals/I&O's: Vital Signs Temp Pulse Resp BP Pulse Ox 98.4 F 86 16 144/73 H 92 04/17/19 08:01 04/17/19 08:01 04/17/19 08:01 04/17/19 08:01 04/17/19 10:35 Oxygen Flow Rate (L/min) 2 Oxygen Delivery Method Nasal Cannula Weight: 138.572 kg Body Mass Index (BMI) 43.8 Intake and Output for Last 24 Hours 04/15/19 04/16/19 04/17/19 23:59 23:59 23:59 Intake Total 3217 / 3217 880.50 / 880.50 524 / 524 Output Total 1974 / 1974 3175 / 3175 Balance 1242 / 1242 -2294.50 / -2294.50 524 / 524 General: Alert, Oriented x3, Cooperative Extremities: No cyanosis, Capillary Refill Less than 3 Seconds, No Calf Tenderness - Negative Marcano sign to the right, Diminished Peripheral Pulses, Edema Skin: Ulcer/ Wound - Ulcer to the distal aspect of the right hallux with a mixture of adherent slough and fibrotic tissue as well as some surrounding hyperkeratotic tissue. There is no erythema, malodor, or purulence appreciated to the ulcer site or foot, - - Skin is hairless and atrophic. Patient is noted to have some hyperpigmentation as well as some erythema to the lower leg however he feels this is improved since he has been in the hospital. Musculoskeletal: No Tenderness to Palpation of Joints or Extremities Neurological: - - Abnormal epicritic sensation consistent with patient's neuropathic status Psych/Mental Status: Normal Affect, Appropriate Microbiology Past 72 Hours 04/09/19 18:45 Wound - Aerobic & Anaerobic Swabs Gram Stain - Final 04/09/19 18:45 Wound - Aerobic & Anaerobic Swabs Wound Culture - Final Streptococcus group G 04/09/19 18:45 Wound - Aerobic & Anaerobic Swabs Anaerobic Culture - Final Anaerobic cocci Laboratory Results 04/16/19 12:39: POC Glucose 427 H 04/16/19 15:09: POC Glucose 341 H 04/16/19 18:10: POC Glucose 324 H 04/16/19 21:48: POC Glucose 296 H 04/17/19 05:05: Sodium 140, Potassium 4.1, Chloride 100, Carbon Dioxide 38.0 H, Anion Gap 2 L, BUN 38 H, Creatinine 1.00, Estim Creat Clear Calc 78.07, Est GFR (MDRD) Af Amer 97, Est GFR (MDRD) Non-Af 80, BUN/Creatinine Ratio 38.1 H, Glucose 208 H, Calcium 8.2 L 04/17/19 07:47: POC Glucose 194 H Current Medications Acetaminophen (Tylenol) 650 mg PO Q6H PRN PRN PRN Reason: Mild Pain (1-3)/Temp > 100.7 F Last Admin: 04/11/19 05:59 Dose: 650 mg Documented by: Albuterol/Ipratropium (Duoneb) 3 ml INHALATION Q4HWA.RT [facility] Last Admin: 04/17/19 07:30 Dose: 3 ml Documented by: Amlodipine Besylate (Norvasc) 10 mg PO DAILY [facility] Last Admin: 04/17/19 08:21 Dose: 10 mg Documented by: Carvedilol (Coreg) 12.5 mg PO BID [facility] Last Admin: 04/17/19 08:21 Dose: 12.5 mg Documented by: Collagenase (Santyl) 1 applic TOPICAL DAILY [facility]; Protocol Last Admin: 04/17/19 08:22 Dose: 1 applicatio Documented by: Dextrose (D50w Syringe) 0 gm IV X1 PRN; Protocol PRN Reason: Hypoglycemia Enoxaparin Sodium (Lovenox) 40 mg SC Q12 [facility] Last Admin: 04/17/19 08:21 Dose: 40 mg Documented by: Furosemide (Lasix) 40 mg PO DAILY [facility] Last Admin: 04/17/19 08:21 Dose: 40 mg Documented by: Glucagon () 1 mg IM .X1 PRN PRN Reason: Hypoglycemia Heparin Sodium (Beef Lung) () 50 units IV UD PRN PRN Reason: PICC Line Heparin Flush Hydralazine HCl (Apresoline Iv) 5 mg IV Q6H PRN PRN PRN Reason: BLOOD PRESSURE Last Admin: 04/13/19 00:22 Dose: 5 mg Documented by: Sodium Chloride () 250 mls @ 15 mls/hr IV .[id number] PRN PRN Reason: Saline Flush Last Infusion: 04/16/19 12:00 Dose: 0 mls/hr Documented by: Ceftriaxone Sodium 2 gm/ (Sodium Chloride) 50 mls @ 100 mls/hr IV Q24 [facility] Last Infusion: 04/17/19 09:18 Dose: Infused Documented by: Insulin Glargine (Lantus (Bkc)) 20 units SC BREAKFAST [facility] Last Admin: 04/17/19 08:19 Dose: 20 units Documented by: Insulin Glargine (Lantus (Bkc)) 20 units SC QHS [facility] Last Admin: 04/16/19 21:55 Dose: 20 u Documented by: Insulin Human Lispro (Humalog Kwikpen (Bkc)) 0 unit SC ACHS [facility]; Protocol Last Admin: 04/17/19 08:18 Dose: 3 u Documented by: Insulin Human Lispro (Humalog Kwikpen (Bkc)) 10 unit SC LUNCH [facility] Last Admin: 04/16/19 15:11 Dose: 10 u Documented by: Insulin Human Lispro (Humalog Kwikpen (Bkc)) 10 unit SC DINNER [facility] Last Admin: 04/16/19 18:14 Dose: 10 u Documented by: Insulin Human Lispro (Humalog Kwikpen (Bkc)) 10 unit SC BREAKFAST [facility] Last Admin: 04/17/19 08:19 Dose: 10 u Documented by: Magnesium Hydroxide (Milk Of Magnesia) 30 ml PO DAILY PRN PRN PRN Reason: Constipation Metronidazole (Flagyl) 500 mg PO TID [facility] Last Admin: 04/17/19 04:55 Dose: 500 mg Documented by: Nutritional Formula (Chun - [place] Flavor) 1 packet PO BIDCM [facility] Last Admin: 04/17/19 08:21 Dose: 1 packet Documented by: Nutritional Formula (Lactose Free) (Glucerna Shake) 120 ml PO 4X/DAY [facility] Last Admin: 04/17/19 08:20 Dose: 120 ml Documented by: Ondansetron HCl (Zofran) 4 mg IV Q8H PRN PRN PRN Reason: NAUSEA/VOMITING Oxycodone HCl (Oxyir) 5 mg PO Q4H PRN PRN PRN Reason: Moderate Pain (4-6/10) Last Admin: 04/17/19 07:40 Dose: 5 mg Documented by: Sodium Chloride () 5 - 15 ml IV UD PRN PRN Reason: SALINE FLUSH Last Admin: 04/15/19 09:30 Dose: 10 ml Documented by: Sodium Chloride (0.9% Nacl (Sterile) Posiflush) 10 - 40 ml IV UD PRN PRN Reason: Port access or dressing change Sodium Chloride () 10 - 40 ml IV UD PRN PRN Reason: SALINE FLUSH Last Admin: 04/16/19 04:57 Dose: 20 ml Documented by: Medical Necessity - Tobacco Use Smoking Status: Never smoker Tobacco Use: Cigarettes Assessment/Plan All Active Problems Cellulitis of right foot (Acute) Sepsis (Acute) RUSS (acute kidney injury) (Acute) Hyponatremia (Acute) Cellulitis of right lower extremity (Acute) Ulcer of right foot with fat layer exposed (Acute) Ulcer right hallux with fat layer exposed Osteomyelitis versus degenerative reactive bone marrow from mechanical pressure to distal tip of distal phalanx of right hallux Right lower extremity cellulitis resolving Deep venous thrombosis has been ruled out with venous Doppler exam Right lower extremity edema; venous insufficiency is suspected Right lower extremity pain -decreasing Partial tear of achilles right lower extremity Uncontrolled diabetes with neuropathy; hemoglobin A1c 12.2 noted Sepsis resolved Multiple other comorbidities: Sleep apnea, obesity, kidney injury, hypertension Patient was carefully examined and evaluated again today resting in the chair with lower extremities elevated. He says he is feeling better today and he has been able to get up and go to bathroom without feeling winded. Patient is to continue with antibiotics per infectious disease recommendations. Continue to not recommend surgical amputation at this time for patients right hallux. Patient also relates that he would like to proceed with antibiotics as well as following up at a [facility] wound center in [place] first. Patient is to have daily dressing changes with Aquacel Ag. This was completed again today. To continue with Mahendra wraps for edema management. Patient has prior partial right Achilles rupture. To continue weight-bear as tolerated right lower extremity with CAM walker boot in place and added heel lift. If pain continues with partial weightbearing he is to then be nonweightbearing to right lower leg. I do not recommend primary repair of the Achilles during his current condition. Treatment for this condition involves either conservative immobilization with the foot in a plantarflexed position for 1 to 3 months versus surgical repair once he is medically stable and his infection has cleared. Medical management DVT prophylaxis per primary team is greatly appreciated. At time of discharge podiatry continues to recommend he follows up with the wound healing center in [place]. He was given a phone number and his discharge instructions. It is noted he lives in [place] and plans to return. Continue to recommend outpatient venous duplex Doppler with reflux evaluation to see determine if there is any potential intervention options for chronic venous insufficiency which may also be contributing to his leg inflammation, pain, and edema. I also recommend he follows up with a lower extremity specialist for management of his Achilles injury. Patient is okay to discharge per podiatry standpoint there once medically stable and all other aspects. Podiatry will continue to follow this patient while in house.
[2019-04-17 12:15] LABS: Bedside Glucose 327 mg/dL (70-110)
--- NOTE | 2019-04-17 14:48 | CASEMGMT ---
Pt does not qualify for home oxygen at this time. This RN CM to room to f/u on discharge plan with pt at this time and pt states has flight scheduled for tuesday to fly home to [place] and plans to either stay in his truck or at a home that is provided for [employer] by his [employer]. This RN CM asked pt if there would be someone to help him change his dressing daily per podiatry order and pt states that he would do it. This RN DAMION advised the importance of changing the dressing daily per order and told pt that podiatry/wound nurse would have to see if pt was able to complete on his own tomorrow prior to discharge, voices understanding. Pt voices no concerns with getting meds at discharge. Pt vents anger to this RN DAMION about workers comp not paying for this visit and states 'I will just get an consumer attorney and take them to court like I did before and win.' [place] CLAUDIO BRUNO
--- NOTE | 2019-04-17 15:07 | PN_ITS ---
<Karen Lake - Last Filed: 04/17/19 15:32> Patient Problems: Active and Suspected Problems Cellulitis of right foot (Acute) Sepsis (Acute) RUSS (acute kidney injury) (Acute) Hyponatremia (Acute) Cellulitis of right lower extremity (Acute) Ulcer of right foot with fat layer exposed (Acute) Subjective: Patient seen and examined. Resting comfortably in chair. Denies current complaints. Plan for discharge tomorrow - Physical Exam Vitals/I&O's: Vital Signs Temp Pulse Resp BP Pulse Ox 97.9 F 98 18 155/80 H 92 04/17/19 14:00 04/17/19 14:00 04/17/19 14:00 04/17/19 14:00 04/17/19 14:00 Oxygen Flow Rate (L/min) [ 0 AMBULATING on Room Air] Oxygen Flow Rate (L/min) [At 0 REST on Room Air] Oxygen Flow Rate (L/min) 2 Oxygen Delivery Method Room Air Weight: 305 lb 7.983 oz Body Mass Index (BMI) 43.8 Intake and Output for Last 24 Hours 04/15/19 04/16/19 04/17/19 23:59 23:59 23:59 Intake Total 3217 / 3217 880.50 / 880.50 1004 / 1004 Output Total 1974 3175 / 3175 Balance 1242 / 1242 -2294.50 / -2294.50 1004 / 1004 General: Alert, Oriented x3, Cooperative HEENT: Atraumatic, PERRLA, EOMI, Normocephalic Neck: Supple, No JVD, Negative Carotid Bruits Lungs: Clear to auscultation, Normal air movement Cardiovascular: Regular rate, Regular Rhythm, Normal S1, Normal S2, No murmurs Abdomen: Bowel Sounds Present, Soft, Non Tender, Non-Distended Extremities: No clubbing, No cyanosis, No edema, Capillary Refill Less than 3 Seconds Skin: - - Chronic venous stasis skin changes bilateral lower extremities. Right foot dressing clean dry and intact. Musculoskeletal: No Tenderness to Palpation of Joints or Extremities Neurological: Cranial nerves II-XII grossly intact, Neuro grossly intact Psych/Mental Status: Normal Affect, Appropriate Laboratory Results 04/16/19 15:09: POC Glucose 341 H 04/16/19 18:10: POC Glucose 324 H 04/16/19 21:48: POC Glucose 296 H 04/17/19 05:05: Sodium 140, Potassium 4.1, Chloride 100, Carbon Dioxide 38.0 H, Anion Gap 2 L, BUN 38 H, Creatinine 1.00, Estim Creat Clear Calc 78.07, Est GFR (MDRD) Af Amer 97, Est GFR (MDRD) Non-Af 80, BUN/Creatinine Ratio 38.1 H, Glucose 208 H, Calcium 8.2 L 04/17/19 07:47: POC Glucose 194 H 04/17/19 12:04: POC Glucose 327 H Current Medications Acetaminophen (Tylenol) 650 mg PO Q6H PRN PRN PRN Reason: Mild Pain (1-3)/Temp > 100.7 F Last Admin: 04/11/19 05:59 Dose: 650 mg Documented by: Albuterol/Ipratropium (Duoneb) 3 ml INHALATION Q4HWA.RT SHANIQUE Last Admin: 04/17/19 11:17 Dose: 3 ml Documented by: Amlodipine Besylate (Norvasc) 10 mg PO DAILY [facility] Last Admin: 04/17/19 08:21 Dose: 10 mg Documented by: Carvedilol (Coreg) 12.5 mg PO BID [facility] Last Admin: 04/17/19 08:21 Dose: 12.5 mg Documented by: Collagenase (Santyl) 1 applic TOPICAL DAILY [facility]; Protocol Last Admin: 04/17/19 08:22 Dose: 1 applicatio Documented by: Dextrose (D50w Syringe) 0 gm IV X1 PRN; Protocol PRN Reason: Hypoglycemia Enoxaparin Sodium (Lovenox) 40 mg SC Q12 SHANIQUE Last Admin: 04/17/19 08:21 Dose: 40 mg Documented by: Furosemide (Lasix) 40 mg PO DAILY [facility] Last Admin: 04/17/19 08:21 Dose: 40 mg Documented by: Glucagon () 1 mg IM .X1 PRN PRN Reason: Hypoglycemia Heparin Sodium (Beef Lung) () 50 units IV UD PRN PRN Reason: PICC Line Heparin Flush Hydralazine HCl (Apresoline Iv) 5 mg IV Q6H PRN PRN PRN Reason: BLOOD PRESSURE Last Admin: 04/13/19 00:22 Dose: 5 mg Documented by: Sodium Chloride () 250 mls @ 15 mls/hr IV .[id number] PRN PRN Reason: Saline Flush Last Infusion: 04/16/19 12:00 Dose: 0 mls/hr Documented by: Ceftriaxone Sodium 2 gm/ (Sodium Chloride) 50 mls @ 100 mls/hr IV Q24 [facility] Last Infusion: 04/17/19 09:18 Dose: Infused Documented by: Insulin Glargine (Lantus (Bkc)) 20 units SC BREAKFAST [facility] Last Admin: 04/17/19 08:19 Dose: 20 units Documented by: Insulin Glargine (Lantus (Bkc)) 20 units SC QHS [facility] Last Admin: 04/16/19 21:55 Dose: 20 u Documented by: Insulin Human Lispro (Humalog Kwikpen (Bkc)) 0 unit SC ACHS [facility]; Protocol Last Admin: 04/17/19 12:08 Dose: 12 u Documented by: Insulin Human Lispro (Humalog Kwikpen (Bkc)) 10 unit SC LUNCH [facility] Last Admin: 04/17/19 12:08 Dose: 10 u Documented by: Insulin Human Lispro (Humalog Kwikpen (Bkc)) 10 unit SC DINNER [facility] Last Admin: 04/16/19 18:14 Dose: 10 u Documented by: Insulin Human Lispro (Humalog Kwikpen (Bkc)) 10 unit SC BREAKFAST [facility] Last Admin: 04/17/19 08:19 Dose: 10 u Documented by: Magnesium Hydroxide (Milk Of Magnesia) 30 ml PO DAILY PRN PRN PRN Reason: Constipation Metronidazole (Flagyl) 500 mg PO TID [facility] Last Admin: 04/17/19 13:37 Dose: 500 mg Documented by: Nutritional Formula (Chun - Faulkner Flavor) 1 packet PO BIDCM [facility] Last Admin: 04/17/19 08:21 Dose: 1 packet Documented by: Nutritional Formula (Lactose Free) (Glucerna Shake) 120 ml PO 4X/DAY [facility] Last Admin: 04/17/19 13:36 Dose: 120 ml Documented by: Ondansetron HCl (Zofran) 4 mg IV Q8H PRN PRN PRN Reason: NAUSEA/VOMITING Oxycodone HCl (Oxyir) 5 mg PO Q4H PRN PRN PRN Reason: Moderate Pain (4-6/10) Last Admin: 04/17/19 13:36 Dose: 5 mg Documented by: Sodium Chloride () 5 - 15 ml IV UD PRN PRN Reason: SALINE FLUSH Last Admin: 04/15/19 09:30 Dose: 10 ml Documented by: Sodium Chloride (0.9% Nacl (Sterile) Posiflush) 10 - 40 ml IV UD PRN PRN Reason: Port access or dressing change Sodium Chloride () 10 - 40 ml IV UD PRN PRN Reason: SALINE FLUSH Last Admin: 04/16/19 04:57 Dose: 20 ml Documented by: Medical Necessity - Tobacco Use Smoking Status: Never smoker Tobacco Use: Cigarettes Assessment/Plan All Active Problems Cellulitis of right foot (Acute) Sepsis (Acute) RUSS (acute kidney injury) (Acute) Hyponatremia (Acute) Cellulitis of right lower extremity (Acute) Ulcer of right foot with fat layer exposed (Acute) 1. Sepsis secondary to right right great toe diabetic foot ulcer with associated right lower extremity cellulitis, early osteomyelitis right great toe-ID and podiatry following. DVT ruled out. Patient will need outpatient follow-up for right lower extremity suspected venous insufficiency. Continue with dressing changes per orders, offloading right lower extremity. Plan for discharge on oral Flagyl for 2 weeks and oral Omnicef for 5 weeks with stop date 05/20/2019. Patient to follow-up with podiatry in [place] at discharge. 2. Acute hypoxic respiratory insufficiency-multifactorial, suspected secondary to acute diastolic CHF, obesity hypoventilation and underlying atelectasis. Encouraged incentives parameter. Continue diuretic regimen. Continue supple ment oxygen to maintain O2 at or above 90%, wean as tolerated. Walking pulse ox prior to discharge. 3. Acute diastolic CHF-echocardiogram demonstrates an EF of 65%, stage II diastolic dysfunction. Previously on IV Lasix, transition to Lasix 40 mg daily. Strict I&O. Daily weight. 4. Acute Klebsiella UTI-on Rocephin. 5. Acute kidney injury-resolved. 6. Type 2 diabetes mellitus-oral regimen on hold. Accu-Cheks ACHS with SSI. On Lantus 20 units twice daily. Hemoglobin A1c 12.2%. 7. Hypertension-continue home carvedilol, amlodipine regimen. TATA inhibitor and HCTZ on hold. 8. ENEIDA-continue BiPAP nightly. Pulmonary recommending outpatient titration study as current pressures are likely not sufficient. 9. Morbid obesity-encouraged diet and lifestyle modifications. DVT prophylaxis- Antoniox sc This patient was seen by BONI Ortiz under the supervision of Dr. Aranda. <Rodriguez Aranda F - Last Filed: 04/17/19 16:10> - Physical Exam Vitals/I&O's: Vital Signs Temp Pulse Resp BP Pulse Ox 97.9 F 87 16 155/80 H 92 04/17/19 14:00 04/17/19 15:39 04/17/19 15:39 04/17/19 14:00 04/17/19 14:00 Oxygen Flow Rate (L/min) [ 0 AMBULATING on Room Air] Oxygen Flow Rate (L/min) [At 0 REST on Room Air] Oxygen Flow Rate (L/min) 2 Oxygen Delivery Method Room Air Weight: 305 lb 7.983 oz Body Mass Index (BMI) 43.8 Intake and Output for Last 24 Hours 04/15/19 04/16/19 04/17/19 23:59 23:59 23:59 Intake Total 3217 / 3217 880.50 / 880.50 1004 / 1004 Output Total 1974 3175 / 3175 Balance 1242 / 1242 -2294.50 / -2294.50 1004 / 1004 Laboratory Results 04/16/19 18:10: POC Glucose 324 H 04/16/19 21:48: POC Glucose 296 H 04/17/19 05:05: Sodium 140, Potassium 4.1, Chloride 100, Carbon Dioxide 38.0 H, Anion Gap 2 L, BUN 38 H, Creatinine 1.00, Estim Creat Clear Calc 78.07, Est GFR (MDRD) Af Amer 97, Est GFR (MDRD) Non-Af 80, BUN/Creatinine Ratio 38.1 H, Glucose 208 H, Calcium 8.2 L 04/17/19 07:47: POC Glucose 194 H 04/17/19 12:04: POC Glucose 327 H Current Medications Acetaminophen (Tylenol) 650 mg PO Q6H PRN PRN PRN Reason: Mild Pain (1-3)/Temp > 100.7 F Last Admin: 04/11/19 05:59 Dose: 650 mg Documented by: Albuterol/Ipratropium (Duoneb) 3 ml INHALATION Q4HWA.RT SHANIQUE Last Admin: 04/17/19 15:39 Dose: 3 ml Documented by: Amlodipine Besylate (Norvasc) 10 mg PO DAILY [facility] Last Admin: 04/17/19 08:21 Dose: 10 mg Documented by: Carvedilol (Coreg) 12.5 mg PO BID [facility] Last Admin: 04/17/19 08:21 Dose: 12.5 mg Documented by: Collagenase (Santyl) 1 applic TOPICAL DAILY [facility]; Protocol Last Admin: 04/17/19 08:22 Dose: 1 applicatio Documented by: Dextrose (D50w Syringe) 0 gm IV X1 PRN; Protocol PRN Reason: Hypoglycemia Enoxaparin Sodium (Lovenox) 40 mg SC Q12 [facility] Last Admin: 04/17/19 08:21 Dose: 40 mg Documented by: Furosemide (Lasix) 40 mg PO DAILY [facility] Last Admin: 04/17/19 08:21 Dose: 40 mg Documented by: Glucagon () 1 mg IM .X1 PRN PRN Reason: Hypoglycemia Heparin Sodium (Beef Lung) () 50 units IV UD PRN PRN Reason: PICC Line Heparin Flush Hydralazine HCl (Apresoline Iv) 5 mg IV Q6H PRN PRN PRN Reason: BLOOD PRESSURE Last Admin: 04/13/19 00:22 Dose: 5 mg Documented by: Sodium Chloride () 250 mls @ 15 mls/hr IV .[id number] PRN PRN Reason: Saline Flush Last Infusion: 04/16/19 12:00 Dose: 0 mls/hr Documented by: Ceftriaxone Sodium 2 gm/ (Sodium Chloride) 50 mls @ 100 mls/hr IV Q24 [facility] Last Infusion: 04/17/19 09:18 Dose: Infused Documented by: Insulin Glargine (Lantus (Bkc)) 20 units SC BREAKFAST [facility] Last Admin: 04/17/19 08:19 Dose: 20 units Documented by: Insulin Glargine (Lantus (Bkc)) 20 units SC QHS [facility] Last Admin: 04/16/19 21:55 Dose: 20 u Documented by: Insulin Human Lispro (Humalog Kwikpen (Bkc)) 0 unit SC ACHS [facility]; Protocol Last Admin: 04/17/19 12:08 Dose: 12 u Documented by: Insulin Human Lispro (Humalog Kwikpen (Bkc)) 10 unit SC LUNCH [facility] Last Admin: 04/17/19 12:08 Dose: 10 u Documented by: Insulin Human Lispro (Humalog Kwikpen ([facility])) 10 unit SC DINNER [facility] Last Admin: 04/16/19 18:14 Dose: 10 u Documented by: Insulin Human Lispro (Humalog Kwikpen (Bk)) 10 unit SC BREAKFAST [facility] Last Admin: 04/17/19 08:19 Dose: 10 u Documented by: Magnesium Hydroxide (Milk Of Magnesia) 30 ml PO DAILY PRN PRN PRN Reason: Constipation Metronidazole (Flagyl) 500 mg PO TID [facility] Last Admin: 04/17/19 13:37 Dose: 500 mg Documented by: Nutritional Formula (Chun - Faulkner Flavor) 1 packet PO BIDCM [facility] Last Admin: 04/17/19 08:21 Dose: 1 packet Documented by: Nutritional Formula (Lactose Free) (Glucerna Shake) 120 ml PO 4X/DAY [facility] Last Admin: 04/17/19 13:36 Dose: 120 ml Documented by: Ondansetron HCl (Zofran) 4 mg IV Q8H PRN PRN PRN Reason: NAUSEA/VOMITING Oxycodone HCl (Oxyir) 5 mg PO Q4H PRN PRN PRN Reason: Moderate Pain (4-6/10) Last Admin: 04/17/19 13:36 Dose: 5 mg Documented by: Sodium Chloride () 5 - 15 ml IV UD PRN PRN Reason: SALINE FLUSH Last Admin: 04/15/19 09:30 Dose: 10 ml Documented by: Sodium Chloride (0.9% Nacl (Sterile) Posiflush) 10 - 40 ml IV UD PRN PRN Reason: Port access or dressing change Sodium Chloride () 10 - 40 ml IV UD PRN PRN Reason: SALINE FLUSH Last Admin: 04/16/19 04:57 Dose: 20 ml Documented by: Code Visit Addendum: Dr. Aranda I personally examined the patient and reviewed the chart. I agree with the above. 63-year-old male who presents to the hospital with right lower extremity cellulitis on his great toe. He also developed some shortness of breath and was on 10 L nasal cannula. He was found to have diastolic heart failure which is acute and he was started on Lasix and he has had improvement in his breathing from 10 L to about 4 L nasal cannula yesterday, and he is now on room air with an oxygen sat in the low 90s. He is from [place] and has already bought plane tickets for Tuesday to return. He also appears to have some signs of osteo-in his right lower extremity and infectious disease was consulted and felt that he would be able to continue Flagyl and Omnicef as an outpatient for several weeks on discharge. He would need to follow-up with a primary care doctor on his return to [place]. Also we have had some difficulty controlling his blood sugars given the fact that he is a severe diabetic with an A1c of 12.7. He has had increased in his insulin and is currently on 20 units twice daily of long- acting insulin and 10 units 3 times daily with meals as well as a high-dose sliding scale insulin. He maintains he does not need insulin and that his blood sugars are well controlled on just metformin alone and thinks that all of his blood sugar problems are due to the infection. Blood cultures have been negative, and will continue with Rocephin for his UTI. The plan is to keep him 1 more day so he can have teaching on how to change his own dressing at home and then plan will be to discharge him tomorrow if he is able to stay off of oxygen, and that way he should be able to return to [place] on Tuesday. Inpatient E&M: 68190 Subs Hosp L2
[2019-04-17 17:30] LABS: Bedside Glucose 306 mg/dL (70-110)
[2019-04-17 22:41] LABS: Bedside Glucose 357 mg/dL (70-110)
[2019-04-17] MEDS: hydrALAZINE 20 MG/ML Vial 5 MG IV (22:49)
[2019-04-17] MEDS: 0.9% Saline Lock 10 ML Syringe IV (22:50)
--- NOTE | 2019-04-17 23:52 | NURSING ---
2230 - Changed PICC line dressing, dressing is partially off, catheter partially exposed. Catheter insertion site a little red.
[2019-04-18] VITALS (7 sets, daily range): BP systolic 143–167; BP diastolic 71–84; PULSE 79–98; RESP 12–26; TEMP 36.7–37.1; O2SAT 92–94
[2019-04-18] MEDS: metroNIDAZOLE 500 MG Tablet PO ×2 (06:06→14:29)
[2019-04-18] MEDS: oxyCODONE 5 MG Tablet PO ×2 (06:08→12:28)
[2019-04-18] MEDS: 0.9% Saline Lock 10 ML Syringe IV (06:53)
[2019-04-18 07:24] LABS: Anion Gap 3 (5-15); BUN 34 mg/dL (7-18); BUN/Creat Ratio 37.5 RATIO (10-20); Calcium,Total 8.5 mg/dL (8.5-10.1); Chloride 101 mmol/L (98-107); Creatinine, Serum 0.91 mg/dL (0.70-1.30); EST Glomerular Filtration Rate 90 mL/min (>60); Est Glom Filt Rate - Afr Amer 109 mL/min (>60); Estimated Creatinine Clearance 85.79 ml/min; Glucose 175 mg/dL (74-106); Sodium Level 141 mmol/L (136-145)
[2019-04-18] MEDS: Ipratropium/Albuterol Sulfate 3 ML AMPUL.NEB INHALATION ×2 (07:25→10:42)
[2019-04-18] MEDS: Insulin Lispro 100 UNIT/ML INSULN.PEN SC ×2 (08:01→12:31)
[2019-04-18] MEDS: Insulin Lispro 100 UNIT/ML INSULN.PEN 10 UNIT SC ×2 (08:01→12:30)
[2019-04-18] MEDS: Carvedilol 12.5 MG Tablet PO (08:13)
[2019-04-18] MEDS: amLODIPine 10 MG Tablet PO (08:13)
[2019-04-18] MEDS: Glucerna Shake 120 ML LIQUID PO (08:13)
[2019-04-18] MEDS: Enoxaparin 40 MG/0.4 ML Syringe SC (08:14)
[2019-04-18] MEDS: Furosemide 40 MG Tablet PO (08:14)
[2019-04-18 08:31] LABS: Bedside Glucose 152 mg/dL (70-110)
--- NOTE | 2019-04-18 10:47 | NURSING ---
wound photo: right great toe
--- NOTE | 2019-04-18 11:08 | PCM.PN.PUL ---
Patient Problems: Active and Suspected Problems Cellulitis of right foot (Acute) Sepsis (Acute) RUSS (acute kidney injury) (Acute) Hyponatremia (Acute) Cellulitis of right lower extremity (Acute) Ulcer of right foot with fat layer exposed (Acute) Subjective: Patient reports subjective improvement in respiratory situation. Patient is not reporting any cough. Patient was able to have and walking oximetry yesterday indicating no supplemental oxygen was indicated. Patient continues to report some pain at the lower extremities. Patient is also tolerated BiPAP overnight and reports subjective benefit. - Physical Exam Vitals/I&O's: Vital Signs Temp Pulse Resp BP Pulse Ox 36.7 C 87 16 167/84 H 92 04/18/19 08:09 04/18/19 08:09 04/18/19 08:09 04/18/19 08:09 04/18/19 08:09 Oxygen Flow Rate (L/min) [ 0 AMBULATING on Room Air] Oxygen Flow Rate (L/min) [At 0 REST on Room Air] Oxygen Flow Rate (L/min) 2 Oxygen Delivery Method Room Air Weight: 138.572 kg Body Mass Index (BMI) 43.8 Intake and Output for Last 24 Hours 04/16/19 04/17/19 04/18/19 23:59 23:59 23:59 Intake Total 880.50 / 880.50 1604 / 1604 400 / 400 Output Total 3175 / 3175 1450 / 1450 Balance -2294.50 / -2294.50 154 / 154 400 / 400 General: Alert, Oriented x3, Cooperative, No apparent distress, Well developed, Well nourished, - - Morbidly obese. Speaking in full sentences. HEENT: Atraumatic, PERRLA, EOMI, Normocephalic, - - No scleral icterus or injection noted Oral: Moist Mucosa, No Gingival or Mucosal Lesions/ Ulcerations Neck: Supple, No Nodes, Trachea Midline Lungs: No rhonchi, No wheeze, No rales, Diminished Cardiovascular: Regular rate, Regular Rhythm, Normal S1, Normal S2, No murmurs, No rub noted, No Gallop Abdomen: Bowel Sounds Present, Soft, Non Tender, Non-Distended Extremities: No cyanosis, Edema - Continues to improve Skin: - - No change compared to previous. Lower extremities were recently wrapped by wound nurse Musculoskeletal: No Tenderness to Palpation of Joints or Extremities Lymphatic: No Cervical, Supraclavicular, or Inguinal Adenopathy Neurological: Cranial nerves II-XII grossly intact, Neuro grossly intact, Motor Exam 5/5 strength throughout Psych/Mental Status: Alert and oriented to time, place, person, mood and affect Laboratory Results 04/09/19 16:35: Urine Total Protein Cancelled, Urine Albumin Cancelled, U Hnpum-2-Kszshtlt Cancelled, U Rxvrm-8-Vemwikyq Cancelled, U Beta Globulin Cancelled, U Gamma Globulin Cancelled, U PEP M-Bola Cancelled, Ur Immunofix PEP Note Cancelled 04/17/19 12:04: POC Glucose 327 H 04/17/19 16:46: POC Glucose 306 H 04/17/19 22:32: POC Glucose 357 H 04/18/19 06:50: Sodium 141, Potassium 4.0, Chloride 101, Carbon Dioxide 37.0 H, Anion Gap 3 L, BUN 34 H, Creatinine 0.91, Estim Creat Clear Calc 85.79, Est GFR (MDRD) Af Amer 109, Est GFR (MDRD) Non-Af 90, BUN/Creatinine Ratio 37.5 H, Glucose 175 H, Calcium 8.5 04/18/19 07:57: POC Glucose 152 H Current Medications Acetaminophen (Tylenol) 650 mg PO Q6H PRN PRN PRN Reason: Mild Pain (1-3)/Temp > 100.7 F Last Admin: 04/11/19 05:59 Dose: 650 mg Documented by: Albuterol/Ipratropium (Duoneb) 3 ml INHALATION Q4HWA.RT [facility] Last Admin: 04/18/19 10:42 Dose: 3 ml Documented by: Amlodipine Besylate (Norvasc) 10 mg PO DAILY [facility] Last Admin: 04/18/19 08:13 Dose: 10 mg Documented by: Carvedilol (Coreg) 12.5 mg PO BID [facility] Last Admin: 04/18/19 08:13 Dose: 12.5 mg Documented by: Collagenase (Santyl) 1 applic TOPICAL DAILY [facility]; Protocol Last Admin: 04/17/19 08:22 Dose: 1 applicatio Documented by: Dextrose (D50w Syringe) 0 gm IV X1 PRN; Protocol PRN Reason: Hypoglycemia Enoxaparin Sodium (Lovenox) 40 mg SC Q12 [facility] Last Admin: 04/18/19 08:14 Dose: 40 mg Documented by: Furosemide (Lasix) 40 mg PO DAILY [facility] Last Admin: 04/18/19 08:14 Dose: 40 mg Documented by: Glucagon () 1 mg IM .X1 PRN PRN Reason: Hypoglycemia Heparin Sodium (Beef Lung) () 50 units IV UD PRN PRN Reason: PICC Line Heparin Flush Hydralazine HCl (Apresoline Iv) 5 mg IV Q6H PRN PRN PRN Reason: BLOOD PRESSURE Last Admin: 04/17/19 22:49 Dose: 5 mg Documented by: Sodium Chloride () 250 mls @ 15 mls/hr IV .[id number] PRN PRN Reason: Saline Flush Last Infusion: 04/16/19 12:00 Dose: 0 mls/hr Documented by: Ceftriaxone Sodium 2 gm/ (Sodium Chloride) 50 mls @ 100 mls/hr IV Q24 SH[facility]QUE Last Infusion: 04/18/19 09:34 Dose: Infused Documented by: Insulin Glargine (Lantus (Bkc)) 20 units SC BREAKFAST [facility] Last Admin: 04/18/19 08:01 Dose: 20 units Documented by: Insulin Glargine (Lantus (Bkc)) 20 units SC QHS [facility] Last Admin: 04/17/19 22:33 Dose: 20 u Documented by: Insulin Human Lispro (Humalog Kwikpen (Bkc)) 0 unit SC ACHS [facility]; Protocol Last Admin: 04/18/19 08:01 Dose: 3 u Documented by: Insulin Human Lispro (Humalog Kwikpen (Bkc)) 10 unit SC LUNCH [facility] Last Admin: 04/17/19 12:08 Dose: 10 u Documented by: Insulin Human Lispro (Humalog Kwikpen (Bkc)) 10 unit SC DINNER [facility] Last Admin: 04/17/19 16:48 Dose: 1 u Documented by: Insulin Human Lispro (Humalog Kwikpen (Bkc)) 10 unit SC BREAKFAST [facility] Last Admin: 04/18/19 08:01 Dose: 10 u Documented by: Magnesium Hydroxide (Milk Of Magnesia) 30 ml PO DAILY PRN PRN PRN Reason: Constipation Metronidazole (Flagyl) 500 mg PO TID [facility] Last Admin: 04/18/19 06:06 Dose: 500 mg Documented by: Nutritional Formula (Chun - [place] Flavor) 1 packet PO BIDCM [facility] Last Admin: 04/18/19 08:02 Dose: 1 packet Documented by: Nutritional Formula (Lactose Free) (Glucerna Shake) 120 ml PO 4X/DAY [facility] Last Admin: 04/18/19 08:13 Dose: 120 ml Documented by: Ondansetron HCl (Zofran) 4 mg IV Q8H PRN PRN PRN Reason: NAUSEA/VOMITING Oxycodone HCl (Oxyir) 5 mg PO Q4H PRN PRN PRN Reason: Moderate Pain (4-6/10) Last Admin: 04/18/19 06:08 Dose: 5 mg Documented by: Sodium Chloride () 5 - 15 ml IV UD PRN PRN Reason: SALINE FLUSH Last Admin: 04/15/19 09:30 Dose: 10 ml Documented by: Sodium Chloride (0.9% Nacl (Sterile) Posiflush) 10 - 40 ml IV UD PRN PRN Reason: Port access or dressing change Sodium Chloride () 10 - 40 ml IV UD PRN PRN Reason: SALINE FLUSH Last Admin: 04/18/19 06:53 Dose: 20 ml Documented by: Medical Necessity - Tobacco Use Smoking Status: Never smoker Tobacco Use: Cigarettes Assessment/Plan All Active Problems Cellulitis of right foot (Acute) Sepsis (Acute) RUSS (acute kidney injury) (Acute) Hyponatremia (Acute) Cellulitis of right lower extremity (Acute) Ulcer of right foot with fat layer exposed (Acute) RECOMMENDATIONS: 1. Continue nocturnal BiPAP therapy. 2. Continue diuresis. No supplemental oxygen is indicated on discharge 3. Encourage the use of incentive spirometry. Mobilize patient as tolerated. 4. Patient should establish with a business solution analyst on arrival to [place]. 5. Encourage BiPAP and low-salt diet compliance to avoid future complications 6. Okay to discharge from a pulmonary perspective IMPRESSIONS: 1. Acute combined respiratory failure Likely multifactorial in etiology with obesity hypoventilation, underlying atelectasis and congestive heart failure contributing. Patient has responded well to diuretic therapy. Patient continues to have some significant lower extremity edema and would benefit from continued diuretic and low-salt diet. Patient should establish with a business solution analyst in [place] for evaluation of cor pulmonale and for pulmonary work-up such as complete PFT. 2. Sepsis secondary to diabetic foot infection Continue current supportive measures and antimicrobials per infectious diseases recommendations. Podiatry and infectious disease are following. 3. Acute kidney injury Resolved. Continue management per nephrology recommendations. Creatinine improving with diuresis indicating probable improved perfusion with optimization of Starling forces and cardiac perfusion of the kidneys. Would continue aggressive diuresis. 4. Personal history of obstructive sleep apnea Patient does report obstructive sleep apnea. Clinical suspicion is is that current pressures are likely not high enough to control symptoms. Patient likely would benefit from a repeat titration as an outpatient. 5. Morbid obesity/hypertension/diabetes mellitus Complicates care, management, recovery and prognosis. Avoid nephrotoxic medications. Continue sliding scale coverage. Increased blood sugars likely secondary to elevated endogenous steroids given diabetic foot infection. Consider increase in Lantus therapy. Code Visit Inpatient E&M: 76851 Subs Hosp L2
--- NOTE | 2019-04-18 11:55 | DCINST_ITS ---
- Discharge Diagnoses Current Active Problems: Current Active and Chronic Problems Cellulitis of right foot (Acute) Sepsis (Acute) Hypertension (Chronic) DM type 2 (diabetes mellitus, type 2) (Chronic) Morbid obesity (Chronic) ENEIDA (obstructive sleep apnea) (Chronic) RUSS (acute kidney injury) (Acute) Hyponatremia (Acute) Cellulitis of right lower extremity (Acute) Ulcer of right foot with fat layer exposed (Acute) Bilateral leg edema (Chronic) Type 2 diabetes mellitus with diabetic polyneuropathy (Chronic) You will use the following diet at home:: Calorie/Carbohydrate Controlled (specify 1200, 1400, etc), Cardiac Discharge Activity: May Not Drive, Use Walker, - - Wear right CAM walker with heel lift. To follow up with foot/ankle specialists to get fitted for a more durable formal heel lift and to apply CAM walker plastazote or felt offloading liners with a pocket cut out under his hallux ulcer site to relieve pressure. Weight Bearing Status: No weight bearing, - - ok to heel touch for transfers Keep extremity elevated above heart level: Right Leg Call your doctor if your incision/area has: Continuous Slow Oozing, Sudden Increased Bleeding, Increased Pain/ Swelling, Increased Redness, Foul Smelling Discharge Call your doctor if you observe: Fever of 101 or Higher Cleanse incision/area with: Soap & Water, - - To change daily with aquacell Ag to right hallux. cover with gauze and bin roll. Continue to wrap from foot to leg with several cleopatra wraps. Additional Instructions: Follow up with a [facility] wound care center. This is a national program and may be a center near your home in [place]. There is a nearby center in [place]; the center phone number is [phone]. I recommend you have a venous doppler with reflux evaluation performed to assess for venous insufficiency. If your veins in your leg are incompetent you may be a candidate for a venous ablation or sclerosis procedure to reduce the chronic swelling and inflammation. This will reduce pain, swelling, and infection risk. You would need to see a vein specialist or vascular surgeon for this potential workup. The wound center physician may be able to order this test and get this process started. Allergies/Adverse Reactions: Allergies Penicillins [PCN] Allergy (Verified 04/08/19 13:23) Other Sulfa (Sulfonamide Antibiotics) Allergy (Verified 04/08/19 13:23) Other Medications to take at Discharge Amlodipine [Norvasc] 10 mg PO DAILY 04/08/19 Carvedilol 12.5 mg PO DAILY 04/08/19 Glimepiride 4 mg PO DAILY 04/08/19 Metformin HCl 1,000 mg PO BID 04/08/19 Ramipril 10 mg PO QHS 04/08/19 Cefdinir [Omnicef [equiv]] 300 mg PO Q12H 35 Days #70 cap 04/16/19 metroNIDAZOLE [Flagyl] 500 mg PO TID 42 Days #14 tab 04/16/19 Furosemide [Lasix] 40 mg PO DAILY #30 tab 04/18/19 Insulin Glargine [Lantus SoloStar Pen] 20 units SUBCUT BID #1 box 04/18/19 Insulin Lispro [Humalog KwikPen] 10 unit SUBCUT TIDCM #1 box 04/18/19 Oxycodone [Oxyir] 5 mg PO Q4H PRN PRN 3 Days #15 tab 04/18/19 The following prescriptions were given: metroNIDAZOLE [Flagyl] 500 mg PO TID 42 Days #14 tab Transmission Status: Received by [facility] Insulin Lispro [Humalog KwikPen] 10 unit SUBCUT TIDCM #1 box Transmission Status: Received by [facility] Insulin Glargine [Lantus SoloStar Pen] 20 units SUBCUT BID #1 box Transmission Status: Received by [facility] Furosemide [Lasix] 40 mg PO DAILY #30 tab Transmission Status: Received by [facility] Cefdinir [Omnicef [equiv]] 300 mg PO Q12H 35 Days #70 cap Transmission Status: Received by [facility] Oxycodone [Oxyir] 5 mg PO Q4H PRN PRN 3 Days #15 tab PRN Reason: Moderate Pain (4-6/10) Transmission Status: Received by [facility] Orders to be completed after discharge: Glucometer Location: None Selected Primary Care Physician: Care Physician,No Primary [Primary Care Provider] - Please follow up with your Primary Care Physician in: 1 Week Test Results: Test results from this visit will be discussed in further detail at your follow- up appointment, if applicable. Please Follow Up With: Lindsey Jacques DPM - [facility] as noted above When: If you happen to stay in [place], call [facility] [phone]. Proposed Discharge Date: 04/16/19
--- NOTE | 2019-04-18 12:07 | PCM.DC.SUM ---
<Karen Lake - Last Filed: 04/18/19 12:25> Discharge Date and Diagnosis Date of Admission: 04/08/19 Date of Discharge: 04/18/19 - Primary Discharge Diagnosis Active and Suspected Problems 1. Sepsis secondary to right right great toe diabetic foot ulcer with associated right lower extremity cellulitis, early osteomyelitis right great toe 2. Acute hypoxic respiratory insufficiency-multifactorial, suspected secondary to acute diastolic CHF, obesity hypoventilation and underlying atelectasis. 3. Acute diastolic CHF 4. Acute Klebsiella UTI 5. Acute kidney injury-resolved. 6. Type 2 diabetes mellitus 7. Hypertension 8. ENEIDA 9. Morbid obesity - Secondary Discharge Diagnosis Chronic Problems Hypertension (Chronic) DM type 2 (diabetes mellitus, type 2) (Chronic) Morbid obesity (Chronic) ENEIDA (obstructive sleep apnea) (Chronic) Bilateral leg edema (Chronic) Type 2 diabetes mellitus with diabetic polyneuropathy (Chronic) Hospital Course and Treatment Imaging Results: Diagnostic Data Foot X-Ray 04/08/19 14:01 IMPRESSION: 1. No fabi bony destructive process. Soft tissue swelling of the medial or the lateral foot. 2. Superficial debris of the distal plantar foot/toes. 3. Multifocal degenerative changes. Electronically Signed: Dominic Perla MD ([place]) at 14:56 EDT , Service support , Tibia/Fibula X-Ray 04/09/19 18:20 IMPRESSION: No acute bony injury of the tibia and fibula. Electronically Signed: Shady Herring DO at 20:43 EDT Tel [phone], Service support , Chest X-Ray 04/12/19 03:29 IMPRESSION: Bilateral airspace opacity, right significantly worse compared to the left suggestive of asymmetric pulmonary edema versus right-sided pneumonia. Possible mild effusions overall findings stable slightly worsened in the interval. Right-sided PICC line as described above. Electronically Signed: Mariposa Botello MD at 4:03 EDT , Service support , Lower Extremity MRI 04/13/19 14:30 IMPRESSION: No MRI evidence of osteomyelitis. Partial tear of the Achilles tendon. Longitudinal split tear of the peroneal brevis. Arthritic change. Electronically Signed: Rush Neff MD at 8:43 EDT , Service support , Consultations 04/08/19 17:46 Consult: Onc/Wound/assistant sales center manager Routine Comment: Operations: None Procedures: 2-D Echocardiogram Summary of Care Provided: The patient is a 63 year old M admitted 04/08/2019 due to right lower leg redness. 1. Sepsis secondary to right right great toe diabetic foot ulcer with associated right lower extremity cellulitis, early osteomyelitis right great toe-ID and podiatry following. DVT ruled out. Patient will need outpatient follow-up for right lower extremity suspected venous insufficiency. Continue with dressing changes per orders, offloading right lower extremity. Plan for discharge on oral Flagyl for 2 weeks and oral Omnicef for 5 weeks with stop date 05/20/2019. Patient to follow-up with podiatry in [place] at discharge. Per podiatry discharge instructions: Follow up with a [facility] wound care center. This is a national program and may be a center near your home in [place]. There is a nearby center in [place]; the center phone number is [phone]. I recommend you have a venous doppler with reflux evaluation performed to assess for venous insufficiency. If your veins in your leg are incompetent you may be a candidate for a venous ablation or sclerosis procedure to reduce the chronic swelling and inflammation. This will reduce pain, swelling, and infection risk. You would need to see a vein specialist or vascular surgeon for this potential workup. The wound center physician may be able to order this test and get this process started. Soap & Water, - - To change daily with aquacell Ag to right hallux. cover with gauze and bin roll. Continue to wrap from foot to leg with several tata wraps. 2. Acute hypoxic respiratory insufficiency-multifactorial, suspected secondary to acute diastolic CHF, obesity hypoventilation and underlying atelectasis. Encouraged incentives parameter. Continue diuretic regimen. Oxygen now stable on room air. Walking pulse ox completed prior to discharge and patient did not require further supplemental oxygen. 3. Acute diastolic CHF-echocardiogram demonstrates an EF of 65%, stage II diastolic dysfunction. Previously on IV Lasix, transition to Lasix 40 mg daily. 4. Acute Klebsiella UTI-completed IV Rocephin. 5. Acute kidney injury-resolved. 6. Type 2 diabetes mellitus-Hemoglobin A1c 12.2%. Continue home oral regimen. Additionally added on Lantus 20 units twice daily and Humalog 10 units 3 times daily with meals. 7. Hypertension-continue home carvedilol, amlodipine TATA inhibitor regimen. HCTZ discontinued at discharge. 8. ENEIDA-continue BiPAP nightly. Pulmonary recommending outpatient titration study as current pressures are likely not sufficient. 9. Morbid obesity-encouraged diet and lifestyle modifications. General: Alert, Oriented x3, Cooperative HEENT: Atraumatic, PERRLA, EOMI, Normocephalic Neck: Supple, No JVD, Negative Carotid Bruits Lungs: Clear to auscultation, Normal air movement Cardiovascular: Regular rate, Regular Rhythm, Normal S1, Normal S2, No murmurs Abdomen: Bowel Sounds Present, Soft, Non Tender, Non-Distended Extremities: No clubbing, No cyanosis, No edema, Capillary Refill Less than 3 Seconds Skin: - - Chronic venous stasis skin changes bilateral lower extremities. Right foot dressing clean dry and intact. Musculoskeletal: No Tenderness to Palpation of Joints or Extremities Neurological: Cranial nerves II-XII grossly intact, Neuro grossly intact Psych/Mental Status: Normal Affect, Appropriate Patient seen and examined prior to discharge. Physical assessment as noted above. Patient is stable for discharge with follow up recommendations as noted above. This patient was seen by BONI Ortiz under the supervision of Dr. Aranda. - Physical Exam Vitals/I&O's: Vital Signs Temp Pulse Resp BP Pulse Ox 98.1 F 88 20 H 167/84 H 92 04/18/19 08:09 04/18/19 10:42 04/18/19 10:42 04/18/19 08:09 04/18/19 08:09 Oxygen Flow Rate (L/min) [ 0 AMBULATING on Room Air] Oxygen Flow Rate (L/min) [At 0 REST on Room Air] Oxygen Flow Rate (L/min) 2 Oxygen Delivery Method Room Air Weight: 305 lb 7.983 oz Body Mass Index (BMI) 43.8 Intake and Output for Last 24 Hours 04/16/19 04/17/19 04/18/19 23:59 23:59 23:59 Intake Total 880.50 / 880.50 1604 / 1604 400 / 400 Output Total 3175 / 3175 1450 / 1450 Balance -2294.50 / -2294.50 154 / 154 400 / 400 Laboratory Results 04/09/19 16:35: Urine Total Protein Cancelled, Urine Albumin Cancelled, U Isrvu-3-Xvmimofj Cancelled, U Sccti-1-Yxvzzuan Cancelled, U Beta Globulin Cancelled, U Gamma Globulin Cancelled, U PEP M-Bola Cancelled, Ur Immunofix PEP Note Cancelled 04/17/19 12:04: POC Glucose 327 H 04/17/19 16:46: POC Glucose 306 H 04/17/19 22:32: POC Glucose 357 H 04/18/19 06:50: Sodium 141, Potassium 4.0, Chloride 101, Carbon Dioxide 37.0 H, Anion Gap 3 L, BUN 34 H, Creatinine 0.91, Estim Creat Clear Calc 85.79, Est GFR (MDRD) Af Amer 109, Est GFR (MDRD) Non-Af 90, BUN/Creatinine Ratio 37.5 H, Glucose 175 H, Calcium 8.5 04/18/19 07:57: POC Glucose 152 H Current Medications Acetaminophen (Tylenol) 650 mg PO Q6H PRN PRN PRN Reason: Mild Pain (1-3)/Temp > 100.7 F Last Admin: 04/11/19 05:59 Dose: 650 mg Documented by: Albuterol/Ipratropium (Duoneb) 3 ml INHALATION Q4HWA.RT SHANIQUE Last Admin: 04/18/19 10:42 Dose: 3 ml Documented by: Amlodipine Besylate (Norvasc) 10 mg PO DAILY SHANIQUE Last Admin: 04/18/19 08:13 Dose: 10 mg Documented by: Carvedilol (Coreg) 12.5 mg PO BID SHANIQUE Last Admin: 04/18/19 08:13 Dose: 12.5 mg Documented by: Collagenase (Santyl) 1 applic TOPICAL DAILY SHANIQUE; Protocol Last Admin: 04/17/19 08:22 Dose: 1 applicatio Documented by: Dextrose (D50w Syringe) 0 gm IV X1 PRN; Protocol PRN Reason: Hypoglycemia Enoxaparin Sodium (Lovenox) 40 mg SC Q12 [facility] Last Admin: 04/18/19 08:14 Dose: 40 mg Documented by: Furosemide (Lasix) 40 mg PO DAILY [facility] Last Admin: 04/18/19 08:14 Dose: 40 mg Documented by: Glucagon () 1 mg IM .X1 PRN PRN Reason: Hypoglycemia Heparin Sodium (Beef Lung) () 50 units IV UD PRN PRN Reason: PICC Line Heparin Flush Hydralazine HCl (Apresoline Iv) 5 mg IV Q6H PRN PRN PRN Reason: BLOOD PRESSURE Last Admin: 04/17/19 22:49 Dose: 5 mg Documented by: Sodium Chloride () 250 mls @ 15 mls/hr IV .[id number] PRN PRN Reason: Saline Flush Last Infusion: 04/16/19 12:00 Dose: 0 mls/hr Documented by: Ceftriaxone Sodium 2 gm/ (Sodium Chloride) 50 mls @ 100 mls/hr IV Q24 [facility]QUE Last Infusion: 04/18/19 09:34 Dose: Infused Documented by: Insulin Glargine (Lantus (Bkc)) 20 units SC BREAKFAST [facility] Last Admin: 04/18/19 08:01 Dose: 20 units Documented by: Insulin Glargine (Lantus (Bkc)) 20 units SC QHS [facility] Last Admin: 04/17/19 22:33 Dose: 20 u Documented by: Insulin Human Lispro (Humalog Kwikpen (Bkc)) 0 unit SC ACHS [facility]; Protocol Last Admin: 04/18/19 08:01 Dose: 3 u Documented by: Insulin Human Lispro (Humalog Kwikpen (Bkc)) 10 unit SC LUNCH [facility] Last Admin: 04/17/19 12:08 Dose: 10 u Documented by: Insulin Human Lispro (Humalog Kwikpen (Bkc)) 10 unit SC DINNER [facility] Last Admin: 04/17/19 16:48 Dose: 1 u Documented by: Insulin Human Lispro (Humalog Kwikpen (Bkc)) 10 unit SC BREAKFAST [facility] Last Admin: 04/18/19 08:01 Dose: 10 u Documented by: Magnesium Hydroxide (Milk Of Magnesia) 30 ml PO DAILY PRN PRN PRN Reason: Constipation Metronidazole (Flagyl) 500 mg PO TID [facility] Last Admin: 04/18/19 06:06 Dose: 500 mg Documented by: Nutritional Formula (Chun - Charlotte Flavor) 1 packet PO BIDCM [facility] Last Admin: 04/18/19 08:02 Dose: 1 packet Documented by: Nutritional Formula (Lactose Free) (Glucerna Shake) 120 ml PO 4X/DAY [facility] Last Admin: 04/18/19 08:13 Dose: 120 ml Documented by: Ondansetron HCl (Zofran) 4 mg IV Q8H PRN PRN PRN Reason: NAUSEA/VOMITING Oxycodone HCl (Oxyir) 5 mg PO Q4H PRN PRN PRN Reason: Moderate Pain (4-6/10) Last Admin: 04/18/19 06:08 Dose: 5 mg Documented by: Sodium Chloride () 5 - 15 ml IV UD PRN PRN Reason: SALINE FLUSH Last Admin: 04/15/19 09:30 Dose: 10 ml Documented by: Sodium Chloride (0.9% Nacl (Sterile) Posiflush) 10 - 40 ml IV UD PRN PRN Reason: Port access or dressing change Sodium Chloride () 10 - 40 ml IV UD PRN PRN Reason: SALINE FLUSH Last Admin: 04/18/19 06:53 Dose: 20 ml Documented by: Discharge Diet: Low fat/ Low Cholesterol, Carb Control Diet Discharge Activity: May Not Drive, Use Walker, - - Wear right CAM walker with heel lift. To follow up with foot/ankle specialists to get fitted for a more durable formal heel lift and to apply CAM walker plastazote or felt offloading liners with a pocket cut out under his hallux ulcer site to relieve pressure. Weight Bearing Status: No weight bearing, - - ok to heel touch for transfers Keep extremity elevated above heart level: Right Leg Call your doctor if your incision/area has: Continuous Slow Oozing, Sudden Increased Bleeding, Increased Pain/ Swelling, Increased Redness, Foul Smelling Discharge Call your doctor if you observe: Fever of 101 or Higher Cleanse incision/area with: Soap & Water, - - To change daily with aquacell Ag to right hallux. cover with gauze and bin roll. Continue to wrap from foot to leg with several tata wraps. Home Medications: Medications to take at Discharge Amlodipine [Norvasc] 10 mg PO DAILY 04/08/19 Carvedilol 12.5 mg PO DAILY 04/08/19 Glimepiride 4 mg PO DAILY 04/08/19 Metformin HCl 1,000 mg PO BID 04/08/19 Ramipril 10 mg PO QHS 04/08/19 Cefdinir [Omnicef [equiv]] 300 mg PO Q12H 35 Days #70 cap 04/16/19 metroNIDAZOLE [Flagyl] 500 mg PO TID 42 Days #14 tab 04/16/19 Furosemide [Lasix] 40 mg PO DAILY #30 tab 04/18/19 Insulin Glargine [Lantus SoloStar Pen] 20 units SUBCUT BID #1 box 04/18/19 Insulin Lispro [Humalog KwikPen] 10 unit SUBCUT TIDCM #1 box 04/18/19 Oxycodone [Oxyir] 5 mg PO Q4H PRN PRN 3 Days #15 tab 04/18/19 Following Prescrptions Were Given to Patient: metroNIDAZOLE [Flagyl] 500 mg PO TID 42 Days #14 tab Transmission Status: Received by [facility] Insulin Lispro [Humalog KwikPen] 10 unit SUBCUT TIDCM #1 box Transmission Status: Received by [facility] Insulin Glargine [Lantus SoloStar Pen] 20 units SUBCUT BID #1 box Transmission Status: Received by [facility] Furosemide [Lasix] 40 mg PO DAILY #30 tab Transmission Status: Received by [facility] Cefdinir [Omnicef [equiv]] 300 mg PO Q12H 35 Days #70 cap Transmission Status: Received by [facility] Oxycodone [Oxyir] 5 mg PO Q4H PRN PRN 3 Days #15 tab PRN Reason: Moderate Pain (4-6/10) Transmission Status: Received by [facility] Other Amb Orders: Glucometer Location: None Selected Primary Care Physician: Care Physician,No Primary [Primary Care Provider] - Please follow up with your Primary Care Physician in: 1 Week Please Follow Up With: Lindsey Jacques DPM When: If you happen to stay in [place], call [facility] [phone]. Additional Instructions: Follow up with a [facility] wound care center. This is a national program and may be a center near your home in [place]. There is a nearby center in [place]; the center phone number is [phone]. I recommend you have a venous doppler with reflux evaluation performed to assess for venous insufficiency. If your veins in your leg are incompetent you may be a candidate for a venous ablation or sclerosis procedure to reduce the chronic swelling and inflammation. This will reduce pain, swelling, and infection risk. You would need to see a vein specialist or vascular surgeon for this potential workup. The wound center physician may be able to order this test and get this process started. Disposition: Home Minutes spent on discharge:: 35 Patient Condition:: Stable Medical Necessity - Tobacco Use Smoking Status: Never smoker Tobacco Use: Cigarettes Meaningful Use Info Meaningful Use Diagnoses (Choose all that apply): CHF - CHF TATA/ARB ordered at discharge?: Yes Documented LVEF (%): 65 <Rodriguez Aranda - Last Filed: 04/18/19 12:43> Discharge Date and Diagnosis - Secondary Discharge Diagnosis Chronic Problems Hypertension (Chronic) DM type 2 (diabetes mellitus, type 2) (Chronic) Morbid obesity (Chronic) ENEIDA (obstructive sleep apnea) (Chronic) Bilateral leg edema (Chronic) Type 2 diabetes mellitus with diabetic polyneuropathy (Chronic) Hospital Course and Treatment Consultations 04/08/19 17:46 Consult: Onc/Wound/assistant sales center manager Routine Comment: Summary of Care Provided: The patient is a 63 year old M [] - Physical Exam Vitals/I&O's: Vital Signs Temp Pulse Resp BP Pulse Ox 98.1 F 88 20 H 167/84 H 92 04/18/19 08:09 04/18/19 10:42 04/18/19 10:42 04/18/19 08:09 04/18/19 08:09 Oxygen Flow Rate (L/min) [ 0 AMBULATING on Room Air] Oxygen Flow Rate (L/min) [At 0 REST on Room Air] Oxygen Flow Rate (L/min) 2 Oxygen Delivery Method Room Air Weight: 305 lb 7.983 oz Body Mass Index (BMI) 43.8 Intake and Output for Last 24 Hours 04/16/19 04/17/19 04/18/19 23:59 23:59 23:59 Intake Total 880.50 / 880.50 1604 / 1604 400 / 400 Output Total 3175 / 3175 1450 / 1450 400 / 400 Balance -2294.50 / -2294.50 154 / 154 0 / 0 Laboratory Results 04/09/19 16:35: Urine Total Protein Cancelled, Urine Albumin Cancelled, U Lsizn-5-Kmubymui Cancelled, U Zmeze-9-Hyknaorc Cancelled, U Beta Globulin Cancelled, U Gamma Globulin Cancelled, U PEP M-Bola Cancelled, Ur Immunofix PEP Note Cancelled 04/17/19 16:46: POC Glucose 306 H 04/17/19 22:32: POC Glucose 357 H 04/18/19 06:50: Sodium 141, Potassium 4.0, Chloride 101, Carbon Dioxide 37.0 H, Anion Gap 3 L, BUN 34 H, Creatinine 0.91, Estim Creat Clear Calc 85.79, Est GFR (MDRD) Af Amer 109, Est GFR (MDRD) Non-Af 90, BUN/Creatinine Ratio 37.5 H, Glucose 175 H, Calcium 8.5 04/18/19 07:57: POC Glucose 152 H 04/18/19 12:30: POC Glucose 273 H Current Medications Acetaminophen (Tylenol) 650 mg PO Q6H PRN PRN PRN Reason: Mild Pain (1-3)/Temp > 100.7 F Last Admin: 04/11/19 05:59 Dose: 650 mg Documented by: Albuterol/Ipratropium (Duoneb) 3 ml INHALATION Q4HWA.RT [facility] Last Admin: 04/18/19 10:42 Dose: 3 ml Documented by: Amlodipine Besylate (Norvasc) 10 mg PO DAILY [facility] Last Admin: 04/18/19 08:13 Dose: 10 mg Documented by: Carvedilol (Coreg) 12.5 mg PO BID [facility] Last Admin: 04/18/19 08:13 Dose: 12.5 mg Documented by: Collagenase (Santyl) 1 applic TOPICAL DAILY [facility]; Protocol Last Admin: 04/18/19 12:27 Dose: 1 applicatio Documented by: Dextrose (D50w Syringe) 0 gm IV X1 PRN; Protocol PRN Reason: Hypoglycemia Enoxaparin Sodium (Lovenox) 40 mg SC Q12 [facility] Last Admin: 04/18/19 08:14 Dose: 40 mg Documented by: Furosemide (Lasix) 40 mg PO DAILY [facility] Last Admin: 04/18/19 08:14 Dose: 40 mg Documented by: Glucagon () 1 mg IM .X1 PRN PRN Reason: Hypoglycemia Heparin Sodium (Beef Lung) () 50 units IV UD PRN PRN Reason: PICC Line Heparin Flush Hydralazine HCl (Apresoline Iv) 5 mg IV Q6H PRN PRN PRN Reason: BLOOD PRESSURE Last Admin: 04/17/19 22:49 Dose: 5 mg Documented by: Sodium Chloride () 250 mls @ 15 mls/hr IV .[id number] PRN PRN Reason: Saline Flush Last Infusion: 04/16/19 12:00 Dose: 0 mls/hr Documented by: Ceftriaxone Sodium 2 gm/ (Sodium Chloride) 50 mls @ 100 mls/hr IV Q24 [facility] Last Infusion: 04/18/19 09:34 Dose: Infused Documented by: Insulin Glargine (Lantus (Bkc)) 20 units SC BREAKFAST [facility] Last Admin: 04/18/19 08:01 Dose: 20 units Documented by: Insulin Glargine (Lantus (Bkc)) 20 units SC QHS [facility] Last Admin: 04/17/19 22:33 Dose: 20 u Documented by: Insulin Human Lispro (Humalog Kwikpen (Bkc)) 0 unit SC ACHS [facility]; Protocol Last Admin: 04/18/19 12:31 Dose: 9 u Documented by: Insulin Human Lispro (Humalog Kwikpen (Bkc)) 10 unit SC LUNCH [facility] Last Admin: 04/18/19 12:30 Dose: 10 u Documented by: Insulin Human Lispro (Humalog Kwikpen (Bkc)) 10 unit SC DINNER [facility] Last Admin: 04/17/19 16:48 Dose: 1 u Documented by: Insulin Human Lispro (Humalog Kwikpen (Bkc)) 10 unit SC BREAKFAST [facility] Last Admin: 04/18/19 08:01 Dose: 10 u Documented by: Magnesium Hydroxide (Milk Of Magnesia) 30 ml PO DAILY PRN PRN PRN Reason: Constipation Metronidazole (Flagyl) 500 mg PO TID [facility] Last Admin: 04/18/19 06:06 Dose: 500 mg Documented by: Nutritional Formula (Chun - Charlotte Flavor) 1 packet PO BIDCM [facility] Last Admin: 04/18/19 08:02 Dose: 1 packet Documented by: Nutritional Formula (Lactose Free) (Glucerna Shake) 120 ml PO 4X/DAY [facility] Last Admin: 04/18/19 08:13 Dose: 120 ml Documented by: Ondansetron HCl (Zofran) 4 mg IV Q8H PRN PRN PRN Reason: NAUSEA/VOMITING Oxycodone HCl (Oxyir) 5 mg PO Q4H PRN PRN PRN Reason: Moderate Pain (4-6/10) Last Admin: 04/18/19 12:28 Dose: 5 mg Documented by: Sodium Chloride () 5 - 15 ml IV UD PRN PRN Reason: SALINE FLUSH Last Admin: 04/15/19 09:30 Dose: 10 ml Documented by: Sodium Chloride (0.9% Nacl (Sterile) Posiflush) 10 - 40 ml IV UD PRN PRN Reason: Port access or dressing change Sodium Chloride () 10 - 40 ml IV UD PRN PRN Reason: SALINE FLUSH Last Admin: 04/18/19 06:53 Dose: 20 ml Documented by: Code Visit Addendum: Dr. Aranda I personally examined the patient and reviewed the chart. I agree with the above. 63-year-old male who presents to the hospital with right lower extremity cellulitis on his great toe. He also developed some shortness of breath and was on 10 L nasal cannula. He was found to have diastolic heart failure which is acute and he was started on Lasix and he has had improvement in his breathing from 10 L to about 4 L nasal cannula, and he is now on room air with an oxygen sat in the low 90s. He is from [place] and has already bought plane tickets for Tuesday to return. He also appears to have some signs of osteo-in his right lower extremity and infectious disease was consulted and felt that he would be able to continue Flagyl and Omnicef as an outpatient for several weeks on discharge. He would need to follow-up with a primary care doctor on his return to [place]. Also we have had some difficulty controlling his blood sugars given the fact that he is a severe diabetic with an A1c of 12.7. 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 He maintains he does not need insulin and that his blood sugars are well controlled on just metformin alone and thinks that all of his blood sugar problems are due to the infection. Blood cultures have been negative, and will continue with Rocephin for his UTI. DC today after wound teaching. He will need to be on 5 weeks of PO abx for his osteo per ID. He will need to f/u with his PCP JAMIE on his return to [place] this tuesday. Inpatient E&M: [id number] Disch Hosp
[2019-04-18] MEDS: Collagenase 30gm Tube 1 APPLIC TOPICAL (12:27)
[2019-04-18 12:36] LABS: Bedside Glucose 273 mg/dL (70-110)
--- NOTE | 2019-04-18 13:32 | CASEMGMT ---
Per Lidia in pharmacy, pt's total for meds is going to be about $326 and pt [facility] does not have the availability to cover that at this time. Pt states 'I just won't take my meds until I get back to [place] on Tuesday and then I can try to figure out how to pay for them.' Pt states has no credit card either to use. Jignesh SW aware at this time and [facility] Rx assist to be used at this time. [facility] pharmacy aware and will deliver meds to bed. Ronnell SNYDER updated on all, voices understanding. Pt states that he does have a glucometer with him that works and able to check blood sugars. Per Carolee wound RN, pt ok to change dressing once home on Tuesday and can assist. Wound supplies sent with pt until can f/u at wound clinic or PCP in [place]. Pt understands the importance of f/u once home. Rodolfo SNYDER CM
--- NOTE | 2019-04-18 13:35 | CASEMGMT ---
SW utilized [facility] prescription assistance program for patient's discharge medication as he does not have insurance and he does not have the money to pay for them. Latanya DORANTES MSW
== END 2019-04-18 14:42 | disposition home or self-care (01) | DRG 853 ==
LOC: ED 16:14 → MS3 17:13 → PCU 04-10 15:38
PROVIDERS: Hospitalist; Internal Medicine; Internal Medicine Critical Care Medicine; Internal Medicine Nephrology; Nurse Practitioner Family; Podiatrist; Admitting Provider Internal Medicine; Emergency Provider Emergency Medicine; Visit Provider Family Medicine
DX: A41.9 Sepsis, unspecified organism (principal); I50.31 Acute diastolic (congestive) heart failure; J96.01 Acute respiratory failure with hypoxia; J96.02 Acute respiratory failure with hypercapnia; G93.41 Metabolic encephalopathy; L03.115 Cellulitis of right lower limb; Z68.41 Body mass index [BMI] 40.0-44.9, adult; N17.9 Acute kidney failure, unspecified; N30.00 Acute cystitis without hematuria; E87.1 Hypo-osmolality and hyponatremia; E11.65 Type 2 diabetes mellitus with hyperglycemia; E11.621 Type 2 diabetes mellitus with foot ulcer; E11.69 Type 2 diabetes mellitus with other specified complication; E66.01 Morbid (severe) obesity due to excess calories; B96.1 Klebsiella pneumoniae [K. pneumoniae] as the cause of diseases classified elsewhere; I11.0 Hypertensive heart disease with heart failure; E87.6 Hypokalemia; G47.33 Obstructive sleep apnea (adult) (pediatric); L97.512 Non-pressure chronic ulcer of other part of right foot with fat layer exposed; I87.2 Venous insufficiency (chronic) (peripheral); Z79.84 Long term (current) use of oral hypoglycemic drugs; E11.628 Type 2 diabetes mellitus with other skin complications; E11.42 Type 2 diabetes mellitus with diabetic polyneuropathy
CPT/HCPCS: 36415; 36569; 36600; 71045; 73590; 73630; 73718; 73721; 80048; 80053; 80202; 81001; 82570; 82784; 82803; 82962; 83036; 83605; 83735; 83880; 84165; 84166; 84300; 84484; 85025; 85027; 85610; 85652; 85730; 86140; 86160; 86334; 87040; 87070; 87075; 87077; 87086; 87088; 87186; 87205; 87640; 93005; 93306; 93971; 94003; 94640; 94660; 97116; 97163; 97166; 97530; 97802; 97803; 99285; J2997; J7030; J7040; J7050; A4216; C8929; J0696; J1940